=== PATIENT | male | born 1960 | race Caucasian/White ===

== ENCOUNTER 2016-06-07 09:54 | Emergency (ER) | payer OTHER ==
[~2016-06-07 09:54] MED LIST: /MOXI40TA PO; ALBU0.084 IN; ALBU20IN INH; ALBUPOW25 INH; AUGM875T27 PO; CELE10TA PO; COMBIN INH; LEVO750T PO; NAPR500T2 PO; NEXI5GRA PO; NICO14PA EXT; NICO21PAT EXT; NICO7PA EXT; PERC7.5T12 PO
[2016-06-07] MEDS ORDERED: ALBUTEROL 90 MCG/ACT 8GM HFA INHALER As Ordered ONE (10:32)
[2016-06-07 10:57] LABS: BASO % 0.3 % (0.0-1.0); EOS # 0.1 K/mm3 (0.0-0.50); LARGE UNSTAINED CELL # 0.2 K/mm3 (0.0-0.4); LARGE UNSTAINED CELL % 2.1 % (0.0-4.0); LYMPH # 0.7 K/mm3 (1.5-4.5); LYMPH % 7.6 % (24.0-44.0); MEAN CORPUSCULAR HEMOGLOBIN 28.9 pg (27.0-33.0); MEAN CORPUSCULAR HGB CONC 34.1 g/dl (32.0-36.5); MEAN CORPUSCULAR VOLUME 84.6 fl (80.0-96.0); MONO # 0.7 K/mm3 (0.0-0.8); MONO % 7.5 % (0.0-5.0); NEUTROPHILS # 7.4 K/mm3 (1.8-7.7); NEUTROPHILS % 81.5 % (36.0-66.0); PLATELET COUNT, AUTOMATED 306 k/mm3 (150-450); RED CELL DISTRIBUTION WIDTH 13.8 % (11.5-14.5)
--- NOTE | 2016-06-07 11:47 | REP ---
Clinical: Cough. Technique: PA and lateral. Comparison: 03/01/2016. Findings: Pleuroparenchymal changes involving predominately the left upper lobe and, right perihilar region and right lung base are essentially unchanged. No new acute consolidation, effusion, or pneumothorax appreciated. Cardiac silhouette is stable and within normal limits. Skeletal structures are intact. Impression: Stable chronic pleuroparenchymal changes noted bilaterally. No obvious acute cardiopulmonary process identified. Signed by Patric Geller MD 06/07/2016 11:38 A
--- NOTE | 2016-06-07 12:38 | EDDOCDS ---
Nurse's Notes [facility] Name: Tomás Doshi Age: 55 yrs Sex: Male : 1960 Arrival Date: 06/07/2016 Time: 09:54 Bed I6 / 28 Private MD: Josué Baker Diagnosis: Chronic obstructive pulmonary disease with (acute) exacerbation Presentation: 06/07 10:02 Presenting complaint: Patient states: sent here by PCP due to feeling that pt may have dy pneumonia and he may be dehydrated. production cough with white sputum production. Adult Sepsis Screening: The patient does not have new or worsening altered mentation. Patient's respiratory rate is less than 22. Systolic blood pressure is greater than 100. Patient has a qSOFA score of 0- Negative Sepsis Screen. Suicide/Homicide risk assessment- the patient denies having any suicidal and/or homicidal ideations and does not present with any other emotional, behavioral or mental health complaints. Status: Patient is not a donor services manager or dependent. Transition of care: patient was not received from another setting of care. 10:02 Acuity: GENESIS Level 3 dy 10:02 Method Of Arrival: Walkin/Carried/Asstd dy Triage Assessment: 10:04 General: Appears in no apparent distress. Pain: Location: back. HIV screening NA for dy this visit Offered previously. Respiratory: Onset: The symptoms/episode began/occurred gradually. Historical: - Allergies: No known drug Allergies; - Home Meds: 1. oxycodone 30 mg Oral tab 1 tab three times a day (Last dose: 06/07/2016 09:00) - PMHx: GERD; lung cancer; Chronic Back pain; - PSHx: lung surgery; belly button cyst removal; - Social history: Smoking status: Patient uses tobacco products, heavy tobacco smoker. No barriers to communication noted, The patient speaks fluent Kyrgyz, Speaks appropriately for age. - Family history: Not pertinent. - : The pt / caregiver states he / she is not on anticoagulants. Home medication list is obtained from the patient. - Exposure Risk Screening:: None identified. Screenin:34 Screening information is obtained from the patient. Fall risk: No risks identified. ck1 Assistance ADL's: requires no assistance with activities of daily living. Abuse/DV Screen: The patient / caregiver reports he/she is: not in a situation that causes fear, pain or injury. Nutritional screening: No deficits noted. Advance Directives: Currently, there is no health care proxy. home support is adequate. Assessment: 10:34 General: Appears in no apparent distress, comfortable, Behavior is appropriate for age, ck1 cooperative. Pain: Location: head Pain currently is 6 out of 10 on a pain scale. Quality of pain is described as aching. Cardiovascular: Chest pain is denied. Respiratory: Airway is patent Respiratory effort is even, unlabored, Respiratory pattern is regular, symmetrical, Breath sounds with wheezes bilaterally. GI: No deficits noted. Derm: Skin is intact, Skin is pink, warm & dry. 11:34 Reassessment: Patient appears in no apparent distress at this time. ck1 12:36 General: Appears in no apparent distress, comfortable, Behavior is appropriate for age, ck1 cooperative. Pain: Location: head Pain currently is 7 out of 10 on a pain scale. Neurological: Level of Consciousness is awake, alert, obeys commands, Oriented to person, place, time. Cardiovascular: Chest pain is denied. Respiratory: Respiratory effort is unlabored, Respiratory pattern is regular, symmetrical. GI: No deficits noted. Derm: Skin is intact, Skin is pink, warm & dry. Musculoskeletal: No deficits noted. Vital Signs: 09:56 BP 110 / 75; Pulse 123; Resp 18; Temp 96.9; Pulse Ox 98% ; Weight 49.9 kg; Height 5 ft. cmb 6 in. (167.64 cm); Pain 6/10; 12:27 BP 105 / 70 LA Sitting (auto/reg); Pulse 123; Resp 18; Temp 97.8(O); Pulse Ox 96% on jrd R/A; Pain 7/10; 09:56 Body Mass Index 17.75 (49.90 kg, 167.64 cm) cmb Vitals: 09:56 Log In Time: June 07, 2016 at 09:55. cmb ED Course: 09:55 Patient visited by Vidya Sanchez. cmb 09:55 Josué Baker PA is Private Physician. cmb 09:55 Patient moved to Waiting cmb 09:57 Patient moved to Pre RCE cmb 10:04 Triage Initiated dy 10:05 Patient moved to Triage 2 dy 10:25 [facility]. cc10 10:25 Almas Ferreira MD is Attending Physician. cc10 10:25 Patient visited by Ge Gonzalez PA-C. cc10 10:25 Patient visited by Ge Gonzalez PA-C. cc10 10:29 Patient moved to I6 mlb1 10:34 The patient / caregiver is instructed regarding the plan of care and ED course. ck1 10:35 No IV's were initiated during this patient's visit. ck1 10:46 Patient visited by Lilli Kong RN. ck1 10:46 Lactic Acid (Hitchcock tube on ice) Sent. ck1 10:46 BMP Sent. ck1 10:46 CBC with Diff Sent. ck1 11:27 [facility] Payment Agreement was scanned into [employer] and attached to record. mm15 11:28 Patient visited by Lilli Kong RN. ck1 12:00 Patient visited by Lilli Kong RN. ck1 12:19 Chest, 2 View (pa\E\lat) Returned. EDMS 12:24 Josué Baker PA is Referral Physician. cc10 12:28 Patient visited by Cholo Duran PCA. jrd 12:36 No procedures done that require assistance. ck1 Administered Medications: 10:50 Drug: Ventolin 2 puffs [Ventolin HFA 90 mcg/actuation aerosol inhaler (2 puffs)] Route: sd7 Inhalation; RT: 10:50 Initial MDI Given. Patient was instructed and evaluated on procedure Patient tolerated sd7 procedure well without adverse effect Spacer used Number of puffs given: 2. Order Results: Lab Order: CBC with Diff; SPEC'M 06/07/16 10:44 Test: WHITE BLOOD COUNT; Value: 9.0; Range: 4.0-10.0; Units: K/mm3; Status: F Test: RED BLOOD COUNT; Value: 5.66; Range: 4.30-6.10; Units: M/mm3; Status: F Test: HEMOGLOBIN; Value: 16.3; Range: 14.0-18.0; Units: g/dl; Status: F Test: HEMATOCRIT; Value: 47.9; Range: 42.0-52.0; Units: %; Status: F Test: MEAN CORPUSCULAR VOLUME; Value: 84.6; Range: 80.0-96.0; Units: fl; Status: F Test: MEAN CORPUSCULAR HEMOGLOBIN; Value: 28.9; Range: 27.0-33.0; Units: pg; Status: F Test: MEAN CORPUSCULAR HGB CONC; Value: 34.1; Range: 32.0-36.5; Units: g/dl; Status: F Test: RED CELL DISTRIBUTION WIDTH; Value: 13.8; Range: 11.5-14.5; Units: %; Status: F Test: PLATELET COUNT, AUTOMATED; Value: 306; Range: 150-450; Units: k/mm3; Status: F Test: NEUTROPHILS %; Value: 81.5; Range: 36.0-66.0; Abnormal: Above high normal; Units: %; Status: F Test: LYMPH %; Value: 7.6; Range: 24.0-44.0; Abnormal: Below low normal; Units: %; Status: F Test: MONO %; Value: 7.5; Range: 0.0-5.0; Abnormal: Above high normal; Units: %; Status: F Test: EOS %; Value: 1.0; Range: 0.0-3.0; Units: %; Status: F Test: BASO %; Value: 0.3; Range: 0.0-1.0; Units: %; Status: F Test: LARGE UNSTAINED CELL %; Value: 2.1; Range: 0.0-4.0; Units: %; Status: F Test: NEUTROPHILS #; Value: 7.4; Range: 1.8-7.7; Units: K/mm3; Status: F Test: LYMPH #; Value: 0.7; Range: 1.5-4.5; Abnormal: Below low normal; Units: K/mm3; Status: F Test: MONO #; Value: 0.7; Range: 0.0-0.8; Units: K/mm3; Status: F Test: EOS #; Value: 0.1; Range: 0.0-0.50; Units: K/mm3; Status: F Test: BASO #; Value: 0.0; Range: 0.0-0.2; Units: K/mm3; Status: F Test: LARGE UNSTAINED CELL #; Value: 0.2; Range: 0.0-0.4; Units: K/mm3; Status: F Lab Order: Lactic Acid (Hitchcock tube on ice); SPEC'M 06/07/16 10:44 Test: LACTIC ACID LEVEL, LACTATE; Value: 1.8; Range: 0.4-2.0; Units: MMOL/L; Status: F Radiology Order: Chest, 2 View (pa\E\lat) Test: Chest, 2 View (pa\E\lat) REASON FOR EXAMINATION: Cough; Clinical: Cough.; ; Technique: PA and lateral.; ; Comparison: 03/01/2016.; ; Findings:; Pleuroparenchymal changes involving predominately the left upper lobe and, right; perihilar region and right lung base are essentially unchanged. No new acute; consolidation, effusion, or pneumothorax appreciated. Cardiac silhouette is; stable and within normal limits. Skeletal structures are intact.; ; Impression:; Stable chronic pleuroparenchymal changes noted bilaterally.; No obvious acute cardiopulmonary process identified.; ; ; Signed by; Patric Geller MD 06/07/2016 11:38 A; Outcome: 12:24 Discharge ordered by Provider. cc10 12:35 Discharge Assessment: Patient awake, alert and oriented x 3. No cognitive and/or ck1 functional deficits noted. Patient verbalized understanding of disposition instructions. patient administered narcotics - no. The following High Risk Discharge criteria are identified: None. Discharged to home ambulatory. Condition: stable. Discharge instructions given to patient, Instructed on discharge instructions, follow up and referral plans. medication usage, Demonstrated understanding of instructions, medications, Pt was receptive of discharge instructions/ teaching. Prescriptions given X 3. No special radiology studies were completed. Property :Personal belongings accompany Pt. 12:37 Patient left the ED. ck1 Signatures: Dispatcher [employer] EDWilliam Cast, RN Barber Bucther RN RN mlb1 Lilli Kong RN RN ck1 Vidya Sanchez Marlynn mm15 Ge Gonzalez, PA-C PA-C cc10 Kiara Lopez,RT RT sd7 Cholo Duran, MALIKA HELIOTHERAPIST jrd MTDD
--- NOTE | 2016-06-07 12:38 | EDDOCDS ---
Physician Documentation [facility] Name: Tomás Doshi Age: 55 yrs Sex: Male : 1960 Arrival Date: 06/07/2016 Time: 09:54 Bed I6 / 28 Private MD: Josué Baker Disposition: 06/07/16 12:24 Discharged to Home/Self Care. Impression: Chronic obstructive pulmonary disease with (acute) exacerbation. - Condition is Stable. - Discharge Instructions: Chronic Obstructive Pulmonary Disease. - Prescriptions for Prednisone 20 mg Oral Tablet - take 2 tablet by ORAL route once daily for 5 days; 10 tablet. Zithromax Z- Uche 250 mg Oral Tablet - take 2 tablet by ORAL route once daily for 3 days; 6 tablet. Albuterol Sulfate 90 mcg/actuation Inhalation HFA Aerosol Inhaler - inhale 2 puff by INHALATION route every 4 hours As needed; 1 Inhaler. - Medication Reconciliation, Local Pharmacy Hours form. - Follow up: Emergency Department; When: As needed; Reason: Worsening of conditions. Follow up: Josué Baker PA; When: Call to arrange an appointment; Reason: Wound/Symptom Recheck, Recheck today's complaints, Worsening of conditions, Continuance of care. - Problem is an ongoing problem. - Symptoms have improved. Historical: - Allergies: No known drug Allergies; - Home Meds: 1. oxycodone 30 mg Oral tab 1 tab three times a day (Last dose: 06/07/2016 09:00) - PMHx: GERD; lung cancer; Chronic Back pain; - PSHx: lung surgery; belly button cyst removal; - Social history: Smoking status: Patient uses tobacco products, heavy tobacco smoker. No barriers to communication noted, The patient speaks fluent [place], Speaks appropriately for age. - Family history: Not pertinent. - : The pt / caregiver states he / she is not on anticoagulants. Home medication list is obtained from the patient. - Exposure Risk Screening:: None identified. Vital Signs: 06/07 09:56 BP 110 / 75; Pulse 123; Resp 18; Temp 96.9; Pulse Ox 98% ; Weight 49.9 kg / 110.01 lbs; cmb Height 5 ft. 6 in. (167.64 cm); Pain 6/10; 12:27 BP 105 / 70 LA Sitting (auto/reg); Pulse 123; Resp 18; Temp 97.8(O); Pulse Ox 96% on jrd R/A; Pain 12/04; 09:56 Body Mass Index 17.75 (49.90 kg, 167.64 cm) cmb MDM: 10:31 Call Respiratory ordered. cc10 10:31 MDI teaching with Spacer ordered. cc10 10:31 Ventolin Inhaler 2 puffs Inhalation once ordered. cc10 10:31 Call Respiratory complete. ck1 10:32 Chest, 2 View (pa\E\lat) Ordered. EDMS 10:37 CBC with Diff Ordered. EDMS 10:37 BMP Ordered. EDMS 10:37 Lactic Acid (Hitchcock tube on ice) Ordered. EDMS 11:15 Financial registration complete. mm15 11:27 [facility] Payment Agreement was scanned into [employer] and attached to record. mm15 11:57 CBC with Diff Reviewed. cc10 11:57 Lactic Acid (Hitchcock tube on ice) Reviewed. cc10 12:21 Chest, 2 View (pa\E\lat) Reviewed. cc10 Administered Medications: 10:50 Drug: Ventolin 2 puffs [Ventolin HFA 90 mcg/actuation aerosol inhaler (2 puffs)] Route: sd7 Inhalation; Signatures: Dispatcher [employer] EDWilliam Cast, RN RN Lilli BanegasRN RN ck1 Gadiel Santizo mm15 Ge Gonzalez PA-C PA-C cc10 Kiara Lopez RT sd7 The chart was reviewed and I authenticate all verbal orders and agree with the evaluation and treatment provided.Attachments: 11:27 [facility] Payment Agreement mm15 MTDD
[2016-06-07 12:39] LABS: ANION GAP 8 MEQ/L (8-16); BLOOD UREA NITROGEN 10 MG/DL (7-18); CALCIUM LEVEL 9.2 MG/DL (8.5-10.1); CARBON DIOXIDE LEVEL 30 MEQ/L (21-32); CHLORIDE LEVEL 99 MEQ/L (98-107); CREATININE FOR GFR 0.89 MG/DL (0.70-1.30); GLOMERULAR FILTRATION RATE > 60.0 (>56); GLUCOSE, FASTING 107 MG/DL (70-105); POTASSIUM SERUM 4.2 MEQ/L (3.5-5.1); SODIUM LEVEL 137 MEQ/L (136-145)
--- NOTE | 2016-06-09 13:38 | EDDOCDS ---
Nurse's Notes [facility] Name: Tomás Doshi Age: 55 yrs Sex: Male : 1960 Arrival Date: 06/07/2016 Time: 09:54 Bed I6 / 28 Private MD: Josué Baker Diagnosis: Chronic obstructive pulmonary disease with (acute) exacerbation Presentation: 06/07 10:02 Presenting complaint: Patient states: sent here by PCP due to feeling that pt may have dy pneumonia and he may be dehydrated. production cough with white sputum production. Adult Sepsis Screening: The patient does not have new or worsening altered mentation. Patient's respiratory rate is less than 22. Systolic blood pressure is greater than 100. Patient has a qSOFA score of 0- Negative Sepsis Screen. Suicide/Homicide risk assessment- the patient denies having any suicidal and/or homicidal ideations and does not present with any other emotional, behavioral or mental health complaints. Status: Patient is not a environmental services aide or dependent. Transition of care: patient was not received from another setting of care. 10:02 Acuity: GENESIS Level 3 dy 10:02 Method Of Arrival: Walkin/Carried/Asstd dy Triage Assessment: 10:04 General: Appears in no apparent distress. Pain: Location: back. HIV screening NA for dy this visit Offered previously. Respiratory: Onset: The symptoms/episode began/occurred gradually. Historical: - Allergies: No known drug Allergies; - Home Meds: 1. oxycodone 30 mg Oral tab 1 tab three times a day (Last dose: 06/07/2016 09:00) - PMHx: GERD; lung cancer; Chronic Back pain; - PSHx: lung surgery; belly button cyst removal; - Social history: Smoking status: Patient uses tobacco products, heavy tobacco smoker. No barriers to communication noted, The patient speaks fluent Burkinan, Speaks appropriately for age. - Family history: Not pertinent. - : The pt / caregiver states he / she is not on anticoagulants. Home medication list is obtained from the patient. - Exposure Risk Screening:: None identified. Screenin:34 Screening information is obtained from the patient. Fall risk: No risks identified. ck1 Assistance ADL's: requires no assistance with activities of daily living. Abuse/DV Screen: The patient / caregiver reports he/she is: not in a situation that causes fear, pain or injury. Nutritional screening: No deficits noted. Advance Directives: Currently, there is no health care proxy. home support is adequate. Assessment: 10:34 General: Appears in no apparent distress, comfortable, Behavior is appropriate for age, ck1 cooperative. Pain: Location: head Pain currently is 6 out of 10 on a pain scale. Quality of pain is described as aching. Cardiovascular: Chest pain is denied. Respiratory: Airway is patent Respiratory effort is even, unlabored, Respiratory pattern is regular, symmetrical, Breath sounds with wheezes bilaterally. GI: No deficits noted. Derm: Skin is intact, Skin is pink, warm & dry. 11:34 Reassessment: Patient appears in no apparent distress at this time. ck1 12:36 General: Appears in no apparent distress, comfortable, Behavior is appropriate for age, ck1 cooperative. Pain: Location: head Pain currently is 7 out of 10 on a pain scale. Neurological: Level of Consciousness is awake, alert, obeys commands, Oriented to person, place, time. Cardiovascular: Chest pain is denied. Respiratory: Respiratory effort is unlabored, Respiratory pattern is regular, symmetrical. GI: No deficits noted. Derm: Skin is intact, Skin is pink, warm & dry. Musculoskeletal: No deficits noted. Vital Signs: 09:56 BP 110 / 75; Pulse 123; Resp 18; Temp 96.9; Pulse Ox 98% ; Weight 49.9 kg; Height 5 ft. cmb 6 in. (167.64 cm); Pain 6/10; 12:27 BP 105 / 70 LA Sitting (auto/reg); Pulse 123; Resp 18; Temp 97.8(O); Pulse Ox 96% on jrd R/A; Pain 7/10; 09:56 Body Mass Index 17.75 (49.90 kg, 167.64 cm) cmb Vitals: 09:56 Log In Time: June 07, 2016 at 09:55. cmb ED Course: 09:55 Patient visited by Vidya Sanchez. cmb 09:55 Josué Baker PA is Private Physician. cmb 09:55 Patient moved to Waiting cmb 09:57 Patient moved to Pre RCE cmb 10:04 Triage Initiated dy 10:05 Patient moved to Triage 2 dy 10:25 Ge Gonzalez PA-C [facility]. cc10 10:25 Almas Ferreira MD is Attending Physician. cc10 10:25 Patient visited by Ge Gonzalez PA-C. cc10 10:25 Patient visited by Ge Gonzalez PA-C. cc10 10:29 Patient moved to I6 / mlb1 10:34 The patient / caregiver is instructed regarding the plan of care and ED course. ck1 10:35 No IV's were initiated during this patient's visit. ck1 10:46 Patient visited by Lilli Kong RN. ck1 10:46 Lactic Acid (Hitchcock tube on ice) Sent. ck1 10:46 BMP Sent. ck1 10:46 CBC with Diff Sent. ck1 11:27 [facility] Payment Agreement was scanned into [employer] and attached to record. mm15 11:28 Patient visited by Lilli Kong RN. ck1 12:00 Patient visited by Lilli Kong RN. ck1 12:19 Chest, 2 View (pa\E\lat) Returned. EDMS 12:24 Josué Baker PA is Referral Physician. cc10 12:28 Patient visited by Cholo Duran PCA. jrd 12:36 No procedures done that require assistance. ck1 15:23 T-Sheet-- Draft Copy was scanned into [employer] and attached to record. gb Administered Medications: 10:50 Drug: Ventolin 2 puffs [Ventolin HFA 90 mcg/actuation aerosol inhaler (2 puffs)] Route: sd7 Inhalation; RT: 10:50 Initial MDI Given. Patient was instructed and evaluated on procedure Patient tolerated sd7 procedure well without adverse effect Spacer used Number of puffs given: 2. Order Results: Lab Order: CBC with Diff; SPEC'M 06/07/16 10:44 Test: WHITE BLOOD COUNT; Value: 9.0; Range: 4.0-10.0; Units: K/mm3; Status: F Test: RED BLOOD COUNT; Value: 5.66; Range: 4.30-6.10; Units: M/mm3; Status: F Test: HEMOGLOBIN; Value: 16.3; Range: 14.0-18.0; Units: g/dl; Status: F Test: HEMATOCRIT; Value: 47.9; Range: 42.0-52.0; Units: %; Status: F Test: MEAN CORPUSCULAR VOLUME; Value: 84.6; Range: 80.0-96.0; Units: fl; Status: F Test: MEAN CORPUSCULAR HEMOGLOBIN; Value: 28.9; Range: 27.0-33.0; Units: pg; Status: F Test: MEAN CORPUSCULAR HGB CONC; Value: 34.1; Range: 32.0-36.5; Units: g/dl; Status: F Test: RED CELL DISTRIBUTION WIDTH; Value: 13.8; Range: 11.5-14.5; Units: %; Status: F Test: PLATELET COUNT, AUTOMATED; Value: 306; Range: 150-450; Units: k/mm3; Status: F Test: NEUTROPHILS %; Value: 81.5; Range: 36.0-66.0; Abnormal: Above high normal; Units: %; Status: F Test: LYMPH %; Value: 7.6; Range: 24.0-44.0; Abnormal: Below low normal; Units: %; Status: F Test: MONO %; Value: 7.5; Range: 0.0-5.0; Abnormal: Above high normal; Units: %; Status: F Test: EOS %; Value: 1.0; Range: 0.0-3.0; Units: %; Status: F Test: BASO %; Value: 0.3; Range: 0.0-1.0; Units: %; Status: F Test: LARGE UNSTAINED CELL %; Value: 2.1; Range: 0.0-4.0; Units: %; Status: F Test: NEUTROPHILS #; Value: 7.4; Range: 1.8-7.7; Units: K/mm3; Status: F Test: LYMPH #; Value: 0.7; Range: 1.5-4.5; Abnormal: Below low normal; Units: K/mm3; Status: F Test: MONO #; Value: 0.7; Range: 0.0-0.8; Units: K/mm3; Status: F Test: EOS #; Value: 0.1; Range: 0.0-0.50; Units: K/mm3; Status: F Test: BASO #; Value: 0.0; Range: 0.0-0.2; Units: K/mm3; Status: F Test: LARGE UNSTAINED CELL #; Value: 0.2; Range: 0.0-0.4; Units: K/mm3; Status: F Lab Order: BMP; SPEC'M 06/07/16 10:44 Test: GLUCOSE, FASTING; Value: 107; Range: 70-105; Abnormal: Above high normal; Units: MG/DL; Status: F Test: BLOOD UREA NITROGEN; Value: 10; Range: 7-18; Units: MG/DL; Status: F Test: CREATININE FOR GFR; Value: 0.89; Range: 0.70-1.30; Units: MG/DL; Status: F Test: GLOMERULAR FILTRATION RATE; Value: > 60.0; Range: >56; Status: F Test: SODIUM LEVEL; Value: 137; Range: 136-145; Units: MEQ/L; Status: F Test: POTASSIUM SERUM; Value: 4.2; Range: 3.5-5.1; Units: MEQ/L; Status: F Test: CHLORIDE LEVEL; Value: 99; Range: 98-107; Units: MEQ/L; Status: F Test: CARBON DIOXIDE LEVEL; Value: 30; Range: 21-32; Units: MEQ/L; Status: F Test: ANION GAP; Value: 8; Range: 8-16; Units: MEQ/L; Status: F Test: CALCIUM LEVEL; Value: 9.2; Range: 8.5-10.1; Units: MG/DL; Status: F Test Note: ; Units are mL/min/1.73 m2 Chronic Kidney Disease Staging per NKF: Stage I & II GFR >=60 Normal to Mildly Decreased Stage III GFR 30-59 Moderately Decreased Stage IV GFR 15-29 Severely Decreased Stage V GFR <15 Very Little GFR Left ESRD GFR <15 on VIDEO PRODUCTION SPECIALIST Lab Order: Lactic Acid (Hitchcock tube on ice); SPEC'M 06/07/16 10:44 Test: LACTIC ACID LEVEL, LACTATE; Value: 1.8; Range: 0.4-2.0; Units: MMOL/L; Status: F Radiology Order: Chest, 2 View (pa\E\lat) Test: Chest, 2 View (pa\E\lat) REASON FOR EXAMINATION: Cough; Clinical: Cough.; ; Technique: PA and lateral.; ; Comparison: 03/01/2016.; ; Findings:; Pleuroparenchymal changes involving predominately the left upper lobe and, right; perihilar region and right lung base are essentially unchanged. No new acute; consolidation, effusion, or pneumothorax appreciated. Cardiac silhouette is; stable and within normal limits. Skeletal structures are intact.; ; Impression:; Stable chronic pleuroparenchymal changes noted bilaterally.; No obvious acute cardiopulmonary process identified.; ; ; Signed by; Patric Geller MD 06/07/2016 11:38 A; Outcome: 12:24 Discharge ordered by Provider. cc10 12:35 Discharge Assessment: Patient awake, alert and oriented x 3. No cognitive and/or ck1 functional deficits noted. Patient verbalized understanding of disposition instructions. patient administered narcotics - no. The following High Risk Discharge criteria are identified: None. Discharged to home ambulatory. Condition: stable. Discharge instructions given to patient, Instructed on discharge instructions, follow up and referral plans. medication usage, Demonstrated understanding of instructions, medications, Pt was receptive of discharge instructions/ teaching. Prescriptions given X 3. No special radiology studies were completed. Property :Personal belongings accompany Pt. 12:37 Patient left the ED. ck1 Signatures: Dispatcher [employer] EDMS Annita Humphrey, Reg Reg William Siu, RN Barber Butcher RN RN mlb1 Lilli Kong RN RN ck1 Vidya Sanchez cmGadiel Frazier mm15 Ge Gonzalez, PA-C PA-C cc10 Kiara Lopez,RT RT sd7 Cholo Duran, MALIKA AUXILIARY EQUIPMENT OPERATOR jrd Chart Complete MTDD
--- NOTE | 2016-06-09 13:38 | EDDOCDS ---
Physician Documentation [facility] Name: Tomás Doshi Age: 55 yrs Sex: Male : 1960 Arrival Date: 06/07/2016 Time: 09:54 Bed I6 / 28 Private MD: Josué Baker Disposition: 06/07/16 12:24 Discharged to Home/Self Care. Impression: Chronic obstructive pulmonary disease with (acute) exacerbation. - Condition is Stable. - Discharge Instructions: Chronic Obstructive Pulmonary Disease. - Prescriptions for Prednisone 20 mg Oral Tablet - take 2 tablet by ORAL route once daily for 5 days; 10 tablet. Zithromax Z- Uche 250 mg Oral Tablet - take 2 tablet by ORAL route once daily for 3 days; 6 tablet. Albuterol Sulfate 90 mcg/actuation Inhalation HFA Aerosol Inhaler - inhale 2 puff by INHALATION route every 4 hours As needed; 1 Inhaler. - Medication Reconciliation, Local Pharmacy Hours form. - Follow up: Emergency Department; When: As needed; Reason: Worsening of conditions. Follow up: Josué Baker PA; When: Call to arrange an appointment; Reason: Wound/Symptom Recheck, Recheck today's complaints, Worsening of conditions, Continuance of care. - Problem is an ongoing problem. - Symptoms have improved. Historical: - Allergies: No known drug Allergies; - Home Meds: 1. oxycodone 30 mg Oral tab 1 tab three times a day (Last dose: 06/07/2016 09:00) - PMHx: GERD; lung cancer; Chronic Back pain; - PSHx: lung surgery; belly button cyst removal; - Social history: Smoking status: Patient uses tobacco products, heavy tobacco smoker. No barriers to communication noted, The patient speaks fluent Bangladeshi, Speaks appropriately for age. - Family history: Not pertinent. - : The pt / caregiver states he / she is not on anticoagulants. Home medication list is obtained from the patient. - Exposure Risk Screening:: None identified. Vital Signs: 06/07 09:56 BP 110 / 75; Pulse 123; Resp 18; Temp 96.9; Pulse Ox 98% ; Weight 49.9 kg / 110.01 lbs; cmb Height 5 ft. 6 in. (167.64 cm); Pain 6/10; 12:27 BP 105 / 70 LA Sitting (auto/reg); Pulse 123; Resp 18; Temp 97.8(O); Pulse Ox 96% on jrd R/A; Pain 12/04; 09:56 Body Mass Index 17.75 (49.90 kg, 167.64 cm) cmb MDM: 10:31 Call Respiratory ordered. cc10 10:31 MDI teaching with Spacer ordered. cc10 10:31 Ventolin Inhaler 2 puffs Inhalation once ordered. cc10 10:31 Call Respiratory complete. ck1 10:32 Chest, 2 View (pa\E\lat) Ordered. EDMS 10:37 CBC with Diff Ordered. EDMS 10:37 BMP Ordered. EDMS 10:37 Lactic Acid (Hitchcock tube on ice) Ordered. EDMS 11:15 Financial registration complete. mm15 11:27 [facility] Payment Agreement was scanned into [employer] and attached to record. mm15 11:57 CBC with Diff Reviewed. cc10 11:57 Lactic Acid (Hitchcock tube on ice) Reviewed. cc10 12:21 Chest, 2 View (pa\E\lat) Reviewed. cc10 15:23 T-Sheet-- Draft Copy was scanned into [employer] and attached to record. gb Administered Medications: 10:50 Drug: Ventolin 2 puffs [Ventolin HFA 90 mcg/actuation aerosol inhaler (2 puffs)] Route: sd7 Inhalation; Signatures: Dispatcher Med[employer] EDMS Annita Humphrey, Reg Reg gb William Hoskins, RN RN dy Lilli Kong RN RN ck1 Gadiel Santizo mm15 Ge Gonzalez PA-C PA-C cc10 Kiara Lopez RT sd7 The chart was reviewed and I authenticate all verbal orders and agree with the evaluation and treatment provided.Attachments: 11:27 [facility] Payment Agreement mm15 15:23 T-Sheet-- Draft Copy gb Chart Complete MTDD
--- NOTE | 2016-06-09 13:38 | EDDOCDS ---
Physician Documentation [facility] Name: Tomás Doshi Age: 55 yrs Sex: Male : 1960 Arrival Date: 06/07/2016 Time: 09:54 Bed I6 / 28 Private MD: Josué Baker Disposition: 06/07/16 12:24 Discharged to Home/Self Care. Impression: Chronic obstructive pulmonary disease with (acute) exacerbation. - Condition is Stable. - Discharge Instructions: Chronic Obstructive Pulmonary Disease. - Prescriptions for Prednisone 20 mg Oral Tablet - take 2 tablet by ORAL route once daily for 5 days; 10 tablet. Zithromax Z- Uche 250 mg Oral Tablet - take 2 tablet by ORAL route once daily for 3 days; 6 tablet. Albuterol Sulfate 90 mcg/actuation Inhalation HFA Aerosol Inhaler - inhale 2 puff by INHALATION route every 4 hours As needed; 1 Inhaler. - Medication Reconciliation, Local Pharmacy Hours form. - Follow up: Emergency Department; When: As needed; Reason: Worsening of conditions. Follow up: Josué Bakre PA; When: Call to arrange an appointment; Reason: Wound/Symptom Recheck, Recheck today's complaints, Worsening of conditions, Continuance of care. - Problem is an ongoing problem. - Symptoms have improved. Historical: - Allergies: No known drug Allergies; - Home Meds: 1. oxycodone 30 mg Oral tab 1 tab three times a day (Last dose: 06/07/2016 09:00) - PMHx: GERD; lung cancer; Chronic Back pain; - PSHx: lung surgery; belly button cyst removal; - Social history: Smoking status: Patient uses tobacco products, heavy tobacco smoker. No barriers to communication noted, The patient speaks fluent Omani, Speaks appropriately for age. - Family history: Not pertinent. - : The pt / caregiver states he / she is not on anticoagulants. Home medication list is obtained from the patient. - Exposure Risk Screening:: None identified. Vital Signs: 06/07 09:56 BP 110 / 75; Pulse 123; Resp 18; Temp 96.9; Pulse Ox 98% ; Weight 49.9 kg / 110.01 lbs; cmb Height 5 ft. 6 in. (167.64 cm); Pain 6/10; 12:27 BP 105 / 70 LA Sitting (auto/reg); Pulse 123; Resp 18; Temp 97.8(O); Pulse Ox 96% on jrd R/A; Pain 12/04; 09:56 Body Mass Index 17.75 (49.90 kg, 167.64 cm) cmb MDM: 10:31 Call Respiratory ordered. cc10 10:31 MDI teaching with Spacer ordered. cc10 10:31 Ventolin Inhaler 2 puffs Inhalation once ordered. cc10 10:31 Call Respiratory complete. ck1 10:32 Chest, 2 View (pa\E\lat) Ordered. EDMS 10:37 CBC with Diff Ordered. EDMS 10:37 BMP Ordered. EDMS 10:37 Lactic Acid (Hitchcock tube on ice) Ordered. EDMS 11:15 Financial registration complete. mm15 11:27 [facility] Payment Agreement was scanned into [employer] and attached to record. mm15 11:57 CBC with Diff Reviewed. cc10 11:57 Lactic Acid (Hitchcock tube on ice) Reviewed. cc10 12:21 Chest, 2 View (pa\E\lat) Reviewed. cc10 15:23 T-Sheet-- Draft Copy was scanned into [employer] and attached to record. gb Administered Medications: 10:50 Drug: Ventolin 2 puffs [Ventolin HFA 90 mcg/actuation aerosol inhaler (2 puffs)] Route: sd7 Inhalation; Signatures: Dispatcher Med[employer] EDMS Annita Humphrey, Reg Reg gb William Hoskins, RN RN dy Lilli Kong RN RN ck1 Gadiel Santizo mm15 Ge Gonzalez PA-C PA-C cc10 Kiara Lopez RT sd7 The chart was reviewed and I authenticate all verbal orders and agree with the evaluation and treatment provided.Attachments: 11:27 [facility] Payment Agreement mm15 15:23 T-Sheet-- Draft Copy gb Chart Complete MTDD
== END 2016-06-07 12:37 | disposition home or self-care (01) ==
LOC: M ED 09:54
DX: J44.1 Chronic obstructive pulmonary disease with (acute) exacerbation (principal); G89.29 Other chronic pain; M54.9 Dorsalgia, unspecified; Z85.118 Personal history of other malignant neoplasm of bronchus and lung; Z72.0 Tobacco use; Z79.899 Other long term (current) drug therapy

== ENCOUNTER → 2016-07-26 | Outpatient (CLI) | payer OTHER ==
--- NOTE | 2016-07-28 12:59 | RADONC ---
RADIATION ONCOLOGY FOLLOWUP NOTE DATE: 07/26/2016 CHART NUMBER: [id number] DIAGNOSIS: Lung cancer. STAGE: IIIB. ECOG PERFORMANCE STATUS: 1 FOLLOWUP NOTE: Mr. 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 The patient presents today reporting that generally he is doing quite well. He still has occasional blood-tinged sputum. Other than that he has no cough or pain. He is having no increased shortness of breath. REVIEW OF SYSTEMS: Patient's review of systems is positive for occasional hemoptysis but is otherwise noncontributory. Denies nausea, vomiting, fevers, chills, night sweats, diplopia, headaches, anxiety or depression, anorexia, weight loss, visual disturbances, chest pain, urinary or bowel difficulties, bone pain, or neurological problems. PHYSICAL EXAMINATION The patient is a cachectic, chronically ill-appearing white male in no acute distress. HEENT: Exam is normocephalic, atraumatic. Extraocular movements are intact. There is no palpable cervical, supraclavicular, infraclavicular, axillary or inguinal lymphadenopathy present. His lungs are clear to auscultation and percussion but have distant breath sounds bilaterally. His heart has a regular rate and rhythm. His abdomen is benign with no hepatosplenomegaly, masses or tenderness. Skeletal examination reveals no tenderness to pressure, percussion of the bony skeleton. Extremities reveal no clubbing, cyanosis or edema. Neurologic: TMs grossly intact as is the remainder of the physical examination. ASSESSMENT: The patient is clinically stable at this point and will be seen by me again in 6 months for further followup. He will also continue to be followed by his other physicians as well. cc: MD Tomás Huang MD A. Melynne Youngblood, MD *WILLIS Carver
== END ==
LOC: M ONCR 11:33
PROVIDERS: ATTEND Radiology Radiation Oncology
DX: C34.12 Malignant neoplasm of upper lobe, left bronchus or lung (principal)

== ENCOUNTER → 2016-08-31 | Emergency (ER) | payer OTHER ==
[~2016-08-31] MED LIST changes: +ALBU17IN; +LYRI100C10; +OXYC30TA84; +TRAZ50TA4
== END | disposition left against medical advice (07) ==
LOC: M ED 08:44
DX: R05 Cough (principal); Z79.899 Other long term (current) drug therapy; Z53.29 Procedure and treatment not carried out because of patient's decision for other reasons

== ENCOUNTER 2016-09-02 21:19 | Emergency (ER) | payer OTHER ==
[~2016-09-02] VITALS: Ht 170.2 cm; Wt 50.3 kg
[2016-09-02 21:19] VITALS: BP 127/71
[~2016-09-02 21:19] MED LIST changes: -ALBU17IN; -LYRI100C10; -OXYC30TA84; -TRAZ50TA4
[2016-09-02] MEDS ORDERED: OXYC30TA84 (21:32)
[2016-09-02] MEDS ORDERED: TRAZ50TA4 (21:32)
[2016-09-02] MEDS ORDERED: ALBU17IN (21:32)
[2016-09-02] MEDS ORDERED: LYRI100C10 (21:32)
--- NOTE | 2016-09-03 | ED PDOC ---
Post-Departure Follow-Up Patient left prior to MD evaluation. SANTIAGO Dunne MD Sep 03, 2016 00:00
== END 2016-09-02 22:43 | disposition left against medical advice (07) ==
LOC: M ED 22:39
DX: R06.02 Shortness of breath (principal); Z53.29 Procedure and treatment not carried out because of patient's decision for other reasons

== ENCOUNTER 2016-09-03 18:23 | Emergency (ER) | payer OTHER ==
[~2016-09-03] VITALS: Ht 170.2 cm; Wt 50.3 kg
[~2016-09-03 18:23] MED LIST changes: +ALBU17IN; +LYRI100C10; +OXYC30TA84; +TRAZ50TA4
[2016-09-03 18:24] VITALS: BP 127/72
== END 2016-09-03 18:57 | disposition left against medical advice (07) ==
LOC: M ED 18:44
DX: Z53.21 Procedure and treatment not carried out due to patient leaving prior to being seen by health care provider (principal)

== ENCOUNTER → 2017-01-01 | Outpatient (CLI) | payer OTHER ==
[~2017-01-01] MED LIST changes: -LYRI100C10; +PREG100CA; +TRAZ50TA11; -TRAZ50TA4
[2017-01-01 11:06] LABS: ANION GAP 8 MEQ/L (8-16); BLOOD UREA NITROGEN 13 MG/DL (7-18); CALCIUM LEVEL 8.7 MG/DL (8.5-10.1); CARBON DIOXIDE LEVEL 28 MEQ/L (21-32); CHLORIDE LEVEL 105 MEQ/L (98-107); CREATININE FOR GFR 1.05 MG/DL (0.70-1.30); GLOMERULAR FILTRATION RATE > 60.0 (>56); GLUCOSE, FASTING 135 MG/DL (70-105); MAGNESIUM LEVEL 2.4 MG/DL (1.8-2.4); POTASSIUM SERUM 4.3 MEQ/L (3.5-5.1); SODIUM LEVEL 141 MEQ/L (136-145)
== END ==
LOC: M LAB 10:00
PROVIDERS: ATTEND Nurse Practitioner Family
DX: M79.606 Pain in leg, unspecified (principal)

== ENCOUNTER 2017-03-10 21:16 | Emergency (ER) | payer OTHER ==
[~2017-03-10] VITALS: Ht 170.2 cm; Wt 56.4 kg
[2017-03-10] MEDS ORDERED: traMADol 50 MG TAB PO ONE (23:45)
[2017-03-10] MEDS ORDERED: IBUPROFEN 600 MG TAB PO ONE (23:45)
[2017-03-10 23:54] VITALS: BP 144/81
--- NOTE | 2017-03-11 11:30 | REP ---
Right ankle series: Four views. History: Trauma. Findings: Four views of the right ankle demonstrate an intact ankle mortise. No fracture or subluxation is seen. Impression: Negative right ankle series. Signed by Mario Bronson MD 03/11/2017 09:38 A
== END 2017-03-10 23:57 | disposition home or self-care (01) ==
LOC: M ED 21:16
DX: S93.401A Sprain of unspecified ligament of right ankle, initial encounter (principal); W19.XXXA Unspecified fall, initial encounter; Y92.410 Unspecified street and highway as the place of occurrence of the external cause; Y93.9 Activity, unspecified; Y99.9 Unspecified external cause status; F17.200 Nicotine dependence, unspecified, uncomplicated; J44.9 Chronic obstructive pulmonary disease, unspecified; Z85.118 Personal history of other malignant neoplasm of bronchus and lung; K21.9 Gastro-esophageal reflux disease without esophagitis; M51.9 Unspecified thoracic, thoracolumbar and lumbosacral intervertebral disc disorder; F41.9 Anxiety disorder, unspecified; F32.9 Major depressive disorder, single episode, unspecified; Z79.899 Other long term (current) drug therapy

== ENCOUNTER 2017-04-26 14:04 | Emergency (ER) | payer OTHER ==
[~2017-04-26] VITALS: Ht 170.2 cm; Wt 54.5 kg
--- NOTE | 2017-04-26 15:29 | ED PDOC ---
Post-Departure Follow-Up PT PRESENTS TODAY AND STATES HE HAS NOT FELT WELL IN THE LAST 2 WEEKS WITH COUGH , LIGHTHEADED, BODY TINGLING. STATES HAS A HX OF LUNG CA AND HAD A RIGHT LOBECTOMY FOR THIS IN 2013 WITH CHEMO AND 30 RADIATION TREATMENTS. STATES HE HAS NOT FOLLOWED UP BECAUSE, "I DON'T WANT TO KNOW IF IT'S BACK." PT STATES TODAY, WHEN HE WOKE UP TODAY, STATES HE FELT SO SHORT OF BREATH AND WALKED INTO THE KITCHEN AND FELL TO HIS KNEES, BUT DOESN'T RECALL FALLING, PER PT. STATES HE HAS SCUFF MARCUS ON HIS KNEES AND HAD FECAL INCONTINENCE. DENIES TRUE SYNCOPE. WENT TO URGENT CARE FIRST AND WAS TOLD TO COME TO THE ER FOR EVALUATION. TERE MENDIOLA PA-C Apr 26, 2017 15:29
[2017-04-26] MEDS ORDERED: NS 1,000 ML IV ONE (15:30)
--- NOTE | 2017-04-26 15:41 | REP ---
CT Head without contrast HISTORY: Syncope COMPARISON: 03/11/2013 There is no intraparenchymal hemorrhage, acute infarct, mass or midline shift. The ventricular system is normal in appearance. There is no extra cerebral collection. There is no fracture. The visualized sinuses are clear. IMPRESSION: There is no intracranial lesion. Signed by Parish Kirk MD 04/26/2017 03:34 P
[2017-04-26 15:56] LABS: BASO # 0.1 10^3/uL (0.0-0.2); BASO % 0.9 % (0.0-1.0); EOS # 0.1 10^3/uL (0.0-0.50); EOS % 1.3 % (0.0-3.0); IMMATURE GRANULOCYTE % 0.1 % (0-0); LYMPH # 0.8 10^3/uL (1.5-4.5); LYMPH % 10.6 % (24.0-44.0); MEAN CORPUSCULAR HEMOGLOBIN 29.7 pg (27.0-33.0); MEAN CORPUSCULAR HGB CONC 33.4 g/dl (32.0-36.5); MEAN CORPUSCULAR VOLUME 88.8 fl (80.0-96.0); MONO # 0.6 10^3/uL (0.0-0.8); MONO % 8.1 % (0.0-5.0); PLATELET COUNT, AUTOMATED 334 10^3/uL (150-450); RED CELL DISTRIBUTION WIDTH 12.2 % (11.5-14.5); WHITE BLOOD COUNT 7.6 10^3/uL (4.0-10.0)
--- NOTE | 2017-04-26 16:05 | REP ---
CHEST, TWO VIEWS: HISTORY: Cough. COMPARISON: 06/07/2016 The lungs are hyperinflated. An increase in interstitial markings is present in the lungs consistent with chronic interstitial change. Increased density is present in the left upper and right lower lobe and right perihilar region consistent with postradiation change and scarring. There is superior retraction of the left hilum. The heart is normal in size. The bony structure is intact. IMPRESSION: 1. Chronic interstitial fibrosis. 2. There is postradiation change and scarring in the left upper and right lower lobes and right perihilar region. Signed by Parish Kirk MD 04/26/2017 04:35 P
[2017-04-26 16:21] LABS: ALBUMIN 3.7 GM/DL (3.2-5.2); ALKALINE PHOSPHATASE 134 U/L (45-117); ALT/SGPT 12 U/L (12-78); ANION GAP 4 MEQ/L (8-16); AST/SGOT 9 U/L (7-37); BILIRUBIN,TOTAL 0.7 MG/DL (0.2-1.0); BLOOD UREA NITROGEN 14 MG/DL (7-18); CARBON DIOXIDE LEVEL 32 MEQ/L (21-32); CHLORIDE LEVEL 103 MEQ/L (98-107); CREATININE FOR GFR 1.18 MG/DL (0.70-1.30); GLOMERULAR FILTRATION RATE > 60.0 (>56); GLUCOSE, FASTING 91 MG/DL (70-105); POTASSIUM SERUM 3.9 MEQ/L (3.5-5.1); SODIUM LEVEL 139 MEQ/L (136-145); TOTAL PROTEIN 7.8 GM/DL (6.4-8.2)
[2017-04-26] MEDS ORDERED: NYSTOI TOP (16:59)
[2017-04-26 17:00] VITALS: BP 107/72
--- NOTE | 2017-04-27 09:18 | ECGEPIP ---
Stationary ECG Study [facility] - ED Test Date: 2017-04-26 Pat Name: ALBERT LAINEZ Department: Room: - Gender: M C D Still Operator: [place] : 1960 Requested By: TERE Cox PA-C Order Number: [id number] Reading MD: Andrew Reynaga Measurements Intervals [place] Rate: 95 P: 93 CO: 158 QRS: 90 QRSD: 99 T: 89 QT: 353 QTc: 445 Interpretive Statements SINUS RHYTHM POSSIBLE LEFT ATRIAL ENLARGEMENT POOR R WAVE PROGRESSION SIMILAR TO 08/09/14 Electronically Signed On 04-27-2017 9:17:46 EST by Andrew Reynaga
== END 2017-04-26 17:11 | disposition home or self-care (01) ==
LOC: M ED 14:04
DX: B35.6 Tinea cruris (principal); R06.02 Shortness of breath; C34.90 Malignant neoplasm of unspecified part of unspecified bronchus or lung; F41.9 Anxiety disorder, unspecified; F32.9 Major depressive disorder, single episode, unspecified; F17.200 Nicotine dependence, unspecified, uncomplicated; Z79.899 Other long term (current) drug therapy

== ENCOUNTER → 2017-05-14 | Outpatient (CLI) | payer OTHER ==
[~2017-05-14] MED LIST changes: +ISOVUE-370 76% 100ML VIAL (Q9967) As Ordered ONE; +NYSTOI TOP
--- NOTE | 2017-05-15 02:44 | REP ---
Clinical: History of lung cancer for reevaluation and restaging. Technique: Axial contrast enhanced images from the thoracic inlet to the upper abdomen using 100 ml Isovue 370 intravenous contrast material with coronal and sagittal re-formations. Comparison: 05/24/2016. Findings: Extensive bilateral chronic-appearing pleural parenchymal changes and postradiation type changes (left greater than right) along with evidence for underlying COPD remain relatively stable when compared to prior examination. Irregular areas of consolidation most notable in the left upper lobe as well as post radiation type changes along the medial aspect of the right hemithorax are again identified and appear stable. A calcified granuloma in the left lower lobe apical segment is unchanged and measures approximately 10.7 mm diameter. No new, obvious acute consolidation, significant mass lesion or nodule is identified. No pleural effusion. No pneumothorax. Mediastinum demonstrates relatively normal appearance to the heart, thoracic aorta and pulmonary vasculature. No obvious adenopathy. Musculoskeletal structures appear intact without focal osseous abnormality. Impression: Extensive bilateral chronic-appearing pleural parenchymal changes and postradiation type changes including stable calcified granuloma in the left lower lobe apical segment. Signed by Patric Geller MD 05/14/2017 11:36 P
== END ==
LOC: M RAD 15:51
PROVIDERS: ATTEND Internal Medicine Medical Oncology
DX: C34.90 Malignant neoplasm of unspecified part of unspecified bronchus or lung (principal)
CPT/HCPCS: 71260; Q9967

== ENCOUNTER → 2017-05-16 | Outpatient (CLI) | payer OTHER ==
[~2017-05-16] MED LIST changes: -ISOVUE-370 76% 100ML VIAL (Q9967) As Ordered ONE
--- NOTE | 2017-05-22 07:19 | RADONC ---
RADIATION ONCOLOGY FOLLOWUP NOTE DATE: 05/16/2017 CHART NUMBER: [id number] DIAGNOSIS: Lung cancer. STAGE: III B. ECOG PERFORMANCE STATUS: 1. FOLLOWUP NOTE: Mr. 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 The patient presents today reporting that generally he is doing fairly well. He does complain of episodes of hemoptysis. He also complains of neck pain which radiates weakness down both arms. He reports that this has been worsening. In addition, he has some bilateral chest pain. The patient was seen by Dr. Petersen who ordered CT scan of the chest which was done on 05/14/2017. This showed extensive bilateral chronic-appearing pleural parenchymal changes and post radiation type changes which appeared stable. No new evidence of malignancy was seen. REVIEW OF SYSTEMS: The patient's review of systems is positive for the above, but is otherwise noncontributory. He denies nausea, vomiting, fevers, chills, night sweats, diplopia, headaches, anxiety or depression, anorexia, visual disturbances, urinary or bowel difficulties, or neurological problems other than the numbness running down his arms. PHYSICAL EXAMINATION: The patient is a chronically ill-appearing, cachectic white male in no acute distress. HEENT: Normocephalic, atraumatic. Extraocular movements are intact. There is no palpable cervical, supraclavicular, infraclavicular, axillary or inguinal lymphadenopathy present. His lungs have some rhonchi present bilaterally. Heart has a regular rate and rhythm. His abdomen is benign with no hepatosplenomegaly, masses or tenderness. Skeletal examination does not reveal any acute point tenderness to pressure or percussion. Neurologic exam is grossly intact to sensory and motor. The patient appears to be actually quite stable at this point. I am ordering a new bone scan to be undertaken to evaluate the bones in his neck for metastatic disease. I have also scheduled him to be seen by me again in routine followup in three months' time. The patient is scheduled to see Dr. Petersen in just a few days to discuss the findings of his CT scan as well as the workup she is undertaking on him. cc: Emeli Petersen MD, FACP ADRIENNE CarverP MD Vicenta Chapman MD
== END ==
LOC: M ONCR 14:24
PROVIDERS: ATTEND Radiology Radiation Oncology
DX: C34.12 Malignant neoplasm of upper lobe, left bronchus or lung (principal)

== ENCOUNTER → 2017-06-22 | Outpatient (CLI) | payer OTHER | LOC: M RAD 07:46 | DX: C34.90 Malignant neoplasm of unspecified part of unspecified bronchus or lung (principal); M54.2 Cervicalgia ==

== ENCOUNTER 2018-02-23 12:13 | Emergency (ER) | payer MEDICARE, MEDICAID, OTHER ==
[2018-02-23] MEDS: BACTRIM 160MG/800MG DS TAB PO (14:56)
[2018-02-23 15:04] LABS: HEMATOCRIT 47.4 % (42.0-52.0); HEMOGLOBIN 16.1 g/dl (13.5-17.5); MEAN CORPUSCULAR HEMOGLOBIN 32.4 pg (27.0-33.0); MEAN CORPUSCULAR VOLUME 95.4 fl (80.0-96.0); PLATELET COUNT, AUTOMATED 239 10^3/uL (150-450); RED BLOOD COUNT 4.97 10^6/uL (4.30-6.10); RED CELL DISTRIBUTION WIDTH 12.5 % (11.5-14.5); WHITE BLOOD COUNT 8.8 10^3/uL (4.0-10.0)
[2018-02-23 15:07] LABS: ADD MANUAL DIFFER YES; DIFF SLIDE NUMBER 141; POSITIVE MORPH POS FLAG
[2018-02-23 15:26] LABS: ANION GAP 8 MEQ/L (8-16); ATYPICAL LYMPH 5 % (0-5); BLOOD UREA NITROGEN 13 MG/DL (7-18); CALCIUM LEVEL 9.1 MG/DL (8.5-10.1); CARBON DIOXIDE LEVEL 27 MEQ/L (21-32); CHLORIDE LEVEL 105 MEQ/L (98-107); CREATININE FOR GFR 1.02 MG/DL (0.70-1.30); EOSINOPHILS 4 % (0-5); GLOMERULAR FILTRATION RATE > 60.0 (>56); GLUCOSE, FASTING 97 MG/DL (70-100); LYMPHOCYTES 3 % (16-52); MONOCYTES 9 % (0-8); NEUTROPHILS 79 % (35-75); POTASSIUM SERUM 4.6 MEQ/L (3.5-5.1); SODIUM LEVEL 140 MEQ/L (136-145)
[2018-02-23 15:27] LABS: PLATELET ESTIMATE NORMAL (NORMAL)
== END 2018-02-23 15:00 | disposition left against medical advice (07) ==
LOC: M ED 12:13
DX: L02.224 Furuncle of groin (principal); K21.9 Gastro-esophageal reflux disease without esophagitis; Z85.118 Personal history of other malignant neoplasm of bronchus and lung; Z53.21 Procedure and treatment not carried out due to patient leaving prior to being seen by health care provider; Z79.899 Other long term (current) drug therapy
CPT/HCPCS: 80048

== ENCOUNTER → 2018-10-04 | Outpatient (CLI) | payer MEDICARE, MEDICAID ==
[~2018-10-04] MED LIST changes: -/MOXI40TA PO; +AVEL1TAB2 PO; +BACT800T5 PO; +CEFD1CAP8 PO; +LYRI150C PO; +NICO14DI20 EXT; -NICO14PA EXT; +NICO21DI3 EXT; -NICO21PAT EXT; +NICO7DIS23 EXT; -NICO7PA EXT; +OMEP-221 PO; +PATIENT COMMENTS; +PRED10TA2 PO; +PREG100CA PO; +TIZA4TAB4 PO; +TRAZ-160 PO; -TRAZ50TA11; +VENTAER INH
[2018-10-04 10:26] LABS: BASO % 0.5 % (0.0-1.0); EOS # 0.1 10^3/uL (0.0-0.50); EOS % 0.8 % (0.0-3.0); HEMATOCRIT 42.1 % (42.0-52.0); HEMOGLOBIN 13.9 g/dl (13.5-17.5); LYMPH # 0.6 10^3/uL (1.5-4.5); LYMPH % 8.2 % (24.0-44.0); MEAN CORPUSCULAR VOLUME 90.7 fl (80.0-96.0); MONO # 0.5 10^3/uL (0.0-0.8); MONO % 6.8 % (0.0-5.0); NEUTROPHILS # 6.5 10^3/uL (1.8-7.7); NEUTROPHILS % 83.1 % (36.0-66.0); PLATELET COUNT, AUTOMATED 236 10^3/uL (150-450); RED BLOOD COUNT 4.64 10^6/uL (4.30-6.10); WHITE BLOOD COUNT 7.8 10^3/uL (4.0-10.0)
[2018-10-04 11:06] LABS: BLOOD UREA NITROGEN 11 MG/DL (7-18); CARBON DIOXIDE LEVEL 29 MEQ/L (21-32); CHLORIDE LEVEL 104 MEQ/L (98-107); GLOMERULAR FILTRATION RATE > 60.0 (>56); GLUCOSE, FASTING 119 MG/DL (70-100); IRON (FE) 52 UG/DL (65-175); POTASSIUM SERUM 3.6 MEQ/L (3.5-5.1); SODIUM LEVEL 139 MEQ/L (136-145); TOTAL 25(OH) VITAMIN D 17.9 NG/ML (30.0-100.0)
== END ==
LOC: M LAB 09:42
PROVIDERS: ATTEND Nurse Practitioner Family
DX: R53.83 Other fatigue (principal)

== ENCOUNTER 2018-10-19 06:39 | Observation (INO) | payer MEDICARE, MEDICAID ==
[~2018-10-19] VITALS: Ht 165.1 cm; Wt 45.3 kg
[~2018-10-19 06:39] MED LIST changes: -CEFD1CAP8 PO; -LYRI150C PO; -OMEP-221 PO; -PATIENT COMMENTS; -PRED10TA2 PO; -PREG100CA PO; -TIZA4TAB4 PO; -VENTAER INH
[2018-10-19] MEDS ORDERED: IPRATROPIUM 0.5MG/ALBUTEROL 2.5MG INH SOL UD 3ML (DUONEB)(J7620) As Ordered ONE (06:53)
[2018-10-19] MEDS ORDERED: LORazepam 2 MG/ML VIAL (J2060) IV STA ×2 (06:59→07:08)
[2018-10-19] MEDS ORDERED: methylPREDNISolone INJ 125 MG/2 ML VIAL (J2930) IV ONE (07:00)
[2018-10-19] MEDS ORDERED: IPRATROPIUM 0.5MG/ALBUTEROL 2.5MG INH SOL UD 3ML (DUONEB)(J7620) NEB ONE (07:00)
[2018-10-19] MEDS ORDERED: ALBUTEROL SULFATE 2.5 MG/0.5 ML INH NEB SOLN INH ONE (07:00)
[2018-10-19 07:07] LABS: BASO # 0.1 10^3/uL (0.0-0.2); BASO % 0.5 % (0.0-1.0); EOS # 0.2 10^3/uL (0.0-0.50); EOS % 1.7 % (0.0-3.0); HEMATOCRIT 46.3 % (42.0-52.0); HEMOGLOBIN 15.7 g/dl (13.5-17.5); LYMPH % 7.3 % (24.0-44.0); MEAN CORPUSCULAR HEMOGLOBIN 29.8 pg (27.0-33.0); MEAN CORPUSCULAR HGB CONC 33.9 g/dl (32.0-36.5); MONO # 1.4 10^3/uL (0.0-0.8); MONO % 10.4 % (0.0-5.0); NEUTROPHILS # 10.8 10^3/uL (1.8-7.7); NEUTROPHILS % 79.7 % (36.0-66.0); PLATELET COUNT, AUTOMATED 270 10^3/uL (150-450); RED BLOOD COUNT 5.26 10^6/uL (4.30-6.10); WHITE BLOOD COUNT 13.5 10^3/uL (4.0-10.0)
[2018-10-19 07:17] LABS: ABG BASE EXCESS 1.1 (-2.0-2.0); ABG HCO3 26.2 MEQ/L (22.0-26.0); ABG O2 SATURATION 99.2 % (95.0-99.0); ABG PARTIAL PRESSURE CO2 43.1 mmHg (35.0-45.0); ABG PARTIAL PRESSURE O2 167.9 mmHg (75.0-100.0); ABG STANDARD HCO3 25.5 MEQ/L (22.0-26.0); ABG TOTAL CO2 27.5 MEQ/L (22.0-29.0); ABG pH (ARTERIAL) 7.401 UNITS (7.350-7.450)
[2018-10-19 07:31] LABS: CREATININE FOR GFR 1.47 MG/DL (0.70-1.30); GLOMERULAR FILTRATION RATE 52.8 (>56); POTASSIUM SERUM 3.8 MEQ/L (3.5-5.1)
[2018-10-19 07:35] LABS: ACETAMINOPHEN LEVEL < 2.0 UG/ML (10.0-30.0); ALBUMIN 3.9 GM/DL (3.2-5.2); ALT/SGPT 16 U/L (12-78); BILIRUBIN,DIRECT 0.5 MG/DL (0.0-0.2); CPK CREATINE PHOSPHOKINASE 192 U/L (39-308); ETHYL ALCOHOL (ETHANOL) < 0.003 % (0.000-0.010); MB/CK RELATIVE INDEX 2.55 (< OR =4); NT-PRO BNP 2629 PG/ML (<125); SALICYLATE LEVEL 2.2 MG/DL (5.0-30.0); THYROID STIMULATING HORMONE 0.778 uIU/ML (0.358-3.740); THYROXINE (T4) 16.6 UG/DL (4.5-12.0); TOTAL PROTEIN 7.8 GM/DL (6.4-8.2); TROPONIN I < 0.02 NG/ML (< 0.10)
[2018-10-19 07:41] LABS: INFLUENZA A AMPLIFICATION NEGATIVE (NEGATIVE); INFLUENZA B AMPLIFICATION NEGATIVE (NEGATIVE)
[2018-10-19] MEDS ORDERED: VENTAER INH (07:44)
[2018-10-19] MEDS ORDERED: NS 500 ML IV ONE ×2 (07:45→08:45)
[2018-10-19] MEDS ORDERED: PREG100CA PO (07:48)
[2018-10-19] MEDS ORDERED: LYRI150C PO (07:48)
[2018-10-19] MEDS ORDERED: TIZA4TAB4 PO (07:50)
[2018-10-19] MEDS ORDERED: TRAZ-160 PO (07:50)
--- NOTE | 2018-10-19 08:00 | REP ---
Clinical: Altered mental status. Comparison: 04/26/2017. Findings: Fibrosis and extensive pleural parenchymal changes involving the left upper lung zone as well as area of opacity in the right hilum with spiculated markings remain unchanged. No new acute consolidation, effusion, or pneumothorax identified. Cardiac silhouette is normal. Skeletal structures stable. Impression: Relatively stable ill-defined pleuroparenchymal changes. No obvious acute process. Electronically Signed by Patric Geller MD 10/19/2018 07:51 A
--- NOTE | 2018-10-19 08:23 | REP ---
Clinical: Altered mental status . Comparison: 04/26/2017 . Findings: The ventricles, sulci, and cisterns are normal in position and appearance. Hitchcock-white differentiation is maintained. No acute intracranial hemorrhage, mass/mass effect, pathology or trauma/injury. No evidence for acute infarction. No extra-axial fluid collection. Calvarium is intact. Paranasal sinuses and mastoid air cells are clear. Impression: Normal noncontrast head CT. No evidence for acute intracranial pathology or trauma/injury. Electronically Signed by Patric Geller MD 10/19/2018 08:15 A
[2018-10-19] MEDS ORDERED: LIDOCAINE 2% 5ML JELLY UROJET TOP ONE (08:45)
[2018-10-19 09:26] LABS: AMPHETAMINES LEVEL URINE POSITIVE (NEGATIVE); BARBITURATES URINE NEGATIVE (NEGATIVE); BENZODIAZEPINES URINE NEGATIVE (NEGATIVE); CANNABINOIDS URINE POSITIVE (NEGATIVE); COCAINE METABOLITE URINE POSITIVE (NEGATIVE); METHADONE URINE NEGATIVE (NEGATIVE); OPIATES URINE NEGATIVE (NEGATIVE); PHENCYCLIDINE URINE NEGATIVE (NEGATIVE)
[2018-10-19] MEDS ORDERED: PATIENT COMMENTS (09:33)
[2018-10-19] MEDS ORDERED: IPRATROPIUM 0.5MG/ALBUTEROL 2.5MG INH SOL UD 3ML (DUONEB)(J7620) NEB PRN (10:00)
[2018-10-19 11:30] VITALS: BP 95/53
[2018-10-19] MEDS ORDERED: NS 1,000 ML IV SCH (12:00)
--- NOTE | 2018-10-19 12:11 | HPEPDOC ---
[facility] Medical History & Physical Date of Admission October 19, 2018 Date of Service: October 19, 2018 History and Physical CHIEF COMPLAINT: AMS HISTORY OF PRESENT ILLNESS: Patient is a 58-year-old male with past medical history of COPD, lung cancer status post left upper lobe lobectomy, anxiety/depression brought into the ER for altered mental status and shortness of breath. Patient reportedly has been having psychomotor agitation last night and called the log yard derrick operator on his neighbor reporting drugs. He was noted to be tachypneic at that time but had refused to go to the ER. He again was noted to be taken neck and short of breath this morning and was brought in with altered mental status with hallucinations. He was given 1 mg IV Ativan in the ER and he seem to calm down and sleepy, is responsive, agitated when touched and does not answer questions. Unable to obtain history. All history is obtained from documentation and from ER report. PAST MEDICAL HISTORY: Refer to [facility] PAST SURGICAL HISTORY: R. hand surgery Appendectomy? (patient thought he had it done as a child) SOCIAL HISTORY: Denies tobacco, alcohol or illicit drug use. FAMILY HISTORY: Father with had lung cancer ALLERGIES: Please see below. REVIEW OF SYSTEMS: 10 point review of system negative except as stated in [facility] HOME MEDICATIONS: Please see below. PHYSICAL EXAMINATION: General: Eyes closed with constant choreiform movements. No verbal response, agitated when touched. Eyes: Normal sclera, AILYN HENT: Atraumatic, neck supple. Cardiovascular: tacycardic HR low 100s, normal rhythm. No murmurs appreciated. Pulmonary: No wheezing appreciated, moaning sounds heard. GI: Soft, nontender, nondistended Skin: Warm and dry Neuro: Responsive to tactile stimuli, agitated. Does not follow commands, constant choreiform movements. Psych: oriented x 3 LABORATORY DATA: See below. IMAGING: Head CT- Impression: Normal noncontrast head CT. No evidence for acute intracranial pathology or trauma/injury. CXR- Impression: Relatively stable ill-defined pleuroparenchymal changes. No obvious acute process. ASSESSMENT AND PLAN: 1. AMS - Likely 2/2 Drug use. Utox + Amphetamine/Benzo/Cocaine although benzo - Unsure of patient's psychiatric history. Noted in the past for Anxiety/depression. - No CO2 retention, not likely etiology for altered mentation - Supportive care at this time. - If patient is agitated again after he wake up, will order 1:1 observation. 2. COPD - Reported sat 90% on arrival on room air with some degree of wheezing. - s/p nebs and steroids and ER. - No wheezing noted now, patient is moaning and difficult to hear if he is wheezing or not. - Nebs q6 with solumedrol at this time but likely can be tapered off quickly. 3. Anxiety/Depression - Assess once patient is more alert. 4. Lung cancer - s/p lobectomy and chemo. DVT ppx: HSQ Code status: Unable to obtain from patient at this time Vital Signs Vital Signs Date Time Temp Pulse Resp B/P (MAP) Pulse Ox O2 Delivery O2 Flow Rate FiO2 10/19/18 11:15 97.4 102 23 113/68 (83) 92 10/19/18 10:22 Nasal Cannula 2.0 Laboratory Data Labs 24H Laboratory Tests 2 10/19/18 06:52: Immature Granulocyte % (Auto) 0.4, White Blood Count 13.5H, Red Blood Count 5.26, Hemoglobin 15.7, Hematocrit 46.3, Mean Corpuscular Volume 88.0, Mean Corpuscular Hemoglobin 29.8, Mean Corpuscular Hemoglobin Concent 33.9, Red Cell Distribution Width 13.8, Platelet Count 270, Neutrophils (%) (Auto) 79.7H, Lymphocytes (%) (Auto) 7.3L, Monocytes (%) (Auto) 10.4H, Eosinophils (%) (Auto) 1.7, Basophils (%) (Auto) 0.5, Neutrophils # (Auto) 10.8H, Lymphocytes # (Auto) 1.0L, Monocytes # (Auto) 1.4H, Eosinophils # (Auto) 0.2, Basophils # (Auto) 0.1, Nucleated Red Blood Cells % (auto) 0.0, Anion Gap 10, Glomerular Filtration Rate 52.8L, Lactic Acid Level 2.1*H, Blood Urea Nitrogen 25H, Creatinine 1.47H, Sodium Level 139, Potassium Level 3.8, Chloride Level 102, Carbon Dioxide Level 27, Calcium Level 9.0, Aspartate Amino Transf (AST/SGOT) 15, Alanine Aminotransferase (ALT/SGPT) 16, Alkaline Phosphatase 112, Total Bilirubin 2.0H, Direct Bilirubin 0.5H, Ammonia 17, Total Creatine Kinase 192, Creatine Kinase MB 5.0H, Creatine Kinase MB Relative Index 2.55, Troponin I < 0.02, FB-Sjw-A-Type Natriuretic Peptide 2629H, Total Protein 7.8, Albumin 3.9, Albumin/Globulin Ratio 1.00, Thyroid Stimulating Hormone (TSH) 0.778, Thyroxine (T4) 16.6H, Salicylates Level 2.2L, Acetaminophen Level < 2.0L, Ethyl Alcohol Level < 0.003 10/19/18 07:01: Influenza Type A (RT-PCR) NEGATIVE, Influenza Type B (RT-PCR) NEGATIVE 10/19/18 07:04: Blood Gas Bicarbonate Standard 25.5, Arterial Blood pH 7.401, Arterial Blood Partial Pressure CO2 43.1, Arterial Blood Partial Pressure O2 167.9H, Arterial Blood Total CO2 27.5, Arterial Blood HCO3 26.2H, Arterial Blood Base Excess 1.1, Arterial Blood Oxygen Saturation 99.2H 10/19/18 07:13: Bedside Glucose (Misc Panel) 129H 10/19/18 08:53: Urine Amphetamines Screen POSITIVEH, Urine Benzodiazepines Screen NEGATIVE, Urine Opiates Screen NEGATIVE, Urine Methadone Screen NEGATIVE, Urine Barbiturates Screen NEGATIVE, Urine Phencyclidine Screen NEGATIVE, Urine Cocaine Metabolite Screen POSITIVEH, Urine Cannabinoids Screen POSITIVEH 10/19/18 11:23: CBC/BMP Laboratory Tests 10/19/18 06:52 Red Blood Count 5.26, Mean Corpuscular Volume 88.0, Mean Corpuscular Hemoglobin 29.8, Mean Corpuscular Hemoglobin Concent 33.9, Red Cell Distribution Width 13.8, Neutrophils (%) (Auto) 79.7 H, Lymphocytes (%) (Auto) 7.3 L, Monocytes (%) (Auto) 10.4 H, Eosinophils (%) (Auto) 1.7, Basophils (%) (Auto) 0.5, Neutrophils # (Auto) 10.8 H, Lymphocytes # (Auto) 1.0 L, Monocytes # (Auto) 1.4 H, Eosin ophils # (Auto) 0.2, Basophils # (Auto) 0.1, Calcium Level 9.0 Microbiology Microbiology 10/19/18 Blood Culture, Received Pending 10/19/18 Blood Culture, Received Pending Home Medications Scheduled Pregabalin (Lyrica) 150 Mg Capsule, 150 MG PO TID TAKE WITH 100MG CAPSULE Pregabalin (Lyrica) 100 Mg Capsule, 100 MG PO TID TAKE WITH 150MG CAPSULE Tizanidine HCl (Tizanidine HCl) 4 Mg Tablet, 4 MG PO TID Trazodone HCl (Trazodone HCl) 50 Mg Tab, 50 MG PO QAM Trazodone HCl (Trazodone HCl) 50 Mg Tablet, 100 MG PO QHS Scheduled PRN Albuterol Sulfate (Ventolin Hfa) 18 Gm Hfa.aer.ad, 2 PUFF INH Q4-6H PRN for wheezing Miscellaneous Medications [Patient Comments] PATIENT IS A POOR HISTORIAN, UNABLE TO DETERMINE WHEN MEDICATIONS WERE LAST TAKEN Allergies Coded Allergies: No Known Allergies (Unverified , 05/23/13) A-FIB/CHADSVASC A-FIB History Current/History of A-Fib/PAF?: No KARIN GUTIÉRREZ MD October 19, 2018 12:11
[2018-10-19 14:00] VITALS: BP 112/63
[2018-10-19] MEDS ORDERED: HEPARIN SOD (PORCINE) 5000 UNITS/ML VIAL SC SCH (14:00)
[2018-10-19] MEDS: IPRATROPIUM 0.5MG/ALBUTEROL 2.5MG INH SOL UD 3ML (DUONEB)(J7620) NEB SCH (15:09)
[2018-10-19] MEDS ORDERED: traMADol 50 MG TAB PO PRN (16:30)
[2018-10-19] MEDS ORDERED: ACETAMINOPHEN TAB 650MG DOSE (2X325MG) PO PRN (16:30)
[2018-10-19] MEDS ORDERED: methylPREDNISolone INJ 40 MG/1 ML VIAL (J2920) IV SCH (18:00)
--- NOTE | 2018-10-19 18:47 | DS.PDOC ---
Discharge Summary General Date of Admission October 19, 2018 at 09:45 Date of Discharge 10/19/18 Discharge Summary Leaving AMA HPI: "HISTORY OF PRESENT ILLNESS: Patient is a 58-year-old male with past medical history of COPD, lung cancer status post left upper lobe lobectomy, anxiety/depression brought into the ER for altered mental status and shortness of breath. Patient reportedly has been having psychomotor agitation last night and called the equipment driver on his neighbor reporting drugs. He was noted to be tachypneic at that time but had refused to go to the ER. He again was noted to be taken neck and short of breath this morning and was brought in with altered mental status with hallucinations. He wa s given 1 mg IV Ativan in the ER and he seem to calm down and sleepy, is responsive, agitated when touched and does not answer questions. Unable to obtain history. All history is obtained from documentation and from ER report. " Hospital course: Patient was admitted for AMS found to have numerous illicit drugs in the system including meth. Shortly arrived on the medical floor, patient woke up aware of everything that is going on. Requested strong pain medications to help me take the edge off, request was denied. Shortly after that encounter, patient walked out of his room and left AMA, cussing at the commissioned security officer and nursing staff. Vital Signs/I&Os Vital Signs Date Time Temp Pulse Resp B/P (MAP) Pulse Ox O2 Delivery O2 Flow Rate FiO2 10/19/18 14:00 97.3 100 18 112/63 (79) 90 10/19/18 10:22 Nasal Cannula 2.0 Laboratory Data Labs 24H Laboratory Tests 2 10/19/18 06:52: Immature Granulocyte % (Auto) 0.4, White Blood Count 13.5H, Red Blood Count 5.26, Hemoglobin 15.7, Hematocrit 46.3, Mean Corpuscular Volume 88.0, Mean Corpuscular Hemoglobin 29.8, Mean Corpuscular Hemoglobin Concent 33.9, Red Cell Distribution Width 13.8, Platelet Count 270, Neutrophils (%) (Auto) 79.7H, Lymphocytes (%) (Auto) 7.3L, Monocytes (%) (Auto) 10.4H, Eosinophils (%) (Auto) 1.7, Basophils (%) (Auto) 0.5, Neutrophils # (Auto) 10.8H, Lymphocytes # (Auto) 1.0L, Monocytes # (Auto) 1.4H, Eosinophils # (Auto) 0.2, Basophils # (Auto) 0.1, Nucleated Red Blood Cells % (auto) 0.0, Anion Gap 10, Glomerular Filtration Rate 52.8L, Lactic Acid Level 2.1*H, Blood Urea Nitrogen 25H, Creatinine 1.47H, Sodium Level 139, Potassium Level 3.8, Chloride Level 102, Carbon Dioxide Level 27, Calcium Level 9.0, Aspartate Amino Transf (AST/SGOT) 15, Alanine Aminotransferase (ALT/SGPT) 16, Alkaline Phosphatase 112, Total Bilirubin 2.0H, Direct Bilirubin 0.5H, Ammonia 17, Total Creatine Kinase 192, Creatine Kinase MB 5.0H, Creatine Kinase MB Relative Index 2.55, Troponin I < 0.02, AK-Ige-P-Type Natriuretic Peptide 2629H, Total Protein 7.8, Albumin 3.9, Albumin/Globulin Ratio 1.00, Thyroid Stimulating Hormone (TSH) 0.778, Thyroxine (T4) 16.6H, Salicylates Level 2.2L, Acetaminophen Level < 2.0L, Ethyl Alcohol Level < 0.003 10/19/18 07:01: Influenza Type A (RT-PCR) NEGATIVE, Influenza Type B (RT-PCR) NEGATIVE 10/19/18 07:04: Blood Gas Bicarbonate Standard 25.5, Arterial Blood pH 7.401, Arterial Blood Partial Pressure CO2 43.1, Arterial Blood Partial Pressure O2 167.9H, Arterial Blood Total CO2 27.5, Arterial Blood HCO3 26.2H, Arterial Blood Base Excess 1.1, Arterial Blood Oxygen Saturation 99.2H 10/19/18 07:13: Bedside Glucose (Misc Panel) 129H 10/19/18 08:53: Urine Amphetamines Screen POSITIVEH, Urine Benzodiazepines Screen NEGATIVE, Urine Opiates Screen NEGATIVE, Urine Methadone Screen NEGATIVE, Urine Bar biturates Screen NEGATIVE, Urine Phencyclidine Screen NEGATIVE, Urine Cocaine Metabolite Screen POSITIVEH, Urine Cannabinoids Screen POSITIVEH 10/19/18 11:23: Lactic Acid Followup at 4 Hours 1.0 CBC/BMP Laboratory Tests 10/19/18 06:52 Red Blood Count 5.26, Mean Corpuscular Volume 88.0, Mean Corpuscular Hemoglobin 29.8, Mean Corpuscular Hemoglobin Concent 33.9, Red Cell Distribution Width 13.8, Neutrophils (%) (Auto) 79.7 H, Lymphocytes (%) (Auto) 7.3 L, Monocytes (%) (Auto) 10.4 H, Eosinophils (%) (Auto) 1.7, Basophils (%) (Auto) 0.5, Neutrophils # (Auto) 10.8 H, Lymphocytes # (Auto) 1.0 L, Monocytes # (Auto) 1.4 H, Eosinophils # (Auto) 0.2, Basophils # (Auto) 0.1, Calcium Level 9.0 FSBS Laboratory Tests Test 10/19/18 07:13 Range/Units Bedside Glucose (Misc Panel) 129 70-105 MG/DL Microbiology Microbiology 10/19/18 Blood Culture, Received Pending 10/19/18 Blood Culture, Received Pending Discharge Medications Scheduled Pregabalin (Lyrica) 150 Mg Capsule, 150 MG PO TID, (Reported) TAKE WITH 100MG CAPSULE Pregabalin (Lyrica) 100 Mg Capsule, 100 MG PO TID, (Reported) TAKE WITH 150MG CAPSULE Tizanidine HCl (Tizanidine HCl) 4 Mg Tablet, 4 MG PO TID, (Reported) Trazodone HCl (Trazodone HCl) 50 Mg Tab, 50 MG PO QAM, (Reported) Trazodone HCl (Trazodone HCl) 50 Mg Tablet, 100 MG PO QHS, (Reported) Scheduled PRN Albuterol Sulfate (Ventolin Hfa) 18 Gm Hfa.aer.ad, 2 PUFF INH Q4-6H PRN for wheezing, (Reported) Miscellaneous Medications [Patient Comments] , (Reported) PATIENT IS A POOR HISTORIAN, UNABLE TO DETERMINE WHEN MEDICATIONS WERE LAST TAKEN Allergies Coded Allergies: No Known Allergies (Unverified , 05/23/13) KARIN GUTIÉRREZ MD October 19, 2018 18:47
--- NOTE | 2018-10-19 19:28 | ECGEPIP ---
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
[2018-10-20] MEDS ORDERED: methylPREDNISolone INJ 40 MG/1 ML VIAL (J2920) IV SCH (09:00)
--- NOTE | 2018-10-20 19:33 | ECGEPIP ---
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
== END 2018-10-19 16:32 | disposition left against medical advice (07) ==
LOC: M ED 06:39 → M ED INP 09:45 → M MSPAV 11:36
PROVIDERS: ADMIT Student in an Organized Health Care Education/Training Program; ATTEND Student in an Organized Health Care Education/Training Program
DX: J44.1 Chronic obstructive pulmonary disease with (acute) exacerbation (principal); R41.82 Altered mental status, unspecified; R44.3 Hallucinations, unspecified; F41.9 Anxiety disorder, unspecified; F15.10 Other stimulant abuse, uncomplicated; F19.10 Other psychoactive substance abuse, uncomplicated; F32.9 Major depressive disorder, single episode, unspecified; K21.9 Gastro-esophageal reflux disease without esophagitis; Z85.118 Personal history of other malignant neoplasm of bronchus and lung; Z90.2 Acquired absence of lung [part of]; F17.200 Nicotine dependence, unspecified, uncomplicated; Z79.899 Other long term (current) drug therapy

== ENCOUNTER 2018-10-21 12:34 | Inpatient (IN) | payer MEDICARE, MEDICAID ==
[~2018-10-21] VITALS: Ht 170.2 cm; Wt 42.3 kg
[~2018-10-21 12:34] MED LIST changes: +LYRI150C PO; +PATIENT COMMENTS; +PREG100CA PO; +TIZA4TAB4 PO; +VENTAER INH
[2018-10-21] MEDS ORDERED: ALBUTEROL SULFATE 2.5 MG/0.5 ML INH NEB SOLN INH ONE (12:45)
[2018-10-21] MEDS ORDERED: methylPREDNISolone INJ 125 MG/2 ML VIAL (J2930) IV ONE (12:45)
[2018-10-21] MEDS ORDERED: IPRATROPIUM 0.5MG/ALBUTEROL 2.5MG INH SOL UD 3ML (DUONEB)(J7620) NEB ONE ×2 (12:45→15:30)
[2018-10-21] MEDS ORDERED: OMEP-221 PO (12:47)
--- NOTE | 2018-10-21 13:05 | REP ---
Clinical: Cough and dyspnea. Comparison: 06/07/2016. Findings: Chronic fibrotic and pleuroparenchymal changes involving the left upper lobe, right perihilar region, and diffusely throughout the bilateral lung almeida are again noted. Increased elements of opacity involving the changes in the left upper lobe are noted and may reflect superimposed acute process. No obvious effusion. Skeletal structures intact. Cardiac silhouette is normal. Impression: Cannot exclude superimposed acute process involving the left upper lung zone. Electronically Signed by Patric Geller MD 10/21/2018 12:57 P
[2018-10-21 13:10] LABS: ABG BASE EXCESS 3.6 (-2.0-2.0); ABG HCO3 27.5 MEQ/L (22.0-26.0); ABG O2 SATURATION 98.1 % (95.0-99.0); ABG PARTIAL PRESSURE CO2 39.1 mmHg (35.0-45.0); ABG PARTIAL PRESSURE O2 104.4 mmHg (75.0-100.0); ABG STANDARD HCO3 27.7 MEQ/L (22.0-26.0); ABG TOTAL CO2 28.7 MEQ/L (22.0-29.0); ABG pH (ARTERIAL) 7.465 UNITS (7.350-7.450)
[2018-10-21 13:35] LABS: BASO % 0.1 % (0.0-1.0); EOS % 0.1 % (0.0-3.0); HEMOGLOBIN 14.8 g/dl (13.5-17.5); LYMPH # 0.6 10^3/uL (1.5-4.5); LYMPH % 5.3 % (24.0-44.0); MEAN CORPUSCULAR HEMOGLOBIN 29.7 pg (27.0-33.0); MEAN CORPUSCULAR HGB CONC 33.6 g/dl (32.0-36.5); MEAN CORPUSCULAR VOLUME 88.2 fl (80.0-96.0); MONO # 1.1 10^3/uL (0.0-0.8); MONO % 10.4 % (0.0-5.0); NEUTROPHILS % 83.3 % (36.0-66.0); PLATELET COUNT, AUTOMATED 149 10^3/uL (150-450); RED BLOOD COUNT 4.99 10^6/uL (4.30-6.10); WHITE BLOOD COUNT 10.8 10^3/uL (4.0-10.0)
[2018-10-21 14:13] LABS: ALT/SGPT 22 U/L (12-78); BLOOD UREA NITROGEN 16 MG/DL (7-18); CALCIUM LEVEL 8.3 MG/DL (8.5-10.1); CARBON DIOXIDE LEVEL 29 MEQ/L (21-32); CHLORIDE LEVEL 99 MEQ/L (98-107); CPK CREATINE PHOSPHOKINASE 270 U/L (39-308); CREATININE FOR GFR 1.13 MG/DL (0.70-1.30); GLOMERULAR FILTRATION RATE > 60.0 (>56); GLUCOSE, FASTING 107 MG/DL (70-100); MB/CK RELATIVE INDEX 0.44 (< OR =4); POTASSIUM SERUM 3.5 MEQ/L (3.5-5.1); SODIUM LEVEL 138 MEQ/L (136-145)
[2018-10-21 14:14] LABS: ACETAMINOPHEN LEVEL < 2.0 UG/ML (10.0-30.0); BILIRUBIN,DIRECT 0.5 MG/DL (0.0-0.2); BILIRUBIN,TOTAL 3.1 MG/DL (0.2-1.0); ETHYL ALCOHOL (ETHANOL) 0.003 % (0.000-0.010); NT-PRO BNP 3442 PG/ML (<125); SALICYLATE LEVEL 2.8 MG/DL (5.0-30.0); THYROID STIMULATING HORMONE 0.372 uIU/ML (0.358-3.740); THYROXINE (T4) 12.9 UG/DL (4.5-12.0); TOTAL PROTEIN 6.3 GM/DL (6.4-8.2); TROPONIN I < 0.02 NG/ML (< 0.10)
[2018-10-21] MEDS ORDERED: LORazepam 2 MG/ML VIAL (J2060) IV STA (14:14)
[2018-10-21] MEDS ORDERED: ISOVUE-370 76% 100ML VIAL (Q9967) As Ordered ONE (14:46)
--- NOTE | 2018-10-21 15:27 | REP ---
Clinical: Acute shortness of breath. Technique: Axial contrast enhanced images from the thoracic inlet to the upper abdomen with multiplanar re-formations using pulmonary embolus protocol. 100 ml Isovue 370 intravenous contrast material administered without complication. Comparison: 05/14/2017. Findings: Satisfactory enhancement of the pulmonary vasculature is achieved and no filling defects are identified to suggest pulmonary embolus. Chronic pleuroparenchymal changes with bronchiectasis and opacities as well as scattered fibrosis and scarring noted in the left upper lung zone and along the medial right hemithorax as well as advanced COPD and emphysematous changes. Increased opacity involving the chronic-appearing changes in the left upper lobe and superior segment of the left lower lobe are suspected. A small area of airspace disease noted in the posterior left lower lobe is a relatively new finding and may represent small acute infiltrate. Thoracic aorta without aneurysm or dissection. No cardiomegaly. No pericardial effusion. No obvious adenopathy. Surrounding musculoskeletal structures without focal osseous abnormality. Impression: 1. No evidence for pulmonary embolus. 2. Chronic advanced COPD/emphysematous changes and pleuroparenchymal changes in the left upper lung zone and medial right hemithorax. Changes in the left upper lung zone appear more dense and may represent progressive chronic change versus subtle superimposed acute process. 3. Small new area of infiltrate in the left lower lobe. Electronically Signed by Patirc Geller MD 10/21/2018 03:18 P
[2018-10-21] MEDS ORDERED: cefTRIAXone SOD 1 GM in D5W MINI-BAG PLUS 50 ML IV ONE (15:30)
[2018-10-21] MEDS ORDERED: AZITHROMYCIN INJ 500 MG, VIAL MATE ADAPTER 1 EACH in D5W 250 ML IV ONE (15:30)
--- NOTE | 2018-10-21 16:33 | HPEPDOC ---
[facility] Medical History & Physical Date of Admission October 21, 2018 Date of Service: October 21, 2018 History and Physical CHIEF COMPLAINT: SOB HISTORY OF PRESENT ILLNESS: Patient is a 58-year-old male with past medical history of COPD, lung cancer status post left upper lobe lobectomy, anxiety/depression, and polysubstance abuse presented to the ER with complaints of worsening SOB. He was here about 2 days prior for AMS, found to have multiple drugs in his system including meth, was admitted for observation. However, when he arrived on the floor and woke up, he asked for strong pain medications to help him get the edge off. He walked out shortly after it was refused. He came back again today for worsening SOB stating that people who lives below him are making meth and the vapors made him SOB. He denies using meth and saying that if it shows up in his system, it is because of his neighbors fume that he inhaled. In ER, he was noted to be covered in liquid chemical, suspecting meth. Patient noted by ER to have multiple social issues where he currently lives with his son and meth was produced there? Unsure of actual circumstance but likely COPD exacerbated by chemical exposure. He states this is not the first time he feels like this with exacerbation. Also reports cough but otherwise no other complaints. PAST MEDICAL HISTORY: Refer to [facility] PAST SURGICAL HISTORY: R. hand surgery Appendectomy? (patient thought he had it done as a child) SOCIAL HISTORY: Smokes 2.5 ppd. Denies alcohol use. Reports only smoking pot but UDS from previous admission were + amphetamines, Cocaine and Cannabis. States that drugs showed up in his system due to inhalation from neighbors. FAMILY HISTORY: Father with had lung cancer ALLERGIES: Please see below. REVIEW OF SYSTEMS: 10 point review of system negative except as stated in [facility] HOME MEDICATIONS: Please see below. PHYSICAL EXAMINATION: General: Mild to moderate respiratory distress. Lethargic. Eyes: Normal sclera, EOMI, AILYN HENT: Atraumatic, neck supple, moist mucous membranes Cardiovascular: Tachycardic, normal rhythm. No murmurs appreciated. Pulmonary: Coarse breath sounds b/l. GI: Soft, nontender, nondistended Skin: Warm and dry Neuro: CN grossly intact. No focal deficits. Strengths equal b/l. Psych: oriented x 3 LABORATORY DATA: See below. IMAGING: CXR- Findings: Chronic fibrotic and pleuroparenchymal changes involving the left upper lobe, right perihilar region, and diffusely throughout the bilateral lung almeida are again noted. Increased elements of opacity involving the changes in the left upper lobe are noted and may reflect superimposed acute process. No obvious effusion. Skeletal structures intact. Cardiac silhouette is normal. Impression: Cannot exclude superimposed acute process involving the left upper lung zone. CT Chest Angio- Impression: 1. No evidence for pulmonary embolus. 2. Chronic advanced COPD/emphysematous changes and pleuroparenchymal changes in the left upper lung zone and medial right hemithorax. Changes in the left upper lung zone appear more dense and may represent progressive chronic change versus subtle superimposed acute process. 3. Small new area of infiltrate in the left lower lobe. ASSESSMENT AND PLAN: 1. SOB - Pneumonia with component of COPD exacerbation - CT with evidence of advanced COPD and VERENA density and infiltrate in LLL. - Saturating well now. O2 support if needed. - f/u Blood and sputum cultures. - Nebs standing and PRN. - c/w solumedrol, Rocephin and Azithromycin. 2. Anxiety/Depression - Assess once patient is more alert. 3. Lung cancer - s/p lobectomy and chemo. 4. Polysubstance abuse - Try to avoid narcotics if possible given polysubstance abuse. - Patient will complain of nonspecific/generalized pain everywhere. DVT ppx: HSQ Code status: Reports he is DNR and has paperwork at home. Unsure about patient's capacity at this time, to be assessed by Psych. Will need DNR form completed if deem that patient has capacity or can present proof. Dispo: Need case management input regardign social/living situation. Vital Signs Vital Signs Date Time Temp Pulse Resp B/P (MAP) Pulse Ox O2 Delivery O2 Flow Rate FiO2 10/21/18 12:45 97.2 117 40 111/66 (81) 96 Room Air Laboratory Data Labs 24H Laboratory Tests 2 10/21/18 12:42: Immature Granulocyte % (Auto) 0.8, White Blood Count 10.8H, Red Blood Count 4.99, Hemoglobin 14.8, Hematocrit 44.0, Mean Corpuscular Volume 88.2, Mean Corpuscular Hemoglobin 29.7, Mean Corpuscular Hemoglobin Concent 33.6, Red Cell Distribution Width 13.9, Platelet Count 149L, Neutrophils (%) (Auto) 83.3H, Lymphocytes (%) (Auto) 5.3L, Monocytes (%) (Auto) 10.4H, Eosinophils (%) (Auto) 0.1, Basophils (%) (Auto) 0.1, Neutrophils # (Auto) 9.0H, Lymphocytes # (Auto) 0.6L, Monocytes # (Auto) 1.1H, Eosinophils # (Auto) 0.0, Basophils # (Auto) 0.0, Nucleated Red Blood Cells % (auto) 0.0, Anion Gap 10, Glomerular Filtration Rate > 60.0, Calcium Level 8.3L, Aspartate Amino Transf (AST/SGOT) 25, Alanine Aminotransferase (ALT/SGPT) 22, Alkaline Phosphatase 105, Total Bilirubin 3.1#H, Direct Bilirubin 0.5H, Total Creatine Kinase 270, Creatine Kinase MB 1.0, Creatine Kinase MB Relative Index 0.44, Troponin I < 0.02, YA-Uzw-X-Type Natriuretic Peptide 3442H, Total Protein 6.3L, Albumin 3.0#L, Albumin/Globulin Ratio 0.91L, Thyroid Stimulating Hormone (TSH) 0.372, Thyroxine (T4) 12.9H, Salicylates Level 2.8L, Acetaminophen Level < 2.0L, Ethyl Alcohol Level 0.003 10/21/18 12:49: Blood Gas Bicarbonate Standard 27.7H, Arterial Blood pH 7.465H, Arterial Blood Partial Pressure CO2 39.1, Arterial Blood Partial Pressure O2 104.4H, Arterial Blood Total CO2 28.7, Arterial Blood HCO3 27.5H, Arterial Blood Base Excess 3.6H, Arterial Blood Oxygen Saturation 98.1 10/21/18 13:11: Lactic Acid Level 1.5 CBC/BMP Laboratory Tests 10/21/18 12:42 Red Blood Count 4.99, Mean Corpuscular Volume 88.2, Mean Corpuscular Hemoglobin 29.7, Mean Corpuscular Hemoglobin Concent 33.6, Red Cell Distribution Width 13.9, Neutrophils (%) (Auto) 83.3 H, Lymphocytes (%) (Auto) 5.3 L, Monocytes (%) (Auto) 10.4 H, Eosinophils (%) (Auto) 0.1, Basophils (%) (Auto) 0.1, Neutrophils # (Auto) 9.0 H, Lymphocytes # (Auto) 0.6 L, Monocytes # (Auto) 1.1 H, Eosinophils # (Auto) 0.0, Basophils # (Auto) 0.0 Microbiology Microbiology 10/21/18 Blood Culture, Received Pending 10/21/18 Blood Culture, Received Pending Home Medications Scheduled Omeprazole (Omeprazole) 40 Mg Capsule.dr, 40 MG PO DAILY Pregabalin (Lyrica) 150 Mg Capsule, 150 MG PO TID Trazodone HCl (Trazodone HCl) 50 Mg Tab, 50 MG PO QAM Trazodone HCl (Trazodone HCl) 50 Mg Tablet, 100 MG PO QHS Scheduled PRN Albuterol Sulfate (Ventolin Hfa) 18 Gm Hfa.aer.ad, 2 PUFF INH Q4H PRN for SHORTNESS OF BREATH Tizanidine HCl (Tizanidine HCl) 4 Mg Tablet, 4 MG PO TID PRN for MUSCLE SPASMS Allergies Coded Allergies: No Known Allergies (Unverified , 10/21/18) A-FIB/CHADSVASC A-FIB History Current/History of A-Fib/PAF?: No KARIN GUTIÉRREZ MD October 21, 2018 16:33
[2018-10-21] MEDS ORDERED: IPRATROPIUM 0.5MG/ALBUTEROL 2.5MG INH SOL UD 3ML (DUONEB)(J7620) NEB PRN (16:45)
[2018-10-21] MEDS ORDERED: AZITHROMYCIN INJ 500 MG, VIAL MATE ADAPTER 1 EACH in D5W 250 ML IV SCH (17:00)
[2018-10-21 18:15] VITALS: BP 99/60
[2018-10-21] MEDS ORDERED: SLF 3 ML SYR IV PRN (18:45)
[2018-10-21 20:00] VITALS: BP 102/59
[2018-10-21] MEDS: IPRATROPIUM 0.5MG/ALBUTEROL 2.5MG INH SOL UD 3ML (DUONEB)(J7620) NEB SCH (20:54)
--- NOTE | 2018-10-21 21:07 | ECGEPIP ---
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
[2018-10-21] MEDS: SLF 3 ML SYR IV SCH (21:16)
[2018-10-21] MEDS: HEPARIN SOD (PORCINE) 5000 UNITS/ML VIAL SC SCH (22:00)
[2018-10-21] MEDS: ACETAMINOPHEN TAB 650MG DOSE (2X325MG) PO PRN (22:01)
[2018-10-21 23:59] VITALS: BP 98/54
[2018-10-22] MEDS: methylPREDNISolone INJ 40 MG/1 ML VIAL (J2920) IV SCH ×3 (00:16→21:05)
[2018-10-22] MEDS: IPRATROPIUM 0.5MG/ALBUTEROL 2.5MG INH SOL UD 3ML (DUONEB)(J7620) NEB SCH ×4 (02:00→20:02)
[2018-10-22 04:00] VITALS: BP 98/60
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
[2018-10-22] MEDS: SLF 3 ML SYR IV SCH ×3 (05:11→21:10)
[2018-10-22] MEDS: HEPARIN SOD (PORCINE) 5000 UNITS/ML VIAL SC SCH ×3 (05:14→21:05)
[2018-10-22 05:52] LABS: HEMATOCRIT 42.1 % (42.0-52.0); HEMOGLOBIN 14.2 g/dl (13.5-17.5); MEAN CORPUSCULAR HEMOGLOBIN 30.2 pg (27.0-33.0); MEAN CORPUSCULAR HGB CONC 33.7 g/dl (32.0-36.5); MEAN CORPUSCULAR VOLUME 89.6 fl (80.0-96.0); PLATELET COUNT, AUTOMATED 165 10^3/uL (150-450); WHITE BLOOD COUNT 7.9 10^3/uL (4.0-10.0)
[2018-10-22 06:06] LABS: BLOOD UREA NITROGEN 22 MG/DL (7-18); CALCIUM LEVEL 8.8 MG/DL (8.5-10.1); CARBON DIOXIDE LEVEL 30 MEQ/L (21-32); CHLORIDE LEVEL 100 MEQ/L (98-107); CREATININE FOR GFR 0.88 MG/DL (0.70-1.30); GLOMERULAR FILTRATION RATE > 60.0 (>56); GLUCOSE, FASTING 139 MG/DL (70-100); POTASSIUM SERUM 3.8 MEQ/L (3.5-5.1); SODIUM LEVEL 139 MEQ/L (136-145)
[2018-10-22 08:00] VITALS: BP 96/57
[2018-10-22 12:00] VITALS: BP 98/59
[2018-10-22] MEDS: ACETAMINOPHEN TAB 650MG DOSE (2X325MG) PO PRN ×2 (12:36→21:05)
--- NOTE | 2018-10-22 14:58 | IPNPDOC ---
Date Seen The patient was seen on 10/22/18. Progress Note SUBJECTIVE: Patient appeared much better today and reported improvement. Cough still persistent but his SOB had improve and is much more alert. Had been evaluated by Psych yesterday which deem patient is alert and has capacity. DNR signed formed this AM per patient's wishes. OBJECTIVE PHYSICAL EXAMINATION: VITAL SIGNS: Please see below. General: No acute distress, Alert Eyes: Normal sclera, EOMI, AILYN HENT: Atraumatic, neck supple, moist mucous membranes Cardiovascular: Normal rate, normal rhythm. No murmurs appreciated. Pulmonary: Clear to auscultation b/l. GI: Soft, nontender, nondistended Skin: Warm and dry Neuro: CN grossly intact. No focal deficits. Strengths equal b/l. Psych: oriented x 3 LABORATORY DATA, IMAGING STUDIES, MICROBIOLOGY: Please see below. ASSESSMENT AND PLAN: 1. SOB - Pneumonia with component of COPD exacerbation - CT with evidence of advanced COPD and VERENA density and infiltrate in LLL. - Saturating well now. O2 support if needed. - f/u Blood and sputum cultures. - Nebs standing and PRN. - c/w solumedrol, Rocephin and Azithromycin. 2. Anxiety/Depression - Appear stable at this time. 3. Lung cancer - s/p lobectomy and chemo. 4. Polysubstance abuse - Try to avoid narcotics if possible given polysubstance abuse. - Patient will complain of nonspecific/generalized pain everywhere. DVT ppx: HSQ Code status: DNR Dispo: Need case management input regarding social/living situation. VS, I&O, 24H, Fishbone Vital Signs/I&O Vital Signs Date Time Temp Pulse Resp B/P (MAP) Pulse Ox O2 Delivery O2 Flow Rate FiO2 10/22/18 12:00 98.3 96 22 98/59 (72) 97 10/22/18 04:00 4.0 10/21/18 18:00 Nasal Cannula I&O- Last 24 Hours up to 6 AM 10/22/18 06:00 Intake Total 505 ml Balance 505 ml Laboratory Data 24H LABS Laboratory Tests 2 10/22/18 05:14: Nucleated Red Blood Cells % (auto) 0.0, Anion Gap 9, Glomerular Filtration Rate > 60.0, Blood Urea Nitrogen 22H, Creatinine 0.88, Sodium Level 139, Potassium Level 3.8, Chloride Level 100, Carbon Dioxide Level 30, Calcium Level 8.8 CBC/BMP Laboratory Tests 10/22/18 05:14 Red Blood Count 4.70, Mean Corpuscular Volume 89.6, Mean Corpuscular Hemoglobin 30.2, Mean Corpuscular Hemoglobin Concent 33.7, Red Cell Distribution Width 13.6, Calcium Level 8.8 Microbiology Microbiology 10/21/18 Blood Culture - Preliminary, Resulted No growth after 24 hours . All specim... 10/21/18 Blood Culture - Preliminary, Resulted No growth after 24 hours . All specim... 10/21/18 Gram Stain - Final, Resulted 10/21/18 Sputum Culture, Resulted Pending KARIN GUTIÉRREZ MD October 22, 2018 14:58
[2018-10-22 16:00] VITALS: BP 92/57
[2018-10-22] MEDS ORDERED: cefTRIAXone SOD 2 GM in D5W MINI-BAG PLUS 50 ML IV SCH (16:00)
[2018-10-22] MEDS ORDERED: AZITHROMYCIN INJ 500 MG, VIAL MATE ADAPTER 1 EACH in D5W 250 ML IV SCH (17:00)
[2018-10-22 20:00] VITALS: BP 116/61
[2018-10-22 23:59] VITALS: BP 107/56
[2018-10-23] MEDS: IPRATROPIUM 0.5MG/ALBUTEROL 2.5MG INH SOL UD 3ML (DUONEB)(J7620) NEB SCH ×2 (00:56→07:48)
[2018-10-23 04:00] VITALS: BP 101/58
[2018-10-23] MEDS: HEPARIN SOD (PORCINE) 5000 UNITS/ML VIAL SC SCH (05:47)
[2018-10-23] MEDS: SLF 3 ML SYR IV SCH (05:48)
[2018-10-23 06:13] LABS: HEMATOCRIT 40.1 % (42.0-52.0); HEMOGLOBIN 13.6 g/dl (13.5-17.5); MEAN CORPUSCULAR HEMOGLOBIN 30.4 pg (27.0-33.0); MEAN CORPUSCULAR HGB CONC 33.9 g/dl (32.0-36.5); MEAN CORPUSCULAR VOLUME 89.5 fl (80.0-96.0); PLATELET COUNT, AUTOMATED 187 10^3/uL (150-450); RED BLOOD COUNT 4.48 10^6/uL (4.30-6.10); WHITE BLOOD COUNT 7.7 10^3/uL (4.0-10.0)
[2018-10-23 06:30] LABS: BLOOD UREA NITROGEN 23 MG/DL (7-18); CALCIUM LEVEL 9.3 MG/DL (8.5-10.1); CARBON DIOXIDE LEVEL 31 MEQ/L (21-32); CHLORIDE LEVEL 101 MEQ/L (98-107); CREATININE FOR GFR 0.92 MG/DL (0.70-1.30); GLOMERULAR FILTRATION RATE > 60.0 (>56); GLUCOSE, FASTING 165 MG/DL (70-100); POTASSIUM SERUM 3.5 MEQ/L (3.5-5.1); SODIUM LEVEL 138 MEQ/L (136-145)
[2018-10-23 08:00] VITALS: BP 109/58
[2018-10-23] MEDS: methylPREDNISolone INJ 40 MG/1 ML VIAL (J2920) IV SCH (08:25)
[2018-10-23] MEDS ORDERED: CEFD1CAP8 PO (11:26)
[2018-10-23] MEDS ORDERED: PRED10TA2 PO (11:26)
--- NOTE | 2018-10-23 16:10 | DS.PDOC ---
Discharge Summary General Date of Admission October 21, 2018 at 16:17 Date of Discharge 10/23/18 Discharge Summary PROCEDURES PERFORMED DURING STAY: None. ADMITTING/DISCHARGE DIAGNOSES: Community acquired pneumonia History of polysubstance drug abuse COMPLICATIONS/CHIEF COMPLAINT: Copd,Pneumonia,Substance Abuse. HISTORY OF PRESENT ILLNESS: . 58-year-old male with past medical history of COPD, lung cancer status post left upper lobe lobectomy, anxiety/depression, and polysubstance abuse presented to the ER with complaints of worsening SOB. He was here about 2 days prior for AMS, found to have multiple drugs in his system including meth, was admitted for observation. However, when he arrived on the floor and woke up, he asked for strong pain medications to help him get the edge off. He walked out shortly after it was refused. He came back again today for worsening SOB stating that people who lives below him are making meth and the vapors made him SOB. During hospitalization, a CT scan of the chest revealed a left upper lobe infiltrate suggestive of possible pneumonia. The patient was started on IV steroids and IV antibiotic therapy. His respiratory status significantly improved thereafter. Sputum culture was notable for Klebsiella pneumoniae. At this time, the patient states that he is feeling much better and is eager to return home. The patient has been transitioned to a by mouth steroid taper. He has also been changed to a by mouth antibiotic. I've advised the patient to follow-up with his primary care physician within 7 days. Lastly, he is to return to the ER for any acute emergencies. DISCHARGE MEDICATIONS: Please see below. ALLERGIES: Please see below. PHYSICAL EXAMINATION ON DISCHARGE: VITAL SIGNS: Please see below. General: No acute distress, Alert Eyes: Normal sclera, EOMI, AILYN HENT: Atraumatic, neck supple, moist mucous membranes Cardiovascular: Normal rate, normal rhythm. No murmurs appreciated. Pulmonary: Clear to auscultation b/l. GI: Soft, nontender, nondistended Skin: Warm and dry Neuro: CN grossly intact. No focal deficits. Strengths equal b/l. Psych: oriented x 3 LABORATORY DATA: Please see below. IMAGING: Clinical: Acute shortness of breath. Technique: Axial contrast enhanced images from the thoracic inlet to the upper abdomen with multiplanar re-formations using pulmonary embolus protocol. 100 ml Isovue 370 intravenous contrast material administered without complication. Comparison: 05/14/2017. Findings: Satisfactory enhancement of the pulmonary vasculature is achieved and no filling defects are identified to suggest pulmonary embolus. Chronic pleuroparenchymal changes with bronchiectasis and opacities as well as scattered fibrosis and scarring noted in the left upper lung zone and along the medial right hemithorax as well as advanced COPD and emphysematous changes. Increased opacity involving the chronic-appearing changes in the left upper lobe and superior segment of the left lower lobe are suspected. A small area of airspace disease noted in the posterior left lower lobe is a relatively new finding and may represent small acute infiltrate. Thoracic aorta without aneurysm or dissection. No cardiomegaly. No pericardial effusion. No obvious adenopathy. Surrounding musculoskeletal structures witho ut focal osseous abnormality. Impression: 1. No evidence for pulmonary embolus. 2. Chronic advanced COPD/emphysematous changes and pleuroparenchymal changes in the left upper lung zone and medial right hemithorax. Changes in the left upper lung zone appear more dense and may represent progressive chronic change versus subtle superimposed acute process. Clinical: Cough and dyspnea. Comparison: 06/07/2016. Findings: Chronic fibrotic and pleuroparenchymal changes involving the left upper lobe, right perihilar region, and diffusely throughout the bilateral lung almeida are again noted. Increased elements of opacity involving the changes in the left upper lobe are noted and may reflect superimposed acute process. No obvious effusion. Skeletal structures intact. Cardiac silhouette is normal. Impression: Cannot exclude superimposed acute process involving the left upper lung zone. PROGNOSIS: Fair ACTIVITY: As tolerated. DIET: 2 g low sodium diet DISCHARGE PLAN: DISPOSITION: Home, Self-Care. DISCHARGE INSTRUCTIONS: I've advised the patient to follow-up with his primary care physician within 7 days. Lastly, he is to return to the ER for any acute emergencies. DISCHARGE CONDITION: Stable. TIME SPENT ON DISCHARGE: Greater than 30 minutes. Vital Signs/I&Os Vital Signs Date Time Temp Pulse Resp B/P (MAP) Pulse Ox O2 Delivery O2 Flow Rate FiO2 10/23/18 08:00 97.5 104 20 109/58 (75) 94 10/22/18 04:00 4.0 10/21/18 18:00 Nasal Cannula I&O- Last 24 Hours up to 6 AM 10/23/18 05:59 Intake Total 780 ml Output Total 0 ml Balance 780 ml Laboratory Data Labs 24H Laboratory Tests 2 10/23/18 05:52: Nucleated Red Blood Cells % (auto) 0.0, Anion Gap 6L, Glomerular Filtration Rate > 60.0, Blood Urea Nitrogen 23H, Creatinine 0.92, Sodium Level 138, Potassium Level 3.5, Chloride Level 101, Carbon Dioxide Level 31, Calcium Level 9.3 CBC/BMP Laboratory Tests 10/23/18 05:52 Red Blood Count 4.48, Mean Corpuscular Volume 89.5, Mean Corpuscular Hemoglobin 30.4, Mean Corpuscular Hemoglobin Concent 33.9, Red Cell Distribution Width 13.6, Calcium Level 9.3 Microbiology Microbiology 10/21/18 Blood Culture - Preliminary, Resulted No Growth after 48 hours. All Specime... 10/21/18 Blood Culture - Preliminary, Resulted No Growth after 48 hours. All Specime... 10/21/18 Gram Stain - Final, Complete 10/21/18 Sputum Culture - Final, Complete Klebsiella Pneumoniae Yeast Like Organism Discharge Medications Scheduled Cefdinir (Cefdinir) 300 Mg Capsule, 300 MG PO BID Omeprazole (Omeprazole) 40 Mg Capsule.dr, 40 MG PO DAILY, (Reported) Prednisone (Prednisone) 10 Mg Tablet, 10 MG PO TAPER Take 4 tabs daily x 3 days, then 3 tabs daily x 3 days, then 2 tabs daily x 3 days, then 1 tab daily x 3 days and stop Pregabalin (Lyrica) 150 Mg Capsule, 150 MG PO TID, (Reported) Trazodone HCl (Trazodone HCl) 50 Mg Tab, 50 MG PO QAM, (Reported) Trazodone HCl (Trazodone HCl) 50 Mg Tablet, 100 MG PO QHS, (Reported) Scheduled PRN Albuterol Sulfate (Ventolin Hfa) 18 Gm Hfa.aer.ad, 2 PUFF INH Q4H PRN for SHORTNESS OF BREATH, (Reported) Tizanidine HCl (Tizanidine HCl) 4 Mg Tablet, 4 MG PO TID PRN for MUSCLE SPASMS, (Reported) Allergies Coded Allergies: No Known Allergies (Unverified , 10/21/18) ARMAND KNOTT MD October 23, 2018 16:10
== END 2018-10-23 12:24 | disposition home or self-care (01) | DRG 190 ==
LOC: M ED 12:34 → M ED INP 16:17 → M PCU 18:15
PROVIDERS: ADMIT Student in an Organized Health Care Education/Training Program; ATTEND Internal Medicine
DX: J44.1 Chronic obstructive pulmonary disease with (acute) exacerbation (principal); J18.9 Pneumonia, unspecified organism; Z85.118 Personal history of other malignant neoplasm of bronchus and lung; F41.9 Anxiety disorder, unspecified; F32.9 Major depressive disorder, single episode, unspecified; Z79.899 Other long term (current) drug therapy; F17.200 Nicotine dependence, unspecified, uncomplicated

== ENCOUNTER 2018-11-05 10:21 | Emergency (ER) | payer MEDICARE, MEDICAID ==
[~2018-11-05 10:21] MED LIST changes: +CEFD1CAP8 PO; +OMEP-221 PO; +PRED10TA2 PO; -TRAZ-160 PO; +TRAZ-252 PO
[2018-11-05] MEDS: IPRATROPIUM 0.5MG/ALBUTEROL 2.5MG INH SOL UD 3ML (DUONEB)(J7620) NEB PRN ×3 (10:39→11:27)
[2018-11-05 10:50] LABS: ABG O2 SATURATION 96.6 % (95.0-99.0)
[2018-11-05 10:51] LABS: ABG BASE EXCESS 1.7 (-2.0-2.0); ABG HCO3 25.4 MEQ/L (22.0-26.0); ABG PARTIAL PRESSURE CO2 36.8 mmHg (35.0-45.0); ABG PARTIAL PRESSURE O2 80.4 mmHg (75.0-100.0); ABG TOTAL CO2 26.5 MEQ/L (22.0-29.0); ABG pH (ARTERIAL) 7.456 UNITS (7.350-7.450)
[2018-11-05 11:13] LABS: BASO # 0.1 10^3/uL (0.0-0.2); BASO % 0.4 % (0.0-1.0); EOS % 0.3 % (0.0-3.0); HEMATOCRIT 45.5 % (42.0-52.0); HEMOGLOBIN 15.2 g/dl (13.5-17.5); LYMPH # 0.7 10^3/uL (1.5-4.5); LYMPH % 5.9 % (24.0-44.0); MEAN CORPUSCULAR HEMOGLOBIN 30.6 pg (27.0-33.0); MEAN CORPUSCULAR HGB CONC 33.4 g/dl (32.0-36.5); MEAN CORPUSCULAR VOLUME 91.7 fl (80.0-96.0); MONO # 0.8 10^3/uL (0.0-0.8); NEUTROPHILS # 10.1 10^3/uL (1.8-7.7); NEUTROPHILS % 85.9 % (36.0-66.0); PLATELET COUNT, AUTOMATED 220 10^3/uL (150-450); RED BLOOD COUNT 4.96 10^6/uL (4.30-6.10); WHITE BLOOD COUNT 11.8 10^3/uL (4.0-10.0)
[2018-11-05 11:23] LABS: INR 1.04; PROTHROMBIN TIME 13.7 SECONDS (12.1-14.4)
[2018-11-05 11:24] LABS: PARTIAL THROMBOPLASTIN TIME 33.5 SECONDS (25.4-37.6)
[2018-11-05 11:51] LABS: ALBUMIN 3.3 GM/DL (3.2-5.2); ALT/SGPT 18 U/L (12-78); BILIRUBIN,DIRECT 0.5 MG/DL (0.0-0.2); BILIRUBIN,TOTAL 2.7 MG/DL (0.2-1.0); BLOOD UREA NITROGEN 14 MG/DL (7-18); CALCIUM LEVEL 8.6 MG/DL (8.5-10.1); CARBON DIOXIDE LEVEL 31 MEQ/L (21-32); CHLORIDE LEVEL 101 MEQ/L (98-107); CK-MB VALUE MASS 2.7 NG/ML (<3.6); CPK CREATINE PHOSPHOKINASE 42 U/L (39-308); CREATININE FOR GFR 1.18 MG/DL (0.70-1.30); FREE T4 1.72 NG/DL (0.76-1.46); GLOMERULAR FILTRATION RATE > 60.0 (>56); GLUCOSE, FASTING 99 MG/DL (70-100); MB/CK RELATIVE INDEX 6.43 (< OR =4); NT-PRO BNP 1099 PG/ML (<125); SODIUM LEVEL 139 MEQ/L (136-145); THYROID STIMULATING HORMONE 0.983 uIU/ML (0.358-3.740); TOTAL PROTEIN 6.6 GM/DL (6.4-8.2); TROPONIN I 0.02 NG/ML (< 0.10)
--- NOTE | 2018-11-05 12:00 | REP ---
CHEST, TWO VIEWS: Two views of the chest are performed and compared to multiple prior exams most recent which is 10/21/2018. Chronic pleuroparenchymal changes bilaterally are stable. There is diffuse interstitial fibrosis. There is focal fibroatelectasis and pleural thickening in the left apex. There is chronic blunting of the costophrenic angles. There is no definite new, superimposed acute infiltrate. Cardiomediastinal silhouette is unchanged. IMPRESSION: Stable chronic findings without evidence of acute infiltrate. Electronically Signed by Jairo Hitchcock MD 11/05/2018 07:34 P
[2018-11-05] MEDS ORDERED: ISOVUE-370 76% 100ML VIAL (Q9967) As Ordered ONE (12:34)
--- NOTE | 2018-11-05 13:27 | REP ---
Right lower extremity Duplex Doppler venous ultrasound: Real time compression and duplex Doppler interrogation of the right lower extremity deep venous system is performed. The right common femoral, superficial femoral and popliteal veins are fully compressible with transducer pressure and demonstrate normal spontaneous and phasic flow, without evidence of deep venous thrombosis. Impression: No evidence of deep venous thrombosis of the right lower extremity femoral popliteal venous system. Electronically Signed by Jairo Hitchcock MD 11/05/2018 01:20 P
[2018-11-05 13:30] VITALS: BP 114/61
--- NOTE | 2018-11-05 13:36 | REP ---
CT ANGIOGRAM CHEST: TECHNIQUE: Axial contrast enhanced images from the thoracic inlet to the upper abdomen using 100 mL Isovue 370 intravenous contrast material with multiplanar reformations. COMPARISON: 10/21/2018. There is no CT evidence of pulmonary embolism. There is no thoracic aortic aneurysm or dissection. Chronic pleural thickening and consolidative opacity in the left upper lobe is stable. Round parenchymal calcification in the superior segment of the left lower lobe is unchanged. Areas of pleural and parenchymal scarring inferiorly and posteriorly on the right are stable. Scattered parenchymal fibrosis is stable. There is resolution of the patchy infiltrate in the left lower lobe seen on the recent study. No new infiltrate is seen. Heart is not enlarged. There is no acute pleural effusion. Visualized upper abdominal structures appear unremarkable and unchanged. IMPRESSION: No CT evidence of pulmonary embolism. Chronic changes are stable. Resolution of left lower lobe infiltrate. Electronically Signed by Jairo Hitchcock MD 11/05/2018 08:06 P
[2018-11-05 14:00] VITALS: O2SAT 94
--- NOTE | 2018-11-06 16:06 | ECGEPIP ---
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
== END 2018-11-05 15:00 | disposition left against medical advice (07) ==
LOC: M ED 10:21 → EDBD 10:21 → M ED 15:00
DX: R06.02 Shortness of breath (principal); R00.0 Tachycardia, unspecified; J44.9 Chronic obstructive pulmonary disease, unspecified; F41.9 Anxiety disorder, unspecified; F32.9 Major depressive disorder, single episode, unspecified; F19.10 Other psychoactive substance abuse, uncomplicated; F17.200 Nicotine dependence, unspecified, uncomplicated; Z90.2 Acquired absence of lung [part of]; Z79.899 Other long term (current) drug therapy
CPT/HCPCS: 36415; 36600; 71046; 71275; 80048; 80076; 82550; 82553; 82803; 83880; 84439; 84443; 84484; 85025; 85610; 85730; 87040; 93005; 93041; 93971; 94640; 99285; Q9967

== ENCOUNTER 2019-02-10 16:29 | Emergency (ER) | payer MEDICARE, MEDICAID ==
[~2019-02-10] VITALS: Ht 170.2 cm; Wt 39.9 kg
[2019-02-10] MEDS ORDERED: XTAM13.5 (16:37)
[2019-02-10] MEDS ORDERED: KETOROLAC 30 MG/ML VIAL (J1885) IV ONE (17:30)
[2019-02-10] MEDS ORDERED: NS 1,000 ML IV ONE (17:30)
[2019-02-10 18:16] LABS: BASO % 0.7 % (0.0-1.0); EOS # 0.1 10^3/uL (0.0-0.5); EOS % 1.2 % (0.0-3.0); HEMOGLOBIN 14.3 g/dl (13.5-17.5); LYMPH # 0.8 10^3/uL (1.5-5.0); LYMPH % 13.7 % (24.0-44.0); MEAN CORPUSCULAR HEMOGLOBIN 31.2 pg (27.0-33.0); MEAN CORPUSCULAR VOLUME 91.7 fl (80.0-96.0); MONO # 0.4 10^3/uL (0.0-0.8); MONO % 7.2 % (0.0-5.0); NEUTROPHILS # 4.5 10^3/uL (1.5-8.5); PLATELET COUNT, AUTOMATED 216 10^3/uL (150-450); RED BLOOD COUNT 4.58 10^6/uL (4.30-6.10); WHITE BLOOD COUNT 5.8 10^3/uL (4.0-10.0)
[2019-02-10 18:26] LABS: APPEARANCE, URINE CLEAR (CLEAR); BACTERIA, URINE AUTO NEGATIVE (NEGATIVE); BILIRUBIN, URINE AUTO NEGATIVE (NEGATIVE); BLOOD, URINE BLOOD NEGATIVE (NEGATIVE); COLOR, URINE YELLOW (YELLOW); GLUCOSE, URINE (UA) AUTO NEGATIVE (NEGATIVE); KETONE, URINE AUTO NEGATIVE (NEGATIVE); LEUKOCYTE ESTERASE, URINE AUTO NEGATIVE (NEGATIVE); MUCUS, URINE SMALL (NEGATIVE); NITRITE, URINE AUTO NEGATIVE (NEGATIVE); PROTEIN, URINE AUTO NEGATIVE (NEGATIVE); RBC, URINE AUTO 1 /HPF (0-3); SPECIFIC GRAVITY URINE AUTO 1.017 (1.002-1.035); SQUAMOUS EPITHELIAL CELL UR AU 0 /HPF (0-6); UROBILINOGEN, URINE AUTO 0.2 mg/dL (0.0-2.0); WBC, URINE AUTO 0 /HPF (0-3)
[2019-02-10 18:43] LABS: ALBUMIN 3.5 GM/DL (3.2-5.2); ALT/SGPT 21 U/L (12-78); BILIRUBIN,TOTAL 1.1 MG/DL (0.2-1.0); BLOOD UREA NITROGEN 14 MG/DL (7-18); CALCIUM LEVEL 9.3 MG/DL (8.5-10.1); CARBON DIOXIDE LEVEL 31 MEQ/L (21-32); CHLORIDE LEVEL 101 MEQ/L (98-107); CREATININE FOR GFR 0.98 MG/DL (0.70-1.30); GLOMERULAR FILTRATION RATE > 60.0 (>56); GLUCOSE, FASTING 91 MG/DL (70-100); SODIUM LEVEL 137 MEQ/L (136-145); TOTAL PROTEIN 6.5 GM/DL (6.4-8.2)
--- NOTE | 2019-02-10 18:48 | REP ---
Lumbar spine five views: Comparison is 12/08/2014. Vertebral body heights, interspacing alignment are normal and unchanged. There are tiny developing osteophytes at L2-3, 03/04 and 04/05, compatible with minimal degenerative disc disease. This is unchanged. The facets and pedicles are unremarkable. There is no spondylolysis or spondylolisthesis. The sacroiliac articulations are unremarkable. There is a medical fee clerk of some sort superimposed over the abdomen on the right. Impression: Essentially negative lumbar spine except for mild degenerative disc disease as described. This is unchanged. 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 Electronically Signed by Jairo Adam MD 02/10/2019 06:40 P
--- NOTE | 2019-02-10 19:00 | REP ---
Thoracic spine three views: Comparison is a PA and lateral study of the chest dated 11/05/2018. There is mild scoliosis convex right in the upper thoracic spine and left in the lower thoracic spine. This was not present on the comparison PA and lateral chest, therefore, may be positional. The left hilus is retracted cephalic and there is chronic scarring and retraction in the left upper lobe. There is a calcified granuloma in the left upper lobe near the retracted hilus. The right hilus is retracted inferiorly and there is volume loss in the l right at hemithorax suggesting right lower lobectomy. Cardiac size is normal to small. Impression: Mild scoliosis, possibly positional. Chronic bilateral parenchymal scarring and retraction as described. Electronically Signed by Jairo Adam MD 02/10/2019 06:52 P
[2019-02-10 19:46] VITALS: BP 109/58
[2019-02-10] MEDS ORDERED: ACETAMINOPHEN 325 MG TAB PO ONE (20:00)
== END 2019-02-10 20:05 | disposition home or self-care (01) ==
LOC: M ED 16:29
DX: G89.29 Other chronic pain (principal); M54.5 Low back pain; J44.9 Chronic obstructive pulmonary disease, unspecified; K21.9 Gastro-esophageal reflux disease without esophagitis; Z85.118 Personal history of other malignant neoplasm of bronchus and lung; Z79.899 Other long term (current) drug therapy; F17.210 Nicotine dependence, cigarettes, uncomplicated
CPT/HCPCS: 36415; 72072; 72110; 80053; 81001; 85025; 96361; 96374; 99284; J1885

== ENCOUNTER 2019-03-06 14:32 | Emergency (ER) | payer MEDICARE, MEDICAID ==
[~2019-03-06] VITALS: Ht 167.6 cm; Wt 45.8 kg
[~2019-03-06 14:32] MED LIST changes: +XTAM13.5
[2019-03-06] MEDS ORDERED: PREG150C (14:37)
[2019-03-06] MEDS ORDERED: OMEP-221 (14:37)
[2019-03-06 15:23] LABS: BASO % 0.5 % (0.0-1.0); EOS # 0.1 10^3/uL (0.0-0.5); HEMATOCRIT 40.6 % (42.0-52.0); HEMOGLOBIN 13.8 g/dl (13.5-17.5); LYMPH # 0.6 10^3/uL (1.5-5.0); LYMPH % 9.3 % (24.0-44.0); MEAN CORPUSCULAR VOLUME 91.2 fl (80.0-96.0); MONO # 0.5 10^3/uL (0.0-0.8); MONO % 8.3 % (0.0-5.0); NEUTROPHILS % 80.7 % (36.0-66.0); PLATELET COUNT, AUTOMATED 232 10^3/uL (150-450); RED BLOOD COUNT 4.45 10^6/uL (4.30-6.10); WHITE BLOOD COUNT 6.2 10^3/uL (4.0-10.0)
[2019-03-06 15:48] LABS: BLOOD UREA NITROGEN 11 MG/DL (7-18); CARBON DIOXIDE LEVEL 31 MEQ/L (21-32); CHLORIDE LEVEL 103 MEQ/L (98-107); CPK CREATINE PHOSPHOKINASE 39 U/L (39-308); CREATININE FOR GFR 0.98 MG/DL (0.70-1.30); GLOMERULAR FILTRATION RATE > 60.0 (>56); GLUCOSE, FASTING 89 MG/DL (70-100); MB/CK RELATIVE INDEX 5.13 (< OR =4); POTASSIUM SERUM 4.2 MEQ/L (3.5-5.1); SODIUM LEVEL 139 MEQ/L (136-145); TROPONIN I < 0.02 NG/ML (< 0.10)
--- NOTE | 2019-03-06 16:10 | REP ---
Chest x-ray: Two views. History: Shortness of breath. There is apparently a history of lung carcinoma status post left upper lobectomy. Comparison chest x-ray: November 05, 2018. Findings: There is chronic fibrosis and atelectasis in the left upper lobe with upward retraction of the left hilus and volume loss in the left hemithorax. There is some mediastinal shift to the left. These findings are unchanged from the November 05, 2018 prior study. There is similar chronic fibrosis and mild volume loss in the perihilar region on the right. Also unchanged from November 05, 2018. There is emphysematous oligemic change in the right lung diffusely consistent with COPD. There is pleuroparenchymal fibrosis blunting the right lateral and posterior pleural angles unchanged from the comparison studies. No new infiltrate is seen. Heart size is normal. No significant bony abnormality. Impression: Chronic atelectatic and fibrotic changes left upper lobe and perihilar region and right perihilar region. Evidence of COPD particularly in the right lung. Chronic pleuroparenchymal fibrosis in the right base. No acute abnormality. Electronically Signed by Mario Bronson MD 03/06/2019 04:49 P
[2019-03-06 16:21] VITALS: BP 115/67
== END 2019-03-06 16:41 | disposition left against medical advice (07) ==
LOC: M ED 14:32
DX: J44.9 Chronic obstructive pulmonary disease, unspecified (principal); J84.10 Pulmonary fibrosis, unspecified; F41.9 Anxiety disorder, unspecified; F33.9 Major depressive disorder, recurrent, unspecified; F17.200 Nicotine dependence, unspecified, uncomplicated; Z85.118 Personal history of other malignant neoplasm of bronchus and lung; Z90.2 Acquired absence of lung [part of]; Z79.899 Other long term (current) drug therapy

== ENCOUNTER 2019-03-09 10:36 | Emergency (ER) | payer MEDICARE, MEDICAID ==
[~2019-03-09] VITALS: Ht 167.6 cm; Wt 44.7 kg
[~2019-03-09 10:36] MED LIST changes: +OMEP-221; +PREG150C
[2019-03-09] MEDS ORDERED: ONDANSETRON 4MG/2ML VIAL (J2405) IV ONE (12:30)
[2019-03-09] MEDS ORDERED: KETOROLAC 30 MG/ML VIAL (J1885) IV ONE (12:30)
[2019-03-09] MEDS ORDERED: NS 1,000 ML IV ONE ×2 (12:30→14:00)
[2019-03-09 13:01] LABS: AMPHETAMINES LEVEL URINE POSITIVE (NEGATIVE); BARBITURATES URINE NEGATIVE (NEGATIVE); BENZODIAZEPINES URINE NEGATIVE (NEGATIVE); CANNABINOIDS URINE POSITIVE (NEGATIVE); COCAINE METABOLITE URINE NEGATIVE (NEGATIVE); METHADONE URINE NEGATIVE (NEGATIVE); OPIATES URINE NEGATIVE (NEGATIVE); PHENCYCLIDINE URINE NEGATIVE (NEGATIVE)
[2019-03-09 13:25] LABS: ALBUMIN 3.4 GM/DL (3.2-5.2); ALT/SGPT 18 U/L (12-78); BILIRUBIN,DIRECT 0.2 MG/DL (0.0-0.2); BILIRUBIN,TOTAL 0.7 MG/DL (0.2-1.0); BLOOD UREA NITROGEN 10 MG/DL (7-18); CALCIUM LEVEL 9.1 MG/DL (8.5-10.1); CARBON DIOXIDE LEVEL 34 MEQ/L (21-32); CHLORIDE LEVEL 97 MEQ/L (98-107); CREATININE FOR GFR 0.98 MG/DL (0.70-1.30); ETHYL ALCOHOL (ETHANOL) < 0.003 % (0.000-0.010); GLOMERULAR FILTRATION RATE > 60.0 (>56); GLUCOSE, FASTING 96 MG/DL (70-100); POTASSIUM SERUM 4.5 MEQ/L (3.5-5.1); SODIUM LEVEL 135 MEQ/L (136-145); TOTAL PROTEIN 6.7 GM/DL (6.4-8.2)
[2019-03-09 13:25] LABS: BASO % 0.5 % (0.0-1.0); EOS # 0.1 10^3/uL (0.0-0.5); EOS % 1.1 % (0.0-3.0); HEMATOCRIT 40.9 % (42.0-52.0); LYMPH # 0.7 10^3/uL (1.5-5.0); MEAN CORPUSCULAR HEMOGLOBIN 30.9 pg (27.0-33.0); MEAN CORPUSCULAR HGB CONC 34.2 g/dl (32.0-36.5); MEAN CORPUSCULAR VOLUME 90.3 fl (80.0-96.0); MONO # 0.6 10^3/uL (0.0-0.8); MONO % 10.3 % (0.0-5.0); NEUTROPHILS # 4.6 10^3/uL (1.5-8.5); NEUTROPHILS % 75.6 % (36.0-66.0); PLATELET COUNT, AUTOMATED 317 10^3/uL (150-450); RED BLOOD COUNT 4.53 10^6/uL (4.30-6.10); WHITE BLOOD COUNT 6.1 10^3/uL (4.0-10.0)
[2019-03-09 13:31] LABS: INFLUENZA A AMPLIFICATION NEGATIVE (NEGATIVE); INFLUENZA B AMPLIFICATION NEGATIVE (NEGATIVE)
--- NOTE | 2019-03-09 14:20 | REP ---
REASON: Cough and dyspnea. COMPARISON: Multiple, the latest 03/06/2019. There is no change from the prior exam. There are marked lung field abnormalities with hyperexpansion, fibrotic change, and chronic left upper lobe scarring, all stable. No acute patchy parenchymal opacities or pleural effusions have developed. The heart is not enlarged. There is no change in the osseous structures. IMPRESSION: No change from 03/06/2019. Stable-appearing chronic changes. Electronically Signed by Kimani Russell DO 03/09/2019 02:29 P
[2019-03-09 15:27] VITALS: BP 121/72
== END 2019-03-09 15:44 | disposition home or self-care (01) ==
LOC: M ED 10:36
DX: B34.9 Viral infection, unspecified (principal); F19.10 Other psychoactive substance abuse, uncomplicated; E86.0 Dehydration; F17.210 Nicotine dependence, cigarettes, uncomplicated; Z79.899 Other long term (current) drug therapy
CPT/HCPCS: 71046; 80048; 80076; 80307; 81001; 83605; 85025; 87040; 87502; 93041; 94760; 96361; 96374; 96375; 99285; G0480; J1885; J2405

== ENCOUNTER → 2019-03-20 | Outpatient (CLI) | payer MEDICARE, MEDICAID ==
[~2019-03-20] MED LIST changes: +LEVO500T3 PO; +PRED20TA PO
[2019-03-20 10:58] LABS: BASO # 0.1 10^3/uL (0.0-0.2); BASO % 0.8 % (0.0-1.0); EOS % 0.5 % (0.0-3.0); HEMATOCRIT 46.6 % (42.0-52.0); HEMOGLOBIN 15.6 g/dl (13.5-17.5); LYMPH # 0.9 10^3/uL (1.5-5.0); MEAN CORPUSCULAR HEMOGLOBIN 30.5 pg (27.0-33.0); MEAN CORPUSCULAR HGB CONC 33.5 g/dl (32.0-36.5); MONO # 0.7 10^3/uL (0.0-0.8); MONO % 7.8 % (0.0-5.0); NEUTROPHILS # 6.6 10^3/uL (1.5-8.5); NEUTROPHILS % 79.8 % (36.0-66.0); PLATELET COUNT, AUTOMATED 312 10^3/uL (150-450); RED BLOOD COUNT 5.12 10^6/uL (4.30-6.10); WHITE BLOOD COUNT 8.3 10^3/uL (4.0-10.0)
--- NOTE | 2019-03-20 11:23 | REP ---
Two-view chest: 03/20/2019. Indication: Dyspnea. Comparison: 03/09/2019. Findings: The previously described chronic changes are redemonstrated and stable. No new air space consolidations are present. There is no evidence of significant pleural effusion or pneumothorax. The cardiac silhouette is unremarkable. Impression: No acute changes compared to earlier this month. Electronically Signed by Toby Garza DO 03/20/2019 11:14 A
[2019-03-20 11:50] LABS: ALBUMIN 3.5 GM/DL (3.2-5.2); ALT/SGPT 16 U/L (12-78); BILIRUBIN,TOTAL 1.5 MG/DL (0.2-1.0); BLOOD UREA NITROGEN 12 MG/DL (7-18); CALCIUM LEVEL 9.5 MG/DL (8.5-10.1); CARBON DIOXIDE LEVEL 32 MEQ/L (21-32); CHLORIDE LEVEL 97 MEQ/L (98-107); CREATININE FOR GFR 1.19 MG/DL (0.70-1.30); FREE T4 1.16 NG/DL (0.76-1.46); GLOMERULAR FILTRATION RATE > 60.0 (>56); GLUCOSE, FASTING 130 MG/DL (70-100); POTASSIUM SERUM 4.3 MEQ/L (3.5-5.1); SODIUM LEVEL 133 MEQ/L (136-145); TOTAL PROTEIN 7.1 GM/DL (6.4-8.2)
--- NOTE | 2019-03-20 13:05 | REP ---
Seven views cervical spine: Indication: Neck pain. Findings: Vertebral body alignment is anatomic. There is no evidence of fracture, subluxation or dislocation. The cervical spine and foramina are patent. The prevertebral soft tissues are unremarkable. Impression: No acute osseous injury of the cervical spine. Electronically Signed by Toby Garza DO 03/20/2019 12:56 P
[2019-03-20 21:34] LABS: FREE T3 2.1 PG/ML (2.2-4.0)
== END ==
LOC: M LAB 10:27
PROVIDERS: ATTEND Family Medicine
DX: E07.9 Disorder of thyroid, unspecified (principal); R53.81 Other malaise; M54.2 Cervicalgia

== ENCOUNTER 2019-03-21 10:42 | Emergency (ER) | payer MEDICARE, MEDICAID ==
[~2019-03-21] VITALS: Ht 167.6 cm; Wt 43.4 kg
[~2019-03-21 10:42] MED LIST changes: -LEVO500T3 PO; -PRED20TA PO
[2019-03-21] MEDS ORDERED: predniSONE 20 MG TAB PO ONE (11:30)
[2019-03-21] MEDS ORDERED: NS 1,000 ML IV ONE (11:30)
[2019-03-21] MEDS ORDERED: IPRATROPIUM 0.5MG/ALBUTEROL 2.5MG INH SOL UD 3ML (DUONEB)(J7620) NEB ONE (11:30)
[2019-03-21 11:38] LABS: BASO # 0.1 10^3/uL (0.0-0.2); BASO % 0.8 % (0.0-1.0); EOS % 0.5 % (0.0-3.0); HEMATOCRIT 45.5 % (42.0-52.0); HEMOGLOBIN 15.3 g/dl (13.5-17.5); INR 1.11; LYMPH # 0.9 10^3/uL (1.5-5.0); LYMPH % 11.8 % (24.0-44.0); MEAN CORPUSCULAR HEMOGLOBIN 30.7 pg (27.0-33.0); MEAN CORPUSCULAR HGB CONC 33.6 g/dl (32.0-36.5); MEAN CORPUSCULAR VOLUME 91.2 fl (80.0-96.0); MONO # 0.6 10^3/uL (0.0-0.8); MONO % 8.4 % (0.0-5.0); NEUTROPHILS # 5.8 10^3/uL (1.5-8.5); NEUTROPHILS % 78.2 % (36.0-66.0); PLATELET COUNT, AUTOMATED 306 10^3/uL (150-450); PROTHROMBIN TIME 14.1 SECONDS (11.8-14.0); RED BLOOD COUNT 4.99 10^6/uL (4.30-6.10); WHITE BLOOD COUNT 7.5 10^3/uL (4.0-10.0)
--- NOTE | 2019-03-21 11:53 | REP ---
CT brain: 03/21/2019. Indication: Headache. Comparison: 04/26/2017. Technique: Unenhanced axial CT images of the brain were obtained from skull base to vertex. Findings: There is no acute intracranial hemorrhage, acute cortical infarction, mass effect, hydrocephalus or significant fluid within the visualized paranasal sinuses/mastoid air cells. Impression: No acute intracranial process. Electronically Signed by Toby Garza DO 03/21/2019 11:45 A
[2019-03-21 11:58] LABS: ALBUMIN 3.4 GM/DL (3.2-5.2); ALT/SGPT 13 U/L (12-78); BILIRUBIN,DIRECT 0.2 MG/DL (0.0-0.2); BILIRUBIN,TOTAL 1.1 MG/DL (0.2-1.0); BLOOD UREA NITROGEN 12 MG/DL (7-18); CALCIUM LEVEL 9.5 MG/DL (8.5-10.1); CARBON DIOXIDE LEVEL 30 MEQ/L (21-32); CHLORIDE LEVEL 98 MEQ/L (98-107); CK-MB VALUE MASS 1.5 NG/ML (<3.6); CPK CREATINE PHOSPHOKINASE 30 U/L (39-308); CREATININE FOR GFR 1.24 MG/DL (0.70-1.30); GLOMERULAR FILTRATION RATE > 60.0 (>56); GLUCOSE, FASTING 93 MG/DL (70-100); NT-PRO BNP 532 PG/ML (<125); POTASSIUM SERUM 4.1 MEQ/L (3.5-5.1); SODIUM LEVEL 134 MEQ/L (136-145); THYROID STIMULATING HORMONE 0.981 uIU/ML (0.358-3.740); TOTAL PROTEIN 7.8 GM/DL (6.4-8.2); TROPONIN I < 0.02 NG/ML (< 0.10)
[2019-03-21 12:12] LABS: ABG BASE EXCESS 0.7 (-2.0-2.0); ABG HCO3 24.2 MEQ/L (22.0-26.0); ABG O2 SATURATION 98.8 % (95.0-99.0); ABG PARTIAL PRESSURE CO2 35.2 mmHg (35.0-45.0); ABG PARTIAL PRESSURE O2 141.2 mmHg (75.0-100.0); ABG STANDARD HCO3 25.2 MEQ/L (22.0-26.0); ABG TOTAL CO2 25.3 MEQ/L (22.0-29.0); ABG pH (ARTERIAL) 7.455 UNITS (7.350-7.450)
[2019-03-21] MEDS ORDERED: ISOVUE-370 76% 100ML VIAL (Q9967) As Ordered ONE (12:19)
[2019-03-21] MEDS ORDERED: PRED20TA PO (13:43)
[2019-03-21 13:58] VITALS: BP 115/62
--- NOTE | 2019-03-21 14:43 | REP ---
CT ANGIOGRAM CHEST: TECHNIQUE: Axial contrast enhanced images from the thoracic inlet to the upper abdomen using 100 mL Isovue 370 intravenous contrast material with multiplanar reformations. COMPARISON: 11/05/2018. There is no CT evidence of pulmonary embolism. There is no thoracic aortic aneurysm or dissection. Heart is not enlarged. No pleural effusion is seen. There is no new adenopathy. There is consolidative opacity and pleural thickening in the left upper lobe which is stable. There is apparent postradiation fibrosis and pleural thickening medially on the right which is also unchanged. No new abnormal parenchymal opacities are seen. The visualized upper abdominal structures are unremarkable and unchanged. IMPRESSION: No CT evidence of pulmonary embolism. Bilateral parenchymal opacities and pleural thickening unchanged. Electronically Signed by Jairo Hitchcock MD 03/22/2019 11:17 A
--- NOTE | 2019-03-21 21:29 | ECGEPIP ---
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
== END 2019-03-21 14:11 | disposition home or self-care (01) ==
LOC: EDBD 10:42 → M ED 10:42
DX: J44.9 Chronic obstructive pulmonary disease, unspecified (principal); Z79.899 Other long term (current) drug therapy; F17.210 Nicotine dependence, cigarettes, uncomplicated
CPT/HCPCS: 36600; 70450; 71275; 80048; 80076; 82550; 82553; 82803; 83605; 83880; 84443; 84484; 85025; 85610; 87040; 93005; 93041; 94640; 96360; 99284; Q9967

== ENCOUNTER 2019-03-26 17:40 | Emergency (ER) | payer MEDICARE, MEDICAID ==
[~2019-03-26] VITALS: Ht 167.6 cm; Wt 50.0 kg
[~2019-03-26 17:40] MED LIST changes: +PRED20TA PO
[2019-03-26 17:41] VITALS: BP 124/58
[2019-03-26] MEDS ORDERED: PREG150C (17:48)
== END 2019-03-26 18:03 | disposition left against medical advice (07) ==
LOC: M ED 17:40
DX: Z53.21 Procedure and treatment not carried out due to patient leaving prior to being seen by health care provider (principal)

== ENCOUNTER 2019-03-28 12:33 | Emergency (ER) | payer MEDICARE, MEDICAID ==
[~2019-03-28] VITALS: Ht 167.6 cm; Wt 47.7 kg
[2019-03-28 13:51] VITALS: BP 126/65
[2019-03-29] MEDS ORDERED: LEVO500T3 PO (11:21)
[2019-03-29] MEDS ORDERED: TRAZ-252 PO (11:21)
== END 2019-03-28 13:53 | disposition home or self-care (01) ==
LOC: EDBD 12:33 → M ED 12:33
DX: M79.604 Pain in right leg (principal); M79.605 Pain in left leg; C34.90 Malignant neoplasm of unspecified part of unspecified bronchus or lung; J44.9 Chronic obstructive pulmonary disease, unspecified; F17.200 Nicotine dependence, unspecified, uncomplicated; F19.10 Other psychoactive substance abuse, uncomplicated; Z79.899 Other long term (current) drug therapy

== ENCOUNTER 2019-03-29 10:54 | Emergency (ER) | payer MEDICARE, MEDICAID ==
[~2019-03-29] VITALS: Ht 167.6 cm; Wt 48.7 kg
[2019-03-29] MEDS ORDERED: LEVO500T3 PO (11:21)
[2019-03-29] MEDS ORDERED: TRAZ-252 PO (11:21)
[2019-03-29 12:00] LABS: BASO % 0.3 % (0.0-1.0); EOS % 0.3 % (0.0-3.0); HEMOGLOBIN 14.2 g/dl (13.5-17.5); LYMPH # 0.4 10^3/uL (1.5-5.0); LYMPH % 3.5 % (24.0-44.0); MEAN CORPUSCULAR HEMOGLOBIN 30.5 pg (27.0-33.0); MEAN CORPUSCULAR HGB CONC 32.3 g/dl (32.0-36.5); MEAN CORPUSCULAR VOLUME 94.4 fl (80.0-96.0); MONO # 0.5 10^3/uL (0.0-0.8); MONO % 4.3 % (0.0-5.0); NEUTROPHILS # 10.7 10^3/uL (1.5-8.5); NEUTROPHILS % 90.1 % (36.0-66.0); PLATELET COUNT, AUTOMATED 242 10^3/uL (150-450); RED BLOOD COUNT 4.66 10^6/uL (4.30-6.10); WHITE BLOOD COUNT 11.9 10^3/uL (4.0-10.0)
[2019-03-29] MEDS ORDERED: IPRATROPIUM 0.5MG/ALBUTEROL 2.5MG INH SOL UD 3ML (DUONEB)(J7620) NEB ONE (12:15)
[2019-03-29 12:33] VITALS: BP 109/59
[2019-03-29 12:33] LABS: ALBUMIN 3.2 GM/DL (3.2-5.2); ALT/SGPT 71 U/L (12-78); BILIRUBIN,TOTAL 0.7 MG/DL (0.2-1.0); BLOOD UREA NITROGEN 17 MG/DL (7-18); CALCIUM LEVEL 8.7 MG/DL (8.5-10.1); CARBON DIOXIDE LEVEL 30 MEQ/L (21-32); CHLORIDE LEVEL 98 MEQ/L (98-107); CREATININE FOR GFR 0.94 MG/DL (0.70-1.30); GLOMERULAR FILTRATION RATE > 60.0 (>56); GLUCOSE, FASTING 202 MG/DL (70-100); POTASSIUM SERUM 4.6 MEQ/L (3.5-5.1); SODIUM LEVEL 136 MEQ/L (136-145); TOTAL PROTEIN 6.4 GM/DL (6.4-8.2)
--- NOTE | 2019-03-29 12:51 | REP ---
Clinical: Cough and shortness of breath. Technique: PA and lateral. Comparison: 03/20/2019. Findings: Chronic pleuroparenchymal changes are appreciated which remain stable compared to 03/20/2019. Skeletal structures are intact. Impression: Stable pleuroparenchymal changes. No obvious new acute process. Electronically Signed by Patric Geller MD 03/29/2019 12:43 P
[2019-03-29 12:52] LABS: AMPHETAMINES LEVEL URINE NEGATIVE (NEGATIVE); BARBITURATES URINE NEGATIVE (NEGATIVE); BENZODIAZEPINES URINE NEGATIVE (NEGATIVE); CANNABINOIDS URINE NEGATIVE (NEGATIVE); COCAINE METABOLITE URINE NEGATIVE (NEGATIVE); METHADONE URINE NEGATIVE (NEGATIVE); OPIATES URINE NEGATIVE (NEGATIVE); PHENCYCLIDINE URINE NEGATIVE (NEGATIVE)
--- NOTE | 2019-03-30 11:49 | ECGEPIP ---
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
[2019-03-30] MEDS ORDERED: ALBU83IN (12:00)
== END 2019-03-29 15:06 | disposition home or self-care (01) ==
LOC: M ED 10:54
DX: R00.0 Tachycardia, unspecified (principal); F19.10 Other psychoactive substance abuse, uncomplicated; R69 Illness, unspecified; J44.9 Chronic obstructive pulmonary disease, unspecified; K21.9 Gastro-esophageal reflux disease without esophagitis; M54.9 Dorsalgia, unspecified; F17.200 Nicotine dependence, unspecified, uncomplicated; F12.10 Cannabis abuse, uncomplicated; Z90.2 Acquired absence of lung [part of]; Z79.899 Other long term (current) drug therapy

== ENCOUNTER 2019-03-30 11:53 | Emergency (ER) | payer MEDICARE, MEDICAID ==
[~2019-03-30] VITALS: Ht 167.6 cm; Wt 50.0 kg
[~2019-03-30 11:53] MED LIST changes: +LEVO500T3 PO
[2019-03-30] MEDS ORDERED: ALBU83IN (12:00)
[2019-03-30 12:37] LABS: BASO # 0.1 10^3/uL (0.0-0.2); BASO % 0.4 % (0.0-1.0); EOS % 0.3 % (0.0-3.0); HEMATOCRIT 46.5 % (42.0-52.0); HEMOGLOBIN 15.1 g/dl (13.5-17.5); LYMPH # 0.5 10^3/uL (1.5-5.0); LYMPH % 4.3 % (24.0-44.0); MEAN CORPUSCULAR HEMOGLOBIN 30.4 pg (27.0-33.0); MEAN CORPUSCULAR HGB CONC 32.5 g/dl (32.0-36.5); MEAN CORPUSCULAR VOLUME 93.8 fl (80.0-96.0); MONO # 0.6 10^3/uL (0.0-0.8); MONO % 4.4 % (0.0-5.0); NEUTROPHILS # 11.1 10^3/uL (1.5-8.5); NEUTROPHILS % 88.7 % (36.0-66.0); PLATELET COUNT, AUTOMATED 256 10^3/uL (150-450); RED BLOOD COUNT 4.96 10^6/uL (4.30-6.10); WHITE BLOOD COUNT 12.5 10^3/uL (4.0-10.0)
[2019-03-30 13:02] LABS: BLOOD UREA NITROGEN 21 MG/DL (7-18); CALCIUM LEVEL 9.3 MG/DL (8.5-10.1); CARBON DIOXIDE LEVEL 30 MEQ/L (21-32); CHLORIDE LEVEL 100 MEQ/L (98-107); CREATININE FOR GFR 0.96 MG/DL (0.70-1.30); GLOMERULAR FILTRATION RATE > 60.0 (>56); GLUCOSE, FASTING 120 MG/DL (70-100); POTASSIUM SERUM 4.8 MEQ/L (3.5-5.1); SODIUM LEVEL 136 MEQ/L (136-145)
[2019-03-30 13:04] LABS: INFLUENZA A AMPLIFICATION NEGATIVE (NEGATIVE); INFLUENZA B AMPLIFICATION NEGATIVE (NEGATIVE); MONO SCRN NEGATIVE (NEGATIVE)
--- NOTE | 2019-03-30 13:04 | REP ---
Clinical: Nasal and sinus pain. Technique: Axial noncontrast images through the maxillofacial region with coronal and sagittal re-formations. Findings: The osseous structures are intact and normal including nasal septum, bilateral lamina papyracea and ethmoid air cells. The sinuses are well aerated and clear. No significant mucosal thickening or air-fluid levels are identified. Bilateral orbits are symmetric and normal. The mastoid air cells are clear. Impression: Essentially normal noncontrast maxillofacial CT. Electronically Signed by Patric Geller MD 03/30/2019 12:55 P
[2019-03-30 14:01] VITALS: BP 130/66
[2019-03-31] MEDS ORDERED: IBUP-1022 PO (12:27)
--- NOTE | 2019-03-31 16:21 | ECGEPIP ---
[facility] - ED Test Date: 2019-03-30 Pat Name: ALBERT LAINEZ Department: Room: - Gender: Male Lead Systems Engineer: ARSEN : 1960 Requested By: Lizzie Sloan FARE REGISTER REPAIRER Order Number: [id number] Reading MD: Lilo Domingo Measurements Intervals [place] Rate: 112 P: 95 [place]: 115 QRS: 86 QRSD: 93 T: 99 QT: 316 QTc: 433 Interpretive Statements SINUS TACHYCARDIA WITH SHORT [place] INTERVAL MINIMAL ST DEPRESSION ABNORMAL RHYTHM ECG SIMILAR 03/29/19 Electronically Signed on 03-31-2019 16:21:13 EST by Lilo Domingo
== END 2019-03-30 14:05 | disposition home or self-care (01) ==
LOC: M ED 11:53
DX: F19.10 Other psychoactive substance abuse, uncomplicated (principal); R69 Illness, unspecified; R00.0 Tachycardia, unspecified; R94.31 Abnormal electrocardiogram [ECG] [EKG]; J44.9 Chronic obstructive pulmonary disease, unspecified; Z87.01 Personal history of pneumonia (recurrent); K21.9 Gastro-esophageal reflux disease without esophagitis; Z90.2 Acquired absence of lung [part of]; F17.200 Nicotine dependence, unspecified, uncomplicated; F12.10 Cannabis abuse, uncomplicated; Z79.899 Other long term (current) drug therapy

== ENCOUNTER 2019-03-31 09:28 | Emergency (ER) | payer MEDICARE, MEDICAID ==
[~2019-03-31] VITALS: Ht 167.6 cm; Wt 48.3 kg
[~2019-03-31 09:28] MED LIST changes: +ALBU83IN
[2019-03-31] MEDS ORDERED: NS 1,000 ML IV ONE (10:45)
[2019-03-31 11:01] LABS: BASO # 0.1 10^3/uL (0.0-0.2); BASO % 0.8 % (0.0-1.0); EOS # 0.2 10^3/uL (0.0-0.5); EOS % 1.2 % (0.0-3.0); HEMATOCRIT 52.7 % (42.0-52.0); HEMOGLOBIN 16.9 g/dl (13.5-17.5); LYMPH # 1.3 10^3/uL (1.5-5.0); LYMPH % 9.9 % (24.0-44.0); MEAN CORPUSCULAR HEMOGLOBIN 30.4 pg (27.0-33.0); MEAN CORPUSCULAR HGB CONC 32.1 g/dl (32.0-36.5); MEAN CORPUSCULAR VOLUME 94.8 fl (80.0-96.0); MONO # 1.3 10^3/uL (0.0-0.8); MONO % 10.3 % (0.0-5.0); NEUTROPHILS # 9.7 10^3/uL (1.5-8.5); NEUTROPHILS % 74.9 % (36.0-66.0); PLATELET COUNT, AUTOMATED 270 10^3/uL (150-450); RED BLOOD COUNT 5.56 10^6/uL (4.30-6.10)
[2019-03-31 11:53] LABS: ALBUMIN 3.8 GM/DL (3.2-5.2); ALT/SGPT 92 U/L (12-78); BILIRUBIN,DIRECT 0.2 MG/DL (0.0-0.2); BILIRUBIN,TOTAL 1.1 MG/DL (0.2-1.0); BLOOD UREA NITROGEN 17 MG/DL (7-18); CALCIUM LEVEL 9.4 MG/DL (8.5-10.1); CARBON DIOXIDE LEVEL 33 MEQ/L (21-32); CHLORIDE LEVEL 100 MEQ/L (98-107); FREE THYROXINE INDEX 4.4 % (1.4-3.8); GLOMERULAR FILTRATION RATE > 60.0 (>56); GLUCOSE, FASTING 78 MG/DL (70-100); POTASSIUM SERUM 4.6 MEQ/L (3.5-5.1); SODIUM LEVEL 137 MEQ/L (136-145); T UPTAKE 35 % (33-40); THYROXINE (T4) 12.5 UG/DL (4.5-12.0); TOTAL PROTEIN 7.3 GM/DL (6.4-8.2)
[2019-03-31] MEDS ORDERED: IBUP-1022 PO (12:27)
[2019-03-31 12:37] VITALS: BP 158/59
== END 2019-03-31 12:38 | disposition home or self-care (01) ==
LOC: M ED 09:28
DX: F19.939 Other psychoactive substance use, unspecified with withdrawal, unspecified (principal); E86.0 Dehydration; M79.10 Myalgia, unspecified site; F17.200 Nicotine dependence, unspecified, uncomplicated; Z79.899 Other long term (current) drug therapy

== ENCOUNTER 2019-04-01 09:15 | Emergency (ER) | payer MEDICARE, MEDICAID ==
[~2019-04-01] VITALS: Ht 167.6 cm; Wt 52.3 kg
[~2019-04-01 09:15] MED LIST changes: +IBUP-1022 PO
[2019-04-01 13:50] VITALS: BP 133/64
== END 2019-04-01 13:51 | disposition home or self-care (01) ==
LOC: M ED 09:15
DX: F19.10 Other psychoactive substance abuse, uncomplicated (principal); C34.90 Malignant neoplasm of unspecified part of unspecified bronchus or lung; J44.9 Chronic obstructive pulmonary disease, unspecified; M51.9 Unspecified thoracic, thoracolumbar and lumbosacral intervertebral disc disorder; F41.9 Anxiety disorder, unspecified; F32.9 Major depressive disorder, single episode, unspecified; F17.200 Nicotine dependence, unspecified, uncomplicated; F12.10 Cannabis abuse, uncomplicated; Z79.899 Other long term (current) drug therapy

== ENCOUNTER 2019-07-27 22:52 | Inpatient (IN) | payer MEDICARE, MEDICAID ==
[~2019-07-27] VITALS: Ht 160 cm; Wt 45.3 kg
[~2019-07-27 22:52] MED LIST changes: -OMEP-221
[2019-07-27 23:21] LABS: BASO # 0.1 10^3/uL (0.0-0.2); BASO % 0.5 % (0.0-1.0); EOS % 0.1 % (0.0-3.0); HEMATOCRIT 46.1 % (42.0-52.0); HEMOGLOBIN 15.1 g/dl (13.5-17.5); LYMPH # 0.9 10^3/uL (1.5-5.0); LYMPH % 4.4 % (24.0-44.0); MEAN CORPUSCULAR HGB CONC 32.8 g/dl (32.0-36.5); MEAN CORPUSCULAR VOLUME 88.7 fl (80.0-96.0); MONO # 1.9 10^3/uL (0.0-0.8); MONO % 9.5 % (0.0-5.0); NEUTROPHILS # 16.6 10^3/uL (1.5-8.5); PLATELET COUNT, AUTOMATED 359 10^3/uL (150-450); WHITE BLOOD COUNT 19.6 10^3/uL (4.0-10.0)
[2019-07-27] MEDS ORDERED: PROPOFOL 1,000 MG/100 ML VIAL As Ordered ONE (23:32)
[2019-07-27] MEDS ORDERED: ETOMIDATE INJ 20MG/10ML VIAL IV STA (23:50)
[2019-07-27] MEDS ORDERED: SUCCINYLCHOLINE INJ 200 MG/10 ML VIAL (J0330) IV STA (23:50)
[2019-07-27 23:51] LABS: ALBUMIN 3.9 GM/DL (3.2-5.2); ALT/SGPT 20 U/L (12-78); BILIRUBIN,DIRECT 0.6 MG/DL (0.0-0.2); BILIRUBIN,TOTAL 2.8 MG/DL (0.2-1.0); BLOOD UREA NITROGEN 16 MG/DL (7-18); CALCIUM LEVEL 9.5 MG/DL (8.5-10.1); CARBON DIOXIDE LEVEL 28 MEQ/L (21-32); CHLORIDE LEVEL 103 MEQ/L (98-107); CK-MB VALUE MASS 1.1 NG/ML (<3.6); CPK CREATINE PHOSPHOKINASE 202 U/L (39-308); CREATININE FOR GFR 1.34 MG/DL (0.70-1.30); GLOMERULAR FILTRATION RATE 58.7 (>56); GLUCOSE, FASTING 91 MG/DL (70-100); MB/CK RELATIVE INDEX 0.54 (< OR =4); POTASSIUM SERUM 4.3 MEQ/L (3.5-5.1); SODIUM LEVEL 140 MEQ/L (136-145); TROPONIN I < 0.02 NG/ML (< 0.10)
[2019-07-28] VITALS (65 sets, daily range): BP systolic 42–133; BP diastolic 18–71
[2019-07-28] MEDS ORDERED: METAL LOCK LOOP XX ONE (00:04)
[2019-07-28 00:06] LABS: ETHYL ALCOHOL (ETHANOL) < 0.003 % (0.000-0.010); FREE THYROXINE INDEX 5.3 % (1.4-3.8); T UPTAKE 36 % (33-40); THYROXINE (T4) 14.6 UG/DL (4.5-12.0)
[2019-07-28] MEDS ORDERED: NS 1,000 ML IV ONE ×4 (00:15→21:30)
[2019-07-28] MEDS ORDERED: propofoL 1,000 MG in IV 1 EA IV SCH ×2 (00:15→07:24)
[2019-07-28] MEDS ORDERED: VECURONIUM BROMIDE 10 MG VIAL As Ordered ONE (00:36)
[2019-07-28] MEDS ORDERED: VECURONIUM BROMIDE 10 MG VIAL IV ONE (00:45)
[2019-07-28 00:53] LABS: AMPHETAMINES LEVEL URINE NEGATIVE (NEGATIVE); BARBITURATES URINE NEGATIVE (NEGATIVE); BENZODIAZEPINES URINE NEGATIVE (NEGATIVE); CANNABINOIDS URINE POSITIVE (NEGATIVE); COCAINE METABOLITE URINE NEGATIVE (NEGATIVE); METHADONE URINE NEGATIVE (NEGATIVE); OPIATES URINE NEGATIVE (NEGATIVE); PHENCYCLIDINE URINE NEGATIVE (NEGATIVE)
--- NOTE | 2019-07-28 00:55 | REPVR ---
PROCEDURE INFORMATION: Exam: CT Head Without Contrast Exam date and time: 07/28/2019 12:31 AM Age: 58 years old Clinical indication: Pain; Headache; Additional info: AMS TECHNIQUE: Imaging protocol: Computed tomography of the head without contrast. Radiation optimization: All CT scans at this facility use at least one of these dose optimization techniques: automated exposure control; mA and/or kV adjustment per patient size (includes targeted exams where dose is matched to clinical indication); or iterative reconstruction. COMPARISON: CT Head without contrast 2019-03-21 11:29 FINDINGS: Brain: Diffuse mild cerebral age related volume loss. Mild patchy low attenuation in the white matter compatible with mild chronic small vessel ischemic disease. No midline shift, mass, fluid collection, or evidence of hemorrhage. Ventricles: Ventricular enlargement proportional to volume loss. Bones/joints: Unremarkable. No acute fracture. Sinuses: Visualized sinuses are unremarkable. No fluid levels. Mastoid air cells: Visualized mastoid air cells are well aerated. Soft tissues: Unremarkable. IMPRESSION: Mild involutional changes, no acute intracranial abnormality. Electronically signed by: William Lam On 07/28/2019 00:54:45 AM
[2019-07-28] MEDS ORDERED: XTAM13.5 PO (01:10)
[2019-07-28] MEDS ORDERED: DULO60CA35 PO (01:10)
[2019-07-28] MEDS ORDERED: PATIENT COMMENTS (01:10)
[2019-07-28] MEDS ORDERED: TRAZ-186 PO (01:11)
[2019-07-28] MEDS ORDERED: cefTRIAXone SOD 1 GM in D5W MINI-BAG PLUS 50 ML IV ONE (01:15)
[2019-07-28] MEDS ORDERED: ACYCLOVIR 1,000 MG in D5W 250 ML IV ONE (01:15)
[2019-07-28] MEDS ORDERED: ACETAMINOPHEN 650 MG SUPP PR ONE (01:30)
[2019-07-28 01:37] LABS: APPEARANCE, CSF CLEAR (CLEAR); COLOR, CSF COLORLESS (COLORLESS); CSF TUBE# CELL CNT TUBE 3
[2019-07-28 01:38] LABS: APPEARANCE, CSF CLEAR (CLEAR); COLOR, CSF COLORLESS (COLORLESS); CSF TUBE# CELL CNT TUBE 4
[2019-07-28 01:40] LABS: CSF TUBE# GLU TUBE 1; CSF TUBE# TP TUBE 1; GLUCOSE CSF 61 MG/DL (40-75); TOTAL PROTEIN,CSF 40 MG/DL (15-45)
[2019-07-28] MEDS ORDERED: NOREPINEPHRINE BITARTRATE 8 MG in D5W 492 ML IV SCH ×2 (01:45→23:00)
[2019-07-28 02:52] LABS: INFLUENZA A AMPLIFICATION NEGATIVE (NEGATIVE); INFLUENZA B AMPLIFICATION NEGATIVE (NEGATIVE)
[2019-07-28 03:18] LABS: ABG BASE EXCESS -4.4 (-2.0-2.0); ABG HCO3 22.9 MEQ/L (22.0-26.0); ABG O2 SATURATION 92.9 % (95.0-99.0); ABG PARTIAL PRESSURE CO2 51.4 mmHg (35.0-45.0); ABG STANDARD HCO3 20.8 MEQ/L (22.0-26.0); ABG TOTAL CO2 24.5 MEQ/L (22.0-29.0); ABG pH (ARTERIAL) 7.267 UNITS (7.350-7.450)
[2019-07-28 03:26] LABS: APPEARANCE, URINE CLEAR (CLEAR); BACTERIA, URINE AUTO NEGATIVE (NEGATIVE); BILIRUBIN, URINE AUTO NEGATIVE (NEGATIVE); BLOOD, URINE BLOOD NEGATIVE (NEGATIVE); COLOR, URINE YELLOW (YELLOW); GLUCOSE, URINE (UA) AUTO NEGATIVE (NEGATIVE); KETONE, URINE AUTO 1+ mg/dL (NEGATIVE); LEUKOCYTE ESTERASE, URINE AUTO NEGATIVE (NEGATIVE); MUCUS, URINE SMALL (NEGATIVE); NITRITE, URINE AUTO NEGATIVE (NEGATIVE); PROTEIN, URINE AUTO NEGATIVE (NEGATIVE); RBC, URINE AUTO 1 /HPF (0-3); SPECIFIC GRAVITY URINE AUTO 1.016 (1.002-1.035); SQUAMOUS EPITHELIAL CELL UR AU 0 /HPF (0-6); UROBILINOGEN, URINE AUTO 0.2 mg/dL (0.0-2.0); WBC, URINE AUTO 1 /HPF (0-3)
[2019-07-28] MEDS ORDERED: dexameTHASONE 20 MG/5 ML VIAL (J1100) IV ONE (04:15)
[2019-07-28] MEDS ORDERED: FUROSEMIDE 100 MG/10 ML VIAL (J1940) IV ONE (04:15)
--- NOTE | 2019-07-28 04:37 | HPEPDOC ---
[facility] Medical History & Physical Date of Admission Jul 28, 2019 Date of Service: Jul 28, 2019 Attending Physician: AQUILINO STEPHENSON MD History and Physical Tomás ALLEN acting abnormal HPI: son brought him in he is acting abnormally took July. EMS gave him Ketamine. ON arrival in the ER he was agitated. Due to concerns of encephalitis bc of the fever he was intubated for LP and received ceftriaxone & acyclovir. Shortly thereafter he was extubate but is still not back to his baseline. PMH VERENA CA SH- polysubstance abuse 1. SIRS (fever, HR & RR) -Temp >101 or <96.8 / HR >90 / bands >10% / WBC >12 or <4 / RR 20 Plan: admit to ICU / telemetry / Sepsis protocol w repeat lactic acid and exam in 3H / abx / switch to lactate ringers (unless they have liver failure give half NS) /f/u blood cx, UA w Cx and sputum Cx / Acetaminophen PRN for fever / target MAP 65 to 70 mmHG / f/u Is and Os with target UOP of atleast 0.5 ml/kg/H / target serum glucose 140-180 while acutely ill / code status. 2. Encephalopathy 2/2 drugs Plan: / neurochecks / seizure precautions / CIWA 3. REGINALDO Plan: Is/Os, daily weights / IVF / f/u CK, ulytes for FENa or FEUrea / renal US Euthyroid sick syndrome Vital Signs Vital Signs Date Time Temp Pulse Resp B/P (MAP) Pulse Ox O2 Delivery O2 Flow Rate FiO2 07/28/19 04:31 121 154/84 (107) 85 Non-Rebreather 07/28/19 04:16 15.0 07/28/19 03:30 20 07/28/19 03:05 60 07/28/19 02:45 96.3 Laboratory Data Labs 24H Laboratory Tests 2 07/27/19 23:11: Ammonia 23, Influenza Type A (RT-PCR) NEGATIVE, Influenza Type B (RT-PCR) NEGATIVE 07/27/19 23:12: Immature Granulocyte % (Auto) 0.5, Neutrophils (%) (Auto) 85.0H, Lymphocytes (%) (Auto) 4.4L, Monocytes (%) (Auto) 9.5H, Eosinophils (%) (Auto) 0.1, Basophils (%) (Auto) 0.5, Neutrophils # (Auto) 16.6H, Lymphocytes # (Auto) 0.9L, Monocytes # (Auto) 1.9H, Eosinophils # (Auto) 0.0, Basophils # (Auto) 0.1, Nucleated Red Blood Cells % (auto) 0.0, Anion Gap 9, Glomerular Filtration Rate 58.7, Lactic Acid Level 3.7*H, Calcium Level 9.5, Total Bilirubin 2.8H, Direct Bilirubin 0.6H, Aspartate Amino Transf (AST/SGOT) 18, Alanine Aminotransferase (ALT/SGPT) 20, Alkaline Phosphatase 132H, Total Creatine Kinase 202, Creatine Kinase MB 1.1, Creatine Kinase MB Relative Index 0.54, Troponin I < 0.02, Total Protein 8.0, Albumin 3.9, Albumin/Globulin Ratio 0.95L, Thyroid Stimulating Hormone (TSH ) 1.580, Free Thyroxine Index 5.3H, Thyroxine (T4) 14.6H, Triiodothyronine (T3) Uptake 36, Ethyl Alcohol Level < 0.003 07/27/19 23:17: Bedside Glucose (Misc Panel) 94 07/28/19 00:04: Urine Opiates Screen NEGATIVE, Urine Methadone Screen NEGATIVE, Urine Barbitur ates Screen NEGATIVE, Urine Phencyclidine Screen NEGATIVE, Urine Amphetamines Screen NEGATIVE, Urine Benzodiazepines Screen NEGATIVE, Urine Cocaine Metabolite Screen NEGATIVE, Urine Cannabinoids Screen POSITIVEH 07/28/19 01:11: CSF Appearance CLEAR, CSF Color COLORLESS, CSF WBC (Auto) 1, CSF RBC (Auto) < 2, CSF Glucose (Tube 1) TUBE 1, CSF Total Protein (Tube 1) TUBE 1, CSF Cell Count Tube # TUBE 4, CSF Polynuclear WBCs (%) , CSF Glucose 61, CSF Total Protein 40 07/28/19 03:10: Urine Color YELLOW, Urine Appearance CLEAR, Urine pH 5.0, Urine Specific [place] 1.016, Urine Protein NEGATIVE, Urine Glucose (Auto)(UA) NEGATIVE, Urine Ketones (Auto) 1+H, Urine Blood NEGATIVE, Urine Nitrite NEGATIVE, Urine Bilirubin NEGATIVE, Urine Urobilinogen 0.2, Urine Leukocyte Esterase (Auto) NEGATIVE, Urine WBC (Auto) 1, Urine RBC (Auto) 1, Urine Hyaline Casts (Auto) 0, Urine Bacteria (Auto) NEGATIVE, Urine Squamous Epithelial Cells 0, Urine Mucus (Auto) SMALL, Urine Sperm (Auto) 3/2/20 03:11: Blood Gas Bicarbonate Standard 20.8L, Arterial Blood pH 7.267L, Arterial Blood Partial Pressure CO2 51.4H, Arterial Blood Partial Pressure O2 75.0, Arterial Blood Total CO2 24.5, Arterial Blood HCO3 22.9, Arterial Blood Base Excess - 4.4L, Arterial Blood Oxygen Saturation 92.9L CBC/BMP Laboratory Tests 07/27/19 23:12 Microbiology Microbiology 07/28/19 Urine Culture, Received Pending 07/28/19 Respiratory Virus Panel (PCR) (MAIKEL) - Final, Complete 07/28/19 Gram Stain - Preliminary, Resulted 07/28/19 CSF Culture, Resulted Pending 07/28/19 - Final, Resulted 07/28/19 Blood Culture, Received Pending 07/27/19 Blood Culture, Received Pending Home Medications Scheduled Duloxetine HCl (Duloxetine HCl) 60 Mg Capsule.dr, 60 MG PO DAILY Omeprazole (Omeprazole) 40 Mg Capsule.dr, 40 MG PO DAILY Pregabalin (Lyrica) 150 Mg Capsule, 150 MG PO TID Trazodone HCl (Trazodone HCl) 50 Mg Tablet, 100 MG PO QHS Trazodone HCl (Trazodone HCl) 50 Mg Tablet, 50 MG PO QAM Scheduled PRN Albuterol Sulfate (Ventolin Hfa) 18 Gm Hfa.aer.ad, 2 PUFF INH Q4H PRN for SHORTNESS OF BREATH Ibuprofen (Ibuprofen) 600 Mg Tablet, 600 MG PO Q6H PRN for PAIN Oxycodone Myristate (Xtampza ER) 13.5 Mg Cap.spr.12, 13.5 MG PO Q12H PRN for PAIN Miscellaneous Medications [Patient Comments] UNABLE TO DETERMINE IF ANY MEDICATIONS WERE TAKEN. PRESCRIPTIONS EXIST AT PHARMACY FOR MEDICATIONS LISTED Allergies Coded Allergies: No Known Allergies (Unverified , 10/21/18) AQUILINO STEPHENSON MD Jul 28, 2019 04:37
[2019-07-28] MEDS ORDERED: MIDAZOLAM INJ 5 MG/ML VIAL (J2250) As Ordered ONE (06:14)
[2019-07-28] MEDS ORDERED: MIDAZOLAM HCL 50 MG in D5W 40 ML IV SCH (06:15)
[2019-07-28] MEDS ORDERED: ETOMIDATE INJ 20MG/10ML VIAL IV ONE (06:30)
[2019-07-28] MEDS ORDERED: MIDAZOLAM INJ 5 MG/ML VIAL (J2250) IV ONE (06:30)
[2019-07-28] MEDS ORDERED: SUCCINYLCHOLINE INJ 200 MG/10 ML VIAL (J0330) IV ONE (06:30)
--- NOTE | 2019-07-28 07:27 | ECGEPIP ---
[facility] [place] - ED Test Date: 2019-07-28 Pat Name: ALBERT LAINEZ Department: Room: - Gender: Male [employer]el [employer] Machine: mn : [id number] Requested By: TWILA TOTH Order Number: [id number] Reading MD: Andrew Reynaga Measurements Intervals Ono Rate: 111 P: NM: 0 QRS: 88 QRSD: 85 T: 91 QT: 367 QTc: 499 Interpretive Statements SINUS TACHYCARDIA WITH RAPID VENTRICULAR RESPONSE NSTTW ABNORMALITIES SIMILAR TO 03/30/19 Electronically Signed on 07-28-2019 7:27:06 EST by Andrew Reynaga
[2019-07-28] MEDS: IPRATROPIUM 0.5MG/ALBUTEROL 2.5MG INH SOL UD 3ML (DUONEB)(J7620) NEB SCH ×4 (08:00→19:53)
--- NOTE | 2019-07-28 08:07 | REP ---
Portable chest x-ray: Single view. History: Intubated patient. Comparison study: March 29, 2019. Findings: Endotracheal tube is seen in good position at the level of the proximal clavicles. An NG tube enters left upper quadrant of the abdomen. EKG electrodes are seen. There are old healed rib fractures on the right. Fibrotic changes are seen in the right hilar and perihilar region extensively unchanged. There is volume loss and extensive fibrosis in the left apex as well with upper retraction of the left hilus. This is unchanged. There is no visible acute infiltrate. Heart is not enlarged. No bony abnormalities seen. Impression: Chronic pleuroparenchymal fibrosis particularly left upper lobe and right perihilar region. Endotracheal and nasogastric tubes in place. No acute infiltrate is appreciated. Electronically Signed by Mario Bronson MD 07/28/2019 08:00 A
--- NOTE | 2019-07-28 08:16 | REP ---
Portable chest x-ray: Single view 06:16 a.m. film: History: Endotracheal tube placement. Comparison study 11:50 p.m. on July 27, 2019. Findings: Endotracheal tube remains in good position just below the level of the proximal clavicles. An NG tube enters left upper quadrant. Its side-hole appears to be in the distal esophagus. Chronic pleuroparenchymal fibrotic changes are seen extensively in the left upper lobe and in the right perihilar region unchanged. No acute infiltrate is seen. There are old healed rib fractures on the right. Electronically Signed by Mario Bronson MD 07/28/2019 08:08 A
[2019-07-28] MEDS: MIDAZOLAM HCL 50 MG in D5W 40 ML IV SCH ×2 (08:30→16:10)
[2019-07-28] MEDS: MIDAZOLAM INJ 2 MG/2 ML VIAL (J2250) IV PRN ×8 (08:33→20:12)
--- NOTE | 2019-07-28 09:04 | REPVR ---
PROCEDURE INFORMATION: Exam: CT Chest Without Contrast Exam date and time: 07/28/2019 7:40 AM Age: 58 years old Clinical indication: Fever. Additional history: Chest CT 05/14/2017 report states the patient has a history of lung cancer. TECHNIQUE: Imaging protocol: Computed tomography of the chest without contrast. Coronal and sagittal reformats were created and reviewed. 3D rendering: MIP and/or 3D reconstructed images were created by the technologist. Radiation optimization: All CT scans at this facility use at least one of these dose optimization techniques: automated exposure control; mA and/or kV adjustment per patient size (includes targeted exams where dose is matched to clinical indication); or iterative reconstruction. COMPARISON: CT ANGIO CHEST 03/21/2019 12:22 PM Images only; the examination report is unavailable for comparison. CT Chest with contrast 05/14/2017 4:10:[address] Chest without contrast 09/09/2014 7:39:26 AM Images only; the examination report is unavailable for comparison. FINDINGS: Tubes, catheters and devices: An endotracheal tube is present terminating suitably above the ginna. A transesophageal enteric tube is present terminating with its tip in the stomach. Thyroid: Unremarkable as visualized. Lungs: Status post right lower lobectomy. Multiple calcified pulmonary nodules consistent with benign remote granulomas are redemonstrated. Left upper lung and right lower lung mild diffuse pleural thickening is redemonstrated. New multifocal bilateral bronchial wall thickening and small bronchial mucous plugging. Volume loss, bronchiectasis and architectural distortion of the left upper lobe, suprahilar left lower lobe, and medial perihilar right lung is redemonstrated, consistent with sequela of radiation fibrosis. Severe bilateral upper lung predominant pulmonary emphysema redemonstrated. Bilateral pulmonary bullae are redemonstrated. Right upper lobe apical chronic scarring redemonstrated. Multiple new ill-defined small ground-glass and consolidative airspace opacities the right upper lobe, right middle lobe, and left lower lobe. Many of the new airspace opacities have a clustered centrilobular distribution. Pleural space: Minimal chronic loculated pleural effusions at the right lung base and left upper lung are redemonstrated, not significantly changed in size compared to 05/14/2017. No pneumothorax. Heart: Mitral annular calcifications are present. Coronary arterial atherosclerotic calcifications are present. Heart size is within normal limits. No pericardial effusion. Aorta: Moderate atherosclerotic calcification of the visualized abdominal aorta. Mild atherosclerotic calcification of the thoracic aorta. No thoracic aortic aneurysm. Lymph nodes: Calcified left hilar lymph nodes are redemonstrated consistent with remote granulomatous disease. Spleen: Splenic calcifications present consistent with remote granulomatous disease. Bones/joints: No acute osseous abnormality. Soft tissues: Unremarkable. IMPRESSION: 1. Findings compatible with mild multifocal bilateral bronchopneumonia, new compared to 03/21/2019. 2. Severe pulmonary emphysema. 3. Bilateral pulmonary volume loss and architectural distortion compatible with radiation fibrosis is redemonstrated. Status post right lower lobectomy. 4. Support apparatus as described. 5. Please see the body of the report for other findings as described. Electronically signed by: Duane Wood On 07/28/2019 09:04:30 AM
[2019-07-28 09:52] LABS: ABG BASE EXCESS 0.3 (-2.0-2.0); ABG HCO3 24.1 MEQ/L (22.0-26.0); ABG PARTIAL PRESSURE CO2 36.7 mmHg (35.0-45.0); ABG PARTIAL PRESSURE O2 76.6 mmHg (75.0-100.0); ABG STANDARD HCO3 24.7 MEQ/L (22.0-26.0); ABG TOTAL CO2 25.3 MEQ/L (22.0-29.0); ABG pH (ARTERIAL) 7.436 UNITS (7.350-7.450)
[2019-07-28] MEDS: CHLORHEXIDINE GLUCONATE 0.12 % 15ML UDC (PERIDEX ORAL RINSE) MT SCH ×2 (09:53→21:29)
[2019-07-28] MEDS: PANTOPRAZOLE 40MG INJ (PROTONIX) (C9113) IV SCH (09:53)
[2019-07-28] MEDS: ENOXAPARIN 40 MG/0.4 ML SYRINGE (J1650) SC SCH (09:54)
[2019-07-28] MEDS ORDERED: SUCCINYLCHOLINE 100 MG/5 ML SYRINGE (J0330) ONE (10:30)
[2019-07-28] MEDS ORDERED: ETOMIDATE INJ 20MG/10ML VIAL ONE (10:30)
[2019-07-28] MEDS ORDERED: ACETAMINOPHEN 650 MG SUPP PR PRN (14:00)
[2019-07-28] MEDS ORDERED: VANCOMYCIN HCL 730 MG in IV FLUID PLACE HOLDER 1 EA IV SCH (14:00)
--- NOTE | 2019-07-28 14:23 | PHACANCOPD ---
PHARMACY VANCOMYCIN DOSING Pt Demographics Demographics Patient Age:58 , Weight:48.700 , Gender: male Adjusted Body Weight Date: 07/28/19, Adjusted Body Weight: Kg Events Past 24 Hours Events Past 24 Hours: YES: Fever, Elevation in WBC Vancomycin Vancomycin Target Ranges: 15-20 mcg/ml Vancomycin Load Y/N: Yes Load Dose Date Time Vancomycin Load Dose: 1GM Date: 07/28/19 Time: 1600 Vancomycin Dose Date: 07/28/19. Current Vancomycin Dose: [750 MG IV Q18H] Intermittent Dosing?: No Labs Labs Item Value Date Time White Blood Count 19.6 10^3/uL H 07/27/19 2312 Lactic Acid Level 3.7 MMOL/L *H 07/27/19 2312 Micro Microbiology 07/28/19 Urine Culture, Received Pending 07/28/19 Respiratory Virus Panel (PCR) (MAIKEL) - Final, Complete 07/28/19 Gram Stain - Final, Resulted 07/28/19 CSF Culture, Resulted Pending 07/28/19 - Final, Resulted 07/28/19 Blood Culture, Received Pending 07/27/19 Blood Culture, Received Pending Creatinine Clearance Date:07/28/19. Creatinine Clearance: . Assessment and Plan Maintaining Current Dose?: Yes Reason for dose change: No Dose Change Pharmacist Note Pharmacist Note Date: 07/28/19. Pharmacist note: Pharmacy consulted for Vancomycin dosing of pneumonia with a goal trough of 15-20 mcg/ml. Patient has no history of Vanco or MRSA here at [facility]. White count and lactic acid both elevated. He is being concurrently treated with Zosyn 3.375 GM IV q6h. A MRSA PCR has been ordered, will watch for results of that. We'll load him with 1 gm and follow with 750 mg IV q18h. Pharmacy will continue to monitor and make adjustments as needed. AKILA [facility] Jul 28, 2019 14:23
[2019-07-28] MEDS: PIPERACILLIN/TAZOBACTAM SOD 3.375 GM in D5W MINI-BAG PLUS 50 ML IV SCH ×2 (14:35→21:29)
[2019-07-28] MEDS: fentaNYL 100 MCG/2 ML INJECTION (J3010) IV PRN ×2 (14:35→16:21)
[2019-07-28] MEDS: methylPREDNISolone INJ 40 MG/1 ML VIAL (J2920) IV SCH ×2 (14:35→21:29)
[2019-07-28] MEDS ORDERED: dexmedeTOMidine 200 MCG in IV 1 EA IV SCH (15:00)
[2019-07-28] MEDS ORDERED: VANCOMYCIN HCL 1,000 MG, VIAL MATE ADAPTER 1 EACH in D5W 250 ML IV ONE (16:00)
--- NOTE | 2019-07-28 19:05 | HPE ---
DATE OF ADMISSION: 07/28/2019 CHIEF COMPLAINT: Altered mental status. HISTORY OF PRESENT ILLNESS: Patient is a 58-year-old male who was brought in by emergency medical services (EMS) on 07/27/2019 after his son called him at approximately 2230 and had difficulty understanding what his father was trying to communicate. On arrival to his home his father was flailing around with his tongue sticking out. His son suspected that he may have taken July earlier in the day. He called EMS. EMS on scene may have given him ketamine, and he arrived to the emergency department at 2330. On arrival, he was febrile with an elevated white blood cell count, so due to his altered mental status and inability to lie still and inability to tolerate having a lumbar puncture performed, he was intubated and sedated. After this, he was extubated for a period of approximately 2 hours, and while there was less erratic movement, he began desaturating on room air. When nasal cannula was applied, he desaturated to the 70s, and when nonrebreather was applied, he still was only saturating at 88%, so the decision was made to intubate him. He was reintubated at approximately 0600. After a conversation with his son, Tomás, on the phone, he reports his father was in his usual state of health as of the morning of 07/27/2019. He does note that over the past 3-4 weeks he had been having increased difficulty breathing but was not seeking medical help for this problem and was having a productive cough as well. All other medical history obtained from prior admission in September 2018. Son was unaware of many of his medical conditions. PAST MEDICAL HISTORY: 1. Chronic obstructive pulmonary disease (COPD). 2. Lung cancer status post left upper lobectomy. 3. Anxiety/depression. 4. Polysubstance abuse. PAST SURGICAL HISTORY: 1. Left upper lobectomy. 2. Right hand surgery. 3. Possible appendectomy. SOCIAL HISTORY: Two and a half pack per day smoker. No alcohol use. Has a urine drug screen. Admits to only smoking cannabis, but prior urine drug screens have been positive for amphetamines and cocaine. FAMILY HISTORY: Father with lung cancer. ALLERGIES: No known drug allergies. REVIEW OF SYSTEMS: Unobtainable outside of what was found in the history of present illness provided by son. PHYSICAL EXAMINATION: VITAL SIGNS: Current temperature 99.6, pulse 120, respiratory rate of 21, blood pressure 118/62, saturating 100% on 40% FiO2. GENERAL: Patient is a severely cachectic-appearing male on a ventilatory who appears older than stated age in no acute distress. Off sedation also is awake and alert and even will answer questions. HEENT: Head is normocephalic, atraumatic with bitemporal wasting. No scleral icterus. Off sedation, pupils are equal, round, reactive to light. Nares patent. Mucous membranes moist. Unable to visualize throat secondary to endotracheal (ET) tube placement. No cervical or supraclavicular lymphadenopathy bilaterally. CARDIOVASCULAR: Tachycardic rate. Normal rhythm. Normal S1, S2. No murmurs, gallops, rubs appreciated. RESPIRATORY: Breath sounds severely diminished bilaterally. Mild wheezing appreciated in bilateral lower lobes. ABDOMEN: Soft, nontender, nondistended. Bowel sounds present. No hepatosplenomegaly. No masses or ecchymosis. SKIN: Warm, dry. No rashes. NEUROLOGIC: Off sedation, patient is able to answer questions. There are no focal neurologic deficits appreciated. Strength is equal in bilateral upper and lower extremities. EXTREMITIES: No cyanosis or edema in extremities. LABORATORY DATA: White blood cell count of 19.6, hemoglobin of 15.1, hematocrit of 46.1, platelet count of 359. Sodium 146, potassium 4.3, chloride 103, bicarbonate 28, BUN 16, creatinine 1.34, glucose 91, lactic acid as of 07/27/2019 at 2312 was 3.7, repeat on 07/28/2019 at 1338 was 1.8. Total bilirubin 2.8, direct bilirubin 0.6, AST 18, ALT 20, alkaline phosphatase 132. Ammonia 23. CK 202. Troponin less than 0.02. Albumin 3.9. TSH 1.58, free T4 index 5.3, thyroxin T4 of 14.6 (NOT free T4). Urine toxicology positive for cannabinoids. Alcohol level less than 0.003. Flu A and B negative. Initial ABG: A pH of 7.267, pCO2 of 51.4, pO2 of 75.0. On 07/28/2019 at 0947, pH of 7.436, pCO2 of 36.7, pO2 of 76.6. Cerebrospinal fluid (CSF) results showing white blood cell count of 1, red blood cells less than 2. Glucose 61. Total protein of 40. CSF PCR for meningitis encephalitis was negative. Culture pending. Gram stain: No organisms seen. No cells seen. Blood cultures pending. Urine culture pending. Respiratory panel negative. IMAGING: Head CT: Impression: Mild involutional changes. No acute intracranial abnormality. Chest x-ray: Chronic pleural parenchymal fibrosis, particularly left upper lobe and right perihilar region. Endotracheal and nasogastric tubes in place. No acute infiltrate is appreciated. Repeat chest x-ray done to determine ET tube placement in good position just below level of proximal clavicles. NG tube in left upper quadrant and chronic changes as described above. Old healed rib fractures on the right. Chest CT: Impression: 1) Findings compatible with mild multifocal bilateral bronchopneumonia, new compared to 03/21/2019. 2) Severe pulmonary emphysema. 3) Bilateral pulmonary volume loss and architectural distortion compatible with radiation fibrosis as re-demonstrated, status post right lower lobectomy. 4) Support apparatus as described. ASSESSMENT: Patient is a 58-year-old male presenting with: 1. Altered mental status secondary to unknown drug overdose necessitating intubation due to inability to protect airway and inability to handle own secretions. 2. Sepsis, likely secondary to multifocal pneumonia. 3. Acute kidney injury. PLAN: 1. Altered mental status. We suspect this is likely secondary to possible polysubstance abuse and drug use and is drug induced. Off sedation, he appears to be following commands fairly well; however, he becomes increasingly agitated, requiring us to increase the amount of sedation that he has been on, and we have been unable to trial him to attempt to get him to breathe on his own, because when we try to turn down his sedation he becomes too agitated. We suspect his altered mental status also led to his subsequent need for intubation and his acute hypoxic respiratory failure as well as his ability not to handle his own secretions. We will continue spontaneous breathing trials throughout the day and tomorrow until we are able to get him off of the ventilator. 2. Acute hypoxic respiratory failure. This is likely secondary to patient's ability to not handle his own secretions as well as the altered mental status caused by his drug use. We will continue him on pressure-regulated volume control (PRVC) ventilator settings and attempt spontaneous breathing trials daily with modified Temi scale of 2-3. We will also place him on a Precedex drip rather than a propofol drip so his pressures do not drop and so he can be more easily weaned. Patient is on fentanyl every 1 hour for pain. 3. Sepsis, likely secondary to multifocal pneumonia. We have already ruled out meningitis and encephalitis. He has been started on vancomycin and Zosyn for broad-spectrum coverage. Methicillin-resistant Staphylococcus aureus (MRSA) screen is pending. We will continue to trend his white blood cell count. 4. Acute kidney injury. This is likely secondary to hypovolemia. He received 4 liters of fluid while in the emergency department, as his blood pressures were fairly soft throughout the day; however, he has not required any pressor support. We will repeat the labs tomorrow to continue to trend how his kidney function has been doing. 5. Chronic obstructive pulmonary disease (COPD). Will start patient on Solu-Medrol 40 mg twice daily and scheduled DuoNeb treatments. 6. Deep vein thrombosis (DVT) prophylaxis. Patient has been started on Lovenox 40 mg daily. 7. Gastrointestinal (GI) prophylaxis. Patient is on pantoprazole 40 mg intravenous (IV) daily. 8. Diet. Patient is nothing by mouth, as he is intubated. We will consider initiating tube feeds tomorrow, depending on how he does. 9. Drips. Patient is presently on a Versed drip as needed for agitation. 10. Code status. After speaking with Mr. Doshi' son, Tomás, he informed us that as far as he knew, the patient was a DO NOT RESUSCITATE, but he was unclear as to whether or not he was a DO NOT INTUBATE. There is a medical order for life-sustaining treatment (MOLST) form on file from his previous admission showing that he is a DO NOT RESUSCITATE/DO NOT INTUBATE; however, his MOLST form was not known when he was intubated the first time. Given that his son is his next of kin, we will continue to honor what his son's known wishes are for his father and keep him intubated. So, finally, code status is DO NOT RESUSCITATE, trial of intubation. CRITICAL CARE TIME: 60 minutes.
[2019-07-28] MEDS: D5W/0.45% SODIUM CHLORIDE 1,000 ML IV SCH (23:00)
[2019-07-29] VITALS (48 sets, daily range): BP systolic 87–133; BP diastolic 50–71; O2SAT 98–100
[2019-07-29] MEDS: MIDAZOLAM INJ 2 MG/2 ML VIAL (J2250) IV PRN ×2 (03:08→06:00)
[2019-07-29] MEDS: PIPERACILLIN/TAZOBACTAM SOD 3.375 GM in D5W MINI-BAG PLUS 50 ML IV SCH ×2 (04:03→08:40)
[2019-07-29] MEDS: IPRATROPIUM 0.5MG/ALBUTEROL 2.5MG INH SOL UD 3ML (DUONEB)(J7620) NEB SCH ×7 (04:04→23:33)
[2019-07-29] MEDS: fentaNYL 100 MCG/2 ML INJECTION (J3010) IV PRN (04:57)
[2019-07-29 05:15] LABS: HEMATOCRIT 36.4 % (42.0-52.0); MEAN CORPUSCULAR HEMOGLOBIN 29.2 pg (27.0-33.0); MEAN CORPUSCULAR HGB CONC 34.1 g/dl (32.0-36.5); MEAN CORPUSCULAR VOLUME 85.8 fl (80.0-96.0); PLATELET COUNT, AUTOMATED 187 10^3/uL (150-450); RED BLOOD COUNT 4.24 10^6/uL (4.30-6.10); WHITE BLOOD COUNT 9.8 10^3/uL (4.0-10.0)
[2019-07-29 05:20] LABS: HEMOGLOBIN 12.4 g/dl (13.5-17.5)
[2019-07-29 05:52] LABS: ALBUMIN 2.8 GM/DL (3.2-5.2); ALT/SGPT 13 U/L (12-78); BILIRUBIN,DIRECT 0.3 MG/DL (0.0-0.2); BILIRUBIN,TOTAL 0.9 MG/DL (0.2-1.0); BLOOD UREA NITROGEN 25 MG/DL (7-18); CALCIUM LEVEL 8.4 MG/DL (8.5-10.1); CARBON DIOXIDE LEVEL 27 MEQ/L (21-32); CHLORIDE LEVEL 102 MEQ/L (98-107); CREATININE FOR GFR 1.17 MG/DL (0.70-1.30); GLOMERULAR FILTRATION RATE > 60.0 (>56); GLUCOSE, FASTING 256 MG/DL (70-100); MAGNESIUM LEVEL 2.1 MG/DL (1.8-2.4); PHOSPHORUS LEVEL 2.5 MG/DL (2.5-4.9); POTASSIUM SERUM 3.2 MEQ/L (3.5-5.1); SODIUM LEVEL 136 MEQ/L (136-145); TOTAL PROTEIN 5.8 GM/DL (6.4-8.2)
[2019-07-29 06:07] LABS: ABG BASE EXCESS 1.8 (-2.0-2.0); ABG HCO3 26.1 MEQ/L (22.0-26.0); ABG O2 SATURATION 98.3 % (95.0-99.0); ABG PARTIAL PRESSURE CO2 39.8 mmHg (35.0-45.0); ABG PARTIAL PRESSURE O2 105.4 mmHg (75.0-100.0); ABG STANDARD HCO3 26.1 MEQ/L (22.0-26.0); ABG TOTAL CO2 27.3 MEQ/L (22.0-29.0); ABG pH (ARTERIAL) 7.434 UNITS (7.350-7.450)
[2019-07-29] MEDS: MIDAZOLAM HCL 50 MG in D5W 40 ML IV SCH (07:03)
[2019-07-29] MEDS ORDERED: POTASSIUM CHLORIDE 10 MEQ SR TABLET PO ONE (08:30)
--- NOTE | 2019-07-29 08:35 | REP ---
Portable chest x-ray: Single view. History:. Findings: Endotracheal tube remains in good position at the level of the transverse aorta. NG tube enters left upper quadrant. There is chronic atelectasis and fibrosis and pleural thickening in the left upper lobe region with some associated rib deformity. A right perihilar fibrosis pattern is again seen. No new infiltrate is appreciated. Electronically Signed by Mario Bronson MD 07/29/2019 08:26 A
[2019-07-29] MEDS: PANTOPRAZOLE 40MG INJ (PROTONIX) (C9113) IV SCH (08:40)
[2019-07-29] MEDS: methylPREDNISolone INJ 40 MG/1 ML VIAL (J2920) IV SCH (08:40)
[2019-07-29] MEDS: ENOXAPARIN 40 MG/0.4 ML SYRINGE (J1650) SC SCH (08:41)
[2019-07-29] MEDS: CHLORHEXIDINE GLUCONATE 0.12 % 15ML UDC (PERIDEX ORAL RINSE) MT SCH (09:00)
[2019-07-29] MEDS ORDERED: VANCOMYCIN HCL 750 MG, VIAL MATE ADAPTER 1 EACH in D5W 250 ML IV SCH (10:00)
[2019-07-29] MEDS: KCL 10MEQ/100ML SWI (KRUN) 10 MEQ in IV 1 EA IV SCH ×3 (11:00→12:00)
[2019-07-29] MEDS ORDERED: POTASSIUM CHLORIDE 10% LIQ 20 MEQ/15 ML UDC PO ONE (12:00)
[2019-07-29] MEDS ORDERED: LevoFLOXacin IV 750 MG in IV 1 EA IV SCH (14:00)
--- NOTE | 2019-07-29 14:05 | CCN ---
DATE: 07/29/2019 SUBJECTIVE: The patient is seen and examined this morning at bedside. He did require some peripheral Levophed pressor support overnight very briefly. Per nursing report, he was also very active and interested in being extubated. OBJECTIVE: VITAL SIGNS: Temperature 97.6, pulse 112, respiratory rate of 26, blood pressure 101/57, pulse oximetry 99% on the ventilator. Positive 5716 mL in the last 24 hours for input. PHYSICAL EXAMINATION: GENERAL: The patient is awake, alert, agitated, shaking his head and is uncomfortable with the endotracheal tube, but is able to be calmed and is otherwise in no acute distress. HEENT: Head is normocephalic, atraumatic with bitemporal wasting. No scleral icterus. Pupils are equal, round and reactive to light. Nares patent. Mucous membranes moist. Endotracheal tube in place. CARDIOVASCULAR: Tachycardic rate, regular rhythm, normal S1, S2. No peripheral edema. RESPIRATORY: Breath sounds diminished bilaterally but improved from the day prior. No wheezes, crackles or rhonchi appreciated. ABDOMEN: Soft, nontender, nondistended. Bowel sounds present. SKIN: Warm, dry. No rashes. NEUROLOGIC: No focal neuro deficits appreciated. The patient is able to follow commands and is cooperative. EXTREMITIES: No cyanosis or edema in bilateral upper or lower extremities. LABORATORY DATA: White blood cell count of 9.8, hemoglobin 12.4, hematocrit 36.4, platelet count of 187. For blood gas, pH of 7.434, pCO2 of 39.8, pO2 of 105.4. Chemistries: Sodium 136, potassium 3.2, chloride 102, bicarbonate 27, BUN 25, creatinine 1.17, glucose 256, calcium 8.4, phosphorous 2.5, magnesium 2.1, total bilirubin 0.9, AST 14, ALT 13, alkaline phosphatase 85, albumin 2.8. Methicillin resistant Staphylococcus aureus (MRSA) screen negative. Blood cultures are so far negative after 24 hours. Chest x-ray shows the endotracheal tube in good position at the level of the transverse aorta. Nasogastric tube in left upper quadrant. Chronic atelectasis and fibrosis and pleural thickening in the left upper lobe region with some associated rib deformity, right perihilar fibrosis pattern again seen, no new infiltrate is appreciated. ASSESSMENT: The patient is a 58-year-old male who presented with altered mental status secondary to unknown drug overdose necessitating intubation due to inability to protect airway and inability to handle his own secretions, as well as a 3 week history of productive cough and found to have multifocal pneumonia. PLAN: 1. Altered mental status. This appears to have resolved. We plan a spontaneous breathing trial and he did well, so we extubated him this morning, which he handled fine. He did have a copious amount of secretions that he would not let us suction out, but these were suctioned out following his extubation and he was saturating well on nonrebreather. On questioning later in the day, he did state that he did take July on 07/27/2019 and this is likely why his mental status was altered. At this point, we can consider his altered mental status resolved. 2. Acute hypoxic respiratory failure. The patient was able to be successfully weaned on a breathing trial and now he is no longer intubated so we can consider this resolved as well. It was likely secondary to the patient's inability to handle his own secretions, as well as his altered mental status. 3. Sepsis secondary to multifocal pneumonia. The patient's methicillin resistant Staphylococcus aureus (MRSA) screen was negative, so we are discontinuing the vancomycin and we will also discontinue the Zosyn and treat him for community acquired pneumonia. We will start him on Levaquin 750 mg every 24 hours daily and he can be transitioned to oral medications. His white blood cell count trended down well from yesterday. 4. Acute kidney injury. The patient was +5.7 liters in the last 24 hours, this appears to have worked well. His GFR is now above 60 and his creatinine has returned closer to baseline. We will continue to trend this, his baseline is about 0.95 or so. 5. Chronic obstructive pulmonary disease (COPD). The patient is on Solu-Medrol 40 mg twice a day and scheduled DuoNeb treatments. We did not appreciate any wheezes on physical examination today. We will likely begin a steroid taper with prednisone and continued DuoNeb treatment as needed. 6. Hypokalemia. Potassium was replaced orally this morning. 7. Normocytic anemia. This is likely secondary to a dilutional effect. The patient is now +5.7 liters of fluid. This is also likely why his platelet count dropped so precipitously from 359 to 187, as well as his potassium level. 8. Deep vein thrombosis (DVT) prophylaxis. The patient is on Lovenox 40 mg daily. 9. Gastrointestinal prophylaxis. The patient is on pantoprazole 40 mg IV daily. 10. Diet. Assuming the patient tolerates a swallowing evaluation, the patient can likely be converted to a regular diet or at least advance it as tolerated. 11. Suicidal ideation. While discussing his code status, he began speaking about how he wanted to and when asked if he took July in order to commit suicide, he said that he did not but was noncommittal about it. He has been placed on suicide watch. Primary team can consult psychiatry once he is medically cleared. 12. Code status. After speaking with Mr. Doshi once he had been extubated, he would like to remain DO NOT RESUSCITATE, DO NOT INTUBATE. At this point, I no longer see a role for critical care for this patient. We are signing him off to the hospitalist team. Please do not hesitate to contact us with any questions or concerns.
[2019-07-29] MEDS: D5W/0.45% SODIUM CHLORIDE 1,000 ML IV SCH (15:01)
[2019-07-29] MEDS ORDERED: MIDAZOLAM HCL 100 MG in D5W 80 ML IV SCH (23:00)
[2019-07-29] MEDS ORDERED: REFRIGERATOR IV KEYS XX PRN (23:00)
[2019-07-30 01:25] VITALS: BP 102/59
[2019-07-30 04:00] VITALS: BP 97/64
[2019-07-30] MEDS: IPRATROPIUM 0.5MG/ALBUTEROL 2.5MG INH SOL UD 3ML (DUONEB)(J7620) NEB SCH ×5 (04:00→19:49)
[2019-07-30 05:45] LABS: HEMATOCRIT 37.9 % (42.0-52.0); HEMOGLOBIN 12.5 g/dl (13.5-17.5); MEAN CORPUSCULAR HEMOGLOBIN 29.1 pg (27.0-33.0); MEAN CORPUSCULAR VOLUME 88.1 fl (80.0-96.0); PLATELET COUNT, AUTOMATED 217 10^3/uL (150-450); WHITE BLOOD COUNT 11.6 10^3/uL (4.0-10.0)
[2019-07-30 06:11] LABS: BLOOD UREA NITROGEN 14 MG/DL (7-18); CARBON DIOXIDE LEVEL 31 MEQ/L (21-32); CHLORIDE LEVEL 107 MEQ/L (98-107); CREATININE FOR GFR 0.86 MG/DL (0.70-1.30); GLOMERULAR FILTRATION RATE > 60.0 (>56); GLUCOSE, FASTING 101 MG/DL (70-100); POTASSIUM SERUM 3.4 MEQ/L (3.5-5.1); SODIUM LEVEL 144 MEQ/L (136-145)
[2019-07-30 08:00] VITALS: BP 125/66
[2019-07-30] MEDS ORDERED: POTASSIUM CHLORIDE 10 MEQ SR TABLET PO ONE (08:15)
[2019-07-30] MEDS: ENOXAPARIN 40 MG/0.4 ML SYRINGE (J1650) SC SCH (09:54)
[2019-07-30] MEDS: predniSONE 20 MG TAB PO SCH (09:54)
[2019-07-30] MEDS: PANTOPRAZOLE 40MG INJ (PROTONIX) (C9113) IV SCH (09:55)
[2019-07-30] MEDS: D5W/0.45% SODIUM CHLORIDE 1,000 ML IV SCH (10:42)
[2019-07-30] MEDS ORDERED: LORazepam 2 MG TAB PO PRN (11:45)
[2019-07-30 12:00] VITALS: BP 123/67
[2019-07-30] MEDS: FOLIC ACID 1 MG TAB PO SCH (13:21)
[2019-07-30] MEDS: MULTIVITAMINS/MINERALS THERAP 1 TAB PO SCH (13:21)
[2019-07-30] MEDS: THIAMINE 100 MG TAB PO SCH ×2 (13:21→20:26)
--- NOTE | 2019-07-30 15:34 | IPNPDOC ---
Date Seen The patient was seen on 07/30/19. Progress Note SUBJECTIVE: 58-year-old male with past medical history of COPD, lung cancer status post left upper lobectomy, anxiety, depression and drug use, was admitted for altered mental status secondary to drug use (mildly) sees an acute respiratory failure requiring intubation and mechanical ventilation. Patient was extubated yesterday and downgraded to the floor. Patient seen in the morning, comfortable in bed, without any complaints other than mild dyspnea and dry cough. He denies any chest pain, nausea, vomiting, abdominal pain or diarrhea. Patient with suicidal ideation at the time of presentation, but reports it was related to altered mental status as drugs and has no intention of medicines at this time. Patient wishes to go home. 10 point review of system is negative except for above PHYSICAL EXAMINATION: VITAL SIGNS: Please see below. GENERAL: Thin, frail HEENT: Normocephalic, atraumatic, moist mucous membranes NECK: Supple CARDIOVASCULAR EXAMINATION: S1, S2, no murmurs RESPIRATORY EXAMINATION: Diminished, mild wheezing, scattered rhonchi ABDOMINAL EXAMINATION: Soft, nontender, nondistended, positive bowel sounds EXTREMITIES: Range of motion intact SKIN: No rash NEUROLOGICAL EXAMINATION: Alert and oriented 3, no focal deficits PSYCHIATRIC EXAMINATION: Calm and cooperative LABORATORY DATA, IMAGING STUDIES, MICROBIOLOGY: Please see below. ASSESSMENT AND PLAN: 58-year-old male with past medical history of COPD, lung cancer status post left upper lobectomy drug abuse and depression, was admitted for altered mental status and acute respiratory failure. PROBLEMS: 1. Acute respiratory failure: Related to altered mental status and inability to protect his airway, was intubated, extubated yesterday, currently at baseline, resting comfortably on room air. 2. Altered mental status: Thought to be from drug use, snorted July prior to admission, currently oriented 3, without complaints. 3. Suicidal ideation: At the time of presentation, reports it was due to drugs/altered mental status, has no intent to commit suicide at this time, psychiatry consulted for clearance. 4. COPD exacerbation: Continue prednisone and Levaquin, DuoNeb as needed every 6 hours, supplemental oxygen as needed to maintain O2 sats between 80-92%. DVT. DVT prophylaxis: Lovenox. GI prophylaxis: Protonix VS, I&O, 24H, Fishbone Vital Signs/I&O Vital Signs Date Time Temp Pulse Resp B/P (MAP) Pulse Ox O2 Delivery O2 Flow Rate FiO2 07/30/19 12:00 98 123/67 07/30/19 12:00 97.9 18 95 Room Air 07/29/19 12:00 8.0 35 I&O- Last 24 Hours up to 6 AM 07/30/19 06:00 Intake Total 1085 ml Output Total 1305 ml Balance -220 ml Laboratory Data 24H LABS Laboratory Tests 2 07/30/19 05:23: Nucleated Red Blood Cells % (auto) 0.0, Anion Gap 6L, Glomerular Filtration Rate > 60.0, Calcium Level 9.0 07/30/19 06:01: Bedside Glucose (Misc Panel) 98 CBC/BMP Laboratory Tests 07/30/19 05:23 Microbiology Microbiology 07/28/19 Urine Culture - Final, Complete 07/28/19 Respiratory Virus Panel (PCR) (MAIKEL) - Final, Complete 07/28/19 Gram Stain - Final, Complete 07/28/19 CSF Culture - Final, Complete 07/28/19 - Final, Complete 07/28/19 Blood Culture - Preliminary, Resulted No Growth after 48 hours. All Specime... 07/27/19 Blood Culture - Preliminary, Resulted No Growth after 48 hours. All Specime... MARYCARMEN NEELY MD Jul 30, 2019 15:34
[2019-07-30 16:00] VITALS: BP 119/58
[2019-07-30 20:00] VITALS: BP 99/56
[2019-07-31] MEDS ORDERED: IPRATROPIUM 0.5MG/ALBUTEROL 2.5MG INH SOL UD 3ML (DUONEB)(J7620) NEB PRN
[2019-07-31 04:00] VITALS: BP 113/59
[2019-07-31 06:08] LABS: HEMATOCRIT 43.6 % (42.0-52.0); HEMOGLOBIN 14.5 g/dl (13.5-17.5); MEAN CORPUSCULAR HEMOGLOBIN 29.2 pg (27.0-33.0); MEAN CORPUSCULAR HGB CONC 33.3 g/dl (32.0-36.5); MEAN CORPUSCULAR VOLUME 87.7 fl (80.0-96.0); PLATELET COUNT, AUTOMATED 283 10^3/uL (150-450); RED BLOOD COUNT 4.97 10^6/uL (4.30-6.10); WHITE BLOOD COUNT 10.1 10^3/uL (4.0-10.0)
[2019-07-31 06:38] LABS: BLOOD UREA NITROGEN 14 MG/DL (7-18); CALCIUM LEVEL 9.4 MG/DL (8.5-10.1); CARBON DIOXIDE LEVEL 30 MEQ/L (21-32); CHLORIDE LEVEL 106 MEQ/L (98-107); GLOMERULAR FILTRATION RATE > 60.0 (>56); GLUCOSE, FASTING 72 MG/DL (70-100); MAGNESIUM LEVEL 2.5 MG/DL (1.8-2.4); PHOSPHORUS LEVEL 2.9 MG/DL (2.5-4.9); POTASSIUM SERUM 4.3 MEQ/L (3.5-5.1); SODIUM LEVEL 142 MEQ/L (136-145)
[2019-07-31 08:00] VITALS: BP 114/66
[2019-07-31] MEDS: predniSONE 20 MG TAB PO SCH (09:31)
[2019-07-31] MEDS: PANTOPRAZOLE 40MG INJ (PROTONIX) (C9113) IV SCH (09:31)
[2019-07-31] MEDS: MULTIVITAMINS/MINERALS THERAP 1 TAB PO SCH (09:31)
[2019-07-31] MEDS: THIAMINE 100 MG TAB PO SCH (09:31)
[2019-07-31] MEDS: FOLIC ACID 1 MG TAB PO SCH (09:31)
[2019-07-31] MEDS: ENOXAPARIN 40 MG/0.4 ML SYRINGE (J1650) SC SCH (09:31)
--- NOTE | 2019-07-31 19:02 | DS.PDOC ---
Discharge Summary General Date of Admission Jul 28, 2019 at 07:24 Date of Discharge 07/31/19 Attending Physician: MARYCARMEN NEELY MD Discharge Summary PROCEDURES PERFORMED DURING STAY: Endotracheal intubation & mechanical ventilation ADMITTING DIAGNOSES: 1. AMS, Acute respiratory failure, REGINALDO, drug abuse DISCHARGE DIAGNOSES: 1. AMS, Acute respiratory failure, REGINALDO, drug abuse COMPLICATIONS/CHIEF COMPLAINT: Hallucinogen Abuse With Intoxication With Delirium. HISTORY OF PRESENT ILLNESS: 58 y.o male w/ PMH of drug abuse was admitted for AMS secondary to snorting July, unable to protect his airway and was intubated. He was extubated the following day, clinically had COPD exacerbation/PNA. He was treated w/ steroids & Levaquin. Patient also displayed concern for suicidal id eation, evaluated by psychiatrist and cleared for discharge. Patient was doing well clinically and elected to leave A today. HOSPITAL COURSE: As above DISCHARGE MEDICATIONS: Please see below. ALLERGIES: Please see below. DISPOSITION: 07 Against Medical Advice. TIME SPENT ON DISCHARGE: Greater than 10 minutes Vital Signs/I&Os Vital Signs Date Time Temp Pulse Resp B/P (MAP) Pulse Ox O2 Delivery O2 Flow Rate FiO2 07/31/19 08:00 98.0 100 18 114/66 (82) 95 Room Air 07/29/19 12:00 8.0 35 I&O- Last 24 Hours up to 6 AM0 07/31/19 06:00 Intake Total 1255 ml Output Total 850 ml Balance 405 ml Laboratory Data Labs 24H Laboratory Tests 2 07/31/19 05:37: Nucleated Red Blood Cells % (auto) 0.0, Anion Gap 6L, Glomerular Filtration Rate > 60.0, Calcium Level 9.4, Phosphorus Level 2.9, Magnesium Level 2.5H CBC/BMP Laboratory Tests 07/31/19 05:37 Microbiology Microbiology 07/28/19 Urine Culture - Final, Complete 07/28/19 Respiratory Virus Panel (PCR) (MAIKEL) - Final, Complete 07/28/19 Gram Stain - Final, Complete 07/28/19 CSF Culture - Final, Complete 07/28/19 - Final, Complete 07/28/19 Blood Culture - Preliminary, Resulted No Growth after 72 hours. All specime... 07/27/19 Blood Culture - Preliminary, Resulted No Growth after 72 hours. All specime... Discharge Medications Scheduled Duloxetine HCl (Duloxetine HCl) 60 Mg Capsule.dr, 60 MG PO DAILY, (Reported) Omeprazole (Omeprazole) 40 Mg Capsule.dr, 40 MG PO DAILY, (Reported) Pregabalin (Lyrica) 150 Mg Capsule, 150 MG PO TID, (Reported) Trazodone HCl (Trazodone HCl) 50 Mg Tablet, 100 MG PO QHS, (Reported) Trazodone HCl (Trazodone HCl) 50 Mg Tablet, 50 MG PO QAM, (Reported) Scheduled PRN Albuterol Sulfate (Ventolin Hfa) 18 Gm Hfa.aer.ad, 2 PUFF INH Q4H PRN for SHORTNESS OF BREATH, (Reported) Ibuprofen (Ibuprofen) 600 Mg Tablet, 600 MG PO Q6H PRN for PAIN Oxycodone Myristate (Xtampza ER) 13.5 Mg Cap.spr.12, 13.5 MG PO Q12H PRN for PAIN, (Reported) Miscellaneous Medications [Patient Comments] , (Reported) UNABLE TO DETERMINE IF ANY MEDICATIONS WERE TAKEN. PRESCRIPTIONS EXIST AT PHARMACY FOR MEDICATIONS LISTED Allergies Coded Allergies: No Known Allergies (Unverified , 10/21/18) MARYCARMEN NEELY MD Jul 31, 2019 19:02
--- NOTE | 2019-07-31 20:54 | MHCR ---
DATE OF CONSULTATION: 07/30/2019 HISTORY OF PRESENT ILLNESS: I was asked to see this 58-year-old man who was admitted to the medical service. Apparently, he overdosed on July and ended up having to be intubated. While they were discussing with him his code status, he said something about wanting to . According to the progress note that talked about this, the patient was asked if the overdose of July was a suicidal attempt and he denied it, but they thought his answer was somewhat vague and so they placed him on a sitter. Since then, the patient has denied that he actually had any suicidal thoughts. He thinks that he was still confused when he said that. The patient states that he had not used drugs for a while and then he relapsed with using this July, and he said that he was feeling somewhat depressed that day, he was having trouble with his breathing because he has pretty severe chronic obstructive pulmonary disease (COPD), and he has chronic pain due to rheumatoid arthritis, and he feels that this is why he relapsed to using the July, but he completely denies that he had any suicidal intent. The patient says that generally his mood tends to be okay and so it was kind of unusual that day that he was feeling depressed, but he says he is not feeling depressed now, he just wants to hurry up and get better to be able to go home. PAST PSYCHIATRIC HISTORY: The patient has never had any prior inpatient or outpatient psychiatric treatment. He has never been on psychotropic medications and he has never made any suicidal attempts. FAMILY HISTORY: The patient says there is no psychiatric illness in the family or suicides in the family. ABUSE HISTORY: He denies any history of any physical or sexual abuse. SUBSTANCE ABUSE HISTORY: He does have a significant history of substance abuse. His toxicology was positive for cannabis. MENTAL STATUS EXAMINATION: This patient is laying in bed but he is cooperative. He is pleasant, verbally spontaneous. There is no formal thought disorder noted. He says his mood is okay. His affect is full range and appropriate. He is not psychotic. He is not suicidal. Concentration is fair. Memory is intact. Insight and judgment is good. DIAGNOSIS: Unspecified depressive disorder Amphetamine use disorder. Cannabis use disorder. TREATMENT AND RECOMMENDATION: At this point, the patient is denying suicidal ideations. Also, the patient feels that he can just stop using drugs on his own and is not interested in doing any outpatient treatment for the substance abuse. VINOD
[2019-08-03] MEDS ORDERED: PRED10TA2 PO (11:52)
[2019-08-03] MEDS ORDERED: LEVA750T7 PO (11:52)
== END 2019-07-31 11:07 | disposition left against medical advice (07) | DRG 917 ==
LOC: M ED 22:52 → M ED INP 07-28 07:24 → ENRESERVTM 07-28 07:45 → ENRESERVDT 07-28 07:45 → M ICU 07-28 08:16 → M PCU 07-30 01:25
PROVIDERS: ADMIT Internal Medicine Pulmonary Disease; ATTEND Internal Medicine Pulmonary Disease
PROC: 0BH17EZ Insertion of Endotracheal Airway into Trachea, Via Natural or Artificial Opening (ICD-10-PCS; principal; 2019-07-28)
PROC: 0BH17EZ Insertion of Endotracheal Airway into Trachea, Via Natural or Artificial Opening (ICD-10-PCS; 2019-07-28)
PROC: 009U3ZX Drainage of Spinal Canal, Percutaneous Approach, Diagnostic (ICD-10-PCS; 2019-07-28)
PROC: 5A1935Z Respiratory Ventilation, Less than 24 Consecutive Hours (ICD-10-PCS; 2019-07-28)
DX: T40.904A Poisoning by unspecified psychodysleptics [hallucinogens], undetermined, initial encounter (principal); J18.9 Pneumonia, unspecified organism; J96.01 Acute respiratory failure with hypoxia; A41.9 Sepsis, unspecified organism; N17.9 Acute kidney failure, unspecified; R45.851 Suicidal ideations; F16.121 Hallucinogen abuse with intoxication with delirium; C34.90 Malignant neoplasm of unspecified part of unspecified bronchus or lung; R41.82 Altered mental status, unspecified; J44.9 Chronic obstructive pulmonary disease, unspecified; F41.8 Other specified anxiety disorders; F19.10 Other psychoactive substance abuse, uncomplicated; Z90.2 Acquired absence of lung [part of]; F17.210 Nicotine dependence, cigarettes, uncomplicated; E86.1 Hypovolemia; Z66 Do not resuscitate; E87.6 Hypokalemia; D64.9 Anemia, unspecified; F32.9 Major depressive disorder, single episode, unspecified; F12.10 Cannabis abuse, uncomplicated; Z79.899 Other long term (current) drug therapy

== ENCOUNTER 2019-08-05 11:54 | Emergency (ER) | payer MEDICARE, MEDICAID ==
[~2019-08-05] VITALS: Ht 167.6 cm; Wt 49.1 kg
[~2019-08-05 11:54] MED LIST changes: +DULO60CA35 PO; +LEVA750T7 PO; +TRAZ-186 PO; +XTAM13.5 PO
[2019-08-05] MEDS ORDERED: DULO1CAP6 (12:02)
[2019-08-05] MEDS ORDERED: PREG150C (12:02)
[2019-08-05] MEDS ORDERED: ALBU8.5H (12:02)
[2019-08-05] MEDS ORDERED: LEVO750T13 (12:02)
[2019-08-05 12:48] LABS: EOS % 0.2 % (0.0-3.0); HEMATOCRIT 40.8 % (42.0-52.0); HEMOGLOBIN 13.4 g/dl (13.5-17.5); LYMPH % 4.6 % (24.0-44.0); MEAN CORPUSCULAR HEMOGLOBIN 28.9 pg (27.0-33.0); MEAN CORPUSCULAR HGB CONC 32.8 g/dl (32.0-36.5); MEAN CORPUSCULAR VOLUME 88.1 fl (80.0-96.0); MONO # 0.5 10^3/uL (0.0-0.8); MONO % 9.2 % (0.0-5.0); NEUTROPHILS # 4.3 10^3/uL (1.5-8.5); NEUTROPHILS % 85.2 % (36.0-66.0); PLATELET COUNT, AUTOMATED 250 10^3/uL (150-450); RED BLOOD COUNT 4.63 10^6/uL (4.30-6.10)
[2019-08-05 12:57] LABS: INR 1.05; PROTHROMBIN TIME 13.4 SECONDS (11.8-14.0)
--- NOTE | 2019-08-05 13:00 | REP ---
PA and lateral chest: Comparison is the portable chest of 07/29/2019. The endotracheal tube and nasogastric tube have been removed. The There is chronic atelectasis in the left upper lobe area with cephalic retraction of the left hilus. The lung in the left upper hemithorax as demonstrated interval improvement. There is right perihilar chronic fibrosis, unchanged. Right lung is otherwise clear. Cardiac size is normal to small, unchanged. Impression: There has been some clearing of the upper left lung. Chronic right hilar/perihilar fibrosis. Electronically Signed by Jairo Adam MD 08/05/2019 12:50 P
[2019-08-05 13:08] LABS: LYMPH # 0.2 10^3/uL (1.5-5.0)
[2019-08-05 13:25] LABS: ALBUMIN 3.1 GM/DL (3.2-5.2); ALT/SGPT 27 U/L (12-78); BILIRUBIN,DIRECT 0.2 MG/DL (0.0-0.2); BILIRUBIN,TOTAL 0.6 MG/DL (0.2-1.0); BLOOD UREA NITROGEN 13 MG/DL (7-18); CALCIUM LEVEL 8.9 MG/DL (8.5-10.1); CARBON DIOXIDE LEVEL 32 MEQ/L (21-32); CHLORIDE LEVEL 102 MEQ/L (98-107); CK-MB VALUE MASS < 1.0 NG/ML (<3.6); CPK CREATINE PHOSPHOKINASE 33 U/L (39-308); CREATININE FOR GFR 0.92 MG/DL (0.70-1.30); GLOMERULAR FILTRATION RATE > 60.0 (>56); GLUCOSE, FASTING 97 MG/DL (70-100); MB/CK RELATIVE INDEX 3.03 (< OR =4); NT-PRO BNP 1039 PG/ML (<125); POTASSIUM SERUM 3.4 MEQ/L (3.5-5.1); SODIUM LEVEL 139 MEQ/L (136-145); TOTAL PROTEIN 6.7 GM/DL (6.4-8.2); TROPONIN I < 0.02 NG/ML (< 0.10)
[2019-08-05 13:30] VITALS: BP 123/68
[2019-08-05] MEDS ORDERED: KETOROLAC 30 MG/ML VIAL (J1885) IV ONE (13:45)
--- NOTE | 2019-08-06 20:47 | ECGEPIP ---
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
== END 2019-08-05 13:57 | disposition left against medical advice (07) ==
LOC: M ED 11:54
DX: J44.9 Chronic obstructive pulmonary disease, unspecified (principal); F19.10 Other psychoactive substance abuse, uncomplicated; Z85.118 Personal history of other malignant neoplasm of bronchus and lung; Z53.21 Procedure and treatment not carried out due to patient leaving prior to being seen by health care provider; Z90.2 Acquired absence of lung [part of]; F32.9 Major depressive disorder, single episode, unspecified; F17.200 Nicotine dependence, unspecified, uncomplicated; Z79.899 Other long term (current) drug therapy

== ENCOUNTER 2019-08-20 14:22 | Emergency (ER) | payer MEDICARE, MEDICAID ==
[~2019-08-20] VITALS: Ht 167.6 cm; Wt 50.0 kg
[~2019-08-20 14:22] MED LIST changes: +ALBU8.5H; +DULO1CAP6; +LEVO750T13
[2019-08-20] MEDS ORDERED: NS 1,000 ML IV ONE ×2 (14:45→16:00)
[2019-08-20] MEDS ORDERED: methylPREDNISolone INJ 125 MG/2 ML VIAL (J2930) IV ONE (15:00)
[2019-08-20] MEDS ORDERED: COMBIVENT RESPIMAT 100-20MCG INHALER 4GM INH ONE (15:00)
[2019-08-20] MEDS ORDERED: ALBUTEROL 90 MCG/ACT 8GM HFA INHALER INH ONE (15:00)
[2019-08-20 15:06] LABS: BASO % 0.4 % (0.0-1.0); HEMATOCRIT 46.4 % (42.0-52.0); HEMOGLOBIN 15.8 g/dl (13.5-17.5); LYMPH # 0.7 10^3/uL (1.5-5.0); LYMPH % 6.8 % (24.0-44.0); MEAN CORPUSCULAR HGB CONC 34.1 g/dl (32.0-36.5); MEAN CORPUSCULAR VOLUME 85.3 fl (80.0-96.0); MONO # 1.1 10^3/uL (0.0-0.8); MONO % 9.8 % (0.0-5.0); NEUTROPHILS # 8.9 10^3/uL (1.5-8.5); NEUTROPHILS % 82.7 % (36.0-66.0); PLATELET COUNT, AUTOMATED 349 10^3/uL (150-450); RED BLOOD COUNT 5.44 10^6/uL (4.30-6.10); WHITE BLOOD COUNT 10.8 10^3/uL (4.0-10.0)
--- NOTE | 2019-08-20 15:12 | REP ---
PORTABLE CHEST X-RAY: Single view. HISTORY: Dyspnea and cough. COMPARISON CHEST X-RAY: August 05, 2019. FINDINGS: There are extensive chronic changes with volume loss and scarring in the left upper lobe. There is upward retraction of the left hilus. There is considerable fibrosis in and adjacent to the right hilus as well. Oligemia is seen in the right upper lobe. These findings are unchanged from the August 05, 2019 study. No acute infiltrate is seen. IMPRESSION: Chronic volume loss and pleuroparenchymal scarring in the left upper lobe. Hyperinflation and oligemia right upper lobe. Perihilar fibrosis on the right and upward retraction of the left hilus. These are chronic changes. No acute infiltrate is seen. There are old healed rib fractures on the right. Electronically Signed by Mario Bronson MD 08/20/2019 04:28 P
[2019-08-20 15:53] LABS: ALBUMIN 3.4 GM/DL (3.2-5.2); ALT/SGPT 15 U/L (12-78); BILIRUBIN,DIRECT < 0.1 MG/DL (0.0-0.2); BILIRUBIN,TOTAL 1.9 MG/DL (0.2-1.0); BLOOD UREA NITROGEN 21 MG/DL (7-18); CALCIUM LEVEL 9.9 MG/DL (8.5-10.1); CARBON DIOXIDE LEVEL 27 MEQ/L (21-32); CHLORIDE LEVEL 97 MEQ/L (98-107); CREATININE FOR GFR 1.65 MG/DL (0.70-1.30); GLOMERULAR FILTRATION RATE 46.2 (>56); GLUCOSE, FASTING 125 MG/DL (70-100); POTASSIUM SERUM 5.1 MEQ/L (3.5-5.1); SODIUM LEVEL 133 MEQ/L (136-145); TOTAL PROTEIN 8.2 GM/DL (6.4-8.2)
[2019-08-20 18:41] LABS: BLOOD UREA NITROGEN 21 MG/DL (7-18); CALCIUM LEVEL 8.3 MG/DL (8.5-10.1); CARBON DIOXIDE LEVEL 23 MEQ/L (21-32); CHLORIDE LEVEL 105 MEQ/L (98-107); CREATININE FOR GFR 1.19 MG/DL (0.70-1.30); GLOMERULAR FILTRATION RATE > 60.0 (>56); GLUCOSE, FASTING 120 MG/DL (70-100); POTASSIUM SERUM 4.1 MEQ/L (3.5-5.1); SODIUM LEVEL 139 MEQ/L (136-145)
[2019-08-20 19:19] VITALS: BP 101/67
== END 2019-08-20 19:15 | disposition home or self-care (01) ==
LOC: M ED 14:22
DX: J44.1 Chronic obstructive pulmonary disease with (acute) exacerbation (principal); E86.0 Dehydration; F17.200 Nicotine dependence, unspecified, uncomplicated; F12.10 Cannabis abuse, uncomplicated; Z87.81 Personal history of (healed) traumatic fracture; Z79.899 Other long term (current) drug therapy
CPT/HCPCS: 36415; 71045; 80048; 80076; 85025; 87486; 87581; 87633; 87798; 93041; 94640; 94760; 96361; 96374; 99285; J2930; U0002

== ENCOUNTER 2019-08-21 14:09 | Inpatient (IN) | payer MEDICARE, MEDICAID ==
[~2019-08-21] VITALS: Ht 167.6 cm; Wt 45.0 kg
[2019-08-21] MEDS ORDERED: ASPIRIN 81 MG CHEW TABLET PO ONE (14:30)
[2019-08-21] MEDS ORDERED: methylPREDNISolone INJ 125 MG/2 ML VIAL (J2930) IV ONE (14:30)
[2019-08-21] MEDS ORDERED: ALBUTEROL SULFATE 2.5 MG/0.5 ML INH NEB SOLN NEB ONE (14:30)
[2019-08-21] MEDS ORDERED: IPRATROPIUM 0.5MG/ALBUTEROL 2.5MG INH SOL UD 3ML (DUONEB)(J7620) NEB ONE (14:30)
[2019-08-21 14:42] LABS: ABG BASE EXCESS -0.8 (-2.0-2.0); ABG HCO3 23.2 MEQ/L (22.0-26.0); ABG O2 SATURATION 91.4 % (95.0-99.0); ABG PARTIAL PRESSURE CO2 36.1 mmHg (35.0-45.0); ABG PARTIAL PRESSURE O2 64.3 mmHg (75.0-100.0); ABG STANDARD HCO3 23.7 MEQ/L (22.0-26.0); ABG TOTAL CO2 24.3 MEQ/L (22.0-29.0); ABG pH (ARTERIAL) 7.425 UNITS (7.350-7.450)
[2019-08-21] MEDS ORDERED: MORPHINE 4 MG/ML 1ML VIAL/SYRINGE (J2270) IV ONE (14:45)
[2019-08-21 14:46] LABS: BASO % 0.1 % (0.0-1.0); HEMOGLOBIN 15.2 g/dl (13.5-17.5); LYMPH # 0.6 10^3/uL (1.5-5.0); LYMPH % 3.3 % (24.0-44.0); MEAN CORPUSCULAR HEMOGLOBIN 29.3 pg (27.0-33.0); MEAN CORPUSCULAR VOLUME 88.6 fl (80.0-96.0); MONO # 1.4 10^3/uL (0.0-0.8); MONO % 7.9 % (0.0-5.0); NEUTROPHILS # 15.3 10^3/uL (1.5-8.5); NEUTROPHILS % 87.9 % (36.0-66.0); PLATELET COUNT, AUTOMATED 360 10^3/uL (150-450); RED BLOOD COUNT 5.19 10^6/uL (4.30-6.10); WHITE BLOOD COUNT 17.4 10^3/uL (4.0-10.0)
[2019-08-21 14:56] LABS: INR 1.17; PROTHROMBIN TIME 14.7 SECONDS (11.8-14.0)
[2019-08-21 14:59] LABS: D-DIMER QUANT 569.84 ng/ml (<500)
[2019-08-21 15:24] LABS: ALBUMIN 3.4 GM/DL (3.2-5.2); ALT/SGPT 28 U/L (12-78); BILIRUBIN,DIRECT 0.4 MG/DL (0.0-0.2); BILIRUBIN,TOTAL 1.2 MG/DL (0.2-1.0); BLOOD UREA NITROGEN 27 MG/DL (7-18); CALCIUM LEVEL 9.3 MG/DL (8.5-10.1); CARBON DIOXIDE LEVEL 24 MEQ/L (21-32); CHLORIDE LEVEL 106 MEQ/L (98-107); CK-MB VALUE MASS 5.7 NG/ML (<3.6); CPK CREATINE PHOSPHOKINASE 164 U/L (39-308); CREATININE FOR GFR 1.26 MG/DL (0.70-1.30); GLOMERULAR FILTRATION RATE > 60.0 (>56); GLUCOSE, FASTING 136 MG/DL (70-100); MB/CK RELATIVE INDEX 3.48 (< OR =4); NT-PRO BNP 40547 PG/ML (<125); POTASSIUM SERUM 4.7 MEQ/L (3.5-5.1); SODIUM LEVEL 139 MEQ/L (136-145); TOTAL PROTEIN 7.1 GM/DL (6.4-8.2); TROPONIN I 0.41 NG/ML (< 0.10)
[2019-08-21] MEDS ORDERED: ISOVUE-370 76% 100ML VIAL (Q9967) As Ordered ONE (15:36)
[2019-08-21] MEDS ORDERED: PIPERACILLIN/TAZOBACTAM SOD 4.5 GM in D5W MINI-BAG PLUS 50 ML IV ONE (16:15)
[2019-08-21] MEDS ORDERED: LevoFLOXacin IV 750 MG in IV 1 EA IV ONE (16:15)
--- NOTE | 2019-08-21 16:33 | REP ---
CHEST, SINGLE VIEW: Single view of the chest is performed and compared to prior study of 08/20/2019. There is acute infiltrate throughout the left lung. There is underlying chronic pleural and parenchymal fibrotic change in the left apex. Right perihilar and right basilar fibrotic change is stable. Heart and mediastinum is unchanged. IMPRESSION: Chronic changes with superimposed acute infiltrate in the left lung. Electronically Signed by Jairo Hitchcock MD 08/21/2019 05:01 P
[2019-08-21] MEDS ORDERED: NS 1,290 ML in IV 1 EA IV ONE (16:45)
--- NOTE | 2019-08-21 16:48 | REP ---
CT ANGIOGRAM CHEST: TECHNIQUE: Axial contrast enhanced images from the thoracic inlet to the upper abdomen using 100 mL Isovue 370 intravenous contrast material with multiplanar reformations. There is no CT evidence of pulmonary embolism. The heart is not enlarged. No mediastinal or axillary adenopathy is seen. There is chronic pleural and parenchymal opacity in the left upper lobe unchanged since the prior exam of 07/28/2019. There is diffuse fibrotic scarring in the right lung with chronic pleural thickening inferiorly on the right. There is a small focal acute infiltrate in the right lung posteriorly. There is diffuse acute interstitial infiltrate in the left lung with a small left pleural effusion. Visualized upper abdominal structures are grossly unchanged. IMPRESSION: No CT evidence of pulmonary embolism. Diffuse acute infiltrate left lung with small left pleural effusion. Small focal infiltrate posterior right lung. Other chronic changes are stable compared to the prior study of 07/28/2019. Electronically Signed by Jairo Hitchcock MD 08/21/2019 05:02 P
[2019-08-21 17:25] LABS: CK-MB VALUE MASS 5.5 NG/ML (<3.6); MB/CK RELATIVE INDEX 4.55 (< OR =4); TROPONIN I 0.43 NG/ML (< 0.10)
[2019-08-21] MEDS ORDERED: ALBUTEROL 90 MCG/ACT 8GM HFA INHALER INH PRN (18:45)
[2019-08-21 19:00] VITALS: O2SAT 100
--- NOTE | 2019-08-21 19:34 | HPEPDOC ---
[facility] Medical History & Physical Date of Admission Aug 21, 2019 Date of Service: Aug 21, 2019 Primary Care Physician: STEVIE TOUSSAINT MD [facility] Attending Physician: Angelica Perez MD History and Physical CHIEF COMPLAINT: shortness of breath HISTORY OF PRESENT ILLNESS: The patient is a 58-year-old male with past medical history of substance abuse, depression, chronic pain, history of lung cancer, COPD who presented to [facility] emergency room with the chief complaint of increasing shortness of breath worsening over the past 3 days. He says over that time. His shortness of breath has worsened. He has had 3 times per day diarrhea, nonbloody but watery. He denies any recent hospitalizations over the past 3 months, antibiotic use or history of Clostridium difficile. He also has had some productive cough of yellow color and intermittent substernal chest pain, nonradiating, 2-3 out of 10 pain scale, sharp. Other associated symptoms included lethargy, loss of appetite, difficult walking due to shortness of breath. He denies nausea, vomiting, sick contacts, fevers, abdominal pain. He has been out of town with some recent travel but has had no contact with a known COVID 19 patient. The patient has a history of polysubstance abuse with inhaling amphetamines and smoking marijuana. He states last time he inhaled methamphetamines was several weeks ago. He was seen in the emergency room on 08/20/2019 where he was treated for shortness of breath and dehydration and sent home. In the emergency room today the patient appeared in respiratory distress, vital signs initially were temperature 98.3, pulse 123, blood pressure 124/66, respiratory rate 28, 95% on several liters of oxygen. ABG showed primary respiratory alkalosis. ECG showed some nonspecific ST depression and T-wave changes in the anterolateral leads and inferior leads. BNP was greater than 40,000, troponin was elevated at 0.4. When repeated troponin was further elevated at 0.43. Cardiology was consult it over the phone by the ER provider in that case was discussed in detail. It is believed his troponin elevation to be secondary to likely demand ischemia. It is unknown what his underlying heart co ndition is with history of substance abuse. He does not have any known cardiac history. Patient was given Zosyn, steroids, nebulizer treatments. He was tested for Covid 19. A respiratory panel was negative. Blood cultures 2 sets were drawn. CTA chest showed No CT evidence of pulmonary embolism. Diffuse acute infiltrate left lung with small left pleural effusion. Small focal infiltrate posterior right lung. Other chronic changes are stable compared to the prior study of 07/28/2019. WBC was elevated at 19.4, lactic acid greater than 4. Upon discussion with the patient emergency room he is a DNR/DNI. The patient was ultimately admitted under inpatient status for bilateral community acquired pn eumonia-r/o COVID 19, sepsis, congestive heart failure, and r/o acute coronary syndrome vs. demand ischemia. REVIEW OF SYSTEMS: CONSTITUTIONAL: Denies unexplained weight gain or weight loss, fever, night sweats EYES: Denies eye drainage, eye pain, visual changes, dry/irritated eye EARS, NOSE, MOUTH, THROAT: Denies difficulty hearing, ringing in ears, mouth sores, loose teeth, sore throat, facial numbness or pain NECK: Denies swollen glands CARDIOVASCULAR: Denies irregular heartbeat, racing heart, chest pains, swelling of feet or legs, pain in legs with walking RESPIRATORY: Denies night sweats, sputum production, oxygen at home, coughing up blood, cough lasting > 1 month GASTROINTESTINAL: Denies abdominal pain, constipation, bloody stool, heartburn, nausea, vomiting GENITOURINARY: Denies painful urination, bloody urine, frequent urination, urgency, leaking urine, impotence MUSCULOSKELETAL: Denies joint pain, muscle pain, leg swelling INTEGUMENTARY: Denies rash, itching, new skin lesion, change in existing skin lesion, hair loss or increase, breast changes. NEUROLOGICAL: Denies headaches, dizziness, numbness or tingling PSYCHIATRIC: Denies anxiety, recurrent bad thoughts, mood swings, hallucinations PAST MEDICAL HISTORY: 1. Substance abuse history 2. Depression 3. Malutrition 4. Chronic pain secondary to prior lung resection 5. History of lung cancer 6. Tobacco abuse 7. COPD PAST SURGICAL HISTORY: 1. Partial lung resection 2. Cyst removal 3. Hand surgery FAMILY HISTORY: Father: Cancertype unknown, at 67 years old Mother: Cancertype unknown, at 65 years old Siblings: Brother's 3each of coronary artery disease at the ages of 45, 52, 57 SOCIAL HISTORY: Smoker of 1-1/2 pack per day for 40 years. Patient also smokes recreational darryl ac at times inhaled amphetamines. Last time of using amphetamines was 2 weeks ago. He should also has a history of alcohol use. [place] the local area. PCP is Dr. Toussaint. He is a DNR/DNI and this was again reconfirmed with him in the room this evening. ALLERGIES: NKDA HOME MEDICATIONS: Please see below. PHYSICAL EXAMINATION: CONSTITUTIONAL: Emaciated male, uncomfortable but not in distress, AAO x 3 EYES: PERRLA, EOM intact HENT, MOUTH: temporal wasting, normocephalic, atraumatic, moist mucous membranes NECK: SUPPLE, no JVD, no lymphadenopathy, no carotid bruit CV: Tachycardic, Regular rhythm, S1S2 normal, no murmurs/rubs/gallops RESPIRATORY: Decreased breath sounds biilaterally, crackles in bilateral lung bases, scattered rhonchi. no rales GI: thin abdomen, BS positive in 4 quadrants, soft, nontender, nondistended, no rebound or guarding, no organomegaly : Deferred MUSCULOSKELETAL: thin extremities, Normal ROM. No cyanosis, clubbing, swelling, joint deformity, extremity edema INTEGUMENTARY: Intact, no rashes, no lesions, no erythema NEUROLOGIC: Cranial Nerves II-XII are intact, no focal deficits PSYCHIATRIC: Mood and affect are normal LABORATORY DATA: Please see below IMAGING: CTA chest: No CT evidence of pulmonary embolism. Diffuse acute infiltrate left lung with small left pleural effusion. Small focal infiltrate posterior right lung. Other chronic changes are stable compared to the prior study of 07/28/2019 ECG: sinus tachycardia, mod t wave abnormality so consider anterolateral and inferior ischemia. ASSESSMENT: 68-year-old male admitted for bilateral community acquired pneumonia with r/o COVID 19, sepsis, congestive heart failure, and STEMI versus demand ischemia. PLAN: 1. Acute respiratory failure likely multifactorial to community acquired PNA, acute CHF, r/o COVID-19. Negative respiratory panel. Please see below for individual treatment plans. 2. Community acquired PNA, sepsis. LA elevated, WBC 17K, HR 110-120. Treat with Levofloxacin, IVFs at 100 cc/hr, combivent MDI ATC, albuterol MDI PRN. F/u repeat lactic acid, all cultures. Daily labs. 3. Acute Congestive heart failure exacerbation. Unknown underlying heart issues. BNP >40K, primary respiratory alkalosis. Discussed case with cardiology at great length. At this time will treat sepsis and if shows sings of further fluid overload, can intermittently diurese. Trops increased; however, patient is not a candidate for intervention with all this is happening. Consulted Dr. Borrego (cardiology) and echo requested. Monitor on tele closely. Holding off on lasix, BB, ACEi at this time. Low salt diet. 4. Demand ischemia vs. ACS. Trop elevated at 0.40 and later 0.43.Cardiology aware of case, believes to be more demand. ECG above. At this time, treating sepsis. Monitor on tele, ECG PRN. Holding cardiac meds. 5. Presumptive COVID 19. Negative respiratory panel with acute hypoxia, SOB and new bilateral PNA. Test done in ER. Ordered LDH, procalcitonin, ferritin, CRP, legionella antigen, gram stain and culture. Negative pressure contact and droplet isolation suggested with institution protocols to be started. C/w supplemental oxygen, supportive care, MDI treatments for albuterol, combivent. Careful to use NSAIDs, avoid steroids if possible. 6. COPD. Currently not believed to be in exacerbation with minimal wheezing but decreased breathsounds; however, on ATC combivent, albuterol PRN. Avoid steroids if possible with r/o COVID 19. 7. Depression. C/w home medications. 8. Chronic pain syndrome. C/w home medications. 9. Malnutrition. BMI 15, does not eat well. Nutrition to see. Regular diet. 10. Hx of lung cancer s/p partial lung resection. States that this is not active at this time. 11. GERD. PPI. 12. DVT px. enoxaparin SC daily, SCD. DISPOSITION: Admitted under inpatient status. Plan is to discharge home when medically improved. Prior to discharge, will need PT/OT. Vital Signs Vital Signs Date Time Temp Pulse Resp B/P (MAP) Pulse Ox O2 Delivery O2 Flow Rate FiO2 08/21/19 19:12 104 20 108/69 (82) 99 08/21/19 14:48 Room Air 08/21/19 14:20 98.3 Laboratory Data Labs 24H Laboratory Tests 2 08/21/19 14:21: Prothrombin Time 14.7H, Prothromb Time International Ratio 1.17, D-Dimer, Quantitative 569.84H 08/21/19 14:33: Blood Gas Bicarbonate Standard 23.7, Arterial Blood pH 7.425, Arterial Blood Partial Pressure CO2 36.1, Arterial Blood Partial Pressure O2 64.3L, Arterial Blood Total CO2 24.3, Arterial Blood HCO3 23.2, Arterial Blood Base Excess -0.8, Arterial Blood Oxygen Saturation 91.4L 08/21/19 14:36: Immature Granulocyte % (Auto) 0.8, Neutrophils (%) (Auto) 87.9H, Lymphocytes (%) (Auto) 3.3L, Monocytes (%) (Auto) 7.9H, Eosinophils (%) (Auto) 0.0, Basophils (%) (Auto) 0.1, Neutrophils # (Auto) 15.3H, Lymphocytes # (Auto) 0.6L, Monocytes # (Auto) 1.4H, Eosinophils # (Auto) 0.0, Basophils # (Auto) 0.0, Nucleated Red Blood Cells % (auto) 0.0, Anion Gap 9, Glomerular Filtration Rate > 60.0, Calcium Level 9.3, Total Bilirubin 1.2H, Direct Bilirubin 0.4H, Aspartate Amino Transf (AST/SGOT) 39H, Alanine Aminotransferase (ALT/SGPT) 28, Alkaline Phosphatase 130H, Total Creatine Kinase 164, Creatine Kinase MB 5.7H, Creatine Kinase MB Relative Index 3.48, Troponin I 0.41H, PB-Ziv-Q-Type Natriuretic Peptide 43789N, Total Protein 7.1, Albumin 3.4, Albumin/Globulin Ratio 0.92L, Thyroid Stimulating Hormone (TSH) 1.220 08/21/19 15:07: Lactic Acid Level 4.1*H 08/21/19 16:36: Total Creatine Kinase 121, Creatine Kinase MB 5.5H, Creatine Kinase MB Relative Index 4.55H, Troponin I 0.43H 08/21/19 18:40: 08/21/19 19:12: CBC/BMP Laboratory Tests 08/21/19 14:36 Microbiology Microbiology 08/21/19 Blood Culture, Received Pending 08/21/19 Blood Culture, Received Pending Home Medications Scheduled Omeprazole (Omeprazole) 40 Mg Capsule.dr, 40 MG PO DAILY Pregabalin (Lyrica) 150 Mg Capsule, 150 MG PO TID Trazodone HCl (Trazodone HCl) 50 Mg Tablet, 100 MG PO QHS Trazodone HCl (Trazodone HCl) 50 Mg Tablet, 50 MG PO QAM Scheduled PRN Albuterol Sulfate (Ventolin Hfa) 18 Gm Hfa.aer.ad, 2 PUFF INH Q4H PRN for SHORTNESS OF BREATH Oxycodone Myristate (Xtampza ER) 13.5 Mg Cap.spr.12, 13.5 MG PO Q12H PRN for PAIN Allergies Coded Allergies: No Known Allergies (Unverified , 08/21/19) A-FIB/CHADSVASC A-FIB History Current/History of A-Fib/PAF?: No Current PO Anticoag Therapy: No Age/Risk Factor Scoring CHADSVASC: CHADSVASC Response (Comments) Value Age Risk Factor Age < 65 years old 0 Gender Risk Factor Male 0 Hx of CHF Yes 1 Hx of HTN No 0 Hx of Stroke/TIA/or VTE No 0 Hx of Diabetes No 0 Total 1 Treatment Treatment ordered: Other Other anticoagulant ordered: enoxaparin Angelica Perez MD Aug 21, 2019 19:34
[2019-08-21 19:45] LABS: AMPHETAMINES LEVEL URINE POSITIVE (NEGATIVE); BARBITURATES URINE NEGATIVE (NEGATIVE); BENZODIAZEPINES URINE NEGATIVE (NEGATIVE); CANNABINOIDS URINE POSITIVE (NEGATIVE); COCAINE METABOLITE URINE NEGATIVE (NEGATIVE); METHADONE URINE NEGATIVE (NEGATIVE); OPIATES URINE POSITIVE (NEGATIVE); PHENCYCLIDINE URINE NEGATIVE (NEGATIVE)
[2019-08-21] MEDS: NS 1,000 ML IV SCH (19:55)
[2019-08-21 19:56] LABS: C REACTIVE PROTEIN QUANTITATIV 3.66 MG/DL (0.00-0.30)
[2019-08-21 20:00] VITALS: BP 108/62; O2SAT 97
[2019-08-21] MEDS: COMBIVENT RESPIMAT 100-20MCG INHALER 4GM INH SCH (20:05)
[2019-08-21 20:23] LABS: TROPONIN I 0.53 NG/ML (< 0.10)
[2019-08-21 21:00] VITALS: O2SAT 95
[2019-08-21] MEDS ORDERED: FUROSEMIDE 100 MG/10 ML VIAL (J1940) IV SCH (21:00)
[2019-08-21 22:00] VITALS: BP 98/60; O2SAT 97
[2019-08-21 23:00] VITALS: O2SAT 96
[2019-08-22] VITALS (19 sets, daily range): BP systolic 100–120; BP diastolic 50–76; O2SAT 91–97
[2019-08-22 01:11] LABS: CK-MB VALUE MASS 6.6 NG/ML (<3.6); MB/CK RELATIVE INDEX 6.29 (< OR =4); TROPONIN I 0.7 NG/ML (< 0.10)
[2019-08-22] MEDS: COMBIVENT RESPIMAT 100-20MCG INHALER 4GM INH SCH ×4 (02:04→19:42)
[2019-08-22] MEDS: NS 1,000 ML IV SCH (04:00)
[2019-08-22 06:06] LABS: BASO % 0.1 % (0.0-1.0); HEMATOCRIT 43.2 % (42.0-52.0); HEMOGLOBIN 13.5 g/dl (13.5-17.5); LYMPH # 0.3 10^3/uL (1.5-5.0); LYMPH % 2.9 % (24.0-44.0); MEAN CORPUSCULAR HEMOGLOBIN 28.3 pg (27.0-33.0); MEAN CORPUSCULAR HGB CONC 31.3 g/dl (32.0-36.5); MEAN CORPUSCULAR VOLUME 90.6 fl (80.0-96.0); MONO # 0.7 10^3/uL (0.0-0.8); NEUTROPHILS # 7.6 10^3/uL (1.5-8.5); NEUTROPHILS % 88.1 % (36.0-66.0); PLATELET COUNT, AUTOMATED 317 10^3/uL (150-450); RED BLOOD COUNT 4.77 10^6/uL (4.30-6.10); WHITE BLOOD COUNT 8.7 10^3/uL (4.0-10.0)
[2019-08-22 07:17] LABS: ALBUMIN 2.9 GM/DL (3.2-5.2); ALT/SGPT 25 U/L (12-78); BILIRUBIN,TOTAL 0.6 MG/DL (0.2-1.0); BLOOD UREA NITROGEN 23 MG/DL (7-18); CALCIUM LEVEL 8.6 MG/DL (8.5-10.1); CARBON DIOXIDE LEVEL 24 MEQ/L (21-32); CHLORIDE LEVEL 106 MEQ/L (98-107); CREATININE FOR GFR 1.01 MG/DL (0.70-1.30); GLOMERULAR FILTRATION RATE > 60.0 (>56); GLUCOSE, FASTING 153 MG/DL (70-100); POTASSIUM SERUM 4.6 MEQ/L (3.5-5.1); SODIUM LEVEL 139 MEQ/L (136-145)
[2019-08-22] MEDS ORDERED: FUROSEMIDE 100 MG/10 ML VIAL (J1940) IV ONE (08:00)
[2019-08-22] MEDS: ENOXAPARIN 40 MG/0.4 ML SYRINGE (J1650) SC SCH (08:40)
[2019-08-22] MEDS: OMEPRAZOLE 20 MG CAP PO SCH (08:40)
[2019-08-22] MEDS ORDERED: SLF 3 ML SYR IV PRN (10:30)
[2019-08-22] MEDS: SLF 3 ML SYR IV SCH ×2 (14:03→22:00)
--- NOTE | 2019-08-22 14:07 | IPNPDOC ---
Date Seen The patient was seen on 08/22/19. Progress Note SUBJECTIVE: Stopped IVFs, blood pressure improved. Given 60 mg IV lasix x 1 dose, will see how he tolerates. Lethargic this AM, Bedside echo showed poor EF. Discussed with Dr. Borrego. Patient denies current chest pain, n/v/d, fevers or chills. Cultures pending. OBJECTIVE: VITAL SIGNS: Please see below PHYSICAL EXAMINATION: CONSTITUTIONAL: Emaciated male, uncomfortable but not in distress, AAO x 3 EYES: PERRLA, EOM intact HENT, MOUTH: temporal wasting, normocephalic, atraumatic, moist mucous membranes NECK: SUPPLE, no JVD, no lymphadenopathy, no carotid bruit CV: Tachycardic, Regular rhythm, S1S2 normal, no murmurs/rubs/gallops RESPIRATORY: Decreased breath sounds biilaterally, crackles in bilateral lung bases, scattered rhonchi. no rales GI: thin abdomen, BS positive in 4 quadrants, soft, nontender, nondistended, no rebound or guarding, no organomegaly : Deferred MUSCULOSKELETAL: thin extremities, Normal ROM. No cyanosis, clubbing, swelling, joint deformity, extremity edema INTEGUMENTARY: Intact, no rashes, no lesions, no erythema NEUROLOGIC: Cranial Nerves II-XII are intact, no focal deficits PSYCHIATRIC: Mood and affect are normal LABORATORY DATA: Please see below IMAGING: Echo report pending ASSESSMENT: 58-year-old male admitted for bilateral community acquired pneumonia with r/o COVID 19, sepsis, congestive heart failure, and STEMI versus demand i schemia. PLAN: 1. Acute respiratory failure likely multifactorial to community acquired PNA, acute CHF, r/o COVID-19. Negative respiratory panel. Please see below for individual treatment plans. 2. Community acquired PNA, sepsis. LA still elevated, WBC improved to wnl, HR improved. C/w Levofloxacin, IVFs at 100 cc/hr, combivent MDI ATC, albuterol MDI PRN. F/u repeat lactic acid, all cultures. Daily labs. 3. Acute Congestive heart failure exacerbation. Poor EF on bedside echo, awaiting report. Intermittently diuresing. Trops increased; however, patient is not a candidate for intervention with all this is happening. Cardiology following. Monitor on tele closely. Holding off on lasix, BB, ACEi at this time. Low salt diet. Close monitoring of I&O's, daily wt. 4. Demand ischemia vs. ACS. Trop elevated. Cardiology aware of case, believes to be more demand. ECG above. At this time, treating sepsis. Monitor on tele, ECG PRN. Holding cardiac meds. 5. Presumptive COVID 19. Negative respiratory panel with acute hypoxia, SOB and new bilateral PNA. LDH wnl, procalcitonin pending, ferritin elevated. F/u COVID 19 PCR, legionella antigen, gram stain and culture. Negative pressure contact and droplet isolation suggested with institution protocols to be started. C/w supplemental oxygen, supportive care, MDI treatments for albuterol, combivent. 6. COPD. Currently not believed to be in exacerbation with minimal wheezing but decreased breath sounds; however, on ATC combivent, albuterol PRN. Avoid steroids if possible. 7. Depression. C/w home medications. 8. Chronic pain syndrome. C/w home medications. 9. Malnutrition. BMI 15, does not eat well. Nutrition to see. Regular diet. 10. Hx of lung cancer s/p partial lung resection. States that this is not active at this time. 11. GERD. PPI. 12. DVT px. enoxaparin SC daily, SCD. DISPOSITION: Admitted under inpatient status. Plan is to discharge home when medically improved. Prior to discharge. VS, I&O, 24H, Fishbone Vital Signs/I&O Vital Signs Date Time Temp Pulse Resp B/P (MAP) Pulse Ox O2 Delivery O2 Flow Rate FiO2 08/22/19 11:11 97.6 110 24 118/50 (72) 94 Room Air 08/22/19 07:00 1.0 I&O- Last 24 Hours up to 6 AM 08/22/19 06:00 Intake Total 1600 ml Output Total 200 ml Balance 1400 ml Laboratory Data 24H LABS Laboratory Tests 2 08/21/19 14:21: Prothrombin Time 14.7H, Prothromb Time International Ratio 1.17, D-Dimer, Quantitative 569.84H 08/21/19 14:33: Blood Gas Bicarbonate Standard 23.7, Arterial Blood pH 7.425, Arterial Blood Partial Pressure CO2 36.1, Arterial Blood Partial Pressure O2 64.3L, Arterial Blood Total CO2 24.3, Arterial Blood HCO3 23.2, Arterial Blood Base Excess -0.8, Arterial Blood Oxygen Saturation 91.4L 08/21/19 14:36: Immature Granulocyte % (Auto) 0.8, Neutrophils (%) (Auto) 87.9H, Lymphocytes (%) (Auto) 3.3L, Monocytes (%) (Auto) 7.9H, Eosinophils (%) (Auto) 0.0, Basophils (% ) (Auto) 0.1, Neutrophils # (Auto) 15.3H, Lymphocytes # (Auto) 0.6L, Monocytes # (Auto) 1.4H, Eosinophils # (Auto) 0.0, Basophils # (Auto) 0.0, Nucleated Red Blood Cells % (auto) 0.0, Anion Gap 9, Glomerular Filtration Rate > 60.0, Calcium Level 9.3, Total Bilirubin 1.2H, Direct Bilirubin 0.4H, Aspartate Amino Transf (AST/SGOT) 39H, Alanine Aminotransferase (ALT/SGPT) 28, Alkaline Phosphatase 130H, Total Creatine Kinase 164, Creatine Kinase MB 5.7H, Creatine Kinase MB Relative Index 3.48, Troponin I 0.41H, UL-Kbg-I-Type Natriuretic Peptide 09535J, Total Protein 7.1, Albumin 3.4, Albumin/Globulin Ratio 0.92L, Thyroid Stimulating Hormone (TSH) 1.220 08/21/19 15:07: Lactic Acid Level 4.1*H 08/21/19 16:36: Total Creatine Kinase 121, Creatine Kinase MB 5.5H, Creatine Kinase MB Relative Index 4.55H, Troponin I 0.43H 08/21/19 18:40: Urine Opiates Screen POSITIVEH, Urine Methadone Screen NEGATIVE, Urine Barbiturates Screen NEGATIVE, Urine Phencyclidine Screen NEGATIVE, Urine Amphetamines Screen POSITIVEH, Urine Benzodiazepines Screen NEGATIVE, Urine Cocaine Metabolite Screen NEGATIVE, Urine Cannabinoids Screen POSITIVEH 08/21/19 19:12: Troponin I 0.53#H, Lactic Acid Level 2.5*H, Ferritin 716H, Lactate Dehydrogenase 138, C-Reactive Protein, Quantitative 3.66H 08/21/19 23:49: Total Creatine Kinase 105, Creatine Kinase MB 6.6H, Creatine Kinase MB Relative Index 6.29H, Troponin I 0.70#H, Lactic Acid Followup at 4 Hours 1.8 08/22/19 05:08: Immature Granulocyte % (Auto) 0.9, Neutrophils (%) (Auto) 88.1H, Lymphocytes (%) (Auto) 2.9L, Monocytes (%) (Auto) 8.0H, Eosinophils (%) (Auto) 0.0, Basophils (%) (Auto) 0.1, Neutrophils # (Auto) 7.6, Lymphocytes # (Auto) 0.3L, Monocytes # (Auto) 0.7, Eosinophils # (Auto) 0.0, Basophils # (Auto) 0.0, Nucleated Red Blood Cells % (auto) 0.0 08/22/19 06:25: 08/22/19 06:31: Anion Gap 9, Glomerular Filtration Rate > 60.0, Lactic Acid Level 2.4*H, Calcium Level 8.6, Total Bilirubin 0.6, Aspartate Amino Transf (AST/SGOT) 28, Alanine Aminotransferase (ALT/SGPT) 25, Alkaline Phosphatase 107, Total Protein 6.0L, Albumin 2.9L, Albumin/Globulin Ratio 0.94L 08/22/19 08:53: 08/22/19 11:00: Lactic Acid Followup at 4 Hours 2.7*H CBC/BMP Laboratory Tests 08/21/19 14:36 08/22/19 05:08 08/22/19 06:31 Microbiology Microbiology 08/22/19 Gram Stain - Final, Resulted 08/22/19 Sputum Culture, Resulted Pending 08/21/19 Blood Culture, Received Pending 08/21/19 Blood Culture, Received Pending Angelica Perez MD Aug 22, 2019 14:07
[2019-08-22] MEDS ORDERED: NS 1,000 ML IV SCH (14:15)
[2019-08-22] MEDS ORDERED: ONDANSETRON 4 MG TAB (S0181) PO PRN (14:30)
[2019-08-22] MEDS: ACETAMINOPHEN TAB 650MG DOSE (2X325MG) PO PRN (15:01)
--- NOTE | 2019-08-22 19:26 | ECHO ---
DATE OF PROCEDURE: 08/22/2019 Date of : 1960 Age: 58 Gender: Male Height: 66 inches Weight: 94 pounds Body surface area: 1.46 meters squared Inpatient: Progressive care unit (PCU), room 3213 REFERRING PHYSICIAN: Dr. Angelica Perez INDICATION: Heart failure (unspecified). MEASUREMENTS: 2D Measurements: RV: 4.2 cm LV: 4.4 cm Septum: 0.9 cm Posterior wall: 0.9 cm Aortic root: 3.2 cm LA: 3.0 cm LVEF: 20-30% Doppler Measurements: AV: 1.0 meters per second LVOT: 0.74 meters per second LVOT diameter: 2.0 cm MV-E: 67, A: 80.5, EA ratio: 0.8 E prime medial: 4, A prime medial: 6, E prime lateral: 6. Average E/E prime ratio: 13.4/ PCWP 18.5 mmHg PV: 0.5 meters per second RVSP: 65-75 mmHg IVC: 2.4 cm COMMENTS: Sinus tachycardia without intraventricular conduction disturbance. M-mode and two-dimensional echocardiography was performed with pulsed, continuous wave, color flow and tissue Doppler studies. Normal left ventricular size and wall thickness with preserved proximal inferior and lateral wall motion but akinesis of the proximal and dyskinesis of the distal septum and akinesis of the entire apex. The anterior wall also appeared to be markedly hypo to akinetic with the more distal lateral wall. Severe impairment of global resting systolic function. Findings in keeping with combination of both right ventricular pressure overload, as well as a prior anterior infarction. Normal left atrial size with grade 1 left ventricular (LV) diastolic dysfunction and current estimated mean left atrial pressure actually only mildly increased. Mildly dilated right ventricle with right ventricular hypokinesis and severe pulmonary hypertension. Right atrium appeared to be upper limits of normal in size with moderately dilated inferior vena cava and absent respiratory collapse in keeping with an elevated central venous pressure of at least 20 mmHg. Normal aortic dimensions. Mild aortic valvular sclerosis with adequate cusp separation but premature cusp closure related to reduced forward stroke volume. Moderate mitral annular calcification with "low flow" appearance to leaflet motion but no prolapse. At least mild mitral insufficiency. Normal appearing tricuspid valve with at least mild insufficiency. No apparent intracardiac mass or pericardial effusion. Based on the combination of this gentleman's severely impaired left ventricular systolic function as well as severe pulmonary hypertension and right heart failure, his prognosis is extremely guarded. VINOD
[2019-08-23] VITALS (19 sets, daily range): BP systolic 88–120; BP diastolic 48–60; O2SAT 92–98
[2019-08-23] MEDS: COMBIVENT RESPIMAT 100-20MCG INHALER 4GM INH SCH ×4 (01:58→20:05)
[2019-08-23 05:13] LABS: BASO % 0.1 % (0.0-1.0); HEMATOCRIT 40.3 % (42.0-52.0); HEMOGLOBIN 13.3 g/dl (13.5-17.5); LYMPH # 0.8 10^3/uL (1.5-5.0); LYMPH % 7.1 % (24.0-44.0); MONO # 1.1 10^3/uL (0.0-0.8); MONO % 9.4 % (0.0-5.0); NEUTROPHILS # 9.5 10^3/uL (1.5-8.5); NEUTROPHILS % 82.6 % (36.0-66.0); PLATELET COUNT, AUTOMATED 327 10^3/uL (150-450); RED BLOOD COUNT 4.58 10^6/uL (4.30-6.10); WHITE BLOOD COUNT 11.5 10^3/uL (4.0-10.0)
[2019-08-23 05:33] LABS: ALBUMIN 2.7 GM/DL (3.2-5.2); ALT/SGPT 32 U/L (12-78); BILIRUBIN,TOTAL 0.8 MG/DL (0.2-1.0); BLOOD UREA NITROGEN 24 MG/DL (7-18); CALCIUM LEVEL 8.6 MG/DL (8.5-10.1); CARBON DIOXIDE LEVEL 28 MEQ/L (21-32); CHLORIDE LEVEL 106 MEQ/L (98-107); CREATININE FOR GFR 1.09 MG/DL (0.70-1.30); GLOMERULAR FILTRATION RATE > 60.0 (>56); GLUCOSE, FASTING 115 MG/DL (70-100); NT-PRO BNP 45271 PG/ML (<125); SODIUM LEVEL 140 MEQ/L (136-145); TOTAL PROTEIN 6.2 GM/DL (6.4-8.2)
[2019-08-23] MEDS: SLF 3 ML SYR IV SCH ×3 (06:06→22:00)
[2019-08-23] MEDS: FUROSEMIDE 100 MG/10 ML VIAL (J1940) IV SCH ×2 (08:00→16:00)
[2019-08-23] MEDS: ENOXAPARIN 40 MG/0.4 ML SYRINGE (J1650) SC SCH (08:17)
[2019-08-23] MEDS: OMEPRAZOLE 20 MG CAP PO SCH (08:17)
--- NOTE | 2019-08-23 08:37 | ECGEPIP ---
[facility] - ED Test Date: 2019-08-21 Pat Name: ALBERT LAINEZ Department: Room: - Gender: Male Care Advocate: tana : 1960 Requested By: GRIS PEDRO Order Number: [id number] Reading MD: Lilo Domingo Measurements Intervals [place] Rate: 119 P: 82 AK: 125 QRS: 94 QRSD: 97 T: -86 QT: 345 QTc: 486 Interpretive Statements SINUS TACHYCARDIA BORDERLINE RIGHT AXIS DEVIATION SEPTAL MYOCARDIAL INFARCTION, OF INDETERMINATE AGE MODERATE T-WAVE ABNORMALITY, CONSIDER ANTEROLATERAL ISCHEMIA MODERATE T-WAVE ABNORMALITY, CONSIDER INFERIOR ISCHEMIA ST CHANGES NEW 08/05/19 - CLINICAL CORRELATION Electronically Signed on 08-23-2019 8:37:20 EDT by Lilo Domingo
--- NOTE | 2019-08-23 08:38 | REP ---
Clinical: Shortness of breath. Comparison: 08/21/2019. Findings: Diffuse bilateral pleuroparenchymal changes are again noted. Superimposed infiltrates involving the left hemithorax remains stable. No effusion. No pneumothorax. Mediastinum and cardiac silhouette are stable. Skeletal structures are intact. Impression: 1. Superimposed multifocal infiltrates involving the left hemithorax similar to prior examination. 2. No new acute process as compared to prior examination. Electronically Signed by Patric Geller MD 08/23/2019 08:30 A
--- NOTE | 2019-08-23 08:38 | ECGEPIP ---
[facility] - ED Test Date: 2019-08-21 Pat Name: ALBERT LAINEZ Department: Room: - Gender: Male Family Law Legal Assistant: tana : 1960 Requested By: GRIS PEDRO Order Number: [id number] Reading MD: Lilo Domingo Measurements Intervals [place] Rate: 103 P: 94 VA: 128 QRS: 85 QRSD: 91 T: 259 QT: 391 QTc: 513 Interpretive Statements SINUS TACHYCARDIA POSSIBLE LEFT ATRIAL ENLARGEMENT SEPTAL MYOCARDIAL INFARCTION, PROBABLY OLD MODERATE T-WAVE ABNORMALITY, CONSIDER ANTEROLATERAL ISCHEMIA MODERATE T-WAVE ABNORMALITY, CONSIDER INFERIOR ISCHEMIA DECREASED RATE 08/21/19 Electronically Signed on 08-23-2019 8:38:32 EDT by Lilo Domingo
[2019-08-23] MEDS ORDERED: FUROSEMIDE 100 MG/10 ML VIAL (J1940) IV SCH (09:00)
[2019-08-23] MEDS: LevoFLOXacin IV 750 MG in IV 1 EA IV SCH (17:33)
[2019-08-23] MEDS ORDERED: NS 500 ML IV ONE (17:45)
[2019-08-23] MEDS ORDERED: NS 250 ML IV ONE (17:45)
--- NOTE | 2019-08-23 17:52 | IPNPDOC ---
Date Seen The patient was seen on 08/23/19. Progress Note SUBJECTIVE: BP improved this AM, started intermittent lasix. Tachycardic. MOLST form filled out at bedside, DNR/DNI. Discussed case with Dr. Ramos and agreed with plan. At this time we cannot r/o ACS with acute systolic CHF with ECG changes in inferior and lateral leads. Currently the patient is aware of how sick he is. He admits to lethargy and shortness of breath but denies current chest pain, n/v/d, fevers or chills. COVID- 19 neg. OBJECTIVE: VITAL SIGNS: Please see below PHYSICAL EXAMINATION: CONSTITUTIONAL: Emaciated male, mild respiratory distress, uncomfortable, AAO x 3 EYES: PERRLA, EOM intact HENT, MOUTH: temporal wasting, normocephalic, atraumatic, moist mucous membranes NECK: SUPPLE, no JVD, no lymphadenopathy, no carotid bruit CV: Tachycardic, Regular rhythm, S1S2 normal, no murmurs/rubs/gallops RESPIRATORY: Decreased breath sounds biilaterally, crackles in bilateral lung bases. no rales GI: thin abdomen, BS positive in 4 quadrants, soft, nontender, nondistended, no rebound or guarding, no organomegaly : Deferred MUSCULOSKELETAL: thin extremities, Normal ROM. No cyanosis, clubbing, swelling, joint deformity, extremity edema INTEGUMENTARY: Intact, no rashes, no lesions, no erythema NEUROLOGIC: Cranial Nerves II-XII are intact, no focal deficits PSYCHIATRIC: Mood and affect are normal LABORATORY DATA: Please see below IMAGING: CXR: Diffuse bilateral pleuroparenchymal changes are again noted. Superimposed infiltrates involving the left hemithorax remains stable. No effusion. No pneumothorax. Mediastinum and cardiac silhouette are stable. Skeletal structures are intact. ASSESSMENT: 58-year-old male admitted for bilateral community acquired pneumonia, sepsis, acute systolic congestive heart failure, and ACS versus demand ischemia. PLAN: 1. Acute respiratory failure likely multifactorial to community acquired PNA, acute CHF. Negative respiratory panel, neg COVID 19. Please see below for individual treatment plans. 2. Community acquired PNA, sepsis. LA improved to 2, WBC slightly elevated at 11.5, tachycardia. C/w Levofloxacin, combivent MDI ATC, albuterol MDI PRN. F/u cultures. Daily labs. Neg COVID 19 testing. 3. Acute Congestive heart failure exacerbation. EF 25-30%. Intermittently diuresing. Trops increased further to 0.66; however, patient is not a candidate for intervention with all this is happening per cardiology, Dr. Borrego. Prognosis discussed with patient. Cardiology following. Monitor on tele closely. Holding off on BB, ACEi at this time. Will monitor output closely and aim for -1000 cc/day if able, if blood pressure tolerates. After several days of neg deficit, and if blood pressure allows, can consider adding additional meds per Dr. Ramos. C/w Low salt diet. Close monitoring of I&O's, daily wt. 4. Demand ischemia vs. ACS. Trop elevated further to 0.66, Repeat ECG today showed to be similar to admission- T wave inversion in lateral/anterolateral and inferior leads.. Cardiology aware of case. Overall poor prognosis. Monitor on tele, ECG PRN. Holding cardiac meds. 5. COPD. Currently not believed to be in exacerbation with minimal wheezing but decreased breath sounds; however, on ATC combivent, albuterol PRN. 6. Depression. C/w home medications. 7. Chronic pain syndrome. C/w home medications. 8. Malnutrition. BMI 15, does not eat well. Nutrition to see. Regular diet. 9. Hx of lung cancer s/p partial lung resection. States that this is not active at this time. 10. GERD. PPI. 11. DVT px. enoxaparin SC daily, SCD. DISPOSITION: Admitted under inpatient status. Plan is to discharge home when medically improved. VS, I&O, 24H, [place] Vital Signs/I&O Vital Signs Date Time Temp Pulse Resp B/P (MAP) Pulse Ox O2 Delivery O2 Flow Rate FiO2 08/23/19 16:00 98.7 114 17 88/48 (61) 95 Room Air 08/22/19 07:00 1.0 I&O- Last 24 Hours up to 6 AM 08/23/19 06:00 Intake Total 2500 ml Output Total 1860 ml Balance 640 ml Laboratory Data 24H LABS Laboratory Tests 2 08/23/19 04:35: Immature Granulocyte % (Auto) 0.8, Neutrophils (%) (Auto) 82.6H, Lymphocytes (%) (Auto) 7.1L, Monocytes (%) (Auto) 9.4H, Eosinophils (%) (Auto) 0.0, Basophils (%) (Auto) 0.1, Neutrophils # (Auto) 9.5H, Lymphocytes # (Auto) 0.8L, Monocytes # (Auto) 1.1H, Eosinophils # (Auto) 0.0, Basophils # (Auto) 0.0, Nucleated Red Blood Cells % (auto) 0.0, Anion Gap 6L, Glomerular Filtration Rate > 60.0, Calcium Level 8.6, Total Bilirubin 0.8, Aspartate Amino Transf (AST/SGOT) 27, Alanine Aminotransferase (ALT/SGPT) 32, Alkaline Phosphatase 106, CI-Agk-S-Type Natriuretic Peptide 50165E, Total Protein 6.2L, Albumin 2.7L, Albumin/Globulin Ratio 0.77L 08/23/19 07:59: Lactic Acid Level 2.4*H, Troponin I 0.66H 08/23/19 12:52: Lactic Acid Followup at 4 Hours 2.0 CBC/BMP Laboratory Tests 08/23/19 04:35 Microbiology Microbiology 08/22/19 Gram Stain - Final, Resulted 08/22/19 Sputum Culture, Resulted Pending 08/21/19 Blood Culture - Preliminary, Resulted No Growth after 48 hours. All Specime... 08/21/19 Blood Culture - Preliminary, Resulted No Growth after 48 hours. All Specime... Current Medications Current Medications Medications (Trade) Dose Ordered Sig/Floyd Route PRN Reason Start Time Stop Time Status Last Admin Dose Admin Acetaminophen (Tylenol Tab) 650 mg Q4H PRN PO PAIN OR FEVER 08/21/19 18:00 08/22/19 15:01 Albuterol Sulfate (Proventil, Ventolin Hfa) 2 puff Q2HP PRN INH WHEEZING 08/21/19 18:45 Albuterol/ Ipratropium (Combivent Respimat 100-20mcg) 1 puff RQ6H INH 08/21/19 20:00 08/23/19 13:46 Enoxaparin Sodium (Lovenox) 40 mg DAILY SC 08/22/19 09:00 08/23/19 08:17 Furosemide (LASIX injection) 40 mg RQ8H IV 08/23/19 08:00 Furosemide (LASIX injection) 60 mg BID IV 08/21/19 21:00 08/21/19 19:21 DC Furosemide (LASIX injection) 60 mg BID@09,17 IV 08/23/19 09:00 08/23/19 08:15 DC Home Med (Med Rec Complete!) ASDIRECTED XX 08/21/19 17:15 08/21/19 17:19 DC Levofloxacin 750 mg/IV Miscellaneous Supplies 150 ml @ 100 mls/hr Q48H IV 08/23/19 18:00 08/23/19 17:33 Omeprazole (PriLOSEC) 40 mg DAILY PO 08/22/19 09:00 08/23/19 08:17 Ondansetron HCl (Zofran) 4 mg Q6HP PRN PO NAUSEA OR VOMITING 08/22/19 14:30 08/22/19 14:57 Sodium Chloride 1,000 ml @ 100 mls/hr Q10H IV 08/21/19 19:00 08/22/19 07:33 DC 08/22/19 04:00 Sodium Chloride 1,000 ml @ 100 mls/hr Q10H IV 08/22/19 14:15 08/22/19 22:54 DC 08/22/19 14:57 Sodium Chloride (Saline Lock Flush) 2 ml ASDIRECTED PRN IV SEE LABEL COMMENTS 08/22/19 10:30 Sodium Chloride (Saline Lock Flush) 2 ml SLF IV 08/22/19 14:00 08/23/19 14:09 Allergies Coded Allergies: No Known Allergies (Unverified , 08/21/19) Angelica Perez MD Aug 23, 2019 17:52
--- NOTE | 2019-08-23 21:27 | ECGEPIP ---
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 Heart rate is now slower Electronically Signed on 08-23-2019 21:27:08 EDT by Chaitanya Ramos
--- NOTE | 2019-08-23 21:45 | ECGEPIP ---
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 Heart rate is faster Electronically Signed on 08-23-2019 21:44:41 EDT by Chaitanya Ramos
[2019-08-24] VITALS (13 sets, daily range): BP systolic 80–100; BP diastolic 47–58; O2SAT 93–99
[2019-08-24] MEDS: COMBIVENT RESPIMAT 100-20MCG INHALER 4GM INH SCH ×4 (01:43→19:53)
[2019-08-24 05:25] LABS: BASO % 0.1 % (0.0-1.0); EOS % 0.3 % (0.0-3.0); HEMATOCRIT 40.8 % (42.0-52.0); HEMOGLOBIN 13.8 g/dl (13.5-17.5); LYMPH # 0.7 10^3/uL (1.5-5.0); LYMPH % 9.1 % (24.0-44.0); MEAN CORPUSCULAR HEMOGLOBIN 29.4 pg (27.0-33.0); MEAN CORPUSCULAR HGB CONC 33.8 g/dl (32.0-36.5); MEAN CORPUSCULAR VOLUME 86.8 fl (80.0-96.0); MONO # 0.9 10^3/uL (0.0-0.8); MONO % 11.9 % (0.0-5.0); NEUTROPHILS # 5.8 10^3/uL (1.5-8.5); NEUTROPHILS % 78.2 % (36.0-66.0); PLATELET COUNT, AUTOMATED 231 10^3/uL (150-450); WHITE BLOOD COUNT 7.4 10^3/uL (4.0-10.0)
[2019-08-24] MEDS: SLF 3 ML SYR IV SCH ×3 (05:33→20:55)
[2019-08-24 06:03] LABS: ALBUMIN 2.6 GM/DL (3.2-5.2); ALT/SGPT 37 U/L (12-78); BILIRUBIN,TOTAL 1.2 MG/DL (0.2-1.0); BLOOD UREA NITROGEN 20 MG/DL (7-18); CALCIUM LEVEL 8.5 MG/DL (8.5-10.1); CARBON DIOXIDE LEVEL 33 MEQ/L (21-32); CHLORIDE LEVEL 98 MEQ/L (98-107); CREATININE FOR GFR 0.97 MG/DL (0.70-1.30); GLOMERULAR FILTRATION RATE > 60.0 (>56); GLUCOSE, FASTING 101 MG/DL (70-100); NT-PRO BNP 34500 PG/ML (<125); POTASSIUM SERUM 3.4 MEQ/L (3.5-5.1); SODIUM LEVEL 136 MEQ/L (136-145)
[2019-08-24] MEDS: FUROSEMIDE 100 MG/10 ML VIAL (J1940) IV SCH ×3 (07:56→16:00)
[2019-08-24] MEDS ORDERED: POTASSIUM CHLORIDE 10 MEQ SR TABLET PO ONE (08:30)
[2019-08-24] MEDS ORDERED: NS 500 ML IV ONE ×2 (08:30→16:15)
[2019-08-24] MEDS: ENOXAPARIN 40 MG/0.4 ML SYRINGE (J1650) SC SCH (09:05)
[2019-08-24] MEDS: OMEPRAZOLE 20 MG CAP PO SCH (09:05)
--- NOTE | 2019-08-24 12:23 | IPNPDOC ---
Date Seen The patient was seen on 08/24/19. Progress Note SUBJECTIVE: BP low again this AM, at 88/52. Given 500 mL bolus which improved BP to improved to 92/58. Held lasix this AM, still slightly tachycardic. Updated multiple family members. 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 BNP mildly improved . He continues to have poor appetite, lethargy and shortness of breath but denies current chest pain, n/v/d, fevers or chills. OBJECTIVE: VITAL SIGNS: Please see below PHYSICAL EXAMINATION: CONSTITUTIONAL: Emaciated male, mild respiratory distress, uncomfortable, AAO x 3 EYES: PERRLA, EOM intact HENT, MOUTH: temporal wasting, normocephalic, atraumatic, moist mucous membranes NECK: SUPPLE, no JVD, no lymphadenopathy, no carotid bruit CV: Tachycardic, Regular rhythm, S1S2 normal, no murmurs/rubs/gallops RESPIRATORY: Decreased breath sounds bilaterally, no crackles heard on exam. No rales GI: thin abdomen, BS positive in 4 quadrants, soft, nontender, nondistended, no rebound or guarding, no organomegaly : Deferred MUSCULOSKELETAL: thin extremities, Normal ROM. No cyanosis, clubbing, swelling, joint deformity, extremity edema INTEGUMENTARY: Intact, no rashes, no lesions, no erythema NEUROLOGIC: Cranial Nerves II-XII are intact, no focal deficits PSYCHIATRIC: Mood and affect are normal LABORATORY DATA: Please see below MICROBIOLOGY: Blood cultures x2 sets: NG at 48 hours Sputum culture: NORMAL CHE PRESENT COVID-19 NEG IMAGING: no new imaging ASSESSMENT: 58-year-old male admitted for bilateral community acquired pneumonia, sepsis, acute systolic congestive heart failure, and ACS versus demand ischemia. PLAN: 1. Acute respiratory failure likely multifactorial to community acquired PNA, acute CHF. Negative respiratory panel, neg COVID 19. Please see below for individual treatment plans. 2. Community acquired PNA, sepsis. LA improved to further to 1.1, WBC wnl but remains slightly tachycardia. C/w Levofloxacin, combivent MDI ATC, albuterol MDI PRN. F/u cultures. Daily labs. Neg COVID 19 testing. 3. Acute Congestive heart failure exacerbation. EF 25-30%. Intermittently diuresing and intermittently giving fluids for hypotension. Trops increased furt her to 0.66 on 08/24/19; however, patient is not a candidate for intervention at this time per cardiology, Dr. Borrego. Cardiology following. Monitor on tele closely. Holding off on BB, ACEi due to hypotension. Will monitor output closely and aim for -1000 cc/day if able, if blood pressure tolerates. After several days of neg deficit, and if blood pressure allows, can consider adding additional meds per Dr. Ramos. C/w Low salt diet. Close monitoring of I&O's, daily wt. 4. Demand ischemia vs. ACS. Trop elevated further to 0.66, Repeat ECG today showed to be similar to admission- T wave inversion in lateral/anterolateral and inferior leads.. Cardiology aware of case. Monitor on tele, ECG PRN. Holding other cardiac meds. 5. Hypotension likely hypovolemia due to poor PO intake, not septic shock. Intermittently giving fluids due to severe heart failure. S/p 500 cc bolus this AM. Will start on gentle IVF hydration (60 cc/hr). Monitor for signs of worsening fluid overload. 6. COPD. Currently not believed to be in exacerbation with minimal wheezing but decreased breath sounds; however, on ATC combivent, albuterol PRN. 7. Depression. C/w home medications. 8. Chronic pain syndrome. C/w home medications. 9. Malnutrition. BMI 15, does not eat well. Nutrition to see. Regular diet. 10. Hx of lung cancer s/p partial lung resection. States that this is not active at this time. 11. GERD. PPI. 12. DVT px. enoxaparin SC daily, SCD. DISPOSITION: Admitted under inpatient status. Plan is to hopefully discharge home when medically improved. VS, I&O, 24H, [place] Vital Signs/I&O Vital Signs Date Time Temp Pulse Resp B/P (MAP) Pulse Ox O2 Delivery O2 Flow Rate FiO2 08/24/19 12:00 97.9 114 16 96 Room Air 08/24/19 11:13 92/58 (69) 08/22/19 07:00 1.0 I&O- Last 24 Hours up to 6 AM 08/24/19 06:00 Intake Total 120 ml Output Total 3450 ml Balance -3330 ml Laboratory Data 24H LABS Laboratory Tests 2 08/23/19 12:52: Lactic Acid Followup at 4 Hours 2.0 08/24/19 05:10: Immature Granulocyte % (Auto) 0.4, Neutrophils (%) (Auto) 78.2H, Lymphocytes (%) (Auto) 9.1L, Monocytes (%) (Auto) 11.9H, Eosinophils (%) (Auto) 0.3, Basophils (%) (Auto) 0.1, Neutrophils # (Auto) 5.8, Lymphocytes # (Auto) 0.7L, Monocytes # (Auto) 0.9H, Eosinophils # (Auto) 0.0, Basophils # (Auto) 0.0, Nucleated Red Blood Cells % (auto) 0.0, Anion Gap 5L, Glomerular Filtration Rate > 60.0, Lactic Acid Level 1.1, Calcium Level 8.5, Total Bilirubin 1.2H, Aspartate Amino Transf (AST/SGOT) 27, Alanine Aminotransferase (ALT/SGPT) 37, Alkaline Phosphatase 95, AK-Pbh-V-Type Natriuretic Peptide 73621M, Total Protein 6.0L, Albumin 2.6L, Albumin/Globulin Ratio 0.76L CBC/BMP Laboratory Tests 08/24/19 05:10 Microbiology Microbiology 08/22/19 Gram Stain - Final, Complete 08/22/19 Sputum Culture - Final, Complete 08/21/19 Blood Culture - Preliminary, Resulted No Growth after 48 hours. All Specime... 08/21/19 Blood Culture - Preliminary, Resulted No Growth after 48 hours. All Specime... Current Medications Current Medications Medications (Trade) Dose Ordered Sig/Floyd Route PRN Reason Start Time Stop Time Status Last Admin Dose Admin Acetaminophen (Tylenol Tab) 650 mg Q4H PRN PO PAIN OR FEVER 08/21/19 18:00 08/22/19 15:01 Albuterol Sulfate (Proventil, Ventolin Hfa) 2 puff Q2HP PRN INH WHEEZING 08/21/19 18:45 Albuterol/ Ipratropium (Combivent Respimat 100-20mcg) 1 puff RQ6H INH 08/21/19 20:00 08/24/19 07:39 Enoxaparin Sodium (Lovenox) 40 mg DAILY SC 08/22/19 09:00 08/24/19 09:05 Furosemide (LASIX injection) 40 mg RQ8H IV 08/23/19 08:00 Furosemide (LASIX injection) 60 mg BID IV 08/21/19 21:00 08/21/19 19:21 DC Furosemide (LASIX injection) 60 mg BID@09,17 IV 08/23/19 09:00 08/23/19 08:15 DC Home Med (Med Rec Complete!) ASDIRECTED XX 08/21/19 17:15 08/21/19 17:19 DC Levofloxacin 750 mg/IV Miscellaneous Supplies 150 ml @ 100 mls/hr Q48H IV 08/23/19 18:00 08/23/19 17:33 Omeprazole (PriLOSEC) 40 mg DAILY PO 08/22/19 09:00 08/24/19 09:05 Ondansetron HCl (Zofran) 4 mg Q6HP PRN PO NAUSEA OR VOMITING 08/22/19 14:30 08/22/19 14:57 Sodium Chloride 1,000 ml @ 100 mls/hr Q10H IV 08/21/19 19:00 08/22/19 07:33 DC 08/22/19 04:00 Sodium Chloride 1,000 ml @ 100 mls/hr Q10H IV 08/22/19 14:15 08/22/19 22:54 DC 08/22/19 14:57 Sodium Chloride (Saline Lock Flush) 2 ml ASDIRECTED PRN IV SEE LABEL COMMENTS 08/22/19 10:30 Sodium Chloride (Saline Lock Flush) 2 ml SLF IV 08/22/19 14:00 08/24/19 05:33 Allergies Coded Allergies: No Known Allergies (Unverified , 08/21/19) Angelica Perez MD Aug 24, 2019 12:23
[2019-08-24] MEDS ORDERED: NS 1,000 ML IV SCH (12:30)
[2019-08-25] VITALS (12 sets, daily range): BP systolic 82–105; BP diastolic 40–67; O2SAT 96–100
[2019-08-25] MEDS: FUROSEMIDE 100 MG/10 ML VIAL (J1940) IV SCH
[2019-08-25] MEDS: COMBIVENT RESPIMAT 100-20MCG INHALER 4GM INH SCH ×4 (01:45→20:00)
[2019-08-25 04:49] LABS: EOS # 0.1 10^3/uL (0.0-0.5); EOS % 1.6 % (0.0-3.0); HEMATOCRIT 38.7 % (42.0-52.0); HEMOGLOBIN 12.8 g/dl (13.5-17.5); LYMPH # 0.6 10^3/uL (1.5-5.0); LYMPH % 11.3 % (24.0-44.0); MEAN CORPUSCULAR HGB CONC 33.1 g/dl (32.0-36.5); MEAN CORPUSCULAR VOLUME 87.6 fl (80.0-96.0); MONO # 0.8 10^3/uL (0.0-0.8); MONO % 13.9 % (0.0-5.0); NEUTROPHILS # 4.1 10^3/uL (1.5-8.5); PLATELET COUNT, AUTOMATED 216 10^3/uL (150-450); RED BLOOD COUNT 4.42 10^6/uL (4.30-6.10); WHITE BLOOD COUNT 5.6 10^3/uL (4.0-10.0)
[2019-08-25] MEDS: SLF 3 ML SYR IV SCH ×3 (05:02→20:59)
[2019-08-25 05:07] LABS: ALBUMIN 2.5 GM/DL (3.2-5.2); ALT/SGPT 33 U/L (12-78); BILIRUBIN,TOTAL 0.9 MG/DL (0.2-1.0); BLOOD UREA NITROGEN 17 MG/DL (7-18); CARBON DIOXIDE LEVEL 30 MEQ/L (21-32); CHLORIDE LEVEL 106 MEQ/L (98-107); CREATININE FOR GFR 0.94 MG/DL (0.70-1.30); GLOMERULAR FILTRATION RATE > 60.0 (>56); GLUCOSE, FASTING 107 MG/DL (70-100); POTASSIUM SERUM 3.8 MEQ/L (3.5-5.1); SODIUM LEVEL 142 MEQ/L (136-145); TOTAL PROTEIN 5.3 GM/DL (6.4-8.2)
[2019-08-25] MEDS ORDERED: FUROSEMIDE 40 MG/4 ML VIAL (J1940) IV ONE (07:30)
[2019-08-25] MEDS ORDERED: SLF 3 ML SYR IV PRN (09:00)
[2019-08-25] MEDS: OMEPRAZOLE 20 MG CAP PO SCH (10:24)
[2019-08-25] MEDS: ENOXAPARIN 40 MG/0.4 ML SYRINGE (J1650) SC SCH (10:24)
[2019-08-25] MEDS: ASPIRIN 81 MG CHEW TABLET PO SCH (10:25)
--- NOTE | 2019-08-25 12:03 | CR ---
DATE OF CONSULTATION: 08/25/2019 CONSULTING PHYSICIAN: Dr. Angelica Perze REASON FOR CONSULTATION: Congestive heart failure (CHF) and question ACS management. HISTORY OF PRESENT ILLNESS: This is a 59-year-old cachectic male with pertinent past medical history of substance abuse, history of lung cancer, status post partial lung resection, chronic obstructive pulmonary disease (COPD), who has no known cardiac history and was admitted on 08/21/2019 for increased shortness of breath that has been progressing over time. He had some substernal chest pain radiating, 2 to 3 out of 10 that was sharp in nature. He was complaining at that time of some productive cough that was yellow in color but no fevers, chills or night sweats. He does note that he has had a decreased appetite but not difficulty swallowing. No nausea, vomiting, or diarrhea. He has had some exertional dyspnea, which he did not think anything of. He does endorse a history of polysubstance abuse, specifically inhaling amphetamines and smoking marijuana. He states that his last use was several weeks ago, and he was evaluated and treated for shortness of breath and dehydration prior to being sent home. He came back the next day with no improvement of symptoms. For this admission, he was admitted for acute respiratory failure secondary to acute community acquired pneumonia and acute congestive heart failure (CHF). His COVID-19 was negative. For his community acquired pneumonia, he was started on antibiotics with Levaquin and pulmonary toilet. For his acute congestive heart failure (CHF), he has been diuresed on and off. Initially, his BNP was greater than 40,000 and that has improved a little bit. He got furosemide 60 mg one time dose, which he diuresed really well with. His systolic blood pressure has been on the lower end, especially in the last 24 hours with a systolic in the 81s. The patient denies any lightheadedness, dizziness. He does endorse having some muscle weakness but nothing new out of the ordinary. He states that he feels a little bit better. Echocardiogram on admission showed a left ventricular ejection fraction of 20 to 30% with severe impairment of global resting systolic function. He does have akinesis of the proximal and dyskinesis of the distal septum and akinesis of the entire apex. He also has anterior wall hypokinetic motion, especially in the distal lateral wall. When questioned about this, the patient states that he denies any anterior infarct in the past. His serial EKG throughout this stay showed moderate T wave abnormalities, especially in the lateral leads, sinus tachycardia with a right axis deviation. This was unchanged. His troponin throughout his stay peaked at 0.70 and has come down to 0.66 on the . PAST MEDICAL HISTORY: 1. Substance abuse with inhaled amphetamine and smoking marijuana. 2. Depression. 3. Protein caloric malnutrition. 4. Chronic pain secondary to lung resection. 5. History of lung cancer. 6. Tobacco abuse. 7. Chronic obstructive pulmonary disease (COPD). 8. No known cardiac history. PAST SURGICAL HISTORY: 1. Partial lung resection. 2. Cyst removal. 3. Hand surgery. FAMILY HISTORY: Father at age 67 due to cancer. Mother at age 65 due to cancer. Siblings -- three brothers with a history of coronary artery disease. SOCIAL HISTORY: Current smoker of 1 to 1-1/2 packs per day for the last 40 years. Smokes recreational marijuana and inhales amphetamines. History of alcohol abuse, currently sober he states. He lives alone locally. His primary care provider is Dr. Toussaint. He is DO NOT RESUSCITATE, DO NOT INTUBATE. ALLERGIES: No known drug allergies. REVIEW OF SYSTEMS: CONSTITUTIONAL: Denies any weight loss or weight gain. Does admit to a loss of appetite but no fevers or night sweats. HEENT: Denies any vision changes, irritation, difficulty hearing, mouth sores, sore throat or lymphadenopathy. CARDIOVASCULAR : Denies a history of atrial fibrillation, palpitations. Endorses substernal chest pain, especially with the shortness of breath. Denies any lower extremity swelling. PULMONARY: Admits to shortness of breath. Endorses productive cough, yellow in color. Denies any night sweats or hemoptysis. GASTROINTESTINAL: Denies any abdominal pain, constipation, diarrhea, nausea, vomiting, or bloody stools. GENITOURINARY: Denies any painful urination, increased urination. MUSCULOSKELETAL: Admits to rib pain status post the lung resection in the past but no new joint pain, muscle pain or lower extremity swelling. INTEGUMENTARY: Denies any skin breakdown, rashes. NEUROLOGIC: Denies any headaches, lightheadedness, dizziness. PSYCHIATRIC: Denies anxiety. Has a history of depression. Feels relatively well. PHYSICAL EXAMINATION: VITAL SIGNS: Temperature 97.4, pulse 107, respirations 24, blood pressure 102/55 (MAP 71), pulse oximetry 93% on room air. Intake total in the last 24 hours 700 mL positive, output 200 mL positive, balance positive 500 mL. GENERAL: This is a 59-year-old cachectic male who does not appear in acute distress. Speaking in three to four word sentences with no accessory muscle use, surprisingly. HEENT: Atraumatic, normocephalic. Bitemporal wasting. Prominent zygomatic bones bilaterally. Sunken cheeks. Very poor dentition. Trachea midline. NECK: No lymphadenopathy. Prominent jugular venous distention (JVD) noted at 10 cm elevated. CARDIOVASCULAR: Very difficult to assess when the patient is taking inhalation, but when the breath is held, tachycardic rate, regular rhythm. No audible murmurs, rubs or gallops. LUNGS: Upper respiratory sounds appreciated. Bronchophony, which improved with clearing of the throat. No rhonchi. No rales appreciated. ABDOMEN: Soft, nontender. Scaphoid abdomen. EXTREMITIES: Very minimal lower extremity edema around the ankles but none in the calves. No calf tenderness. PSYCHIATRIC: Mood appears appropriate, slightly flat affect, does not appear depressed. Appropriately answering questions. Alert, oriented times three. LABORATORY DATA: Hematology: WBC 5.6, hemoglobin 12.8, hematocrit 38.7, platelet 216. Chemistry: Sodium 142, potassium 3.8, chloride 106, carbon dioxide 30, anion gap 6, BUN 17, creatinine 0.94, fasting glucose 107, calcium 8.0, total bilirubin 0.9, AST 21, ALT 33, alkaline phosphatase 93. Pro BNP on 08/23/2019 was 45,271, on 08/24/2019 it came down to 34,500. Albumin 2.5. Microbiology: Blood cultures times two negative for growth for 72 hours. Sputum culture showed no organisms seen. CT angio of the chest was negative for PE, small focal infiltrate in the posterior right lung. Diffuse acute infiltrates in the left lung as well. Echocardiogram on 08/22/2019 shows an left ventricular ejection fraction of 20 to 30% with severe impairment of global versus resting systolic function and prior anterior infarct findings, as well as severe pulmonary hypertension and right heart failure. Official report is in the chart. ASSESSMENT AND PLAN: This is a 59-year-old male with multiple comorbidities with a pertinent past medical history of substance abuse, lung cancer status post lung resection, chronic obstructive pulmonary disease (COPD) with no known cardiac disease, who presented to our emergency room for shortness of breath secondary to decompensated heart failure and community acquired pneumonia. IMPRESSION: 1. Decompensated heart failure, left ventricular ejection fraction of 20 to 30% with hypokinesis of the lateral wall consistent with anterolateral infarct in the remote past. 2. Community acquired pneumonia, improving. 3. Coronary artery disease history with anterior infarct, unknown to patient. 4. 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 5. Elevated troponin possibly secondary to demand ischemia due to problem #4. 6. History of chronic obstructive pulmonary disease (COPD). 7. History of depression. 8. Protein caloric malnutrition. 9. History of lung cancer status post partial lung resection. 10. Gastroesophageal reflux disease (GERD). PLAN: From a cardiac standpoint, the patient continues to have jugular venous distention (JVD) elevation on examination even though his lower extremities do not appear fluid overloaded. Based on echocardiogram findings and reduced ejection fraction, he will need to be diuresed because his kidney is significantly well and the patient is a very small patient, we do recommend furosemide 20 mg twice a day with hold parameters for systolic less than 80 to achieve a net fluid balance of 1 liter in 24 hours. Because his pressures are so low, ACS management medications would not be appropriate, such as beta zoe or vasodilator at this current time. Beta blockers will not be considered at this current time because he is in decompensated heart failure and we will not start it acutely during exacerbation. Once he is hemodynamically more stable, can consider starting it. We do recommend at least aspirin 81 mg daily, first dose now. For the window of heparinization, he is actually out of the 48/72 hour window so it will not be needed at this current time. We have discontinued his intravenous fluids and we will try to diurese him and see how he clinically improves. We have discussed with the patient that he needs to stop using inhaled amphetamines for it is not helping with his cardiac function. The patient states that he understands and will take that into consideration. We will continue to follow along with him while he is admitted. Thank you for this consultation. Addendum MD Reyes: 58yo cachectic man with long standing h/o amphetamine abuse presenting with CHF and found to have severe systolic dysfunction. In my opinion most likely drug induced cardiomyopathy but ischemic etiology is possible. Very low BP (probably chronic and related to cachexia) complicates management. At this point will use diuretics, if BP improves will add vasodilators. MTDD
--- NOTE | 2019-08-25 14:35 | IPNPDOC ---
Date Seen The patient was seen on 08/25/19. Progress Note SUBJECTIVE: BP soft; however, believing this is likely his baseline due to emaciated state, malnutrition. IVFs stopped and lasix BID, low dose. Appetite is still poor, nutrition following and swallowing evaluation ordered. PT/OT ordered. Currently denies chest pain, n/v/d, fevers or chills. OBJECTIVE: VITAL SIGNS: Please see below PHYSICAL EXAMINATION: CONSTITUTIONAL: Emaciated male, appears more comfortable today, AAO x 3 EYES: PERRLA, EOM intact HENT, MOUTH: temporal wasting, normocephalic, atraumatic, moist mucous membranes NECK: SUPPLE, no JVD, no lymphadenopathy, no carotid bruit CV: Tachycardic, Regular rhythm, S1S2 normal, no murmurs/rubs/gallops RESPIRATORY: Decreased breath sounds bilaterally, no crackles heard on exam, + rhonchi bilaterally. No rales GI: thin abdomen, BS positive in 4 quadrants, soft, nontender, nondistended, no rebound or guarding, no organomegaly : Deferred MUSCULOSKELETAL: thin extremities, Normal ROM. No cyanosis, clubbing, swelling, joint deformity, extremity edema INTEGUMENTARY: Intact, no rashes, no lesions, no erythema NEUROLOGIC: Cranial Nerves II-XII are intact, no focal deficits PSYCHIATRIC: Mood and affect are normal LABORATORY DATA: Please see below MICROBIOLOGY: Blood cultures x2 sets: NG at 48 hours Sputum culture: NORMAL IVAN PRESENT COVID-19 NEG IMAGING: no new imaging ASSESSMENT: 58-year-old male admitted for bilateral community acquired pneumonia, acute systolic congestive heart failure, cannot rule out acute coronary syndrome. PLAN: 1. Acute respiratory failure likely multifactorial to community acquired PNA, acute CHF. Negative respiratory panel, neg COVID 19. Please see below for individual treatment plans. 2. Community acquired PNA. Repeat CXR showed little improvement from admission imaging; however, WBC wnl. C/w Levofloxacin (Day 5), combivent MDI ATC, albu terol MDI PRN, acapella. Sputum culture normal ivan. F/u daily labs. 3. Acute systolic congestive heart failure likely multifactorial to acute anterolateral IL, amphetamine induced cardiomyopathy. EF 25-30%. C/w lasix BID low dose. At this time holding off on BB, ACEi due to intermittent hypotension. After several days of neg deficit, and if blood pressure allows, can consider adding additional meds. C/w Low salt diet. Close monitoring of I&O's, daily wt. Cardiology following. 4. Anterolateral IL, acute vs. old. Trop elevated further to 0.66;however, ECG did not change from admission- T wave inversion in lateral/anterolateral and inferior leads.. Monitor on tele, ECG PRN. Holding other cardiac meds. 5. Hypotension likely due to poor nutritional status. Baseline BP likely low. Intermittently giving fluids due to severe heart failure. Monitor for signs of worsening fluid overload or worsening low blood pressure with lasix.. 6. COPD. Not in exacerbation. C/w ATC combivent, albuterol PRN. 7. Depression. C/w home medications. 8. Chronic pain syndrome. C/w home medications. 9. Chronic malnutrition. BMI 15, does not eat well. Nutrition has seen patient, swallowing evaluation ordered. 10. Hx of lung cancer s/p partial lung resection. States that this is not active at this time. 11. GERD. PPI. 12. DVT px. enoxaparin SC daily, SCD. DISPOSITION: Admitted under inpatient status. PT/OT ordered. Plan is to hopefully discharge home when medically improved 1. Decompensated heart failure, left ventricular ejection fraction of 20 to 30% with hypokinesis of the lateral wall consistent with a prior anterolateral infarct. 2. Community acquired pneumonia, improving. 3. Coronary artery disease history with anterior infarct, unknown to patient. 4. Inhaled amphetamine induced cardiomyopathy. 5. Demand ischemia. 6. History of chronic obstructive pulmonary disease (COPD). 7. History of depression. 8. Protein caloric malnutrition. 9. History of lung cancer status post partial lung resection. 10. Gastroesophageal reflux disease (GERD). VS, I&O, 24H, Fishbone Vital Signs/I&O Vital Signs Date Time Temp Pulse Resp B/P (MAP) Pulse Ox O2 Delivery O2 Flow Rate FiO2 08/25/19 12:00 98.0 104 20 91/50 (64) 98 Room Air 08/22/19 07:00 1.0 I&O- Last 24 Hours up to 6 AM 08/25/19 06:00 Intake Total 700 ml Output Total 100 ml Balance 600 ml Laboratory Data 24H LABS Laboratory Tests 2 08/25/19 04:25: Immature Granulocyte % (Auto) 0.2, Neutrophils (%) (Auto) 73.0H, Lymphocytes (%) (Auto) 11.3L, Monocytes (%) (Auto) 13.9H, Eosinophils (%) (Auto) 1.6, Basophils (%) (Auto) 0.0, Neutrophils # (Auto) 4.1, Lymphocytes # (Auto) 0.6L, Monocytes # (Auto) 0.8, Eosinophils # (Auto) 0.1, Basophils # (Auto) 0.0, Nucleated Red Blood Cells % (auto) 0.0, Anion Gap 6L, Glomerular Filtration Rate > 60.0, Calcium Level 8.0L, Total Bilirubin 0.9, Aspartate Amino Transf (AST/SGOT) 21, Alanine Aminotransferase (ALT/SGPT) 33, Alkaline Phosphatase 93, Total Protein 5.3L, Albumin 2.5L, Albumin/Globulin Ratio 0.89L CBC/BMP Laboratory Tests 08/25/19 04:25 Microbiology Microbiology 08/22/19 Gram Stain - Final, Complete 08/22/19 Sputum Culture - Final, Complete 08/21/19 Blood Culture - Preliminary, Resulted No Growth after 72 hours. All specime... 08/21/19 Blood Culture - Preliminary, Resulted No Growth after 72 hours. All specime... Current Medications Current Medications Medications (Trade) Dose Ordered Sig/Floyd Route PRN Reason Start Time Stop Time Status Last Admin Dose Admin Acetaminophen (Tylenol Tab) 650 mg Q4H PRN PO PAIN OR FEVER 08/21/19 18:00 08/22/19 15:01 Albuterol Sulfate (Proventil, Ventolin Hfa) 2 puff Q2HP PRN INH WHEEZING 08/21/19 18:45 08/25/19 04:02 Albuterol/ Ipratropium (Combivent Respimat 100-20mcg) 1 puff RQ6H INH 08/21/19 20:00 08/25/19 14:03 Aspirin (Aspirin Chewable) 81 mg DAILY PO 08/25/19 09:00 08/25/19 10:25 Enoxaparin Sodium (Lovenox) 40 mg DAILY SC 08/22/19 09:00 08/25/19 10:24 Furosemide (LASIX injection) 20 mg Q12H IV 08/26/19 00:00 Furosemide (LASIX injection) 40 mg RQ8H IV 08/23/19 08:00 08/25/19 08:49 DC Furosemide (LASIX injection) 60 mg BID IV 08/21/19 21:00 08/21/19 19:21 DC Furosemide (LASIX injection) 60 mg BID@09,17 IV 08/23/19 09:00 08/23/19 08:15 DC Home Med (Med Rec Complete!) ASDIRECTED XX 08/21/19 17:15 08/21/19 17:19 DC Levofloxacin 750 mg/IV Miscellaneous Supplies 150 ml @ 100 mls/hr Q48H IV 08/23/19 18:00 08/23/19 17:33 Omeprazole (PriLOSEC) 40 mg DAILY PO 08/22/19 09:00 08/25/19 10:24 Ondansetron HCl (Zofran) 4 mg Q6HP PRN PO NAUSEA OR VOMITING 08/22/19 14:30 08/22/19 14:57 Sodium Chloride 1,000 ml @ 60 mls/hr [id number] IV 08/24/19 12:30 08/25/19 08:49 DC 08/24/19 14:18 Sodium Chloride 1,000 ml @ 100 mls/hr Q10H IV 08/21/19 19:00 08/22/19 07:33 DC 08/22/19 04:00 Sodium Chloride 1,000 ml @ 100 mls/hr Q10H IV 08/22/19 14:15 08/22/19 22:54 DC 08/22/19 14:57 Sodium Chloride (Saline Lock Flush) 2 ml ASDIRECTED PRN IV SEE LABEL COMMENTS 08/22/19 10:30 08/25/19 09:03 DC Sodium Chloride (Saline Lock Flush) 2 ml ASDIRECTED PRN IV SEE LABEL COMMENTS 08/25/19 09:00 Sodium Chloride (Saline Lock Flush) 2 ml SLF IV 08/22/19 14:00 08/25/19 09:03 DC 08/24/19 14:20 Sodium Chloride (Saline Lock Flush) 2 ml SLF IV 08/25/19 14:00 Allergies Coded Allergies: No Known Allergies (Unverified , 08/21/19) Angelica Perez MD Aug 25, 2019 14:35
[2019-08-25] MEDS: ACETAMINOPHEN TAB 650MG DOSE (2X325MG) PO PRN (16:50)
[2019-08-25] MEDS: LevoFLOXacin IV 750 MG in IV 1 EA IV SCH (19:24)
[2019-08-25] MEDS ORDERED: traZODone 50 MG TAB PO ONE (21:00)
[2019-08-26] VITALS (21 sets, daily range): BP systolic 84–96; BP diastolic 46–54; O2SAT 95–99
[2019-08-26] MEDS: COMBIVENT RESPIMAT 100-20MCG INHALER 4GM INH SCH ×4 (03:26→20:04)
[2019-08-26] MEDS: SLF 3 ML SYR IV SCH ×3 (04:49→22:02)
[2019-08-26 05:19] LABS: BASO % 0.2 % (0.0-1.0); EOS # 0.1 10^3/uL (0.0-0.5); HEMATOCRIT 39.6 % (42.0-52.0); LYMPH # 0.6 10^3/uL (1.5-5.0); LYMPH % 13.2 % (24.0-44.0); MEAN CORPUSCULAR HEMOGLOBIN 28.5 pg (27.0-33.0); MEAN CORPUSCULAR HGB CONC 32.8 g/dl (32.0-36.5); MEAN CORPUSCULAR VOLUME 86.8 fl (80.0-96.0); MONO # 0.6 10^3/uL (0.0-0.8); MONO % 14.1 % (0.0-5.0); NEUTROPHILS # 3.1 10^3/uL (1.5-8.5); NEUTROPHILS % 69.3 % (36.0-66.0); PLATELET COUNT, AUTOMATED 224 10^3/uL (150-450); RED BLOOD COUNT 4.56 10^6/uL (4.30-6.10); WHITE BLOOD COUNT 4.4 10^3/uL (4.0-10.0)
[2019-08-26 05:52] LABS: ALBUMIN 2.4 GM/DL (3.2-5.2); ALT/SGPT 25 U/L (12-78); BILIRUBIN,TOTAL 0.8 MG/DL (0.2-1.0); BLOOD UREA NITROGEN 14 MG/DL (7-18); CALCIUM LEVEL 8.1 MG/DL (8.5-10.1); CARBON DIOXIDE LEVEL 30 MEQ/L (21-32); CHLORIDE LEVEL 102 MEQ/L (98-107); CREATININE FOR GFR 0.94 MG/DL (0.70-1.30); GLOMERULAR FILTRATION RATE > 60.0 (>56); GLUCOSE, FASTING 98 MG/DL (70-100); POTASSIUM SERUM 3.6 MEQ/L (3.5-5.1); SODIUM LEVEL 139 MEQ/L (136-145); TOTAL PROTEIN 5.3 GM/DL (6.4-8.2)
[2019-08-26] MEDS: ENOXAPARIN 40 MG/0.4 ML SYRINGE (J1650) SC SCH (07:49)
[2019-08-26] MEDS: ASPIRIN 81 MG CHEW TABLET PO SCH (07:49)
[2019-08-26] MEDS: OMEPRAZOLE 20 MG CAP PO SCH (07:49)
[2019-08-26] MEDS ORDERED: FUROSEMIDE 20 MG/2 ML VIAL (J1940) IV SCH ×2 (09:00)
--- NOTE | 2019-08-26 09:50 | IPN ---
DATE OF SERVICE: 08/26/2019 SUBJECTIVE: Mr. Doshi is seen and examined this morning during bedside rounds with Dr. Villafana at bedside. He states he is feeling much better. He has noticed his breathing has improved a lot since yesterday. He diuresed appropriately with the furosemide 20 mg every 12 yesterday that looked to be about 2 liters. He states he is able to drink a lot more today. He continues to not have an appetite, but is tolerating the Ensure strawberry flavor really well. He has no other complaints today. No other overnight events reported by nursing. PHYSICAL EXAMINATION: VITALS: Temperature 97.0, pulse 103, respirations 18, blood pressure 84/54 (MAP 64), pulse oximetry 98% on room air. Intake total was 1340, output 2075 mL, with a balance of negative 735 mL. GENERAL: This is a 59-year-old cachectic male who does not appear in any acute distress speaking in complete sentences. HEENT: Atraumatic, normocephalic. Bitemporal wasting. Prominent zygomatic bones bilaterally. Sunken cheeks. Very poor dentition. Trachea is midline. NECK: No lymphadenopathy. Jugular venous distention (JVD) has improved to 6-8 cm. CARDIOVASCULAR: Distant heart sounds, but tachycardic, regular rhythm, with no audible murmurs or rubs. There is a S4 gallop appreciated. LUNGS: Clear to auscultate bilaterally. Bronchophony has improved. No rhonchi or rales appreciated. ABDOMEN: Soft, nontender. Scaphoid abdomen. EXTREMITIES: No lower extremity edema or calf tenderness. PSYCHIATRIC: Mood is appropriate, flat has improved, appropriately answering questions. Alert and oriented times three. LABORATORY DATA: Hematology: WBC 4.0, hemoglobin 13.0, hematocrit 39.6, platelets 224. Chemistry: Sodium 139, potassium 3.6, chloride 102, carbon dioxide 30, anion gap 7, BUN 14, creatinine 0.94, fasting glucose 98, calcium 8.1, total bilirubin 0.8. IMPRESSIONS: 1. Decompensated heart failure, left ventricular ejection fraction of 20 to 30% with hypokinesis of the lateral wall consistent with remote past anterolateral infarct. 2. Community acquired pneumonia, improving. 3. Coronary artery disease history with an anterior infarct in the remote past. 4. Chronic left ventricle (LV) dysfunction, possibly secondary to inhaled amphetamine induced cardiomyopathy. 5. Elevated troponin, possibly secondary to demand ischemia due to problem #4. 6. History of chronic obstructive pulmonary disease (COPD). 7. History of depression. 8. History of lung cancer status post partial lung resection. 9. Gastroesophageal reflux disease (GERD). 10. Chronic hypotension secondary to problem #4 as well as small body habitus. 11. Protein calorie malnutrition. PLAN: From a cardiac standpoint, the patient has responded appropriately with the furosemide 20 mg every 12. He diuresed about 2 liters. We recommend decreasing the furosemide to 20 mg daily and watch how he improves clinically. His jugular venous distention (JVD) has improved as well. His lungs have improved. He does have a S4 sound that can be appreciated on heart exam today. Continue with the aspirin 81 mg as prescribed. No beta blockers at the current time due to low blood pressure as well as being in decompensated heart failure. We have continued to reiterate the importance of stopping abusing amphetamines because of continued deterioration of his cardiac function. The patient state that he will try his hardest to stop. Will continue to follow along while he is admitted.
--- NOTE | 2019-08-26 09:56 | IPNPDOC ---
Subjective Date Seen The patient was seen on 08/26/19. Subjective Chief Complaint/HPI Patient is comfortable, does not offer any complaints of chest pain or shortness of breath General: Denies: ROS Unobtainable, Chills, Night Sweats, Fatigue, Malaise, Normal Appetite, Other Symptoms Constitutional: Denies: Chills, Fever, Malaise, Night Sweats, Weakness, Fatigue, Weight Loss, Lethargy, Other Pulmonary: Denies: Dyspnea, Cough, Pleuritic Chest Pain, Other Symptoms Cardiovascular: Denies: Chest Pain, Palpitations, Orthopnea, Paroxysmal Noc. Dyspnea, Edema, Lt Headedness, Other Symptoms Gastrointestinal: Denies: Nausea, Vomiting, Abdominal Pain, Diarrhea, Constipation, Melena, Hematochezia, Other Symptoms Musculoskeletal: Denies: Neck Pain, Back Pain, Shoulder Pain, Arm Pain, Hand Pain, Leg Pain, Foot Pain, Joint Pain, Muscle Pain, Spasms, Other Symptoms Neurological: Denies: Weakness, Numbness, Incoordination, Change in speech, Confusion, Seizures, Other Symptoms Objective Physical Examination General Exam: Positive: Alert, Cooperative Eye Exam: Positive: PERRLA, Conjunctiva & lids normal ENT Exam: Positive: Atraumatic Neck Exam: Positive: Supple Chest Exam: Positive: Clear to auscultation, Normal air movement Heart Exam: Positive: Rate Normal Abdomen Exam: Positive: Normal bowel sounds, Soft, Tenderness Extremity Exam: Positive: Normal pulses Skin Exam: Positive: Nl turgor and temperature Neuro Exam: Positive: Normal Speech, Strength at 5/5 X4 ext, Cranial Nerves 3- 12 NL Assessment /Plan Problems (1) Acute respiratory failure with hypoxia Status: Acute Response to Treatment: Stable Problem Text: Patient was admitted with acute respiratory failure with hypoxia secondary to community acquired pneumonia, acute exacerbation of systolic heart failure, type II, myocardial infarction. Patient is a clinically stable with stable oxygen saturation on room air Continue treating the underlying medical conditions , We'll closely monitor patient before he is discharged to rehabilitation (2) Community acquired pneumonia Status: Acute Problem Text: Patient was diagnosed with community-acquired pneumonia with infiltrate left hemithorax His WBC count is 4.4 today, afebrile, asymptomatic Will change Levaquin to by mouth today Continue Combivent MDI, albuterol MDI and acapella (3) Acute systolic (congestive) heart failure Status: Acute Problem Text: Acute systolic congestive heart failure secondary to type II myocardial infarction secondary to demand ischemia, amphetamine and elevation and amphetamine induced cardiomyopathy Cardiology consult appreciated. Patient had been started on aspirin 81 mg by mouth daily along with the diuresis with Lasix Beta blockers and [place]/ARB are not indicated secondary to decompensated heart failure and hypertension, can be restarted once his systolic blood pressure is more than 100 Follow I&O's Echo report: Decompensated heart failure, left ventricular ejection fraction of 20 to 30% with hypokinesis of the lateral wall consistent with a prior anterolateral infarct. (4) COPD exacerbation Status: Acute Problem Text: Continue inhalers as ordered Oxygen supplement as needed Continue home meds (5) Type [address] elevation Status: Acute Problem Text: . Patient not candidate for heparinization and isn't been more than 48 hours Aspirin 81 mg by mouth daily Diuresis with Lasix as per cardiology orders Not a candidate for beta blockers, A[place]/ARB secondary to hypertension (6) Carcinoma, lung Status: Chronic (7) Polysubstance abuse Status: Chronic (8) Malnutrition Status: Chronic Problem Text: Secondary to poor nutrition, substance abuse, multiple chronic medical problems Dietary consult will be called to recommend supplementation (9) Chronic pain syndrome Status: Chronic Problem Text: Continue present meds (10) GERD (gastroesophageal reflux disease) Status: Chronic Problem Text: Continue home meds (11) Depression Status: Chronic Problem Text: Continue home meds Plan/VTE VTE Prophylaxis Ordered?: Yes VS, I&O, 24H, Fishbone Vital Signs/I&O Vital Signs Date Time Temp Pulse Resp B/P (MAP) Pulse Ox O2 Delivery O2 Flow Rate FiO2 08/26/19 08:00 97.0 103 18 84/54 (64) 98 Room Air 08/22/19 07:00 1.0 I&O- Last 24 Hours up to 6 AM 08/26/19 06:00 Intake Total 1700 ml Output Total 2225 ml Balance -525 ml Laboratory Data 24H LABS Laboratory Tests 2 08/26/19 04:42: Immature Granulocyte % (Auto) 0.2, Neutrophils (%) (Auto) 69.3H, Lymphocytes (%) (Auto) 13.2L, Monocytes (%) (Auto) 14.1H, Eosinophils (%) (Auto) 3.0, Basophils (%) (Auto) 0.2, Neutrophils # (Auto) 3.1, Lymphocytes # (Auto) 0.6L, Monocytes # (Auto) 0.6, Eosinophils # (Auto) 0.1, Basophils # (Auto) 0.0, Nucleated Red Blo od Cells % (auto) 0.0, Anion Gap 7L, Glomerular Filtration Rate > 60.0, Calcium Level 8.1L, Total Bilirubin 0.8, Aspartate Amino Transf (AST/SGOT) 14, Alanine Aminotransferase (ALT/SGPT) 25, Alkaline Phosphatase 95, Total Protein 5.3L, Albumin 2.4L, Albumin/Globulin Ratio 0.83L CBC/BMP Laboratory Tests 08/26/19 04:42 Microbiology Microbiology 08/22/19 Gram Stain - Final, Complete 08/22/19 Sputum Culture - Final, Complete 08/21/19 Blood Culture - Preliminary, Resulted No Growth after 72 hours. All specime... 08/21/19 Blood Culture - Preliminary, Resulted No Growth after 72 hours. All specime... JOE MURILLO MD Aug 26, 2019 09:56
[2019-08-26] MEDS ORDERED: LevoFLOXacin 750 MG TABLET PO SCH (10:15)
[2019-08-26 10:48] LABS: ALBUMIN 2.7 GM/DL (3.2-5.2); ALT/SGPT 27 U/L (12-78); BILIRUBIN,TOTAL 0.8 MG/DL (0.2-1.0); BLOOD UREA NITROGEN 13 MG/DL (7-18); CALCIUM LEVEL 8.3 MG/DL (8.5-10.1); CARBON DIOXIDE LEVEL 31 MEQ/L (21-32); CHLORIDE LEVEL 100 MEQ/L (98-107); CREATININE FOR GFR 0.96 MG/DL (0.70-1.30); GLOMERULAR FILTRATION RATE > 60.0 (>56); GLUCOSE, FASTING 92 MG/DL (70-100); MAGNESIUM LEVEL 2.1 MG/DL (1.8-2.4); POTASSIUM SERUM 3.8 MEQ/L (3.5-5.1); SODIUM LEVEL 138 MEQ/L (136-145); TOTAL PROTEIN 5.7 GM/DL (6.4-8.2)
[2019-08-26] MEDS ORDERED: E-Z-PAQUE 96% w/w SUSP 176GM BTL As Ordered ONE (12:13)
[2019-08-26] MEDS ORDERED: VARIBAR NECTAR 40% w/v 240ML SUSP BTL As Ordered ONE (12:13)
[2019-08-26] MEDS ORDERED: VARIBAR PUDDING 40% w/v 230ML TUBE As Ordered ONE (12:13)
[2019-08-26] MEDS ORDERED: BARIUM SULFATE 700 MG TABLET (E-Z-DISK) As Ordered ONE (12:14)
--- NOTE | 2019-08-26 13:20 | REP ---
Examination Requested: Cookie Swallow Reason For Exam: Evaluate for silent aspiration The procedure was performed by ZEINA Wolfe, under the direct supervision of Dr. Hitchcock. The procedure was performed with Allegra Villavicencio from speech pathology present. 5 ml aliquots of thin, pudding, mixed fruit, and soft food consistency barium was administered. No aspiration or penetration was visualized throughout the course of the exam. The detailed report of this examination will be provided by speech pathology. 1.2 minutes of fluoroscopy time was utilized for this procedure. Reviewed by ZEINA Marsh 08/26/2019 01:10 P Electronically Signed by Jairo Hitchcock MD 08/26/2019 01:11 P
[2019-08-27] VITALS (8 sets, daily range): BP systolic 88–97; BP diastolic 50–56; O2SAT 96–99
[2019-08-27 00:06] LABS: BODY FLUID CULTURE Not indicated. (.); LEGIONELLA ANTIGEN URINE Negative (Negative); ORGANISM ID Not indicated. (.); SPECIMEN SOURCE Urine (.); URINE STREP PNEUMONIAE ANTIGEN Negative (Negative)
[2019-08-27] MEDS: COMBIVENT RESPIMAT 100-20MCG INHALER 4GM INH SCH ×2 (02:00→08:56)
[2019-08-27 04:54] LABS: BASO % 0.2 % (0.0-1.0); EOS # 0.1 10^3/uL (0.0-0.5); EOS % 1.8 % (0.0-3.0); HEMATOCRIT 41.7 % (42.0-52.0); HEMOGLOBIN 13.8 g/dl (13.5-17.5); LYMPH # 0.7 10^3/uL (1.5-5.0); LYMPH % 12.1 % (24.0-44.0); MEAN CORPUSCULAR HEMOGLOBIN 28.8 pg (27.0-33.0); MEAN CORPUSCULAR HGB CONC 33.1 g/dl (32.0-36.5); MEAN CORPUSCULAR VOLUME 86.9 fl (80.0-96.0); MONO # 0.8 10^3/uL (0.0-0.8); MONO % 13.7 % (0.0-5.0); NEUTROPHILS # 4.3 10^3/uL (1.5-8.5); NEUTROPHILS % 71.9 % (36.0-66.0); PLATELET COUNT, AUTOMATED 235 10^3/uL (150-450)
[2019-08-27 05:30] LABS: ALT/SGPT 23 U/L (12-78); BLOOD UREA NITROGEN 11 MG/DL (7-18); CALCIUM LEVEL 8.3 MG/DL (8.5-10.1); CARBON DIOXIDE LEVEL 30 MEQ/L (21-32); CHLORIDE LEVEL 104 MEQ/L (98-107); CREATININE FOR GFR 1.04 MG/DL (0.70-1.30); GLOMERULAR FILTRATION RATE > 60.0 (>56); GLUCOSE, FASTING 107 MG/DL (70-100); POTASSIUM SERUM 3.4 MEQ/L (3.5-5.1); SODIUM LEVEL 138 MEQ/L (136-145)
[2019-08-27 05:31] LABS: ALBUMIN 2.6 GM/DL (3.2-5.2); BILIRUBIN,TOTAL 0.7 MG/DL (0.2-1.0); NT-PRO BNP 13895 PG/ML (<125); TOTAL PROTEIN 5.7 GM/DL (6.4-8.2)
[2019-08-27] MEDS ORDERED: LevoFLOXacin 750 MG TABLET PO SCH (06:00)
[2019-08-27] MEDS: SLF 3 ML SYR IV SCH (06:23)
[2019-08-27] MEDS ORDERED: POTASSIUM CHLORIDE 10 MEQ SR TABLET PO ONE (07:30)
[2019-08-27] MEDS ORDERED: FUROSEMIDE 20 MG TAB PO SCH (09:00)
[2019-08-27] MEDS ORDERED: FUROSEMIDE 20 MG/2 ML VIAL (J1940) IV SCH (09:00)
[2019-08-27] MEDS ORDERED: SPIRONOLACTONE 12.5MG PER 1/2 TABLET PEG SCH (09:00)
[2019-08-27] MEDS ORDERED: ASPI81CH8 PO (09:35)
[2019-08-27] MEDS ORDERED: ACET1TAB55 PO (09:35)
[2019-08-27] MEDS ORDERED: LEVA750T7 PO (09:35)
[2019-08-27] MEDS ORDERED: ALDA25TA2 PEG (09:35)
[2019-08-27] MEDS ORDERED: FURO20TA2 PO (09:35)
[2019-08-27] MEDS ORDERED: COMBAER6 INH (09:35)
[2019-08-27] MEDS: ASPIRIN 81 MG CHEW TABLET PO SCH (10:07)
[2019-08-27] MEDS: OMEPRAZOLE 20 MG CAP PO SCH (10:08)
[2019-08-27] MEDS: ENOXAPARIN 40 MG/0.4 ML SYRINGE (J1650) SC SCH (10:08)
--- NOTE | 2019-08-27 10:50 | DS.PDOC ---
Discharge Summary General Date of Admission Aug 21, 2019 at 17:51 Date of Discharge 08/27/19 Discharge Summary PROCEDURES PERFORMED DURING STAY: None. ADMITTING DIAGNOSES: 1. Bilateral pneumonia, rule out Covid, congestive heart failure, COPD. DISCHARGE DIAGNOSES: 1. Acute respiratory failure with hypoxia: Community acquired pneumonia, acute systolic heart failure, exacerbation of COPD, type II [place], CVA, lung, polysubstance abuse, malnutrition, chronic pain syndrome, GERD, depression, COVID-19 ruled out. COMPLICATIONS/CHIEF COMPLAINT: Sepsis. HISTORY OF PRESENT ILLNESS: The patient is a 58-year-old male with past medical history of substance abuse, depression, chronic pain, history of lung cancer, COPD who presented to [facility] emergency room with the chief complaint of increasing shortness of breath worsening over the past 3 days. He says over that time. His shortness of breath has worsened. He has had 3 times per day diarrhea, nonbloody but watery. He denies any recent hospitalizations over the past 3 months, antibiotic use or history of Clostridium difficile. He also has had some productive cough of yellow color and intermittent substernal chest pain, nonradiating, 2-3 out of 10 pain scale, sharp. Other associated symptoms included lethargy, loss of appetite, difficult walking due to shortness of breath. He denies nausea, vomiting, sick contacts, fevers, abdominal pain. He has been out of town with some recent travel but has had no contact with a known COVID 19 patient. The patient has a history of polysubstance abuse with inhaling amphetamines and smoking marijuana. He states last time he inhaled methamphetamines was several weeks ago. He was seen in the emergency room on 08/20/2019 where he was treated for shortness of breath and dehydration and sent home. In the emergency room today the patient appeared in respiratory distress, vital signs initially were temperature 98.3, pulse 123, blood pressure 124/66, respiratory rate 28, 95% on several liters of oxygen. ABG showed primary respiratory alkalosis. ECG showed some nonspecific ST depression and T-wave changes in the anterolateral leads and inferior leads. BNP was greater than 40,000, troponin was elevated at 0.4. When repeated troponin was further elevated at 0.43. Cardiology was consult it over the phone by the ER provider in that case was discussed in detail. It is believed his troponin elevation to be secondary to likely demand ischemia. It is unknown what his underlying heart condition is with history of substance abuse. He does not have any known cardiac history. Patient was given Zosyn, steroids, nebulizer treatments. He was tested for Covid 19. A respiratory panel was negative. Blood cultures 2 sets were drawn. CTA chest showed No CT evidence of pulmonary embolism. Diffuse acute infiltrate left lung with small left pleural effusion. Small focal infiltrate posterior right lung. Other chronic changes are stable compared to the prior study of 07/28/2019. WBC was elevated at 19.4, lactic acid greater than 4. Upon discussion with the patient emergency room he is a DNR/DNI. The patient was ultimately admitted under inpatient status for bilateral community acquired pneumonia-r/o COVID 19, sepsis, congestive heart failure, and r/o acute coronary syndrome vs. demand ischemia.. HOSPITAL COURSE: Acute respiratory failure with hypoxia Patient was admitted with acute respiratory failure with hypoxia secondary to community acquired pneumonia, acute exacerbation of systolic heart failure, type II, myocardial infarction. Patient is a clinically stable with stable oxygen saturation on room air He responded very well to IV antibiotics and supportive care including oxygen supplementation Patient is currently on by mouth Levaquin for 3 more days Is clinically stable on oxygen supplement by nasal cannula Patient will be discharged to rehabilitation facility today for further care Community acquired pneumonia Patient was diagnosed with community-acquired pneumonia with infiltrate left hemithorax Patient. WBC count is 6.0 today with stable electrolytes responded very well to IV antibiotics Patient has been switched to by mouth Levaquin for 3 days, then can be DC'd Continue Combivent MDI, albuterol MDI and acapella as needed Acute systolic (congestive) heart failure Acute systolic congestive heart failure secondary to type II myocardial infarction secondary to demand ischemia, amphetamine and elevation and amphetamine induced cardiomyopathy Cardiology consult appreciated. Patient had been started on aspirin 81 mg by mouth daily along with the diuresis with Lasix Beta blockers and [place]/ARB are not indicated secondary to decompensated heart failure and hypertension, can be restarted once his systolic blood pressure is more than 100 Patient has responded very well to diuretic therapy. His BNP today is 13,895, His lungs are clear. He is not offering any complaints of shortness of breath, patient was followed up by Dr. Villafana from cardiology Echo report: Decompensated heart failure, left ventricular ejection fraction of 20 to 30% with hypokinesis of the lateral wall consistent with a prior anterolateral infarct. Discussed with cardiology again today. Patient has been started on diuresis with Lasix and spironolactone, which will be continued. Please hold these meds if systolic blood pressures less than 100 COPD exacerbation Responded very well to inhalers therapy ,Continue inhalers as per ordered Oxygen supplement as needed Type [address] elevation Patient was not candidate for heparinization and isn't been more than 48 hours Aspirin 81 mg by mouth daily was started yesterday Diuresis with Lasix and his spinal echo as per orders Not a candidate for beta blockers, [place]/ARB secondary to hypertension Patient can follow up with Dr. Villafana as an outpatient . DISCHARGE MEDICATIONS: Please see below. ALLERGIES: Please see below. PHYSICAL EXAMINATION ON DISCHARGE: VITAL SIGNS: Please see below. GENERAL: Within normal limits HEENT: PERRLA, extraocular regular muscles intact NECK: Supple. Negative JVD, negative lymphadenopathy CARDIOVASCULAR EXAMINATION: S1, S2, regular RESPIRATORY EXAMINATION: Clear to A&P ABDOMINAL EXAMINATION: Benign EXTREMITIES: No clubbing, cyanosis, edema SKIN: Within normal limits NEUROLOGICAL EXAMINATION: . No focal motor sensory deficit PSYCHIATRIC EXAMINATION: Normal LABORATORY DATA: Please see below. IMAGING: . CTA of chest: No CT evidence of pulmonary embolism. Diffuse acute infiltrate left lung with small left pleural effusion. Small focal infiltrate posterior right lung. Other chronic changes are stable compared to the prior study of 07/28/2019. PROGNOSIS: Good ACTIVITY: As tolerated. DIET: Cardiac and low salt diet DISCHARGE PLAN: As per discharge plan to rehabilitation facility DISPOSITION: . Rehabilitation facility DISCHARGE INSTRUCTIONS: 1. As per discharge instructions. ITEMS TO FOLLOWUP ON ON OUTPATIENT: 1. Follow with PCP and cardiology in 1-2 weeks. DISCHARGE CONDITION: Stable. TIME SPENT ON DISCHARGE:42 minutes. Vital Signs/I&Os Vital Signs Date Time Temp Pulse Resp B/P (MAP) Pulse Ox O2 Delivery O2 Flow Rate FiO2 08/27/19 08:00 96.5 113 16 88/52 (64) 99 Room Air 08/22/19 07:00 1.0 I&O- Last 24 Hours up to 6 AM 08/27/19 06:00 Intake Total 1180 ml Output Total 1775 ml Balance -595 ml Laboratory Data Labs 24H Laboratory Tests 2 08/27/19 04:40: Immature Granulocyte % (Auto) 0.3, Neutrophils (%) (Auto) 71.9H, Lymphocytes (%) (Auto) 12.1L, Monocytes (%) (Auto) 13.7H, Eosinophils (%) (Auto) 1.8, Basophils (%) (Auto) 0.2, Neutrophils # (Auto) 4.3, Lymphocytes # (Auto) 0.7L, Monocytes # (Auto) 0.8, Eosinophils # (Auto) 0.1, Basophils # (Auto) 0.0, Nucleated Red Blood Cells % (auto) 0.0 08/27/19 04:41: Anion Gap 4L, Glomerular Filtration Rate > 60.0, Calcium Level 8.3L, Total Bilirubin 0.7, Aspartate Amino Transf (AST/SGOT) 10, Alanine Aminotransferase (ALT/SGPT) 23, Alkaline Phosphatase 88, EZ-Lrh-P-Type Natriuretic Peptide 66882T, Total Protein 5.7L, Albumin 2.6L, Albumin/Globulin Ratio 0.84L CBC/BMP Laboratory Tests 08/27/19 04:40 08/27/19 04:41 Microbiology Microbiology 08/22/19 Gram Stain - Final, Complete 08/22/19 Sputum Culture - Final, Complete 08/21/19 Blood Culture - Final, Complete NO GROWTH AFTER 5 DAYS 08/21/19 Blood Culture - Final, Complete NO GROWTH AFTER 5 DAYS Discharge Medications Scheduled Aspirin (Children's Aspirin) 81 Mg Tab.chew, 81 MG PO DAILY Furosemide (Furosemide) 20 Mg Tablet, 20 MG PO DAILY Ipratropium/Albuterol Sulfate (Combivent Respimat 20-100 Mcg) 4 Gm Mist.inhal, 1 PUFF INH RQ6H Levofloxacin (Levaquin) 750 Mg Tablet, 750 MG PO Q48H Omeprazole (Omeprazole) 40 Mg Capsule.dr, 40 MG PO DAILY, (Reported) Pregabalin (Lyrica) 150 Mg Capsule, 150 MG PO TID, (Reported) Spironolactone (Aldactone) 25 Mg Tablet, 12.5 MG PEG DAILY Trazodone HCl (Trazodone HCl) 50 Mg Tablet, 100 MG PO QHS, (Reported) Trazodone HCl (Trazodone HCl) 50 Mg Tablet, 50 MG PO QAM, (Reported) Scheduled PRN Acetaminophen (Acetaminophen) 325 Mg Tablet, 650 MG PO Q4H PRN for PAIN OR FEVER Albuterol Sulfate (Ventolin Hfa) 18 Gm Hfa.aer.ad, 2 PUFF INH Q4H PRN for SHORTNESS OF BREATH, (Reported) Oxycodone Myristate (Xtampza ER) 13.5 Mg Cap.spr.12, 13.5 MG PO Q12H PRN for PAIN, (Reported) Allergies Coded Allergies: No Known Allergies (Unverified , 08/21/19) JOE MURILLO MD Aug 27, 2019 10:50
--- NOTE | 2019-08-27 11:16 | IPN ---
DATE OF SERVICE: 08/27/2019 ATTENDING PHYSICIAN: Vandana Villafana MD Mr. Doshi is seen and examined this morning during bedside rounds with Dr. Villafana at bedside. The patient states he is feeling much better. He has a desire to go home. He has no complaints. He noticed his breathing has significantly improved back to baseline. He denies any shortness of breath or trouble breathing. He is able to drink with no problem, as well. He states he has not been walking around the room as much, but he does have a desire to get out of bed. He has no other complaints at this current time. No nursing events were reported and no telemetry changes reported, as well. PHYSICAL EXAMINATION: VITAL SIGNS: Temperature 96.5, pulse 113, respirations 16, blood pressure 88/52 (64), pulse oximetry 99% on room air. Intake total positive 1840, output total 2075 mL, a balance of negative 735. GENERAL: This is a very pleasant 59-year-old male who does not appear in any acute distress, appropriately answering questions. HEENT: Atraumatic, normocephalic. Pupils equal, round, and reactive. Very poor dentition. Cachectic male who has no jugular venous distention (JVD) present on examination today. No lymphadenopathy and trachea is midline. CARDIOVASCULAR: S1, S2 sounds are present. A distant S4 sound is appreciated. No audible murmurs or rubs are appreciated. LUNGS: Clear to auscultate bilaterally. No audible wheezing, rhonchi, or rales, or bronchophony appreciated. ABDOMEN: Soft, nontender. Scaphoid abdomen. EXTREMITIES: No lower extremity edema or calf tenderness noted. PSYCHIATRIC: Appropriate mood and affect. A lot more joyful today and appropriately answering questions. Alert and oriented times three. LABORATORIES: WBC 6.0, hemoglobin 13.8, hematocrit 41.7, platelets 235. Chemistries: Sodium 138, potassium 3.4, chloride 104, carbon dioxide 30, anion gap 4, BUN 11, creatinine 1.04, fasting glucose 107, calcium 8.3, pro-BNP came down from 34,500 to 13,895. IMPRESSIONS: 1. Decompensated heart failure, left ventricular ejection fraction 20% to 30% with hypokinesis of the lateral wall consistent with remote past anterolateral infarct. 2. Community-acquired pneumonia, on antibiotics. 3. Coronary artery disease (CAD) with an anterior lateral infarct in the remote past. 4. Chronic left ventricle dysfunction, possibly secondary to inhaled amphetamine-induced cardiomyopathy. 5. Elevated troponin, possibly secondary to demand ischemia due to problem #4. 6. History of chronic obstructive pulmonary disease (COPD). 7. History of depression. 8. History of lung cancer, status post right partial lung resection. 9. Gastroesophageal reflux disease (GERD). 10. Chronic hypotension secondary to problem #4, as well as small body habitus. 11. Protein-caloric malnutrition. PLAN: From a cardiac standpoint, the patient has responded appropriately to the furosemide. We recommend switching him to furosemide 20 mg daily, as well as supplementing with spironolactone 12.5 mg daily to help with the hypokalemia that is experienced. Continue with the aspirin 81 mg as prescribed. Continue to have no beta blockers, as well as vasodilators, due to low blood pressure, as well as the decompensated heart failure. Continue to reiterate the importance of abusing amphetamines because of the deterioration of cardiac function. The patient is currently stable to be discharged.
== END 2019-08-27 13:33 | DRG 193 ==
LOC: M ED 14:09 → EDBD 14:09 → M ED INP 17:51 → ENRESERV 18:55 → M PCU 19:41
PROVIDERS: ADMIT Internal Medicine; ATTEND Internal Medicine
DX: J18.9 Pneumonia, unspecified organism (principal); J96.01 Acute respiratory failure with hypoxia; I50.21 Acute systolic (congestive) heart failure; I21.A1 Myocardial infarction type 2; I63.9 Cerebral infarction, unspecified; E87.3 Alkalosis; J90 Pleural effusion, not elsewhere classified; E46 Unspecified protein-calorie malnutrition; Z68.1 Body mass index [BMI] 19.9 or less, adult; Z66 Do not resuscitate; F17.210 Nicotine dependence, cigarettes, uncomplicated; J44.9 Chronic obstructive pulmonary disease, unspecified; K21.9 Gastro-esophageal reflux disease without esophagitis; F12.10 Cannabis abuse, uncomplicated; F32.9 Major depressive disorder, single episode, unspecified; G89.4 Chronic pain syndrome; Z90.2 Acquired absence of lung [part of]; Z85.118 Personal history of other malignant neoplasm of bronchus and lung; Z79.899 Other long term (current) drug therapy; Z87.81 Personal history of (healed) traumatic fracture; R00.0 Tachycardia, unspecified; I95.2 Hypotension due to drugs; F15.11 Other stimulant abuse, in remission; R79.89 Other specified abnormal findings of blood chemistry; I25.10 Atherosclerotic heart disease of native coronary artery without angina pectoris; I25.2 Old myocardial infarction

== ENCOUNTER 2019-09-02 10:14 | Observation (INO) | payer MEDICAID, MEDICARE ==
[~2019-09-02] VITALS: Ht 167.6 cm; Wt 43.6 kg
[~2019-09-02 10:14] MED LIST changes: +ACET1TAB55 PO; +ALDA25TA2 PEG; +ASPI81CH8 PO; +COMBAER6 INH; +FURO20TA2 PO
[2019-09-02] MEDS ORDERED: NS 500 ML IV ONE (10:45)
[2019-09-02 11:00] LABS: BASO % 0.5 % (0.0-1.0); EOS # 0.1 10^3/uL (0.0-0.5); EOS % 0.9 % (0.0-3.0); HEMATOCRIT 46.2 % (42.0-52.0); LYMPH # 0.9 10^3/uL (1.5-5.0); LYMPH % 11.7 % (24.0-44.0); MEAN CORPUSCULAR HEMOGLOBIN 28.4 pg (27.0-33.0); MEAN CORPUSCULAR HGB CONC 32.5 g/dl (32.0-36.5); MEAN CORPUSCULAR VOLUME 87.3 fl (80.0-96.0); MONO # 0.9 10^3/uL (0.0-0.8); MONO % 11.3 % (0.0-5.0); NEUTROPHILS # 5.9 10^3/uL (1.5-8.5); PLATELET COUNT, AUTOMATED 297 10^3/uL (150-450); RED BLOOD COUNT 5.29 10^6/uL (4.30-6.10); WHITE BLOOD COUNT 7.8 10^3/uL (4.0-10.0)
[2019-09-02] MEDS ORDERED: COMBIVENT RESPIMAT 100-20MCG INHALER 4GM INH ONE (11:00)
--- NOTE | 2019-09-02 11:13 | REP ---
CHEST X-RAY: TWO VIEWS. HISTORY: Dyspnea and cough. COMPARISON CHEST X-RAY: August 23, 2019. Comparison CT study August 21, 2019. Findings: There is chronic volume loss and fibrosis in the left upper lobe with air bronchograms unchanged. The remainder of the left lung is clear. There is some apical pleural thickening again noted unchanged. On the right there is blunting of the right lateral pleural angle mild in degree. There is right perihilar fibrosis again noted unchanged. Oligemia is seen in the upper lung field on the right unchanged. No new infiltrate is observed. Heart is not enlarged. IMPRESSION: No new infiltrate seen. Chronic pleuroparenchymal changes noted bilaterally. Chronic collapse left upper lobe with air bronchograms and right perihilar linear fibrosis. Electronically Signed by Mario Bronson MD 09/02/2019 02:50 P
[2019-09-02 11:26] LABS: ALBUMIN 3.2 GM/DL (3.2-5.2); ALT/SGPT 26 U/L (12-78); BILIRUBIN,DIRECT 0.2 MG/DL (0.0-0.2); BILIRUBIN,TOTAL 1.1 MG/DL (0.2-1.0); BLOOD UREA NITROGEN 13 MG/DL (7-18); CALCIUM LEVEL 8.9 MG/DL (8.5-10.1); CARBON DIOXIDE LEVEL 33 MEQ/L (21-32); CHLORIDE LEVEL 99 MEQ/L (98-107); CREATININE FOR GFR 0.94 MG/DL (0.70-1.30); GLOMERULAR FILTRATION RATE > 60.0 (>56); GLUCOSE, FASTING 84 MG/DL (70-100); NT-PRO BNP 3703 PG/ML (<125); POTASSIUM SERUM 4.4 MEQ/L (3.5-5.1); SODIUM LEVEL 133 MEQ/L (136-145); TOTAL PROTEIN 7.3 GM/DL (6.4-8.2)
[2019-09-02 11:47] LABS: CK-MB VALUE MASS 2.3 NG/ML (<3.6); CPK CREATINE PHOSPHOKINASE 37 U/L (39-308); MB/CK RELATIVE INDEX 6.22 (< OR =4); TROPONIN I 0.03 NG/ML (< 0.10)
[2019-09-02] MEDS ORDERED: FURO20TA2 PO (13:27)
[2019-09-02] MEDS ORDERED: ASPI1CHW3 PO (13:27)
[2019-09-02] MEDS ORDERED: COMBAER6 INH (13:27)
[2019-09-02] MEDS ORDERED: SPIR-10 PO (13:27)
[2019-09-02] MEDS ORDERED: ACET1TAB55 PO (13:27)
--- NOTE | 2019-09-02 15:16 | HPEPDOC ---
[facility] Medical History & Physical Date of Admission Sep 02, 2019 Date of Service: Sep 02, 2019 Attending Physician: MARYCARMEN NEELY MD History and Physical CHIEF COMPLAINT: Shortness of breath, Leg pain HISTORY OF PRESENT ILLNESS: 59-year-old male with past medical history of COPD, lung cancer status post lobectomy, coronary artery disease status post [place], congestive heart failure with EF of 20-30%, substance abuse and depression presents from home with shortness of breath and leg pain. Patient was receiving admitted for pneumonia, discharged to [facility], left AMA from [facility] 3 days ago, did not have any food at home and was unable to ambulate, so presented to the hospital. Patient reports persistent shortness of breath and chest discomfort since before his previous admission, which has remained unchanged since then, had extensive cardiac workup and cardiology evaluation during previous hospitalization, which did not show any acute pathology, but significant previous disease. In the ED, patient is found to have T-wave inversions in all leads, chronic, but it was noted that T-wave inversions were deeper in the anterolateral leads compared to prior. Patient had normal troponin levels, denies new/change in chest pain. Patient is otherwise comfortable, denies any nausea, vomiting, abdominal pain or diarrhea. 10 point review of system is negative except for above PAST MEDICAL HISTORY: 1. COPD. 2. Coronary artery disease. 3. FL. 4. Congestive heart failure. 5. Substance abuse. 6. Lung cancer 7. Depression PAST SURGICAL HISTORY: 1. Lobectomy. 2. Abdominal surgery. 3. Wrist surgery. SOCIAL HISTORY: Current smoker, 1 pack per day, greater than 30 years Denies alcohol use. Previous drug use FAMILY HISTORY: Reports parents had lung cancer ALLERGIES: Please see below. HOME MEDICATIONS: Please see below. PHYSICAL EXAMINATION: VITAL SIGNS: Please see below. GENERAL: Frail, cachectic HEENT: Normocephalic, atraumatic, moist mucous membranes NECK: Supple CARDIOVASCULAR EXAMINATION: S1, S2, no murmurs RESPIRATORY EXAMINATION: Scattered rhonchi, poor air movement, no wheezing ABDOMINAL EXAMINATION: Soft, nontender, nondistended, positive bowel sounds EXTREMITIES: Range of motion intact SKIN: No rash NEUROLOGICAL EXAMINATION: Alert and oriented 3, no focal deficits PSYCHIATRIC EXAMINATION: Calm and cooperative LABORATORY DATA: See below. IMAGING: Chest x-ray without acute pathology MICROBIOLOGY: Please see below. ASSESSMENT: 59-year-old male with multiple medical comorbidities who was recently discharged to [facility] for rehabilitation and then left AMA presents with physical deconditioning and possible new EKG changes. PLAN: 1. EKG abnormalities. Has chronic T-wave inversions in all leads, EKG today with deep T-wave inversions in leads V2, V3, V4, V5, previous echo with significant wall motion abnormalities from prior ischemia along with EF of 20-30%, troponin 0.03, will trend, asymptomatic, hemodynamically stable, unlikely to be having acute ischemic episode at this time, we'll hold off on repeating an echocardiogram at this time, we'll monitor overnight. 2. COPD Stable, continue home regimen 3. Coronary artery disease/CHF Continue optimal medical management with aspirin, statin, Lasix, spironolactone and beta zoe. 4. Lung cancer. Status post lobectomy, chemotherapy/radiation, chest x-ray with possible lung trapping. DVT prophylaxis: Lovenox. GI prophylaxis: PPI Vital Signs Vital Signs Date Time Temp Pulse Resp B/P (MAP) Pulse Ox O2 Delivery O2 Flow Rate FiO2 09/02/19 14:30 102 20 100/58 (72) 97 09/02/19 13:00 Room Air 09/02/19 10:22 96.6 Laboratory Data Labs 24H Laboratory Tests 2 09/02/19 10:42: Immature Granulocyte % (Auto) 0.6, Neutrophils (%) (Auto) 75.0H, Lymphocytes (%) (Auto) 11.7L, Monocytes (%) (Auto) 11.3H, Eosinophils (%) (Auto) 0.9, Basophils (%) (Auto) 0.5, Neutrophils # (Auto) 5.9, Lymphocytes # (Auto) 0.9L, Monocytes # (Auto) 0.9H, Eosinophils # (Auto) 0.1, Basophils # (Auto) 0.0, Nucleated Red Blood Cells % (auto) 0.0, Anion Gap 1L, Glomerular Filtration Rate > 60.0, Calcium Level 8.9, Total Bilirubin 1.1H, Direct Bilirubin 0.2, Aspartate Amino Transf (AST/SGOT) 21, Alanine Aminotransferase (ALT/SGPT) 26, Alkaline Phosphatase 123H, Total Creatine Kinase 37L, Creatine Kinase MB 2.3, Creatine Kinase MB Relative Index 6.22H, Troponin I 0.03, UI-Eob-T-Type Natriuretic Peptide 3703H, Total Protein 7.3, Albumin 3.2, Albumin/Globulin Ratio 0.78L 09/02/19 12:43: Urine Color YELLOW, Urine Appearance CLEAR, Urine pH 6.0, Urine Specific Mcleod 1.006, Urine Protein NEGATIVE, Urine Glucose (UA) NEGATIVE, Urine Ketones NEGATIVE, Urine Blood NEGATIVE, Urine Nitrite NEGATIVE, Urine Bilirubin NEGATIVE, Urine Urobilinogen 0.2, Urine Leukocyte Esterase NEGATIVE, Urine WBC (Auto) 0, Urine RBC (Auto) 1, Urine Hyaline Casts (Auto) 0, Urine Bacteria (Auto) NEGATIVE, Urine Squamous Epithelial Cells 0, Urine Sperm (Auto) CBC/BMP Laboratory Tests 09/02/19 10:42 Home Medications Scheduled Aspirin (Aspirin) 81 Mg Tab.chew, 81 MG PO DAILY Furosemide (Furosemide) 20 Mg Tablet, 20 MG PO DAILY Ipratropium/Albuterol Sulfate (Combivent Respimat 20-100 Mcg) 4 Gm Mist.inhal, 1 PUFF INH Q6H Omeprazole (Omeprazole) 40 Mg Capsule.dr, 40 MG PO DAILY Pregabalin (Lyrica) 150 Mg Capsule, 150 MG PO TID Spironolactone (Spironolactone) 25 Mg Tablet, 12.5 MG PO DAILY Trazodone HCl (Trazodone HCl) 50 Mg Tablet, 100 MG PO QHS Scheduled PRN Acetaminophen (Acetaminophen) 325 Mg Tablet, 650 MG PO Q4H PRN for PAIN Albuterol Sulfate (Ventolin Hfa) 18 Gm Hfa.aer.ad, 2 PUFF INH Q4H PRN for SHORTNESS OF BREATH Allergies Coded Allergies: No Known Allergies (Unverified , 08/21/19) A-FIB/CHADSVASC A-FIB History Current/History of A-Fib/PAF?: No MARYCARMEN NEELY MD Sep 02, 2019 15:16
[2019-09-02 15:30] VITALS: BP 92/65
[2019-09-02 16:29] LABS: CK-MB VALUE MASS 1.8 NG/ML (<3.6); MB/CK RELATIVE INDEX 5.81 (< OR =4); TROPONIN I 0.05 NG/ML (< 0.10)
[2019-09-02] MEDS: ACETAMINOPHEN TAB 650MG DOSE (2X325MG) PO PRN (16:32)
[2019-09-02] MEDS: ATORVASTATIN 20 MG TAB PO SCH (16:32)
[2019-09-02] MEDS: PREGABALIN 75 MG CAP(LYRICA) PO SCH ×2 (16:32→20:52)
[2019-09-02] MEDS: IPRATROPIUM 0.5MG/ALBUTEROL 2.5MG INH SOL UD 3ML (DUONEB)(J7620) INH SCH (19:30)
[2019-09-02] MEDS: traZODone 100 MG TAB PO SCH (20:52)
[2019-09-02] MEDS: CARVedilol 3.125 MG TAB PO SCH (21:00)
[2019-09-02 22:00] VITALS: BP 95/66
[2019-09-03] MEDS: IPRATROPIUM 0.5MG/ALBUTEROL 2.5MG INH SOL UD 3ML (DUONEB)(J7620) INH SCH ×4 (01:11→19:32)
[2019-09-03 06:00] VITALS: BP 90/61
[2019-09-03 06:06] LABS: HEMATOCRIT 42.3 % (42.0-52.0); HEMOGLOBIN 14.1 g/dl (13.5-17.5); MEAN CORPUSCULAR HEMOGLOBIN 29.3 pg (27.0-33.0); MEAN CORPUSCULAR HGB CONC 33.3 g/dl (32.0-36.5); MEAN CORPUSCULAR VOLUME 87.9 fl (80.0-96.0); PLATELET COUNT, AUTOMATED 284 10^3/uL (150-450); RED BLOOD COUNT 4.81 10^6/uL (4.30-6.10); WHITE BLOOD COUNT 6.8 10^3/uL (4.0-10.0)
[2019-09-03 06:43] LABS: ALBUMIN 2.8 GM/DL (3.2-5.2); ALT/SGPT 23 U/L (12-78); BILIRUBIN,TOTAL 0.7 MG/DL (0.2-1.0); BLOOD UREA NITROGEN 16 MG/DL (7-18); CALCIUM LEVEL 8.6 MG/DL (8.5-10.1); CARBON DIOXIDE LEVEL 31 MEQ/L (21-32); CHLORIDE LEVEL 104 MEQ/L (98-107); GLOMERULAR FILTRATION RATE > 60.0 (>56); GLUCOSE, FASTING 92 MG/DL (70-100); MAGNESIUM LEVEL 2.4 MG/DL (1.8-2.4); POTASSIUM SERUM 4.2 MEQ/L (3.5-5.1); SODIUM LEVEL 140 MEQ/L (136-145); TOTAL PROTEIN 5.9 GM/DL (6.4-8.2)
[2019-09-03] MEDS: ASPIRIN 81 MG CHEW TABLET PO SCH (08:13)
[2019-09-03] MEDS: PANTOPRAZOLE 40MG TAB (PROTONIX) PO SCH (08:13)
[2019-09-03] MEDS: ATORVASTATIN 20 MG TAB PO SCH (08:13)
[2019-09-03] MEDS: ACETAMINOPHEN TAB 650MG DOSE (2X325MG) PO PRN ×2 (08:13→22:03)
[2019-09-03] MEDS: SPIRONOLACTONE 12.5MG PER 1/2 TABLET PO SCH ×2 (08:14→09:00)
[2019-09-03] MEDS: CARVedilol 3.125 MG TAB PO SCH ×3 (08:14→21:00)
[2019-09-03] MEDS: PREGABALIN 75 MG CAP(LYRICA) PO SCH ×3 (08:14→22:00)
[2019-09-03] MEDS: ENOXAPARIN 40 MG/0.4 ML SYRINGE (J1650) SC SCH (08:14)
[2019-09-03] MEDS: FUROSEMIDE 20 MG TAB PO SCH ×2 (08:14→09:00)
--- NOTE | 2019-09-03 09:55 | ECGEPIP ---
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: MARTHA : 1960 Requested By: DAMION Yadav PA-C Order Number: [id number] Reading MD: Andrew Reynaga Measurements Intervals [place] Rate: 105 P: 87 MS: 133 QRS: 76 QRSD: 89 T: 251 QT: 381 QTc: 505 Interpretive Statements SINUS TACHYCARDIA WITH OCCASIONAL VENTRICULAR PREMATURE COMPLEXES POSSIBLE LEFT ATRIAL ENLARGEMENT ST DEVIATION AND MARKED T-WAVE ABNORMALITY, CONSIDER ANTEROLATERAL ISCHEMIA ST DEVIATION AND MODERATE T-WAVE ABNORMALITY, CONSIDER INFERIOR ISCHEMIA UNACCEPTABLE TRACING QUALITY FOR INTERPRETATION: ONLY 10 OF 12 LEADS Electronically Signed on 09-03-2019 9:55:01 EDT by Andrew Reynaga
[2019-09-03 14:00] VITALS: BP 112/75
--- NOTE | 2019-09-03 20:53 | IPNPDOC ---
Date Seen The patient was seen on 09/03/19. Progress Note HISTORY OF PRESENT ILLNESS: 59-year-old male with past medical history of COPD, lung cancer status post lobectomy, coronary artery disease status post [place], congestive heart failure with EF of 20-30%, substance abuse and depression was admitted for SOB & physical deconditioning. Patient reports feeling better than yesterday, no acute events overnight, no complaints at this time. He worked well with PT & requesting to go back home. 10 point review of system is negative except for above PHYSICAL EXAMINATION: VITAL SIGNS: Please see below. GENERAL: Frail, cachectic HEENT: Normocephalic, atraumatic, moist mucous membranes NECK: Supple CARDIOVASCULAR EXAMINATION: S1, S2, no murmurs RESPIRATORY EXAMINATION: Scattered rhonchi, poor air movement, no wheezing ABDOMINAL EXAMINATION: Soft, nontender, nondistended, positive bowel sounds EXTREMITIES: Range of motion intact SKIN: No rash NEUROLOGICAL EXAMINATION: Alert and oriented 3, no focal deficits PSYCHIATRIC EXAMINATION: Calm and cooperative ASSESSMENT: 59-year-old male with multiple medical comorbidities who was recently discharged to [facility] for rehabilitation and then left AMA presents with physical deconditioning and possible new EKG changes. PLAN: 1. EKG abnormalities. Has chronic T-wave inversions in all leads, EKG today with deep T-wave inversions in leads V2, V3, V4, V5, previous echo with significant wall motion abnormalities from prior ischemia along with EF of 20-30%, Troponin negative x2, remains asymptomatic, no events overnight, likely chronic & baseline given extensive cardiac disease. Recent TTE reviewed. 2. COPD Stable, continue home regimen 3. Coronary artery disease/Chronic systolic CHF Continue optimal medical management with aspirin, statin, Lasix, spironolactone and beta zoe with hold parameters. 4. Lung cancer. Status post lobectomy, chemotherapy/radiation, chest x-ray with possible lung trapping. 5. Physical deconditioning - PT eval appreciated, plan for d/c home w/ services tomorrow. DVT prophylaxis: Lovenox. GI prophylaxis: PPI VS, I&O, 24H, Fishbone Vital Signs/I&O Vital Signs Date Time Temp Pulse Resp B/P (MAP) Pulse Ox O2 Delivery O2 Flow Rate FiO2 09/03/19 14:00 97.0 119 22 112/75 (87) 96 Room Air I&O- Last 24 Hours up to 6 AM 09/03/19 06:00 Intake Total 1515 ml Output Total 200 ml Balance 1315 ml Laboratory Data 24H LABS Laboratory Tests 2 09/03/19 05:50: Nucleated Red Blood Cells % (auto) 0.0, Anion Gap 5L, Glomerular Filtration Rate > 60.0, Calcium Level 8.6, Magnesium Level 2.4, Total Bilirubin 0.7, Aspartate Amino Transf (AST/SGOT) 12, Alanine Aminotransferase (ALT/SGPT) 23, Alkaline Dao sphatase 117, Total Protein 5.9L, Albumin 2.8L, Albumin/Globulin Ratio 0.90L CBC/BMP Laboratory Tests 09/03/19 05:50 MARYCARMEN NEELY MD Sep 03, 2019 20:53
[2019-09-03 22:00] VITALS: BP 90/52
[2019-09-03] MEDS: traZODone 100 MG TAB PO SCH (22:02)
[2019-09-04] MEDS: IPRATROPIUM 0.5MG/ALBUTEROL 2.5MG INH SOL UD 3ML (DUONEB)(J7620) INH SCH ×2 (02:00→07:56)
[2019-09-04 06:00] VITALS: BP 88/54
[2019-09-04] MEDS: PANTOPRAZOLE 40MG TAB (PROTONIX) PO SCH (08:58)
[2019-09-04] MEDS: ASPIRIN 81 MG CHEW TABLET PO SCH (08:58)
[2019-09-04] MEDS: PREGABALIN 75 MG CAP(LYRICA) PO SCH (08:58)
[2019-09-04] MEDS: ATORVASTATIN 20 MG TAB PO SCH (08:58)
[2019-09-04 08:59] VITALS: BP 88/54
[2019-09-04] MEDS: CARVedilol 3.125 MG TAB PO SCH (08:59)
[2019-09-04] MEDS: ENOXAPARIN 40 MG/0.4 ML SYRINGE (J1650) SC SCH (08:59)
[2019-09-04] MEDS: FUROSEMIDE 20 MG TAB PO SCH (08:59)
[2019-09-04] MEDS: SPIRONOLACTONE 12.5MG PER 1/2 TABLET PO SCH (08:59)
[2019-09-04] MEDS ORDERED: CARV3.12 PO (11:17)
[2019-09-04] MEDS ORDERED: ATOR40TA75 PO (11:17)
--- NOTE | 2019-09-05 15:55 | DS.PDOC ---
Discharge Summary General Date of Admission Sep 02, 2019 at 10:15 Date of Discharge 09/04/19 Attending Physician: MARYCARMEN NEELY MD Discharge Summary PROCEDURES PERFORMED DURING STAY: None. ADMITTING DIAGNOSES: 1. Physical deconditioning, dizziness. DISCHARGE DIAGNOSES: 1. Physical deconditioning, dizziness COMPLICATIONS/CHIEF COMPLAINT: COPD. HISTORY OF PRESENT ILLNESS: 59-year-old male with past medical history of COPD, systolic heart failure, hyperlipidemia and GERD was admitted for dizziness and physical deconditioning. Patient was recently discharged to [facility] from where he left [place]. He was having a hard time moving around in his home due to physical deconditioning and was unable to acquire any food. Patient had low normal blood pressure, which did not meet parameters to give him spironolactone or Lasix throughout his hospitalization. Patient likely has low blood pressure, baseline from overall health and congestive heart failure. Patient was evaluated by physical therapy and cleared for discharge home. Patient is advised to discontinue spironolactone and Lasix for now and follow with primary care physician within one week to reassess. Patient is clinically stable for discharge at this time. HOSPITAL COURSE: As above. DISCHARGE MEDICATIONS: Please see below. ALLERGIES: Please see below. PHYSICAL EXAMINATION: VITAL SIGNS: Please see below. GENERAL: Frail, cachectic HEENT: Normocephalic, atraumatic, moist mucous membranes NECK: Supple CARDIOVASCULAR EXAMINATION: S1, S2, no murmurs RESPIRATORY EXAMINATION: Scattered rhonchi, poor air movement, no wheezing ABDOMINAL EXAMINATION: Soft, nontender, nondistended, positive bowel sounds EXTREMITIES: Range of motion intact SKIN: No rash NEUROLOGICAL EXAMINATION: Alert and oriented 3, no focal deficits PSYCHIATRIC EXAMINATION: Calm and cooperative LABORATORY DATA: Please see below. IMAGING: Chest x-ray without acute pathology PROGNOSIS: Guarded ACTIVITY: As tolerated. DIET: Cardiac DISCHARGE PLAN: Follow with PCP in one week DISPOSITION: Home, Self-Care. DISCHARGE INSTRUCTIONS: 1. As above. DISCHARGE CONDITION: Stable. TIME SPENT ON DISCHARGE: Greater than 28 minutes. Vital Signs/I&Os Vital Signs Date Time Temp Pulse Resp B/P (MAP) Pulse Ox O2 Delivery O2 Flow Rate FiO2 09/04/19 08:59 101 88/54 09/04/19 06:00 98.2 16 97 Room Air I&O- Last 24 Hours up to 6 AM 09/05/19 06:00 Intake Total 360 ml Output Total 400 ml Balance -40 ml Discharge Medications Scheduled Aspirin (Aspirin) 81 Mg Tab.chew, 81 MG PO DAILY, (Reported) Atorvastatin Calcium (Atorvastatin Calcium) 40 Mg Tablet, 1 TAB PO DAILY Carvedilol (Carvedilol) 3.125 Mg Tablet, 3.125 MG PO BID Ipratropium/Albuterol Sulfate (Combivent Respimat 20-100 Mcg) 4 Gm Mist.inhal, 1 PUFF INH Q6H, (Reported) Omeprazole (Omeprazole) 40 Mg Capsule.dr, 40 MG PO DAILY, (Reported) Pregabalin (Lyrica) 150 Mg Capsule, 150 MG PO TID, (Reported) Trazodone HCl (Trazodone HCl) 50 Mg Tablet, 100 MG PO QHS, (Reported) Scheduled PRN Acetaminophen (Acetaminophen) 325 Mg Tablet, 650 MG PO Q4H PRN for PAIN, (Reported) Albuterol Sulfate (Ventolin Hfa) 18 Gm Hfa.aer.ad, 2 PUFF INH Q4H PRN for SHORTNESS OF BREATH, (Reported) Allergies Coded Allergies: No Known Allergies (Unverified , 08/21/19) MARYCARMEN NEELY MD Sep 05, 2019 15:55
== END 2019-09-04 11:55 | disposition home or self-care (01) ==
LOC: M ED 10:14 → EDBD 10:14 → M ED INP 10:15 → ENRESERV 14:50 → M MSPAV 15:27
PROVIDERS: ADMIT Internal Medicine; ATTEND Internal Medicine
DX: R94.31 Abnormal electrocardiogram [ECG] [EKG] (principal); J44.9 Chronic obstructive pulmonary disease, unspecified; R53.81 Other malaise; I25.10 Atherosclerotic heart disease of native coronary artery without angina pectoris; I25.2 Old myocardial infarction; I50.9 Heart failure, unspecified; F19.10 Other psychoactive substance abuse, uncomplicated; F32.9 Major depressive disorder, single episode, unspecified; C34.90 Malignant neoplasm of unspecified part of unspecified bronchus or lung; Z92.21 Personal history of antineoplastic chemotherapy; Z92.3 Personal history of irradiation; Z79.82 Long term (current) use of aspirin; Z79.899 Other long term (current) drug therapy; F17.218 Nicotine dependence, cigarettes, with other nicotine-induced disorders
CPT/HCPCS: 36415; 71046; 80048; 80053; 80076; 81001; 82550; 82553; 83735; 83880; 84484; 85025; 85027; 93005; 93041; 94640; 94760; 96360; 96361; 97161; 97165; 97530; 99285; G0378; J1650

== ENCOUNTER 2019-10-22 16:29 | Emergency (ER) | payer MEDICARE, MEDICAID ==
[~2019-10-22] VITALS: Ht 167.6 cm; Wt 43.9 kg
[~2019-10-22 16:29] MED LIST changes: +ASPI1CHW3 PO; +ATOR40TA75 PO; +CARV3.12 PO; +OXYC30TA; -OXYC30TA84; +SPIR-10 PO
[2019-10-22] MEDS ORDERED: dexameTHASONE 20MG/5ML VIAL (J1100 PER 1MG) IV ONE (17:45)
[2019-10-22] MEDS ORDERED: ALBUTEROL 90 MCG/ACT 8GM HFA INHALER INH ONE (17:45)
--- NOTE | 2019-10-22 17:56 | ECGEPIP ---
[facility] - ED Test Date: 2019-10-22 Pat Name: ALBERT LAINEZ Department: Room: - Gender: Male Hospice Chaplain: ef : 1960 Requested By: GRIS Mistry Order Number: [id number] Reading MD: Andrew Reynaga Measurements Intervals [place] Rate: 97 P: 87 [place]: 137 QRS: 86 QRSD: 94 T: 91 QT: 372 QTc: 473 Interpretive Statements SINUS RHYTHM POSSIBLE LEFT ATRIAL ENLARGEMENT Electronically Signed on 10-22-2019 17:55:39 EDT by Andrew Reynaga
[2019-10-22 17:59] LABS: BASO # 0.1 10^3/uL (0.0-0.2); BASO % 0.9 % (0.0-1.0); EOS # 0.1 10^3/uL (0.0-0.5); EOS % 2.1 % (0.0-3.0); HEMATOCRIT 45.6 % (42.0-52.0); HEMOGLOBIN 14.9 g/dl (13.5-17.5); LYMPH # 0.9 10^3/uL (1.5-5.0); LYMPH % 13.2 % (24.0-44.0); MEAN CORPUSCULAR HEMOGLOBIN 28.6 pg (27.0-33.0); MEAN CORPUSCULAR HGB CONC 32.7 g/dl (32.0-36.5); MEAN CORPUSCULAR VOLUME 87.5 fl (80.0-96.0); MONO # 0.7 10^3/uL (0.0-0.8); NEUTROPHILS # 4.8 10^3/uL (1.5-8.5); NEUTROPHILS % 73.3 % (36.0-66.0); PLATELET COUNT, AUTOMATED 398 10^3/uL (150-450); RED BLOOD COUNT 5.21 10^6/uL (4.30-6.10); WHITE BLOOD COUNT 6.6 10^3/uL (4.0-10.0)
[2019-10-22 18:11] LABS: INR 1.01
[2019-10-22 18:32] LABS: BLOOD UREA NITROGEN 13 MG/DL (7-18); CALCIUM LEVEL 9.5 MG/DL (8.5-10.1); CARBON DIOXIDE LEVEL 31 MEQ/L (21-32); CHLORIDE LEVEL 103 MEQ/L (98-107); CK-MB VALUE MASS < 1.0 NG/ML (<3.6); CPK CREATINE PHOSPHOKINASE 31 U/L (39-308); CREATININE FOR GFR 0.85 MG/DL (0.70-1.30); GLOMERULAR FILTRATION RATE > 60.0 (>56); GLUCOSE, FASTING 90 MG/DL (70-100); MB/CK RELATIVE INDEX 3.23 (< OR =4); NT-PRO BNP 437 PG/ML (<125); SODIUM LEVEL 137 MEQ/L (136-145); THYROID STIMULATING HORMONE 0.627 uIU/ML (0.358-3.740); THYROXINE (T4) 13.5 UG/DL (4.5-12.0); TROPONIN I < 0.02 NG/ML (< 0.10)
[2019-10-22] MEDS ORDERED: PRED10TA2 PO (18:52)
[2019-10-22 19:00] VITALS: BP 102/57
--- NOTE | 2019-10-22 22:44 | REP ---
REASON: Dyspnea. COMPARISON: Multiple, the latest 09/02/2019. Once again, there is lung field hyperexpansion, status quo. The technique utilized in obtaining the radiograph has magnified the cardiac silhouette and accentuated the interstitial markings. There is chronic pleural parenchymal scarring seen bilaterally, status quo. There is no evidence of an acute abnormal opacity. There is chronic CP angle blunting, status quo. There is no change in the osseous structures. IMPRESSION: Marked chronic changes appearing stable, as described above. Electronically Signed by Kimani Russell DO 10/23/2019 11:57 A
[2019-10-23] MEDS ORDERED: CARV3.12 PO (14:10)
[2019-10-23] MEDS ORDERED: XTAM13.5 PO (14:10)
[2019-10-23] MEDS ORDERED: ATOR40TA75 PO (14:10)
== END 2019-10-22 19:12 | disposition home or self-care (01) ==
LOC: M ED 16:29
DX: J44.1 Chronic obstructive pulmonary disease with (acute) exacerbation (principal); C34.91 Malignant neoplasm of unspecified part of right bronchus or lung; I50.9 Heart failure, unspecified; I25.2 Old myocardial infarction; I25.10 Atherosclerotic heart disease of native coronary artery without angina pectoris; F32.9 Major depressive disorder, single episode, unspecified; F19.10 Other psychoactive substance abuse, uncomplicated; F17.210 Nicotine dependence, cigarettes, uncomplicated; Z68.1 Body mass index [BMI] 19.9 or less, adult

== ENCOUNTER 2019-10-23 11:14 | Emergency (ER) | payer MEDICARE, MEDICAID ==
[~2019-10-23] VITALS: Ht 170.2 cm; Wt 43.9 kg
[2019-10-23] MEDS ORDERED: ALBUTEROL 90 MCG/ACT 8GM HFA INHALER INH ONE (11:30)
[2019-10-23 11:57] LABS: BASO % 0.3 % (0.0-1.0); HEMATOCRIT 43.5 % (42.0-52.0); HEMOGLOBIN 14.8 g/dl (13.5-17.5); LYMPH # 0.6 10^3/uL (1.5-5.0); LYMPH % 6.4 % (24.0-44.0); MEAN CORPUSCULAR HEMOGLOBIN 29.4 pg (27.0-33.0); MEAN CORPUSCULAR VOLUME 86.5 fl (80.0-96.0); MONO % 10.6 % (0.0-5.0); NEUTROPHILS # 7.5 10^3/uL (1.5-8.5); PLATELET COUNT, AUTOMATED 420 10^3/uL (150-450); RED BLOOD COUNT 5.03 10^6/uL (4.30-6.10); WHITE BLOOD COUNT 9.2 10^3/uL (4.0-10.0)
--- NOTE | 2019-10-23 11:57 | REP ---
CHEST SINGLE VIEW: Single view of the chest is performed and compared to a prior study of 10/22/2019. The left apical pleural and parenchymal density is unchanged. There is upward retraction of the left hilum and deviation of the trachea to the left. Diffuse interstitial fibrotic change is again seen in both lungs with no evidence of acute infiltrate. Cardiomediastinal silhouette is unchanged. IMPRESSION: Stable chronic changes with no acute infiltrate. Electronically Signed by Jairo Hitchcock MD 10/23/2019 12:44 P
[2019-10-23 12:07] LABS: INR 0.95; PROTHROMBIN TIME 12.4 SECONDS (11.8-14.0)
[2019-10-23 12:32] LABS: ALBUMIN 3.5 GM/DL (3.2-5.2); ALT/SGPT 17 U/L (12-78); BILIRUBIN,DIRECT 0.2 MG/DL (0.0-0.2); BILIRUBIN,TOTAL 0.8 MG/DL (0.2-1.0); BLOOD UREA NITROGEN 17 MG/DL (7-18); CALCIUM LEVEL 9.4 MG/DL (8.5-10.1); CARBON DIOXIDE LEVEL 25 MEQ/L (21-32); CHLORIDE LEVEL 103 MEQ/L (98-107); CK-MB VALUE MASS < 1.0 NG/ML (<3.6); CPK CREATINE PHOSPHOKINASE 28 U/L (39-308); CREATININE FOR GFR 0.97 MG/DL (0.70-1.30); GLOMERULAR FILTRATION RATE > 60.0 (>56); GLUCOSE, FASTING 123 MG/DL (70-100); MB/CK RELATIVE INDEX 3.57 (< OR =4); NT-PRO BNP 522 PG/ML (<125); POTASSIUM SERUM 4.4 MEQ/L (3.5-5.1); SODIUM LEVEL 137 MEQ/L (136-145); THYROID STIMULATING HORMONE 0.383 uIU/ML (0.358-3.740); TROPONIN I < 0.02 NG/ML (< 0.10)
[2019-10-23] MEDS ORDERED: ISOVUE-370 76% 100ML VIAL As Ordered ONE (13:00)
[2019-10-23 13:45] VITALS: BP 107/57
[2019-10-23] MEDS ORDERED: XTAM13.5 PO (14:10)
[2019-10-23] MEDS ORDERED: ATOR40TA75 PO (14:10)
[2019-10-23] MEDS ORDERED: CARV3.12 PO (14:10)
--- NOTE | 2019-10-23 14:24 | REP ---
CT PULMONARY ANGIOGRAM: With IV contrast. HISTORY: Shortness of breath. COMPARISON STUDIES: Comparison CT angiography of the chest August 21, 2019. CONTRAST DOSE: 75 mL of Isovue [address] TECHNIQUE: Helical scanning is acquired and overlapping 1.5 mm and contiguous 3 mm axial images are reformatted. In addition, maximum intensity projection and multiplanar re-formation images are generated in sagittal and coronal imaging projections. CT PULMONARY ANGIOGRAPHIC FINDINGS: There is good opacification in the pulmonary arterial tree. There is no filling defect or vessel cutoff seen to suggest pulmonary embolus. Thoracic aorta enhances homogeneously. There is no evidence of aneurysm or dissection. The ascending thoracic aorta measures 3.2 cm in AP dimension at the level of the right main pulmonary artery. The patient has a history of lung carcinoma and there is extensive volume loss and fibrosis in the left upper lobe region with upper retraction of the left hilus. There are emphysematous changes in the right upper lobe. There is a spiculated nodular opacity in the right upper lobe posteriorly, which has an irregular somewhat linear morphology in greatest dimension of 3.6 cm x 0.8 cm x 4.9 cm. This density has enlarged since the August 21, 2019 study and malignant nodular density must be suspected. There is considerable volume loss in the right lung with postoperative change and fibrosis in the right perihilar region. There is linear fibrosis in the right base. There are air bronchograms and bronchiectatic changes in the collapsed left upper lobe as before. No significant pleural effusion is seen. No pericardial effusion is seen. No adrenal lesion is observed. IMPRESSION: No CT evidence of pulmonary embolus. Enlarging and band-like spiculated density posteriorly in the right upper lobe increased in size from August 21, 2019. Recurrent malignancy versus progressive inflammatory change. Further evaluation is warranted. Emphysematous changes are noted on the right. Chronic collapse and fibrosis and bronchiectasis left upper lobe. Electronically Signed by Mario Bronson MD 10/23/2019 04:12 P
--- NOTE | 2019-10-23 21:06 | ECGEPIP ---
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
== END 2019-10-23 14:45 | disposition other institution (70) ==
LOC: M ED 11:14 → EDBD 11:14 → M ED 14:45 → ENRESERV 16:58
DX: R06.02 Shortness of breath (principal); I50.9 Heart failure, unspecified; I25.10 Atherosclerotic heart disease of native coronary artery without angina pectoris; I25.2 Old myocardial infarction; J44.9 Chronic obstructive pulmonary disease, unspecified; F32.9 Major depressive disorder, single episode, unspecified; K21.9 Gastro-esophageal reflux disease without esophagitis; F41.9 Anxiety disorder, unspecified; Z79.899 Other long term (current) drug therapy

== ENCOUNTER 2019-10-23 15:51 | Inpatient (IN) | payer MEDICARE, MEDICAID ==
[~2019-10-23] VITALS: Ht 167.6 cm; Wt 46.5 kg
[2019-10-23] MEDS: NICOTINE 14 MG/24 HR TRANSDERMAL TD SCH (09:00)
[2019-10-23] MEDS ORDERED: LORazepam 0.5 MG TAB PO PRN (17:15)
[2019-10-23] MEDS ORDERED: SCOPOLAMINE 1MG TRANSDERMAL PATCH TOP PRN (17:15)
[2019-10-23] MEDS ORDERED: ATROPINE SULFATE 1% OP SOLN 2 ML BTL SL PRN (17:15)
[2019-10-23 17:29] VITALS: BP 106/67
[2019-10-23] MEDS: MORPHINE 2 MG/ML 1ML VIAL (J2270) IV PRN (17:45)
[2019-10-23] MEDS: IPRATROPIUM 0.5MG/ALBUTEROL 2.5MG INH SOL UD 3ML (DUONEB)(J7620) NEB SCH (19:33)
[2019-10-23] MEDS: MORPHINE 10MG/0.5ML ORAL CONCENTRATE SOLUTION U/D SL PRN (20:02)
[2019-10-23] MEDS ORDERED: traZODone 50 MG TAB PO SCH (21:00)
[2019-10-23] MEDS: PREGABALIN 75 MG CAP(LYRICA) PO SCH (21:41)
[2019-10-24] MEDS: MORPHINE 2 MG/ML 1ML VIAL (J2270) IV PRN ×3 (03:57→18:04)
[2019-10-24] MEDS: IPRATROPIUM 0.5MG/ALBUTEROL 2.5MG INH SOL UD 3ML (DUONEB)(J7620) NEB SCH ×3 (07:07→15:06)
[2019-10-24] MEDS ORDERED: MORPHINE 15 MG SA TAB PO ONE (07:30)
[2019-10-24] MEDS ORDERED: LORazepam 1 MG TAB PO PRN (07:30)
[2019-10-24] MEDS ORDERED: DICLOFENAC EPOLAMINE 1.3 % PATCH TOP SCH (09:00)
[2019-10-24] MEDS: PREGABALIN 75 MG CAP(LYRICA) PO SCH ×2 (09:27→16:22)
[2019-10-24] MEDS: NICOTINE 14 MG/24 HR TRANSDERMAL TD SCH (09:27)
[2019-10-24] MEDS ORDERED: MORPHINE 30 MG TAB **MSIR PO ONE (10:45)
[2019-10-24] MEDS ORDERED: MORPHINE 2 MG/ML 1ML VIAL (J2270) IV ONE (10:45)
--- NOTE | 2019-10-24 16:00 | IPNPDOC ---
Date Seen The patient was seen on 10/24/19. Progress Note c/o worsening back pain, and "pain everywhere," 8/10 on pain scale. still sob, unalleviated by nebulizers. cough dry not keeping him from sleeping. requesting hospice. Physical Examination: Vitals see below GENERAL:bitemporal wasting. disheveled. AAOx3 cachectic-appearing male HEENT: Head is normocephalic, atraumatic No scleral icterus. pupils are equal, round, reactive to light. Nares patent. Mucous membranes moist. No cervical or supraclavicular lymphadenopathy bilaterally. CARDIOVASCULAR: Normal rhythm. Normal S1, S2. No murmurs, gallops, rubs appreciated. RESPIRATORY: Breath sounds severely diminished bilaterally. Mild wheezing appreciated in bilateral lower lobes. ABDOMEN: Soft, nontender, nondistended. Bowel sounds present. No hepatosplenomegaly. No masses or ecchymosis. SKIN: Warm, dry. No rashes. EXTREMITIES: No cyanosis or edema in extremities. LABORATORY DATA, IMAGING: pls see below ASSESSMENT: 58-year-old male with h/o polysubstance abuse, metabolic encephalopathy, systolic CHF EF20-30%, multifocal pna, lung ca w lobectomy, endstage copd, medical non compliance s/p AMA on 3previous occasions prior to hospital admission admitted for worsening sob from endstage copd, recurrent lung ca with new spiculated mass in rt lung, awaiting hospice care, and placement. 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 IMPRESSION Endstage COPD Recurrent Lung ca w new spiculated mass in right lung Severe protein calorie malnutrition bmI 16 Pulmonary cachexia Systolic CHF EF20%-30% H/o polysubstance abuse medical noncompliance. PLAN: awaiting hospice placement. REGIONAL SALES EXECUTIVE. DNR DNI VS, I&O, 24H, Fishbone Vital Signs/I&O Vital Signs Date Time Temp Pulse Resp B/P (MAP) Pulse Ox O2 Delivery O2 Flow Rate FiO2 10/24/19 14:47 20 Room Air 10/24/19 11:26 97.8 100 106/67 99 I&O- Last 24 Hours up to 6 AM 10/24/19 05:59 Intake Total 355 ml Output Total 125 ml Balance 230 ml Laboratory Data Microbiology Microbiology 10/24/19 Coronavirus COVID-19 PCR (MAIKEL), Received Pending RACHELLE AMADOR MD October 24, 2019 16:00
[2019-10-24] MEDS: MORPHINE 10MG/0.5ML ORAL CONCENTRATE SOLUTION U/D SL PRN (16:22)
[2019-10-24 18:14] VITALS: BP 106/67
--- NOTE | 2019-10-24 18:36 | IPNPDOC ---
Date Seen The patient was seen on 10/24/19. Progress Note Due to worsening pain, despite roxanol, iv morphine prn, pt requests morphine iv gtt. plan: DNR,DNI,EDGE [facility]WYER morphine iv gtt to comfort, hold for rr<10. dc previous pain meds. continue ativan iv prn agitation scopolamine patch for terminal secretions. notify family. VS, I&O, 24H, Fishbone Vital Signs/I&O Vital Signs Date Time Temp Pulse Resp B/P (MAP) Pulse Ox O2 Delivery O2 Flow Rate FiO2 10/24/19 18:14 97.8 100 20 106/67 99 Room Air I&O- Last 24 Hours up to 6 AM 10/24/19 06:00 Intake Total 355 ml Output Total 125 ml Balance 230 ml Laboratory Data Microbiology Microbiology 10/24/19 Coronavirus COVID-19 PCR (MAIKEL), Received Pending RACHELLE AMADOR MD October 24, 2019 18:36
[2019-10-24] MEDS: MORPHINE SULF IN 0.9% NACL 100 MG in IV 1 EA IV SCH ×2 (20:07)
[2019-10-24] MEDS: NS 1,000 ML IV SCH (20:37)
[2019-10-24] MEDS ORDERED: MORPHINE 30 MG SA TAB PO SCH (21:00)
[2019-10-24] MEDS ORDERED: MORPHINE 15 MG SA TAB PO SCH (21:00)
[2019-10-24] MEDS: ACETAMINOPHEN 325 MG TAB PO PRN (22:14)
[2019-10-25] MEDS ORDERED: traZODone 100 MG TAB PO SCH (00:45)
[2019-10-25] MEDS: LORazepam 1 MG TAB PO PRN ×2 (04:58→07:09)
[2019-10-25] MEDS: IPRATROPIUM 0.5MG/ALBUTEROL 2.5MG INH SOL UD 3ML (DUONEB)(J7620) NEB PRN (08:14)
--- NOTE | 2019-10-25 08:56 | IPNPDOC ---
Date Seen The patient was seen on 10/25/19. Progress Note chronic back pain /. breathing worse and unable to sleep despite trazodone. dry cough, and thick white sputum decreased. hoarse voice. weak but stillable to walk to bathroom and back without HARRIS. pt has spoken w son and granddaughter, and wishes to go home with hospice. pfs and hospice consulted. PE Vitals: see below GENERAL:bitemporal wasting. disheveled. tearful about not being able to see his family AAOx3 cachectic-appearing male HEENT: Head is normocephalic, atraumatic No scleral icterus. pupils are equal, round, reactive to light. Nares patent. dry mucus membranes. poor dentition. no stridor on exam. (+)use of respiratory accessory muscles. 4-5word dyspnea No cervical or supraclavicular lymphadenopathy bilaterally. CARDIOVASCULAR: Normal rhythm. Normal S1, S2. No murmurs, gallops, rubs appreciated. RESPIRATORY: Breath sounds severely diminished bilaterally. Mild wheezing appreciated in bilateral lower lobes. ABDOMEN: Soft, nontender, nondistended. Bowel sounds present. No hepatosplenomegaly. No masses or ecchymosis. SKIN: Warm, dry. No rashes. EXTREMITIES: No cyanosis or edema in extremities. LABORATORY DATA, IMAGING: pls see below ASSESSMENT: 58-year-old male with h/o polysubstance abuse, metabolic encephalopathy, systolic CHF EF20-30%, multifocal pna, lung ca w lobectomy, endstage copd, medical non compliance s/p AMA on 3previous occasions prior to hospital admission admitted for worsening sob from endstage copd, recurrent lung ca with new spiculated mass in rt lung, awaiting hospice care, and placement. 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 IMPRESSION Endstage COPD Recurrent Lung ca w new spiculated mass in right lung Severe protein calorie malnutrition bmI 16 Pulmonary cachexia Systolic CHF EF20%-30% H/o polysubstance abuse medical noncompliance. insomnia PLAN: awaiting hospice placement. requesting home discharge with hospice, but unable to provide 24/7 care. arranging son and a friend to help him at discharge. defer to pfs/hospice for final discharge plans. ativan for sleep, as pt says he is feeling tired due to insomnia. TOE STRIPPER. DNR DNI. s VS, I&O, 24H, Fishbone Vital Signs/I&O Vital Signs Date Time Temp Pulse Resp B/P (MAP) Pulse Ox O2 Delivery O2 Flow Rate FiO2 10/24/19 18:14 97.8 100 20 106/67 99 Room Air I&O- Last 24 Hours up to 6 AM 10/25/19 06:00 Intake Total 2535 ml Output Total 750 ml Balance 1785 ml Laboratory Data Microbiology Microbiology 10/24/19 Coronavirus COVID-19 PCR (MAIKEL), Received Pending RACHELLE AMADOR MD October 25, 2019 08:56
[2019-10-25] MEDS ORDERED: SCOPOLAMINE 1MG TRANSDERMAL PATCH TOP SCH (09:00)
[2019-10-25] MEDS ORDERED: MORPHINE SULF IN 0.9% NACL 100 MG in IV 1 EA IV SCH ×2 (09:00)
[2019-10-25] MEDS: NICOTINE 14 MG/24 HR TRANSDERMAL TD SCH (10:13)
--- NOTE | 2019-10-25 10:53 | HPE ---
DATE OF ADMISSION: 10/23/2019 CHIEF COMPLAINT: Shortness of breath, cough, HISTORY OF THE PRESENT ILLNESS: This is a 59-year-old male with a history of polysubstance abuse, depression, history of lung cancer, end-stage chronic obstructive pulmonary disease (COPD) with congestive heart failure with systolic dysfunction, ejection fraction of 20-25%, presents to the emergency room after leaving against medical advice for worsening shortness of breath. Patient was seen yesterday and early this morning, was treated for COPD exacerbation on 10/22/2019 with dexamethasone, albuterol. Patient left against medical advice, returned again this morning. CT chest showed spiculated band-like density in the right upper lobe, increased from 08/21/2019 with recurrent malignancy versus progressive inflammation. Emphysema noted on the right with chronic collapse and fibrosis and bronchiectasis of the left upper lobe. Patient received another albuterol treatment at 11:30 this morning, then left again against medical advice. He now returns for admission for hospice and comfort measures only. He otherwise denied any fever. No chills. Cough productive of white clear thick sputum. Increase in production and frequency, worsening shortness of breath. No COVID-19 exposure. Patient has not had any recent travel. Difficulty with dyspnea on exertion when going up three flights of stairs at home. Patient is requiring for nothing else to be done, to be comfort measures and to be referred to hospice care. In the emergency room (ER), he was saturating 98% on room air, tachycardic at 106. CT chest showed no pulmonary embolism. He was afebrile. White count was normal with 82% neutrophils. Lactic acid of 2.8. Hospitalist was called to admit for hospice care. PAST MEDICAL HISTORY: Congestive heart failure, systolic dysfunction, ejection fraction of 20-25%. Type 2 non-ST elevation myocardial infarction. Severe pulmonary hypertension. Right-sided heart failure. Mild tricuspid insufficiency. Mild mitral insufficiency. Grade 1 left ventricular diastolic dysfunction. History of polysubstance abuse. Depression. Chronic back pain. History of lung cancer and COPD. Chronic malnutrition with protein-calorie malnutrition, body mass index of 17. Tobacco abuse, still actively smoking. PAST SURGICAL HISTORY: Partial lung resection. Cyst removal. Hand surgery. FAMILY HISTORY: Three brothers of coronary artery disease at the age of 52, 57 and 45. Mother , age 65, unknown type of cancer. Father , age 67, unknown type of cancer. SOCIAL HISTORY: Patient smoked 1-1/2 packs a day for 40 years, smokes recreational marijuana, inhaled amphetamines. History of alcohol abuse. Patient is DO NOT RESUSCITATE, DO NOT INTUBATE, confirmed again today. 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 REVIEW OF SYSTEMS: Per history of the present illness. 12-point system otherwise negative. ALLERGIES: No known drug allergies. HOME MEDICATIONS: - acetaminophen 650 mg every 4 hours - atorvastatin 40 mg daily - Coreg 3.25 mg twice a day - Lyrica 150 mg three times a day - trazodone 100 mg nightly - albuterol two puffs every 4 hours as needed. PHYSICAL EXAMINATION; Temperature 98.3, pulse 106, respiratory rate 18, blood pressure is 118/61, 98% on room air. Generally, patient is cachectic appearing with bitemporal wasting. Appears older than his stage, disheveled with poor dentition. No jugular venous distention (JVD)/thyromegaly. No cervical lymphadenopathy. Missing teeth. Lungs: Diminished with faint expiratory wheezing. Crackles at the right upper lobe. Heart: S1, S2, regular rate and rhythm. Faint 2/6 murmur at the left lower sternal border. Abdomen: Soft, nontender, nondistended. Positive bowel sounds times four quadrants. No rebound, guarding. Extremities: No cyanosis, clubbing or any pitting edema. LABORATORY DATA: White count 9.2, hemoglobin 14, hematocrit 43, platelet count 420, 82% neutrophils. Metabolic panel: Sodium 137, potassium 4.4, chloride 103, bicarbonate 25, BUN 17, creatinine 0.97, glucose 123, lactic acid of 2.3. CT chest: No pulmonary embolism. There is an enlargement and band-like spiculated density right upper lobe increased from 08/21/2019. Emphysema noted on the right. Chronic collapse and fibrosis. Bronchiectasis in the left upper lobe. ASSESSMENT AND PLAN: This is a 59-year-old DO NOT RESUSCITATE, DO NOT INTUBATE, history of systolic congestive heart failure, ejection fraction 20-30%, substance abuse, end-stage COPD, lung cancer with possible recurrence and spiculated nodule right upper lobe, COPD and chronic polysubstance abuse with alcohol, tobacco, methamphetamine use, recreational marijuana, has no healthcare proxy, presents for admission for hospice placement. Patient had previously seen Dr. Jones, filter tip catcher, who had indicated to him that there is "nothing more can be done for me." Congestive heart failure, systolic dysfunction, ejection fraction of 20-30%. Patient does not want any further intervention, and requests hospice. Hospice will be consulted. VINOD
[2019-10-25] MEDS: MORPHINE SULF IN 0.9% NACL 100 MG in IV 1 EA IV SCH ×2 (18:50)
[2019-10-25] MEDS: NS 1,000 ML IV SCH (20:37)
[2019-10-25] MEDS: LORazepam 2 MG TAB PO SCH (20:37)
[2019-10-25] MEDS: traZODone 100 MG TAB PO PRN (20:37)
[2019-10-25] MEDS: ACETAMINOPHEN 325 MG TAB PO PRN (22:08)
[2019-10-25] MEDS ORDERED: MAALOX 30 ML SUSP *UDC PO ONE (22:45)
[2019-10-26] MEDS: LORazepam 1 MG TAB PO PRN (07:59)
[2019-10-26] MEDS: NICOTINE 14 MG/24 HR TRANSDERMAL TD SCH (07:59)
[2019-10-26] MEDS ORDERED: ACETAMINOPHEN TAB 650MG DOSE (2X325MG) PO PRN (08:00)
[2019-10-26] MEDS ORDERED: MORPHINE SULF IN 0.9% NACL 100 MG in IV 1 EA IV SCH ×2 (08:00)
[2019-10-26] MEDS ORDERED: TAMSULOSIN 0.4 MG CAP PO ONE (09:15)
--- NOTE | 2019-10-26 09:21 | IPNPDOC ---
Date Seen The patient was seen on 10/26/19. Progress Note c/o urine retention due to morphine.per rn, pt seemed lethargic and morphine iv gtt titrated to 4mg/hr. pt c/o 8-10/10 bladder pain trying to urinate, requesting more pain meds. flomax started. prn intermittent cath vs sutton. no sob, cp, pressure, still w cough but scant and productive with white thick sputum. no fever or chills. PE Vitals: see below GENERAL:bitemporal wasting. disheveled. older than stated age. cachectic HEENT: Head is normocephalic, atraumatic No scleral icterus. pupils are equal, round, reactive to light. Nares patent. dry mucus membranes. poor dentition. no stridor on exam. (+)use of respiratory accessory muscles. 4-5word dyspnea No cervical or supraclavicular lymphadenopathy bilaterally. CARDIOVASCULAR: Normal rhythm. Normal S1, S2. No murmurs, gallops, rubs appreciated. RESPIRATORY: Breath sounds severely diminished bilaterally. Mild wheezing appreciated in bilateral lower lobes. ABDOMEN: Soft, nontender, nondistended. Bowel sounds present. No hepatosplenomegaly. No masses or ecchymosis. SKIN: Warm, dry. No rashes. EXTREMITIES: No cyanosis or edema in extremities. LABORATORY DATA, IMAGING: pls see below ASSESSMENT: 58-year-old male with h/o polysubstance abuse, metabolic encephalopathy, systolic CHF EF20-30%, multifocal pna, lung ca w lobectomy, endstage copd, medical non compliance s/p AMA on 3previous occasions prior to hospital admission admitted for worsening sob from endstage copd, recurrent lung ca with new spiculated mass in rt lung, awaiting hospice care, and placement. 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 IMPRESSION Endstage COPD Recurrent Lung ca w new spiculated mass in right lung Severe protein calorie malnutrition bmI 16 Pulmonary cachexia Systolic CHF EF20%-30% Urine retention due to morphine H/o polysubstance abuse medical noncompliance. 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 DNR DNI. trial of flomax, cath for comfort. awaiting hospice consult. pt wants home w hospice . morphine iv gtt per pt request and still with 8/10 pain. VS, I&O, 24H, Fishbone Vital Signs/I&O Vital Signs Date Time Temp Pulse Resp B/P (MAP) Pulse Ox O2 Delivery O2 Flow Rate FiO2 10/24/19 18:14 97.8 100 20 106/67 99 Room Air I&O- Last 24 Hours up to 6 AM 10/26/19 06:00 Intake Total 2927 ml Output Total 975 ml Balance 1952 ml Laboratory Data Microbiology Microbiology 10/24/19 Coronavirus COVID-19 PCR (MAIKEL) - Final, Complete RACHELLE AMADOR MD October 26, 2019 07:58
[2019-10-26] MEDS: MORPHINE 10MG/0.5ML ORAL CONCENTRATE SOLUTION U/D SL PRN ×2 (15:04→21:41)
[2019-10-26] MEDS: IPRATROPIUM 0.5MG/ALBUTEROL 2.5MG INH SOL UD 3ML (DUONEB)(J7620) NEB PRN (20:47)
[2019-10-26] MEDS: LORazepam 2 MG TAB PO SCH (21:35)
[2019-10-26] MEDS: traZODone 100 MG TAB PO PRN (22:56)
[2019-10-27] MEDS: MORPHINE 10MG/0.5ML ORAL CONCENTRATE SOLUTION U/D SL PRN ×2 (03:55→13:10)
[2019-10-27] MEDS: NICOTINE 14 MG/24 HR TRANSDERMAL TD SCH (08:14)
[2019-10-27] MEDS ORDERED: ATIV1TAB10 PO (08:35)
[2019-10-27] MEDS ORDERED: HYOS125TA PO (08:35)
[2019-10-27] MEDS ORDERED: MORP20SO3 PO (08:35)
[2019-10-27] MEDS ORDERED: SCOP1PAT2 TOP (08:36)
[2019-10-27] MEDS ORDERED: TAMSULOSIN 0.4 MG CAP PO SCH (09:00)
--- NOTE | 2019-10-27 13:01 | IPNPDOC ---
Date Seen The patient was seen on 10/27/19. Progress Note Pt wants to go home with hospice, but cannot provide 24/7 care. pt c/o pain 11/04 on back, with occasional productive cough with scant thick sputum production. IVsite infiltrated yesterday, and now off morphine iv gtt, on prn roxanol for pain. urine retention due to opioids,with prn catheterization . awaiting pfs/ hospice PE Vitals: see below GENERAL:bitemporal wasting. disheveled. older than stated age. cachectic. no pallor no cyanosis. HEENT: Head is normocephalic, atraumatic No scleral icterus. pupils are equal, round, reactive to light. Nares patent. dry mucus membranes. poor dentition. no stridor on exam. (+)use of respiratory accessory muscles. 4-5word dyspnea No cervical or supraclavicular lymphadenopathy bilaterally. CARDIOVASCULAR: Normal rhythm. Normal S1, S2. No murmurs, gallops, rubs appreciated. RESPIRATORY: Breath sounds severely diminished bilaterally. Mild wheezing appreciated in bilateral lower lobes. ABDOMEN: Soft, nontender, nondistended. Bowel sounds present. No hepatosplenomegaly. No masses or ecchymosis. SKIN: Warm, dry. No rashes. EXTREMITIES: No cyanosis or edema in extremities. LABORATORY DATA, IMAGING: pls see below ASSESSMENT: 58-year-old male with h/o polysubstance abuse, metabolic encephalopathy, systolic CHF EF20-30%, multifocal pna, lung ca w lobectomy, endstage copd, medical non compliance s/p AMA on 3previous occasions prior to hospital admission admitted for worsening sob from endstage copd, recurrent lung ca with new spiculated mass in rt lung, awaiting hospice care, and placement. 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 IMPRESSION Endstage COPD Recurrent Lung ca w new spiculated mass in right lung Severe protein calorie malnutrition bmI 16 Pulmonary cachexia Systolic CHF EF20%-30% Urine retention due to morphine H/o polysubstance abuse medical noncompliance. 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 DNR DNI. trial of flomax, cath for comfort. awaiting hospice consult. pt wants home w hospice . morphine iv gtt discontinued due to peripheral iv site infiltration. currently on prn roxanol, ativan, and scopolamine patch. warm compresses and elevation for iv site infiltration. VS, I&O, 24H, Fishbone Vital Signs/I&O Vital Signs Date Time Temp Pulse Resp B/P (MAP) Pulse Ox O2 Delivery O2 Flow Rate FiO2 10/27/19 04:25 18 Room Air 10/24/19 18:14 97.8 100 106/67 99 I&O- Last 24 Hours up to 6 AM 10/27/19 06:00 Intake Total 380 ml Output Total 750 ml Balance -370 ml Laboratory Data Microbiology Microbiology 10/24/19 Coronavirus COVID-19 PCR (MAIKEL) - Final, Complete RACHELLE AMADOR MD Oct 27, 2019 13:01
== END 2019-10-27 14:07 | disposition home or self-care (01) | DRG 951 ==
LOC: M ED 15:51 → M ED INP 16:44 → M MSPAV 17:30
PROVIDERS: ADMIT General Practice; ATTEND General Practice
DX: Z51.5 Encounter for palliative care (principal); E43 Unspecified severe protein-calorie malnutrition; C34.91 Malignant neoplasm of unspecified part of right bronchus or lung; I50.22 Chronic systolic (congestive) heart failure; R64 Cachexia; Z68.1 Body mass index [BMI] 19.9 or less, adult; J44.9 Chronic obstructive pulmonary disease, unspecified; F19.10 Other psychoactive substance abuse, uncomplicated; I25.2 Old myocardial infarction; I27.20 Pulmonary hypertension, unspecified; Z66 Do not resuscitate; I08.1 Rheumatic disorders of both mitral and tricuspid valves; Z91.19 Patient's noncompliance with other medical treatment and regimen

== ENCOUNTER 2019-11-23 05:44 | Emergency (ER) | payer MEDICARE, MEDICAID ==
[~2019-11-23] VITALS: Ht 167.6 cm; Wt 45.6 kg
[~2019-11-23 05:44] MED LIST changes: +ATIV1TAB10 PO; +HYOS125TA PO; +MORP20SO3 PO; +SCOP1PAT2 TOP
[2019-11-23] MEDS ORDERED: GLYCERIN ADULT SUPP PR ONE (06:30)
[2019-11-23] MEDS ORDERED: METHYLNALTREXONE BROMIDE 12 MG/0.6 ML VIAL (RELISTOR) SC ONE (06:30)
[2019-11-23 06:46] LABS: BASO # 0.1 10^3/uL (0.0-0.2); BASO % 0.5 % (0.0-1.0); EOS # 0.4 10^3/uL (0.0-0.5); EOS % 3.8 % (0.0-3.0); HEMATOCRIT 44.1 % (42.0-52.0); HEMOGLOBIN 14.6 g/dl (13.5-17.5); LYMPH # 1.3 10^3/uL (1.5-5.0); LYMPH % 14.1 % (24.0-44.0); MEAN CORPUSCULAR HEMOGLOBIN 29.1 pg (27.0-33.0); MEAN CORPUSCULAR HGB CONC 33.1 g/dl (32.0-36.5); MEAN CORPUSCULAR VOLUME 87.8 fl (80.0-96.0); MONO # 0.8 10^3/uL (0.0-0.8); MONO % 9.1 % (0.0-5.0); NEUTROPHILS # 6.7 10^3/uL (1.5-8.5); NEUTROPHILS % 72.3 % (36.0-66.0); PLATELET COUNT, AUTOMATED 320 10^3/uL (150-450); RED BLOOD COUNT 5.02 10^6/uL (4.30-6.10); WHITE BLOOD COUNT 9.2 10^3/uL (4.0-10.0)
[2019-11-23] MEDS ORDERED: FLEET ENEMA PR STA (06:59)
[2019-11-23] MEDS ORDERED: ONDANSETRON 4MG/2ML VIAL IV ONE (07:00)
[2019-11-23 07:07] LABS: ALBUMIN 3.3 GM/DL (3.2-5.2); ALT/SGPT 13 U/L (12-78); BILIRUBIN,DIRECT 0.2 MG/DL (0.0-0.2); BILIRUBIN,TOTAL 0.6 MG/DL (0.2-1.0); BLOOD UREA NITROGEN 14 MG/DL (7-18); CARBON DIOXIDE LEVEL 31 MEQ/L (21-32); CHLORIDE LEVEL 103 MEQ/L (98-107); CREATININE FOR GFR 0.92 MG/DL (0.70-1.30); GLOMERULAR FILTRATION RATE > 60.0 (>56); GLUCOSE, FASTING 88 MG/DL (70-100); LIPASE 83 U/L (73-393); POTASSIUM SERUM 4.2 MEQ/L (3.5-5.1); SODIUM LEVEL 140 MEQ/L (136-145); TOTAL PROTEIN 6.7 GM/DL (6.4-8.2)
--- NOTE | 2019-11-23 07:28 | REP ---
Clinical: Abdominal pain. Technique: Two supine views of the abdomen and pelvis. Findings: Bowel gas pattern is nonspecific. No obvious organomegaly. No abnormal calcifications. No foreign body. Skeletal structures are intact. Impression: Nonspecific bowel gas pattern. Electronically Signed by Patric Geller MD 11/23/2019 07:19 A
--- NOTE | 2019-11-23 07:39 | REPVR ---
PROCEDURE INFORMATION: Exam: CT Abdomen And Pelvis Without Contrast Exam date and time: 11/23/2019 6:58 AM Age: 59 years old Clinical indication: Constipation; Abdominal pain; Additional info: Abd pain, constipation, R/O obstruction TECHNIQUE: Imaging protocol: Computed tomography of the abdomen and pelvis without contrast. Radiation optimization: All CT scans at this facility use at least one of these dose optimization techniques: automated exposure control; mA and/or kV adjustment per patient size (includes targeted exams where dose is matched to clinical indication); or iterative reconstruction. COMPARISON: CT ABD PELVIS W/O FOL BY WIT 05/24/2016 4:29 PM FINDINGS: Evaluation is limited by absence of intravenous contrast and paucity of mesenteric fat. Pleural space: Chronic loculated 2.7 cm right pleural fluid collection and pleural thickening. 14 mm pericardial effusion. Emphysematous change and right basilar parenchymal stranding. Liver: No focal hepatic mass. Gallbladder and bile ducts: Contracted gallbladder. Pancreas: No pancreatic mass or ductal dilatation. Spleen: Granulomata in the enlarged spleen measuring 12.9 cm in length. Adrenals: Unremarkable adrenals. Kidneys and ureters: 1 mm nonobstructing left renal calculus. Stomach and bowel: Dilated stool-filled colon and rectum, in a pattern of constipation and impending fecal impaction. The dilated stool-filled rectum measures 7.8 cm in transverse dimension. Mildly dilated air and fluid-filled stomach. Appendix: Nonvisualized appendix. Intraperitoneal space: No significant free fluid. Vasculature: Prominent vascular calcification. No abdominal aortic aneurysm. Lymph nodes: No pathologically enlarged lymph nodes. Bladder: Bladder wall thickening. Reproductive: Enlarged prostate producing extrinsic compression of the bladder base. Bones/joints: No acute osseous pathology. IMPRESSION: 1. 1 mm nonobstructing left renal calculus. 2. Dilated stool-filled colon and rectum, in a pattern of constipation and impending fecal impaction. The dilated stool-filled rectum measures 7.8 cm in transverse dimension. 3. Enlarged prostate producing extrinsic compression of the bladder base. 4. Additional findings as described above. Electronically signed by: Patrick Erickson On 11/23/2019 07:39:14 AM
[2019-11-23 08:05] VITALS: BP 104/67
[2019-11-23] MEDS ORDERED: COLA100C5 PO (08:05)
[2019-11-23] MEDS ORDERED: MAGNESIUM CITRATE 300 ML BTL PO ONE (08:15)
== END 2019-11-23 08:20 | disposition home or self-care (01) ==
LOC: M ED 05:44
DX: K59.00 Constipation, unspecified (principal); N20.0 Calculus of kidney; N40.2 Nodular prostate without lower urinary tract symptoms; D73.89 Other diseases of spleen; R11.2 Nausea with vomiting, unspecified; R10.84 Generalized abdominal pain; I25.2 Old myocardial infarction; I50.9 Heart failure, unspecified; K21.9 Gastro-esophageal reflux disease without esophagitis; J44.9 Chronic obstructive pulmonary disease, unspecified; F19.10 Other psychoactive substance abuse, uncomplicated; F32.9 Major depressive disorder, single episode, unspecified; I27.20 Pulmonary hypertension, unspecified; Z85.118 Personal history of other malignant neoplasm of bronchus and lung; Z90.2 Acquired absence of lung [part of]; Z72.0 Tobacco use; F12.10 Cannabis abuse, uncomplicated
CPT/HCPCS: 74018; 74176; 80048; 80076; 83690; 85025; 96374; 99284; J2405

== ENCOUNTER 2020-02-12 10:48 | Emergency (ER) | payer MEDICARE, MEDICAID ==
[~2020-02-12] VITALS: Ht 167.6 cm; Wt 45.9 kg
[~2020-02-12 10:48] MED LIST changes: +COLA100C5 PO
[2020-02-12 11:08] VITALS: BP 111/65
[2020-02-12] MEDS ORDERED: ONDA8TAB10 PO (11:12)
[2020-02-12] MEDS ORDERED: ALBU8.5H INH (11:15)
[2020-02-12] MEDS ORDERED: XTAM13.5 PO (11:15)
[2020-02-12] MEDS ORDERED: PREG300C PO (11:15)
[2020-02-12] MEDS ORDERED: OMEP-221 PO (11:15)
[2020-02-12] MEDS: COMBIVENT RESPIMAT 100-20MCG INHALER 4GM INH SCH ×3 (11:25→13:06)
[2020-02-12] MEDS ORDERED: NS 500 ML IV ONE (11:30)
[2020-02-12] MEDS ORDERED: dexameTHASONE 20MG/5ML VIAL (J1100 PER 1MG) IV ONE (11:30)
--- NOTE | 2020-02-12 11:56 | REPVR ---
PROCEDURE INFORMATION: Exam: XR Chest, 1 View Exam date and time: 02/12/2020 11:47 AM Age: 59 years old Clinical indication: Shortness of breath; Additional info: Dyspnea/cough TECHNIQUE: Imaging protocol: XR of the chest Views: 1 view. COMPARISON: CR PORTABLE CHEST X-RAY 10/23/2019 11:27 AM FINDINGS: Lungs: There is similar pleural and parenchymal density at the left apex, with upward retraction of the left hilum and leftward deviation of the trachea. Areas of scarring are present elsewhere bilaterally. There is no new consolidation or other opacity. Pleural space: Unremarkable. No pleural effusion. No pneumothorax. Heart/Mediastinum: The cardiomediastinal silhouette is fairly stable in appearance. Bones/joints: Unremarkable. IMPRESSION: Chronic changes similar to 10/14 01/14. No new disease evident. Electronically signed by: Barber Kamara On 02/12/2020 11:56:53 AM
[2020-02-12 12:05] LABS: BASO % 0.6 % (0.0-1.0); EOS # 0.1 10^3/uL (0.0-0.5); HEMATOCRIT 50.5 % (42.0-52.0); HEMOGLOBIN 16.6 g/dl (13.5-17.5); LYMPH # 0.8 10^3/uL (1.5-5.0); LYMPH % 11.8 % (24.0-44.0); MEAN CORPUSCULAR HEMOGLOBIN 28.5 pg (27.0-33.0); MEAN CORPUSCULAR HGB CONC 32.9 g/dl (32.0-36.5); MEAN CORPUSCULAR VOLUME 86.8 fl (80.0-96.0); MONO # 0.6 10^3/uL (0.0-0.8); MONO % 8.1 % (0.0-5.0); NEUTROPHILS # 5.3 10^3/uL (1.5-8.5); NEUTROPHILS % 78.2 % (36.0-66.0); PLATELET COUNT, AUTOMATED 406 10^3/uL (150-450); RED BLOOD COUNT 5.82 10^6/uL (4.30-6.10); WHITE BLOOD COUNT 6.8 10^3/uL (4.0-10.0)
[2020-02-12 12:34] LABS: ALBUMIN 3.8 GM/DL (3.2-5.2); ALT/SGPT 34 U/L (12-78); BILIRUBIN,DIRECT 0.2 MG/DL (0.0-0.2); BILIRUBIN,TOTAL 1.5 MG/DL (0.2-1.0); CK-MB VALUE MASS < 1.0 NG/ML (<3.6); CPK CREATINE PHOSPHOKINASE 75 U/L (39-308); MB/CK RELATIVE INDEX 1.33 (< OR =4); NT-PRO BNP 511 PG/ML (<125); THYROID STIMULATING HORMONE 0.548 uIU/ML (0.358-3.740); THYROXINE (T4) 13.2 UG/DL (4.5-12.0); TOTAL PROTEIN 8.3 GM/DL (6.4-8.2); TROPONIN I < 0.02 NG/ML (< 0.10)
--- NOTE | 2020-02-14 11:37 | ECGEPIP ---
[facility] - ED Test Date: 2020-02-12 Pat Name: ALBERT LAINEZ Department: Room: - Gender: Male Die Maker: : 1960 Requested By: GRIS Mistry Order Number: [id number] Reading MD: Andrew Reynaga Measurements Intervals [place] Rate: 102 P: 86 MT: 139 QRS: 85 QRSD: 103 T: 89 QT: 372 QTc: 485 Interpretive Statements SINUS TACHYCARDIA LEFT ATRIAL ENLARGEMENT POOR R WAVE PROGRESSION SIMILAR TO 10/23/19 Electronically Signed on 02-14-2020 11:36:59 EDT by Andrew Reynaga
== END 2020-02-12 13:36 | disposition left against medical advice (07) ==
LOC: M ED 10:48 → EDBD 10:48 → M ED 13:36
DX: R06.02 Shortness of breath (principal); R00.0 Tachycardia, unspecified; I51.7 Cardiomegaly; Z53.21 Procedure and treatment not carried out due to patient leaving prior to being seen by health care provider; I50.9 Heart failure, unspecified; I25.2 Old myocardial infarction; J44.9 Chronic obstructive pulmonary disease, unspecified; F17.200 Nicotine dependence, unspecified, uncomplicated; Z79.899 Other long term (current) drug therapy
CPT/HCPCS: 71045; 80047; 80076; 82550; 82553; 83880; 84436; 84443; 84484; 85025; 87040; 93005; 93041; 94640; 94760; 96361; 96374; 99284; J1100

== ENCOUNTER 2020-02-20 10:36 | Emergency (ER) | payer MEDICARE, MEDICAID ==
[~2020-02-20] VITALS: Ht 167.6 cm; Wt 45.5 kg
[~2020-02-20 10:36] MED LIST changes: +ALBU8.5H INH; +ONDA8TAB10 PO; +PREG300C PO
[2020-02-20] MEDS ORDERED: FLUTISP IH (10:47)
[2020-02-20] MEDS ORDERED: ONDANSETRON 4MG/2ML VIAL IV ONE (11:30)
[2020-02-20] MEDS ORDERED: NS 1,000 ML IV ONE ×2 (11:30→13:00)
[2020-02-20 13:03] LABS: BASO # 0.1 10^3/uL (0.0-0.2); BASO % 0.7 % (0.0-1.0); EOS # 0.1 10^3/uL (0.0-0.5); EOS % 0.7 % (0.0-3.0); HEMATOCRIT 46.5 % (42.0-52.0); HEMOGLOBIN 15.1 g/dl (13.5-17.5); LYMPH % 7.9 % (24.0-44.0); MEAN CORPUSCULAR HEMOGLOBIN 28.6 pg (27.0-33.0); MEAN CORPUSCULAR HGB CONC 32.5 g/dl (32.0-36.5); MEAN CORPUSCULAR VOLUME 88.1 fl (80.0-96.0); MONO # 1.2 10^3/uL (0.0-0.8); MONO % 9.8 % (0.0-5.0); NEUTROPHILS # 9.9 10^3/uL (1.5-8.5); NEUTROPHILS % 80.5 % (36.0-66.0); PLATELET COUNT, AUTOMATED 401 10^3/uL (150-450); RED BLOOD COUNT 5.28 10^6/uL (4.30-6.10); WHITE BLOOD COUNT 12.2 10^3/uL (4.0-10.0)
--- NOTE | 2020-02-20 13:26 | REPVR ---
PROCEDURE INFORMATION: Exam: XR Chest, 1 View Exam date and time: 02/20/2020 1:06 PM Age: 59 years old Clinical indication: Other: Vomiting TECHNIQUE: Imaging protocol: XR of the chest Views: 1 view. COMPARISON: CR PORTABLE CHEST X-RAY 02/12/2020 11:36 AM FINDINGS: Lungs: Emphysematous changes. Stable consolidation in the left upper lobe and left perihilar region, favored to represent chronic scarring. Redemonstration of superior retraction of the left hilum. Stable mild scarring in the right hilum. Calcified granuloma in the left perihilar region. No new focal consolidation. Stable mild patchy consolidation in the right upper lung. Pleural space: Unchanged left apical pleural thickening. Stable mild blunting of the right costophrenic angle. Heart/Mediastinum: Stable mild leftward deviation of the mid trachea. Bones/joints: Unremarkable. IMPRESSION: Essentially stable examination. Electronically signed by: Shirley Cuevas On 02/20/2020 13:26:38 PM
[2020-02-20 13:32] LABS: ALBUMIN 3.6 GM/DL (3.2-5.2); BILIRUBIN,DIRECT 0.3 MG/DL (0.0-0.2); BILIRUBIN,TOTAL 1.3 MG/DL (0.2-1.0); TOTAL PROTEIN 7.2 GM/DL (6.4-8.2)
[2020-02-20 15:30] VITALS: BP 133/66
--- NOTE | 2020-02-20 18:12 | ECGEPIP ---
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 Order Number: [id number] Reading MD: William Lynne Measurements Intervals [place] Rate: 97 P: 88 [place]: 131 QRS: 72 QRSD: 86 T: 90 QT: 353 QTc: 449 Interpretive Statements SINUS RHYTHM Delayed anterior R wave progression Nonspecific ST-T wave abnormalities Similar to tracing done 02-12-20 Electronically Signed on 02-20-2020 18:11:52 EDT by William Lynne
== END 2020-02-20 15:51 | disposition home or self-care (01) ==
LOC: M ED 10:36
DX: E86.0 Dehydration (principal); R11.2 Nausea with vomiting, unspecified; C34.90 Malignant neoplasm of unspecified part of unspecified bronchus or lung; F17.200 Nicotine dependence, unspecified, uncomplicated; F12.10 Cannabis abuse, uncomplicated; Z79.51 Long term (current) use of inhaled steroids; Z79.891 Long term (current) use of opiate analgesic; Z79.899 Other long term (current) drug therapy; Z90.2 Acquired absence of lung [part of]
CPT/HCPCS: 36415; 71045; 80047; 80076; 83605; 83690; 85025; 87040; 93005; 93041; 96361; 96374; 99285; J2405

== ENCOUNTER 2020-03-07 13:27 | Emergency (ER) | payer MEDICARE, MEDICAID ==
[~2020-03-07] VITALS: Ht 167.6 cm; Wt 45.5 kg
[~2020-03-07 13:27] MED LIST changes: +FLUTISP IH
[2020-03-07] MEDS ORDERED: NS 1,000 ML IV SCH ×2 (13:34→14:30)
--- NOTE | 2020-03-07 13:51 | REPVR ---
PROCEDURE INFORMATION: Exam: XR Chest, 1 View Exam date and time: 03/07/2020 1:45 PM Age: 59 years old Clinical indication: Chest pain; Additional info: Drug overdose TECHNIQUE: Imaging protocol: XR of the chest Views: 1 view. COMPARISON: CR Chest, 1 view 02/20/2020 1:03 PM FINDINGS: Lungs: Lungs are hyperinflated. Pleural space: No pleural effusion. No pneumothorax. Heart/Mediastinum: There are increased opacities in the left upper lobe, with adjacent band like consolidative thickening/scarring and similar leftward retraction of the trachea. Similar scarring and mild volume loss of the right upper lobe. Cardiac silhouette is not enlarged. Bones/joints: No acute abnormality. IMPRESSION: Mildly increased opacities in the left upper lobe, possibly atelectasis or infection, on a background of extensive scarring and volume loss in the left greater than right upper lobes. Electronically signed by: Joe Oscar On 03/07/2020 13:51:15 PM
[2020-03-07] MEDS ORDERED: IPRATROPIUM 0.5MG/ALBUTEROL 2.5MG INH SOL UD 3ML (DUONEB) NEB ONE (14:00)
[2020-03-07 14:03] LABS: BASO % 0.5 % (0.0-1.0); EOS # 0.1 10^3/uL (0.0-0.5); EOS % 1.5 % (0.0-3.0); HEMATOCRIT 41.4 % (42.0-52.0); HEMOGLOBIN 13.4 g/dl (13.5-17.5); LYMPH # 0.8 10^3/uL (1.5-5.0); MEAN CORPUSCULAR HEMOGLOBIN 28.7 pg (27.0-33.0); MEAN CORPUSCULAR HGB CONC 32.4 g/dl (32.0-36.5); MEAN CORPUSCULAR VOLUME 88.7 fl (80.0-96.0); MONO # 0.6 10^3/uL (0.0-0.8); MONO % 10.4 % (0.0-5.0); NEUTROPHILS # 4.5 10^3/uL (1.5-8.5); NEUTROPHILS % 74.4 % (36.0-66.0); PLATELET COUNT, AUTOMATED 305 10^3/uL (150-450); RED BLOOD COUNT 4.67 10^6/uL (4.30-6.10)
[2020-03-07 14:36] LABS: ACETAMINOPHEN LEVEL < 2.0 UG/ML (10.0-30.0); ALBUMIN 3.2 GM/DL (3.2-5.2); ALT/SGPT 20 U/L (12-78); BILIRUBIN,DIRECT 0.2 MG/DL (0.0-0.2); BLOOD UREA NITROGEN 10 MG/DL (7-18); CALCIUM LEVEL 8.6 MG/DL (8.5-10.1); CARBON DIOXIDE LEVEL 29 MEQ/L (21-32); CHLORIDE LEVEL 103 MEQ/L (98-107); CK-MB VALUE MASS < 1.0 NG/ML (<3.6); CPK CREATINE PHOSPHOKINASE 40 U/L (39-308); CREATININE FOR GFR 0.83 MG/DL (0.70-1.30); ETHYL ALCOHOL (ETHANOL) < 0.003 % (0.000-0.010); GLOMERULAR FILTRATION RATE > 60.0 (>56); GLUCOSE, FASTING 87 MG/DL (70-100); POTASSIUM SERUM 4.4 MEQ/L (3.5-5.1); SALICYLATE LEVEL < 1.7 MG/DL (5.0-30.0); SODIUM LEVEL 138 MEQ/L (136-145); THYROID STIMULATING HORMONE 0.341 uIU/ML (0.358-3.740); TOTAL PROTEIN 6.7 GM/DL (6.4-8.2); TROPONIN I < 0.02 NG/ML (< 0.10)
[2020-03-07 17:10] VITALS: BP 110/57
--- NOTE | 2020-03-08 07:00 | ECGEPIP ---
[facility] - ED Test Date: 2020-03-07 Pat Name: ALBERT LAINEZ Department: Room: - Gender: Male Principal Technical Architect: ALICJA : 1960 Requested By: Lilo Domingo Order Number: [id number] Reading MD: Lilo Domingo Measurements Intervals [place] Rate: 101 P: 86 CT: 138 QRS: 87 QRSD: 88 T: 95 QT: 371 QTc: 481 Interpretive Statements SINUS TACHYCARDIA ABNORMAL RHYTHM ECG NSTTW abnormalities similar to prior EKG 02/20/20 Electronically Signed on 03-08-2020 7:00:07 EDT by Lilo Domingo
== END 2020-03-07 17:15 | disposition home or self-care (01) ==
LOC: M ED 13:27
DX: F15.10 Other stimulant abuse, uncomplicated (principal); R00.0 Tachycardia, unspecified; R94.31 Abnormal electrocardiogram [ECG] [EKG]; I51.9 Heart disease, unspecified; J44.9 Chronic obstructive pulmonary disease, unspecified; Z85.118 Personal history of other malignant neoplasm of bronchus and lung; Z90.2 Acquired absence of lung [part of]; I27.20 Pulmonary hypertension, unspecified; F17.200 Nicotine dependence, unspecified, uncomplicated
CPT/HCPCS: 71045; 80048; 80076; 82550; 82553; 83605; 84443; 84484; 85025; 93005; 93041; 94640; 94760; 96360; 96361; 99285; G0480

== ENCOUNTER 2020-03-19 08:59 | Emergency (ER) | payer MEDICARE, MEDICAID ==
[2020-03-19 09:13] VITALS: BP 117/58
[2020-03-19] MEDS ORDERED: COMBIVENT RESPIMAT 100-20MCG INHALER 4GM INH SCH (09:30)
[2020-03-19] MEDS ORDERED: dexameTHASONE 20MG/5ML VIAL (J1100 PER 1MG) IV ONE (09:30)
== END 2020-03-19 11:01 | disposition left against medical advice (07) ==
LOC: M ED 08:59
DX: Z53.9 Procedure and treatment not carried out, unspecified reason (principal); I50.9 Heart failure, unspecified; I25.10 Atherosclerotic heart disease of native coronary artery without angina pectoris; J44.9 Chronic obstructive pulmonary disease, unspecified; I27.20 Pulmonary hypertension, unspecified; F17.200 Nicotine dependence, unspecified, uncomplicated; F19.10 Other psychoactive substance abuse, uncomplicated

== ENCOUNTER 2020-03-23 12:56 | Observation (INO) | payer MEDICARE, MEDICAID ==
[~2020-03-23] VITALS: Ht 167.6 cm; Wt 47.7 kg
[2020-03-23] MEDS ORDERED: NS 1,000 ML IV SCH (13:15)
[2020-03-23] MEDS ORDERED: IPRATROPIUM 0.5MG/ALBUTEROL 2.5MG INH SOL UD 3ML (DUONEB) NEB ONE (13:15)
[2020-03-23 13:43] LABS: BASO % 0.7 % (0.0-1.0); EOS # 0.1 10^3/uL (0.0-0.5); EOS % 1.4 % (0.0-3.0); HEMATOCRIT 43.1 % (42.0-52.0); HEMOGLOBIN 13.6 g/dl (13.5-17.5); LYMPH # 0.9 10^3/uL (1.5-5.0); LYMPH % 14.7 % (24.0-44.0); MEAN CORPUSCULAR HEMOGLOBIN 28.6 pg (27.0-33.0); MEAN CORPUSCULAR HGB CONC 31.6 g/dl (32.0-36.5); MEAN CORPUSCULAR VOLUME 90.5 fl (80.0-96.0); MONO # 0.7 10^3/uL (0.0-0.8); MONO % 11.3 % (0.0-5.0); NEUTROPHILS # 4.1 10^3/uL (1.5-8.5); NEUTROPHILS % 71.6 % (36.0-66.0); PLATELET COUNT, AUTOMATED 414 10^3/uL (150-450); RED BLOOD COUNT 4.76 10^6/uL (4.30-6.10); WHITE BLOOD COUNT 5.8 10^3/uL (4.0-10.0)
[2020-03-23] MEDS ORDERED: ONDANSETRON 4MG/2ML VIAL IV ONE (13:45)
[2020-03-23] MEDS: MORPHINE 2 MG/ML 1ML VIAL (J2270) IV PRN ×2 (13:46→15:05)
--- NOTE | 2020-03-23 13:47 | REP ---
INDICATION: DYSPNEA/COUGH. COMPARISON: 03/07/2020. TECHNIQUE: SINGLE PORTABLE AP VIEW OF THE CHEST WAS PERFORMED. FINDINGS: There are stable chronic fibro atelectatic changes bilaterally, much more so in the left upper lobe. There is deviation of the trachea to the left. No new infiltrate is seen. Heart is not enlarged. Mediastinal silhouette is unchanged. IMPRESSION: Stable chronic findings with no new infiltrate. <Electronically signed by Jairo Hitchcock > 03/23/20 [id number]
--- NOTE | 2020-03-23 14:28 | ECGEPIP ---
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
[2020-03-23 14:43] LABS: ALBUMIN 3.3 GM/DL (3.2-5.2); BILIRUBIN,DIRECT 0.1 MG/DL (0.0-0.2); BILIRUBIN,TOTAL 0.7 MG/DL (0.2-1.0); THYROID STIMULATING HORMONE 0.362 uIU/ML (0.358-3.740); TOTAL PROTEIN 6.8 GM/DL (6.4-8.2)
[2020-03-23 16:00] VITALS: BP 124/61
[2020-03-23] MEDS ORDERED: IPRATROPIUM 0.5MG/ALBUTEROL 2.5MG INH SOL UD 3ML (DUONEB) NEB PRN (16:45)
[2020-03-23] MEDS ORDERED: MORPHINE 10MG/0.5ML ORAL CONCENTRATE SOLUTION U/D SL PRN (16:45)
--- NOTE | 2020-03-23 17:50 | HPEPDOC ---
General Date of Admission Mar 23, 2020 at 16:01 Date of Service: Mar 23, 2020 Chief Complaint The patient is a 59-year-old male admitted with a reason for visit of Lung Carcinoma, Copd. History of Present Illness 59 year old male with Lung cancer since 2016 with no further treatment to be done, Radiation fibrosis of lungs, COPD, Systolic CHF, severe protein calorie malnutrition, smoker, polysubstance abuse was under hospice care in October 2019 was taken off hospice list as he was having hemoptysis and wanted to come to the hospital so was taken off hospice list. He presents to the ED today for worsening SOB. His SOB improved with Duonebs. He however then requested admission as he was in pain and wanted pain controlled. He also requested to go back to hospice care. He said his pain was all over his bones, dull aching in nature about 5/10 in intensity. He denies any hemoptysis now. He did affirm that he did not want any lab work done or any more test. He did not want to be resuscitated and he wanted to speak with hospice. He says he wants to go back home when he is discharged from the hospital. As per nurses he apparently reascended his HCP today. 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 Chronic Systolic Congestive heart failure, ejection fraction of 20-25%. Severe pulmonary hypertension. Right-sided heart failure. Mild tricuspid insufficiency. Mild mitral insufficiency. Grade 1 left ventricular diastolic dysfunction. Depression. Chronic back pain. Tobacco abuse, still actively smoking. Polysubstance abuse: Meth, marijuana Surgical History Partial lung resection. Cyst removal. Hand surgery. Family History Three brothers of coronary artery disease at the age of 52, 57 and 45. Mother , age 65, unknown type of cancer. Father , age 67, unknown type of cancer. Social History * Smoker: current smoker Alcohol: other (h/o of alcohol abuse) Drugs: marijuana, other (Methamphetamine) A-FIB/CHADSVASC A-FIB History Current/History of A-Fib/PAF?: No Review of Systems Constitutional: Denies: Chills, Fever, Night Sweats Eyes: Denies: Pain, Vision change ENT: Denies: Head Aches, Ear Pain, Dysphagia Skin: Denies: Rash, Lesions, Breakdown Pulmonary: Reports: Dyspnea Cardiovascular: Denies: Chest Pain, Palpitations, Lt Headedness Gastrointestinal: Denies: Nausea, Vomiting, Abdominal Pain, Diarrhea Genitourinary: Denies: Dysuria, Frequency, Incontinence, Retention Hematologic: Denies: Bruising, Bleeding Excessively Musculoskeletal: Reports: Neck Pain, Back Pain Physical Examination General Exam: Positive: Alert, Cooperative, No Acute Distress Eye Exam: Positive: PERRLA, Conjunctiva & lids normal, EOMI; Negative: Sclera icteric ENT Exam: Positive: Atraumatic, Mucous membr. moist/pink, Pharynx Normal Neck Exam: Positive: Supple; Negative: JVD, thyromegaly Chest Exam: Positive: Diminished; Negative: Rales, Rhonchi, Wheezing Heart Exam: Positive: Rate Normal, Regular Rhythm, Normal S1, Normal S2; Negative: Murmurs, Rubs Abdomen Exam: Positive: Normal bowel sounds, Soft; Negative: Tenderness, Hepatospenomegaly Extremity Exam: Positive: Normal pulses; Negative: Clubbing, Cyanosis, Edema Neuro Exam: Positive: Normal Gait, Normal Speech, Cranial Nerves 3-12 NL, Reflexes 2+ Vital Signs Vital Signs Date Time Temp Pulse Resp B/P (MAP) Pulse Ox O2 Delivery O2 Flow Rate FiO2 03/23/20 16:00 105 124/61 (82) 94 03/23/20 15:45 Room Air 03/23/20 15:07 18 03/23/20 13:00 97.7 Laboratory Data Labs 24H Laboratory Tests 2 03/23/20 13:10: Immature Granulocyte % (Auto) 0.3, Neutrophils (%) (Auto) 71.6H, Lymphocytes (%) (Auto) 14.7L, Monocytes (%) (Auto) 11.3H, Eosinophils (%) (Auto) 1.4, Basophils (%) (Auto) 0.7, Neutrophils # (Auto) 4.1, Lymphocytes # (Auto) 0.9L, Monocytes # (Auto) 0.7, Eosinophils # (Auto) 0.1, Basophils # (Auto) 0.0, Nucleated Red Blood Cells % (auto) 0.0 03/23/20 13:13: Total Bilirubin 0.7, Direct Bilirubin 0.1, Aspartate Amino Transf (AST/SGOT) 19, Alanine Aminotransferase (ALT/SGPT) 19, Alkaline Phosphatase 146H, SK-Gri-Z-Type Natriuretic Peptide 484H, Total Protein 6.8, Albumin 3.3, Albumin/Globulin Ratio 0.9, Thyroid Stimulating Hormone (TSH) 0.362 03/23/20 13:35: POC Glucose (Misc Panel) 79, POC Sodium (Misc Panel) 138, POC Potassium (Misc Panel) 3.6, POC Chloride (Misc Panel) 96L, POC Total CO2 (Misc Panel) 30.0H, POC Blood Urea Nitrogen (Misc Panel 8, POC Ionized Calcium (Misc Panel) 4.8, POC Creatinine (Misc Panel) 0.8, POC Hematocrit (Misc Panel) 44.0 03/23/20 13:42: POC Troponin I (Misc) 0.00 CBC/BMP Laboratory Tests 03/23/20 13:10 Assessment/Plan 59 year old male with Lung cancer since 2016 with no further treatment to be done, Radiation fibrosis of lungs, COPD, Systolic CHF, severe protein calorie malnutrition, smoker, polysubstance abuse was under hospice care in October 2019 was taken off hospice list as he was having hemoptysis and wanted to come to the hospital so was taken off hospice list. He presents to the ED today for worsening SOB. His SOB improved with Duonebs. He however then requested admission as he was in pain and wanted pain controlled. He also requested to go back to hospice care. Lung cancer squamous cell from 2016 with recurrence. s/p Right Lower lobectomy and RT in 2016. No further treatment available will consult hospice again DNR/DNI Morphine S/L prn pain. Radiation fibrosis/COPD/ Emphysema duonebs prn Not on oxygen Severe protein calorie malnutrition due to pulmonary cachexia. Chronic systolic CHF Euvolemic will monitor. Smoker/ polysubstance abuse not interested in quitting. Plan / VTE VTE Prophylaxis Ordered?: Yes JAYNE MANN MD Mar 23, 2020 16:45
--- NOTE | 2020-03-23 17:54 | IPNPDOC ---
Text Note Date of Service The patient was seen on 03/23/20. NOTE Just after i finished admitting the patient he became belligerent, started c ursing pulled out his IV. He wanted to leave so he was discharged from the ED. Discharge diagnosis: Chronic Bone pain Stage IIIB Non small cell lung cancer -Squamous cell type treated with RLL lobe ctomy and external Beam RT in 2015 with Recurrence with new spiculated mass in right lung Not a candidate for any further treatment Radiation Fibrosis End stage COPD Severe protein-calorie malnutrition, body mass index of 17. Chronic Systolic Congestive heart failure, ejection fraction of 20-25%. Severe pulmonary hypertension. Right-sided heart failure. Mild tricuspid insufficiency. Mild mitral insufficiency. Grade 1 left ventricular diastolic dysfunction. Depression. Chronic back pain. Tobacco abuse, still actively smoking. Polysubstance abuse: Meth, marijuana Noncompliance. VS,Fishbone, I+O VS, Fishbone, I+O Laboratory Tests 03/23/20 13:10 Vital Signs Date Time Temp Pulse Resp B/P (MAP) Pulse Ox O2 Delivery O2 Flow Rate FiO2 03/23/20 16:00 105 124/61 (82) 94 03/23/20 15:45 Room Air 03/23/20 15:07 18 03/23/20 13:00 97.7 JAYNE MANN MD Mar 23, 2020 17:52
[2020-03-24] MEDS ORDERED: PREG300C PO (15:15)
[2020-03-24] MEDS ORDERED: XTAM18CA PO (15:15)
== END 2020-03-23 17:24 | disposition left against medical advice (07) ==
LOC: M ED 12:56 → EDBD 12:56 → M ED INP 16:01 → ENRESERV 16:51
PROVIDERS: ADMIT Internal Medicine Nephrology; ATTEND Internal Medicine Nephrology
DX: G89.29 Other chronic pain (principal); Z53.21 Procedure and treatment not carried out due to patient leaving prior to being seen by health care provider; C34.91 Malignant neoplasm of unspecified part of right bronchus or lung; J70.1 Chronic and other pulmonary manifestations due to radiation; J44.9 Chronic obstructive pulmonary disease, unspecified; E43 Unspecified severe protein-calorie malnutrition; I50.22 Chronic systolic (congestive) heart failure; I27.0 Primary pulmonary hypertension; I50.810 Right heart failure, unspecified; I36.1 Nonrheumatic tricuspid (valve) insufficiency; I34.0 Nonrheumatic mitral (valve) insufficiency; I50.1 Left ventricular failure, unspecified; F32.9 Major depressive disorder, single episode, unspecified; F17.218 Nicotine dependence, cigarettes, with other nicotine-induced disorders; F12.10 Cannabis abuse, uncomplicated; F15.10 Other stimulant abuse, uncomplicated; Z91.19 Patient's noncompliance with other medical treatment and regimen; Z92.3 Personal history of irradiation
CPT/HCPCS: 36415; 71045; 80047; 80076; 83880; 84443; 84484; 85025; 93005; 93041; 94760; 96361; 96374; 96375; 96376; 99285; G0378; J2270; J2405

== ENCOUNTER 2020-03-24 10:52 | Emergency (ER) | payer MEDICARE, MEDICAID ==
[~2020-03-24] VITALS: Ht 167.6 cm; Wt 45.5 kg
[2020-03-24 11:02] VITALS: BP 112/69
[2020-03-24] MEDS ORDERED: PREG300C PO (15:15)
[2020-03-24] MEDS ORDERED: XTAM18CA PO (15:15)
== END 2020-03-24 12:05 | disposition left against medical advice (07) ==
LOC: M ED 10:52
DX: Z53.21 Procedure and treatment not carried out due to patient leaving prior to being seen by health care provider (principal)

== ENCOUNTER 2020-03-24 14:45 | Emergency (ER) | payer MEDICARE, MEDICAID ==
[~2020-03-24] VITALS: Ht 167.6 cm; Wt 43.6 kg
[2020-03-24] MEDS ORDERED: XTAM18CA PO (15:15)
[2020-03-24] MEDS ORDERED: PREG300C PO (15:15)
[2020-03-24] MEDS ORDERED: PREGABALIN 100 MG CAP (LYRICA) PO ONE (16:15)
[2020-03-24 16:30] VITALS: BP 108/60
== END 2020-03-24 16:34 | disposition left against medical advice (07) ==
LOC: EDBD 14:45 → M ED 14:45
DX: G89.29 Other chronic pain (principal); I50.9 Heart failure, unspecified; J44.9 Chronic obstructive pulmonary disease, unspecified; F19.11 Other psychoactive substance abuse, in remission; F17.200 Nicotine dependence, unspecified, uncomplicated; Z85.118 Personal history of other malignant neoplasm of bronchus and lung

== ENCOUNTER 2020-04-02 12:41 | Emergency (ER) | payer MEDICARE, MEDICAID ==
[~2020-04-02] VITALS: Ht 170.2 cm; Wt 45.5 kg
[~2020-04-02 12:41] MED LIST changes: +XTAM18CA PO
[2020-04-02 12:53] VITALS: BP 95/57
[2020-04-02] MEDS ORDERED: methylPREDNISolone 125MG 2ML VIAL IV ONE (13:15)
[2020-04-02] MEDS ORDERED: NS 500 ML IV ONE (13:15)
[2020-04-02] MEDS: ALBUTEROL 90 MCG/ACT 8GM HFA INHALER INH SCH ×3 (13:30→13:51)
[2020-04-02 14:07] LABS: BASO # 0.1 10^3/uL (0.0-0.2); BASO % 0.9 % (0.0-1.0); EOS # 0.1 10^3/uL (0.0-0.5); EOS % 0.9 % (0.0-3.0); HEMATOCRIT 45.5 % (42.0-52.0); HEMOGLOBIN 14.6 g/dl (13.5-17.5); LYMPH # 1.1 10^3/uL (1.5-5.0); LYMPH % 13.4 % (24.0-44.0); MEAN CORPUSCULAR HEMOGLOBIN 28.7 pg (27.0-33.0); MEAN CORPUSCULAR HGB CONC 32.1 g/dl (32.0-36.5); MEAN CORPUSCULAR VOLUME 89.4 fl (80.0-96.0); MONO # 0.8 10^3/uL (0.0-0.8); MONO % 10.7 % (0.0-5.0); NEUTROPHILS # 5.8 10^3/uL (1.5-8.5); NEUTROPHILS % 73.7 % (36.0-66.0); PLATELET COUNT, AUTOMATED 425 10^3/uL (150-450); RED BLOOD COUNT 5.09 10^6/uL (4.30-6.10); WHITE BLOOD COUNT 7.9 10^3/uL (4.0-10.0)
[2020-04-02] MEDS ORDERED: PREG150C (14:10)
[2020-04-02] MEDS ORDERED: XTAM18CA (14:10)
[2020-04-02] MEDS ORDERED: ISOVUE-370 76% 100ML VIAL As Ordered ONE (14:25)
--- NOTE | 2020-04-02 14:28 | REP ---
INDICATION: DYSPNEA/COUGH. COMPARISON: 03/23/2020. TECHNIQUE: Single frontal portable view of the chest is performed. FINDINGS: There are stable bilateral fibro atelectatic changes and chronic parenchymal opacities. No new infiltrate is seen. Heart mediastinum are unchanged. There is mild elevation of the right mid I a frame. IMPRESSION: Stable chronic findings. <Electronically signed by Jairo Hitchcock > 04/02/20 [id number]
--- NOTE | 2020-04-02 16:11 | REP ---
INDICATION: dyspnea, PE risk factors. COMPARISON: CT angio 10/23/2019; AP chest 04/02/2020, 03/23/2020.. TECHNIQUE: Pulse is 75 mL Isovue [address] angiographic technique utilized and both standard and MIP reformats in coronal and sagittal reconstructions. FINDINGS: Patient does have a history of lung carcinoma and previous left upper lobectomy. There is volume loss the left hemithorax as before. Extensive the fibrosis and retraction in the left upper lung zone elevating the hilum bronchiectatic changes are seen there is apical and lateral pleural thickening in the upper lung zone on all of this appears grossly stable. Compensatory hyperinflation of the left lower lobe fill much of the left hemithorax is also some compensatory hyperinflation of the right upper lung zone deviating the upper mediastinum towards the left. The heart and lower mediastinum are not changed in their location. In the right upper lung zone irregular spiculated density seen on the previous study now shows curvilinear fibrotic appearance extending from the lateral to the anterior chest wall and some bronchiectatic change in addition from the mid axillary line at about the level of the ginna a curvilinear irregular lesion is also seen which may be scar or scar carcinoma this is somewhat smaller appearance in diameter compared to the previous study on the more upper anterior component has progressed significantly I do not have a interval surgical history bolus emphysematous changes are seen in the right upper lung zone to loculated pleural fluid in the para spinal region the right lower lung zone similar to the previous exam. Postoperative changes in the right hilum are again seen all of this could be progressive postsurgical change but scar carcinoma is not excluded. Heart size not grossly enlarged there is no pericardial thickening or effusion. The aorta is without aneurysm or dissection. The main, right and left pulmonary arteries are without filling defects. Left upper lobe artery is not seen but the left lower lobe lobar artery and is branches are without vessel cut off or filling defect. The right middle and lower lobe pulmonary arteries are likewise without filling defect or vessel cut off some attenuation of vessels extending to the upper lung zone but no filling defect or vessel cut off. No pathologic size sized adenopathy visible in the mediastinum or hilar regions. No axillary or supraclavicular mass. Bone windows show the vertebral bodies, posterior elements, sternum, manubrium visible clavicles, ribs, scapulae and humeral heads without fracture or destructive lesion. The upper abdomen show no acute finding IMPRESSION: 1. There is no CT evidence of pulmonary thromboembolism. Prior left upper lobectomy with some surgical changes noted about the right perihilar region with volume loss in both upper upper lung zones. The remaining pulmonary arteries are without filling defect or vessel cut off. 2. No aortic aneurysm or dissection. No pathologic sized mediastinal adenopathy. There is advanced bullous emphysematous changes and chronic atelectatic changes of bronchiectasis in the left upper lung zone progressive curvilinear fibrosis or postoperative scarring in the right upper lung zone scar carcinoma not excluded. 3. Bony thorax without acute finding. 4. One small area of loculated pleural fluid chronically, posteromedial right base. No other effusion or other acute lung finding. <Electronically signed by Jasper Stewart > 04/02/20 [id number]
== END 2020-04-02 18:11 | disposition home or self-care (01) ==
LOC: EDBD 12:41 → M ED 12:41
DX: R06.02 Shortness of breath (principal); J44.9 Chronic obstructive pulmonary disease, unspecified; Z85.118 Personal history of other malignant neoplasm of bronchus and lung; Z79.899 Other long term (current) drug therapy; F17.210 Nicotine dependence, cigarettes, uncomplicated
CPT/HCPCS: 71045; 71275; 80047; 83605; 84132; 84484; 85025; 93041; 94640; 94760; 96361; 96374; 99284; J2930; Q9967

== ENCOUNTER 2020-04-15 12:25 | Emergency (ER) | payer MEDICARE, MEDICAID ==
[~2020-04-15] VITALS: Ht 167.6 cm; Wt 45.5 kg
[~2020-04-15 12:25] MED LIST changes: +XTAM18CA
[2020-04-15 13:15] VITALS: BP 108/63
== END 2020-04-15 13:36 | disposition left against medical advice (07) ==
LOC: M ED 12:25 → EDBD 12:25 → M ED 13:36
DX: Z53.9 Procedure and treatment not carried out, unspecified reason (principal); G89.29 Other chronic pain; C34.90 Malignant neoplasm of unspecified part of unspecified bronchus or lung; I50.22 Chronic systolic (congestive) heart failure; I27.21 Secondary pulmonary arterial hypertension; Z90.2 Acquired absence of lung [part of]; F32.9 Major depressive disorder, single episode, unspecified

== ENCOUNTER 2020-04-16 09:17 | Emergency (ER) | payer MEDICARE, MEDICAID ==
[~2020-04-16] VITALS: Ht 170.2 cm; Wt 45.4 kg
--- NOTE | 2020-04-16 10:29 | REP ---
INDICATION: SOB COMPARISON: 04/02/2020 as well as other prior exams. TECHNIQUE: PA/Lateral FINDINGS: Lungs: Chronic parenchymal opacities, predominantly in the upper lobes, have not significantly changed. Heart: Normal in size. Mediastinum: Prominent right hilar shadow is unchanged. Pleural angles: There is chronic blunting of the right costophrenic angle unchanged. Left apical pleural thickening is unchanged.. Bones and soft tissues: Unremarkable. IMPRESSION: Chronic changes are stable compared to 04/02/2020 with no new infiltrate. <Electronically signed by Jairo Hitchcock > 04/16/20 [id number]
[2020-04-16 11:00] VITALS: BP 112/65
[2020-04-16 11:03] LABS: BASO # 0.1 10^3/uL (0.0-0.2); BASO % 0.9 % (0.0-1.0); EOS # 0.1 10^3/uL (0.0-0.5); EOS % 1.8 % (0.0-3.0); HEMATOCRIT 44.9 % (42.0-52.0); HEMOGLOBIN 14.3 g/dl (13.5-17.5); LYMPH % 13.4 % (24.0-44.0); MEAN CORPUSCULAR HEMOGLOBIN 28.1 pg (27.0-33.0); MEAN CORPUSCULAR HGB CONC 31.8 g/dl (32.0-36.5); MEAN CORPUSCULAR VOLUME 88.4 fl (80.0-96.0); MONO # 0.7 10^3/uL (0.0-0.8); MONO % 9.7 % (0.0-5.0); NEUTROPHILS # 5.6 10^3/uL (1.5-8.5); NEUTROPHILS % 73.9 % (36.0-66.0); PLATELET COUNT, AUTOMATED 344 10^3/uL (150-450); RED BLOOD COUNT 5.08 10^6/uL (4.30-6.10); WHITE BLOOD COUNT 7.6 10^3/uL (4.0-10.0)
[2020-04-16 11:38] LABS: ALBUMIN 2.9 GM/DL (3.2-5.2); ALT/SGPT 15 U/L (12-78); BILIRUBIN,DIRECT < 0.1 MG/DL (0.0-0.2); BILIRUBIN,TOTAL 0.8 MG/DL (0.2-1.0); BLOOD UREA NITROGEN 9 MG/DL (7-18); CARBON DIOXIDE LEVEL 31 MEQ/L (21-32); CHLORIDE LEVEL 101 MEQ/L (98-107); CREATININE FOR GFR 0.88 MG/DL (0.70-1.30); ETHYL ALCOHOL (ETHANOL) < 0.003 % (0.000-0.010); GLOMERULAR FILTRATION RATE > 60.0 (>56); GLUCOSE, FASTING 86 MG/DL (70-100); POTASSIUM SERUM 7.6 MEQ/L (3.5-5.1); SODIUM LEVEL 134 MEQ/L (136-145); TOTAL PROTEIN 7.3 GM/DL (6.4-8.2)
[2020-04-16 11:39] LABS: CK-MB VALUE MASS 1.2 NG/ML (<3.6); CPK CREATINE PHOSPHOKINASE 186 U/L (39-308); MB/CK RELATIVE INDEX 0.65 (< OR =4); TROPONIN I < 0.02 NG/ML (< 0.10)
[2020-04-16 11:58] LABS: AMPHETAMINES LEVEL URINE NEGATIVE (NEGATIVE); BARBITURATES URINE NEGATIVE (NEGATIVE); BENZODIAZEPINES URINE NEGATIVE (NEGATIVE); CANNABINOIDS URINE POSITIVE (NEGATIVE); COCAINE METABOLITE URINE NEGATIVE (NEGATIVE); METHADONE URINE NEGATIVE (NEGATIVE); OPIATES URINE NEGATIVE (NEGATIVE); PHENCYCLIDINE URINE NEGATIVE (NEGATIVE)
--- NOTE | 2020-04-16 21:39 | ECGEPIP ---
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
== END 2020-04-16 11:27 | disposition left against medical advice (07) ==
LOC: M ED 09:17
DX: Z53.9 Procedure and treatment not carried out, unspecified reason (principal); R06.02 Shortness of breath; R00.0 Tachycardia, unspecified; C34.90 Malignant neoplasm of unspecified part of unspecified bronchus or lung; J44.9 Chronic obstructive pulmonary disease, unspecified; Z90.2 Acquired absence of lung [part of]; G25.81 Restless legs syndrome; F17.200 Nicotine dependence, unspecified, uncomplicated; F19.10 Other psychoactive substance abuse, uncomplicated; F12.10 Cannabis abuse, uncomplicated

== ENCOUNTER 2020-04-16 13:49 | Emergency (ER) | payer MEDICARE, MEDICAID ==
[~2020-04-16] VITALS: Ht 167.6 cm; Wt 45.5 kg
[2020-04-16] MEDS ORDERED: LORazepam 2 MG TAB PO STA (15:12)
[2020-04-16 15:56] LABS: BLOOD UREA NITROGEN 10 MG/DL (7-18); CALCIUM LEVEL 9.4 MG/DL (8.5-10.1); CARBON DIOXIDE LEVEL 32 MEQ/L (21-32); CHLORIDE LEVEL 102 MEQ/L (98-107); CREATININE FOR GFR 0.76 MG/DL (0.70-1.30); GLOMERULAR FILTRATION RATE > 60.0 (>56); GLUCOSE, FASTING 72 MG/DL (70-100); POTASSIUM SERUM 4.1 MEQ/L (3.5-5.1); SODIUM LEVEL 140 MEQ/L (136-145)
[2020-04-16 18:00] VITALS: BP 126/70
== END 2020-04-16 18:06 | disposition home or self-care (01) ==
LOC: M ED 13:49
DX: F43.0 Acute stress reaction (principal); I50.9 Heart failure, unspecified; I25.2 Old myocardial infarction; J44.9 Chronic obstructive pulmonary disease, unspecified; C34.90 Malignant neoplasm of unspecified part of unspecified bronchus or lung; K21.9 Gastro-esophageal reflux disease without esophagitis; F17.200 Nicotine dependence, unspecified, uncomplicated; F19.10 Other psychoactive substance abuse, uncomplicated

== ENCOUNTER 2020-04-19 19:37 | Inpatient (IN) | payer MEDICARE, MEDICAID ==
[~2020-04-19] VITALS: Ht 167.6 cm; Wt 44.3 kg
[2020-04-19] MEDS ORDERED: IPRATROPIUM 0.5MG/ALBUTEROL 2.5MG INH SOL UD 3ML (DUONEB) NEB ONE (20:15)
[2020-04-19] MEDS ORDERED: ALPRAZolam 0.5 MG TAB PO ONE (20:15)
[2020-04-19 20:32] LABS: BASO # 0.1 10^3/uL (0.0-0.2); BASO % 0.8 % (0.0-1.0); EOS # 0.2 10^3/uL (0.0-0.5); EOS % 2.5 % (0.0-3.0); HEMATOCRIT 41.2 % (42.0-52.0); HEMOGLOBIN 13.2 g/dl (13.5-17.5); LYMPH # 1.1 10^3/uL (1.5-5.0); LYMPH % 15.3 % (24.0-44.0); MEAN CORPUSCULAR HEMOGLOBIN 28.3 pg (27.0-33.0); MEAN CORPUSCULAR VOLUME 88.4 fl (80.0-96.0); MONO # 0.7 10^3/uL (0.0-0.8); MONO % 10.5 % (0.0-5.0); NEUTROPHILS % 70.6 % (36.0-66.0); PLATELET COUNT, AUTOMATED 334 10^3/uL (150-450); RED BLOOD COUNT 4.66 10^6/uL (4.30-6.10); WHITE BLOOD COUNT 7.1 10^3/uL (4.0-10.0)
[2020-04-19 20:58] LABS: BILIRUBIN,DIRECT 0.2 MG/DL (0.0-0.2); BILIRUBIN,TOTAL 0.7 MG/DL (0.2-1.0); THYROID STIMULATING HORMONE 0.783 uIU/ML (0.358-3.740); THYROXINE (T4) 9.2 UG/DL (4.5-12.0); TOTAL PROTEIN 6.6 GM/DL (6.4-8.2)
--- NOTE | 2020-04-19 21:47 | REPVR ---
PROCEDURE INFORMATION: Exam: XR Chest, 1 View Exam date and time: 04/19/2020 9:32 PM Age: 59 years old Clinical indication: Cough and dyspnea TECHNIQUE: Imaging protocol: XR of the chest Views: 1 view. COMPARISON: 1. [place] PORTABLE CHEST X-RAY 04/02/2020 2:11 PM 2. [place] - Chest, 2 view PA, Lat 04/16/2020 10:05:11 AM FINDINGS: Lungs: There are chronic pleural and parenchymal opacities in the left lung apex, with retraction of the hilum superiorly and air bronchograms, which is similar in appearance compared to the prior chest x-rays on 04/16/2020 and 04/02/2020. Chronic reticular opacities are also present in the right upper lobe, which are similar in appearance compared to the prior chest x-ray on 04/16/2020 and 04/02/2020. There is chronic blunting of the right costophrenic sulcus, which is similar in appearance compared to the prior chest x-ray on 04/16/2020 and 04/02/2020. Pleural space: No pleural effusion or pneumothorax is noted. Heart/Mediastinum: The trachea is deviated to the left of midline, which is unchanged compared to the prior chest x-ray on 04/16/2020 and 04/02/2020. No cardiomegaly. Bones/joints: Unremarkable. IMPRESSION: 1. No radiographic evidence for an acute cardiopulmonary process. 2. Chronic changes in the upper lobes, which are similar in appearance compared to the prior chest x-ray on 04/16/2020 and 04/02/2020. Electronically signed by: Aldair Venegas On 04/19/2020 21:47:11 PM
--- NOTE | 2020-04-19 22:15 | ECGEPIP ---
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
[2020-04-19] MEDS ORDERED: NS 1,000 ML IV SCH (23:15)
[2020-04-19] MEDS ORDERED: MAALOX 30 ML SUSP *UDC PO PRN (23:15)
[2020-04-19] MEDS ORDERED: ACETAMINOPHEN TAB 650MG DOSE (2X325MG) PO PRN (23:15)
[2020-04-19] MEDS ORDERED: MOM 30ML SUSPENSION UDC PO PRN (23:15)
--- NOTE | 2020-04-19 23:26 | HPEPDOC ---
[facility] Medical History & Physical Date of Admission Apr 19, 2020 Date of Service: Apr 19, 2020 Primary Care Physician: STEVIE TOLBERT MD [facility] Attending Physician: AQUILINO STEPHENSON MD History and Physical TIME OF SERVICE: 11:15 PM CHIEF COMPLAINT: Shortness of breath HISTORY OF PRESENT ILLNESS: This 59-year-old gentleman presented with complaints of shortness of breath that began 2 hours prior to arriving in the hospital, which she attributes to feeling anxious. His shortness of breath did improve with neb treatments. He denied having chest pain, fever, chills, cough, nausea, vomiting, diarrhea, or any sick contacts. He has a history of lung cancer and was enrolled in palliative care, but signed off on the program in order to come to the hospital when he had an episode of hematemesis. REVIEW OF SYSTEMS: 12 point review of systems negative except as listed in HPI PAST MEDICAL/ SURGICAL HISTORY: Stage IIIB Non small cell lung cancer -Squamous cell type (s/p RLL lobectomy and external Beam RT in 2016 with Recurrence with new spiculated mass in right lung, he is not a candidate for further treatment) Radiation Fibrosis Advanced COPD with Pulmonary cachexia BMI was 17 on Mar 23 HFrEF (EF 20-25%) with HFpEF (grade 1) Severe pulmonary hypertension Mild tricuspid insufficiency Mild mitral insufficiency Depression Chronic back pain Cyst resection Hand surgery SOCIAL HISTORY: Polysubstance abuse: Tobacco, Meth, marijuana FAMILY HISTORY: Three brothers of coronary artery disease at the age of 52, 57 and 45 Mother , age 65, unknown type of cancer Father , age 67, unknown type of cancer ALLERGIES: Please see below. HOME MEDICATIONS: Please see below. PHYSICAL EXAMINATION: Vital Signs Date Time Temp Pulse Resp B/P (MAP) Pulse Ox O2 Delivery O2 Flow Rate FiO2 04/19/20 20:01 98.5 109 16 114/58 (76) 97 Room Air 04/19/20 20:27 98 GEN: cachectic/ well developed/ anxious HEENT: temoporal wasting CVS: RRR/ + murmur/ no lower extremity edema LUNGS: there is no nasal flairing / able to speak full sentences without sto pping to take a breath / not using accessory muscles / there is decreased respiratory expansion ABDOMEN: scaphoid / soft & NT MSK/EXTREMITIES: NCAT NEURO: CN 2-12 are grossly intact / speech is not dysarthric PSYCH: alert and oriented to person place and time/ able to understand and follow all commands LABORATORY DATA: 04/19/20 20:10 04/19/20 20:10: Immature Granulocyte % (Auto) 0.3, Neutrophils (%) (Auto) 70.6H, Lymphocytes (%) (Auto) 15.3L, Monocytes (%) (Auto) 10.5H, Eosinophils (%) (Auto) 2.5, Basophils (%) (Auto) 0.8, Neutrophils # (Auto) 5.0, Lymphocytes # (Auto) 1.1L, Monocytes # (Auto) 0.7, Eosinophils # (Auto) 0.2, Basophils # (Auto) 0.1, Nucleated Red Blood Cells % (auto) 0.0, Total Bilirubin 0.7, Direct Bilirubin 0.2, Aspartate Amino Transf (AST/SGOT) 9, Alanine Aminotransferase (ALT/SGPT) 12, Alkaline Phosphatase 150H, BS-Bnn-O-Type Natriuretic Peptide 1597H, Total Protein 6.6, Albumin 3.0L, Albumin/Globulin Ratio 0.8, Thyroid Stimulating Hormone (TSH) 0.783, Thyroxine (T4) 9.2, Coronavirus (COVID-19)(PCR) NEGATIVE IMAGING: Chest xray "1. No radiographic evidence for an acute cardiopulmonary process. 2. Chronic changes in the upper lobes, which are similar in appearance compared to the prior chest x-ray on 04/16/2020 and 04/02/2020. " MICROBIOLOGY: COVID neg ASSESSMENT: Mr. Doshi is a 59-year-old with a history of advanced COPD, recurrent NSLC, HFpEF/HFrEF, severe pulmonary hypertension and radiation fibrosis who presented with shortness of breath; he will be admitted for management of dyspnea pending PFS consult. PLAN: 1. Dyspnea Per pt due to anxiety Plan: mirtazapine for depression & insomnia / will ask day time team to call Pallative to confirm his status 2. Tachycardia Likely 2/2 dehydration Plan: IVF 3. Chronic back pain Plan: c/w oxycodone and lyrica 4. Advanced COPD with Pulmonary cachexia BMI was 17 on Mar 23 IS NOW 15.8 Plan: albuterol PRN 5. HFrEF (EF 20-25%) with HFpEF (grade 1) / Severe pulmonary hypertension / NSLCA -not on chronic meds at this time DVT PROPHYLAXIS: lovenox DISPOSITION: home vs placement after more than 2 midnight's stay / PFS consult has been palced LATE ENTRY Based on the discharge summary from his recent admission in September during the hospital stay he had declined care for his acute medical issues and wanted to be comfort measures only. He insisted on being discharged home with hospice despite not having arrangements for 24h care. I will dc non-essential orders including vitals and lovenox and place the [facility] order set with Ativan for anxiety and c/w nebs PRN Home Medications Scheduled Oxycodone Myristate (Xtampza ER) 18 Mg Cap.spr.12, 18 MG PO Q12H Pregabalin (Lyrica) 150 Mg Capsule, 150 MG PO TID Allergies Coded Allergies: No Known Allergies (Unverified , 10/23/19) A-FIB/CHADSVASC A-FIB History Current/History of A-Fib/PAF?: No Current PO Anticoag Therapy: No AQUILINO STEPHENSON MD Apr 19, 2020 23:26
[2020-04-19] MEDS ORDERED: XTAM18CA PO (23:31)
[2020-04-19] MEDS ORDERED: LYRI150C PO (23:31)
[2020-04-20 00:15] VITALS: BP 96/79
[2020-04-20] MEDS ORDERED: oxyCODONE 10 MG CR TAB PO PRN (00:15)
[2020-04-20] MEDS ORDERED: NALOXONE INJ 0.4MG/1ML VIAL (J2310 PER 1MG) IV PRN (00:15)
[2020-04-20] MEDS ORDERED: RAMELTEON 8 MG TAB (ROZEREM) PO PRN (00:15)
[2020-04-20] MEDS: PREGABALIN 75 MG CAP(LYRICA) PO SCH ×4 (00:58→20:06)
[2020-04-20] MEDS ORDERED: BISACODYL 10 MG SUPP PR PRN (03:45)
[2020-04-20] MEDS ORDERED: SCOPOLAMINE 1MG TRANSDERMAL PATCH TOP PRN (03:45)
[2020-04-20] MEDS ORDERED: LORazepam 2 MG/ML VIAL IV PRN (03:45)
[2020-04-20] MEDS ORDERED: ONDANSETRON 4MG/2ML VIAL IV PRN (03:45)
[2020-04-20] MEDS ORDERED: MIRTAZAPINE 7.5MG PER 1/2 TABLET PO PRN (04:00)
[2020-04-20] MEDS ORDERED: ONDANSETRON 4 MG ORAL DISINTEGRATING TAB PO PRN (04:00)
[2020-04-20] MEDS ORDERED: ALBUTEROL SULFATE 2.5 MG/0.5 ML INH NEB SOLN NEB PRN (04:00)
[2020-04-20] MEDS ORDERED: FLUBLOK(EGG FREE)(QUAD)INFLUENZA VACC 0.5ML SYRINGE 18YRS & OLDER IM ONE (09:00)
[2020-04-20] MEDS ORDERED: ENOXAPARIN 40MG/0.4ML SYRINGE (J1650 PER 10MG) SC SCH (09:00)
[2020-04-20] MEDS ORDERED: ATROPINE SULFATE 1% OP SOLN 2 ML BTL SL PRN (10:15)
[2020-04-20] MEDS ORDERED: MORPHINE 30 MG TAB **MSIR PO ONE (10:15)
[2020-04-20] MEDS: LORazepam 1 MG TAB PO PRN ×4 (10:56→21:40)
--- NOTE | 2020-04-20 11:28 | IPNPDOC ---
Date Seen The patient was seen on 04/20/20. Progress Note SUBJECTIVE: Patient requesting hospice comfort measures only. No active treatment or medical intervention. He complains of generalized pain and shortness of breath, not alleviated by oxycodone every 12 hourly. OBJECTIVE: PHYSICAL EXAMINATION: Vitals: see below GENERAL:bitemporal wasting. disheveled. older than stated age. cachectic. no pallor no cyanosis. Expose ribs HEENT: Head is normocephalic, atraumatic No scleral icterus. pupils are equal, round, reactive to light. Nares patent. dry mucus membranes. poor dentition. no stridor on exam. (+)use of respiratory accessory muscles. 4-5word dyspnea No cervical or supraclavicular lymphadenopathy bilaterally. CARDIOVASCULAR: Normal rhythm. Normal S1, S2. No murmurs, gallops, rubs appreciated. RESPIRATORY: Breath sounds severely diminished bilaterally. Mild wheezing appreciated in bilateral lower lobes. ABDOMEN: Soft, nontender, nondistended. Bowel sounds present. No hepatosplenomegaly. No masses or ecchymosis. SKIN: Warm, dry. No rashes. EXTREMITIES: No cyanosis or edema in extremities. LABORATORY DATA, IMAGING STUDIES: SEE BELOW PROBLEM LIST: Endstage COPD Recurrent Lung cancer with new spiculated mass in right lung Severe protein calorie malnutrition bmI 15.8 Pulmonary cachexia Acute on chronic Systolic and diastolic CHF EXACERBATION EF20%-30% H/o polysubstance abuse medical noncompliance. insomnia Active Tobacco Abuse PLAN: Patient reaffirms DO NOT RESUSCITATE, DO NOT INTUBATE, comfort measures only. No active medical treatment for acute issues. No further evaluation. Continue with standard of care Vital signs . WIRE LATHER Medications as needed. Patient family services has been consulted to assist in healthcare proxy and discharge planning. Hospice was consulted. VS, I&O, 24H, Fishbone Vital Signs/I&O Vital Signs Date Time Temp Pulse Resp B/P (MAP) Pulse Ox O2 Delivery O2 Flow Rate FiO2 04/20/20 10:56 14 Room Air 04/20/20 00:15 97.7 105 96/79 (85) 99 04/19/20 20:27 98 I&O- Last 24 Hours up to 6 AM 04/20/20 06:00 Intake Total 240 ml Output Total 350 ml Balance -110 ml Laboratory Data 24H LABS Laboratory Tests 2 04/19/20 20:10: Immature Granulocyte % (Auto) 0.3, Neutrophils (%) (Auto) 70.6H, Lymphocytes (%) (Auto) 15.3L, Monocytes (%) (Auto) 10.5H, Eosinophils (%) (Auto) 2.5, Basophils (%) (Auto) 0.8, Neutrophils # (Auto) 5.0, Lymphocytes # (Auto) 1.1L, Monocytes # (Auto) 0.7, Eosinophils # (Auto) 0.2, Basophils # (Auto) 0.1, Nucleated Red Blood Cells % (auto) 0.0, Total Bilirubin 0.7, Direct Bilirubin 0.2, Aspartate Amino Transf (AST/SGOT) 9, Alanine Aminotransferase (ALT/SGPT) 12, Alkaline Phosphatase 150H, DB-Ljx-W-Type Natriuretic Peptide 1597H, Total Protein 6.6, Albumin 3.0L, Albumin/Globulin Ratio 0.8, Thyroid Stimulating Hormone (TSH) 0.783, Thyroxine (T4) 9.2, Coronavirus (COVID-19)(PCR) NEGATIVE 04/19/20 20:26: POC Glucose (Misc Panel) 83, POC Sodium (Misc Panel) 138, POC Potassium (Misc Panel) 4.0, POC Chloride (Misc Panel) 97L, POC Total CO2 (Misc Panel) 31.0H, POC Blood Urea Nitrogen (Misc Panel 14, POC Ionized Calcium (Misc Panel) 4.8, POC Creatinine (Misc Panel) 1.3, POC Hematocrit (Misc Panel) 43.0 04/20/20 09:38: Lab Scanned Report Miscellaneous Lab 04/20/20 09:38: Lab Scanned Report Miscellaneous Lab CBC/BMP Laboratory Tests 04/19/20 20:10 RACHELLE AMADOR MD Apr 20, 2020 11:28
[2020-04-20] MEDS: MORPHINE 2 MG/ML 1ML VIAL (J2270) IV PRN ×3 (12:51→21:40)
[2020-04-21] MEDS: MORPHINE 2 MG/ML 1ML VIAL (J2270) IV PRN (02:11)
[2020-04-21] MEDS: LORazepam 1 MG TAB PO PRN ×2 (03:06→11:30)
[2020-04-21] MEDS: PREGABALIN 75 MG CAP(LYRICA) PO SCH ×3 (08:09→22:40)
[2020-04-21] MEDS ORDERED: TAMSULOSIN 0.4 MG CAP PO ONE (08:30)
[2020-04-21] MEDS ORDERED: PERCOCET 5MG/325MG TAB PO ONE (08:30)
--- NOTE | 2020-04-21 10:27 | IPNPDOC ---
Date Seen The patient was seen on 04/21/20. Progress Note SUBJECTIVE: Patient remains DNR/DNI, comfort measures only. , He has developed significant urine retention requiring intermittent catheterization overnight. He did not want a Desouza catheter to be placed. He continues to complain of shortness of breath and chronic back pain, alleviated with as needed pain medications per hospice. He is unable to be discharged to hospice house at this time. He currently has no support system at home and prefers to stay in the hospital for better pain control. OBJECTIVE: PHYSICAL EXAMINATION: Vitals: see below GENERAL:bitemporal wasting. disheveled. Cazares and shaven older than stated age. cachectic. no pallor no cyanosis. ExposeD ribs HEENT: Face is symmetric. Tongue is midline pupils are equal, round, reactive to light. Nares patent. dry mucus membranes. poor dentition. no stridor on exam. (+)use of respiratory accessory muscles. 5-6 word conversational dyspnea No cervical or supraclavicular lymphadenopathy bilaterally. CARDIOVASCULAR: Normal rhythm. Normal S1, S2. No murmurs, gallops, rubs appreciated. RESPIRATORY: Breath sounds severely diminished bilaterally. Coarse breath sounds bilaterally ABDOMEN: Soft, nontender, nondistended. Bowel sounds present. No hepatosplenomegaly. No masses or ecchymosis. SKIN: Warm, dry. No rashes. EXTREMITIES: No cyanosis or edema in extremities. LABORATORY DATA, IMAGING STUDIES: SEE BELOW PROBLEM LIST: Endstage COPD Recurrent Lung cancer with new spiculated mass in right lung Severe protein calorie malnutrition bmI 15.8 Pulmonary cachexia Acute on chronic Systolic and diastolic CHF EXACERBATION EF20%-30% H/o polysubstance abuse medical noncompliance. insomnia Active Tobacco Abuse Opioid induce urine retention PLAN: Patient remains comfort measures only, DO NOT RESUSCITATE, DO NOT INTUBATE for urine retention. He has been given option for intermittent catheterization versus Desouza catheter placement for his comfort. He has been started on Flomax 0.8 mg by mouth daily at bedtime and when necessary [employer] medications. Hospice has been consulted. Patient has poor social network with no one at home to help him. VS, I&O, 24H, Fishbone Vital Signs/I&O Vital Signs Date Time Temp Pulse Resp B/P (MAP) Pulse Ox O2 Delivery O2 Flow Rate FiO2 04/21/20 10:16 16 04/20/20 16:42 Room Air 04/20/20 00:15 97.7 105 96/79 (85) 99 04/19/20 20:27 98 I&O- Last 24 Hours up to 6 AM 04/21/20 06:00 Intake Total 1590 ml Output Total 675 ml Balance 915 ml RACHELLE AMADOR MD Apr 21, 2020 10:27
[2020-04-21] MEDS: MORPHINE 30 MG TAB **MSIR PO PRN ×2 (11:34→22:41)
[2020-04-22] MEDS: MORPHINE 30 MG TAB **MSIR PO PRN (03:49)
[2020-04-22] MEDS: LORazepam 1 MG TAB PO PRN ×3 (03:52→22:05)
[2020-04-22 09:58] VITALS: BP 99/64
[2020-04-22] MEDS: PREGABALIN 75 MG CAP(LYRICA) PO SCH ×3 (11:07→22:05)
[2020-04-22] MEDS: PERCOCET 5MG/325MG TAB PO SCH ×3 (11:07→23:41)
--- NOTE | 2020-04-22 12:34 | IPNPDOC ---
Date Seen The patient was seen on 04/22/20. Progress Note SUBJECTIVE: Patient remains DNR/DNI, comfort measures only. c/o pain everywhere and sob w/o cp, palpitations. some HARRIS, but wants no further eval and mgt. pt denies urine retention. "I'm going on my own now." OBJECTIVE: PHYSICAL EXAMINATION: Vitals: see below GENERAL:bitemporal wasting. disheveled. mild distress Exposed ribs HEENT: Face is symmetric. Nares patent. dry mucus membranes. poor dentition. no stridor on exam. (+)use of respiratory accessory muscles. No cervical or supraclavicular lymphadenopathy bilaterally. CARDIOVASCULAR: Normal rhythm. Normal S1, S2. No murmurs, gallops, rubs appreciated. RESPIRATORY: Breath sounds severely diminished bilaterally. Coarse breath sounds bilaterally ABDOMEN: Soft, nontender, nondistended. Bowel sounds present. No hepatosplenomegaly. No masses or ecchymosis. SKIN: Warm, dry. No rashes. EXTREMITIES: No cyanosis or edema in extremities. LABORATORY DATA, IMAGING STUDIES: SEE BELOW PROBLEM LIST: Endstage COPD Recurrent Lung cancer with new spiculated mass in right lung Severe protein calorie malnutrition bmI 15.8 Pulmonary cachexia Acute on chronic Systolic and diastolic CHF EXACERBATION EF20%-30% H/o polysubstance abuse medical noncompliance. insomnia Active Tobacco Abuse Opioid induce urine retention PLAN: Patient remains comfort measures only, and requested scheduled pain meds. po percocet qid. no further eval per pt request. dnr dni VS, I&O, 24H, Fishbone Vital Signs/I&O Vital Signs Date Time Temp Pulse Resp B/P (MAP) Pulse Ox O2 Delivery O2 Flow Rate FiO2 04/22/20 11:07 Room Air 04/22/20 09:58 88 15 99/64 (76) 92 04/20/20 00:15 97.7 04/19/20 20:27 98 I&O- Last 24 Hours up to 6 AM 04/22/20 06:00 Intake Total 2845 ml Output Total 975 ml Balance 1870 ml RACHELLE AMADOR MD Apr 22, 2020 12:34
[2020-04-22] MEDS: MORPHINE 2 MG/ML 1ML VIAL (J2270) IV PRN (22:04)
[2020-04-22] MEDS: TAMSULOSIN 0.4 MG CAP PO SCH (22:05)
[2020-04-23] MEDS: MORPHINE 2 MG/ML 1ML VIAL (J2270) IV PRN (01:41)
[2020-04-23] MEDS: PERCOCET 5MG/325MG TAB PO SCH ×4 (06:12→23:03)
[2020-04-23] MEDS: PREGABALIN 75 MG CAP(LYRICA) PO SCH ×3 (09:25→23:02)
[2020-04-23] MEDS ORDERED: LORazepam 2 MG/ML VIAL IV ONE (10:00)
--- NOTE | 2020-04-23 11:33 | IPNPDOC ---
Date Seen The patient was seen on 04/23/20. Progress Note SUBJECTIVE: Patient complains of insomnia. Patient complains of not getting enough sleep last night requesting something to help him sleep Now and it would be better if it was IV. Pain medications are available and is currently on scheduled Percocet for chronic pain OBJECTIVE: PHYSICAL EXAM: VITAL SIGNS SEE BELOW. GENERAL: Cachectic bitemporal wasting, disheveled . HEENT: (+)use of respiratory accessory muscles. . No nasal flaring, no tracheal deviation No cervical or supraclavicular lymphadenopathy bilaterally. CARDIOVASCULAR: Normal rhythm. Normal S1, S2. No murmurs, gallops, rubs appreciated. RESPIRATORY: Breath sounds severely diminished bilaterally. Coarse breath sounds bilaterally ABDOMEN: Soft, nontender, nondistended. Bowel sounds present. No hepatosplenomegaly. No masses or ecchymosis. SKIN: Warm, dry. No rashes. EXTREMITIES: No cyanosis or edema in extremities. LABORATORY DATA, IMAGING STUDIES: SEE BELOW PROBLEM LIST: Endstage COPD Recurrent Lung cancer with new spiculated mass in right lung Severe protein calorie malnutrition bmI 15.8 Pulmonary cachexia Insomnia , Chronic pain Acute on chronic Systolic and diastolic CHF EXACERBATION EF20%-30% H/o polysubstance abuse medical noncompliance. insomnia Active Tobacco Abuse Opioid induce urine retention PLAN: DNR/DNI, comfort measures only. On Percocet scheduled and when necessary pain meds Ativan IV as needed. [place] candidate for hospice house. Patient has no support system at home and remains in the hospital for possible placement VS, I&O, 24H, Fishbone Vital Signs/I&O Vital Signs Date Time Temp Pulse Resp B/P (MAP) Pulse Ox O2 Delivery O2 Flow Rate FiO2 04/23/20 06:42 16 04/22/20 12:36 Room Air 04/22/20 09:58 88 99/64 (76) 92 04/20/20 00:15 97.7 04/19/20 20:27 98 I&O- Last 24 Hours up to 6 AM 04/23/20 06:00 Intake Total 1240 ml Output Total 950 ml Balance 290 ml RACHELLE AMADOR MD Apr 23, 2020 11:33
[2020-04-23 14:01] VITALS: BP 97/62
[2020-04-23] MEDS: TAMSULOSIN 0.4 MG CAP PO SCH (23:02)
[2020-04-23] MEDS: LORazepam 1 MG TAB PO PRN (23:09)
[2020-04-24] MEDS: PERCOCET 5MG/325MG TAB PO SCH ×3 (05:21→17:56)
[2020-04-24] MEDS ORDERED: PERCOCET 5MG/325MG TAB PO ONE (09:00)
[2020-04-24] MEDS: PREGABALIN 75 MG CAP(LYRICA) PO SCH ×3 (10:39→20:37)
--- NOTE | 2020-04-24 12:36 | IPNPDOC ---
Date Seen The patient was seen on 04/24/20. Progress Note Progress Note SUBJECTIVE: still c/o pain, but has not received scheduled pain meds yet. not a hospice house candidate. no sob, cough. OBJECTIVE: PHYSICAL EXAM: VITAL SIGNS SEE BELOW. GENERAL: Cachectic HEENT: (+)use of respiratory accessory muscles. No cervical or supraclavicular lymphadenopathy bilaterally. CARDIOVASCULAR: S1, S2. No murmurs, RESPIRATORY:Coarse breath sounds bilaterally ABDOMEN: Soft, nontender, nondistended. Bowel sounds present. No hepatosplenomegaly. No masses or ecchymosis. SKIN: Warm, dry. No rashes. EXTREMITIES: No cyanosis or edema in extremities. LABORATORY DATA, IMAGING STUDIES: SEE BELOW PROBLEM LIST: Endstage COPD Recurrent Lung cancer with new spiculated mass in right lung Severe protein calorie malnutrition bmI 15.8 Pulmonary cachexia Insomnia , Chronic pain Acute on chronic Systolic and diastolic CHF EXACERBATION EF20%-30% H/o polysubstance abuse medical noncompliance. 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 hospice consulted. pt may be dc home if he has help at home to assist w his manager route meds. pfs consulted. VS, I&O, 24H, Fishbone Vital Signs/I&O Vital Signs Date Time Temp Pulse Resp B/P (MAP) Pulse Ox O2 Delivery O2 Flow Rate FiO2 04/24/20 10:39 Room Air 04/24/20 05:51 16 04/23/20 14:01 99.4 116 97/62 (74) 96 04/19/20 20:27 98 I&O- Last 24 Hours up to 6 AM 04/24/20 06:00 Intake Total 300 ml Output Total 300 ml Balance 0 ml RACHELLE AMADOR MD Apr 24, 2020 12:36
[2020-04-24] MEDS: TAMSULOSIN 0.4 MG CAP PO SCH (20:37)
[2020-04-24] MEDS: LORazepam 1 MG TAB PO PRN (20:38)
[2020-04-25] MEDS: PERCOCET 5MG/325MG TAB PO SCH ×4 (00:57→16:24)
[2020-04-25] MEDS: MORPHINE 2 MG/ML 1ML VIAL (J2270) IV PRN (03:52)
[2020-04-25] MEDS: PREGABALIN 75 MG CAP(LYRICA) PO SCH ×3 (08:21→20:05)
[2020-04-25] MEDS ORDERED: PERCOCET 5MG/325MG TAB PO ONE (11:15)
--- NOTE | 2020-04-25 11:16 | IPNPDOC ---
Date Seen The patient was seen on 04/25/20. 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 sleeping better. still w slight cough. OBJECTIVE: PHYSICAL EXAM: VITAL SIGNS SEE BELOW. GENERAL: Cachectic on his left side in position. +use of acc resp mm HEENT: no jvd. dry mm membranes bitemproal wasting. No cervical or supraclavicular lymphadenopathy bilaterally. CARDIOVASCULAR: S1, S2. No murmurs, RESPIRATORY:Coarse breath sounds bilaterally exposed ribs. ABDOMEN: Soft, nontender, nondistended. Bowel sounds present. No hepatosplenomegaly. No masses or ecchymosis. SKIN: Warm, dry. No rashes. EXTREMITIES: No cyanosis or edema in extremities. LABORATORY DATA, IMAGING STUDIES: SEE BELOW PROBLEM LIST: Endstage COPD Recurrent Lung cancer with new spiculated mass in right lung Severe protein calorie malnutrition bmI 15.8 Pulmonary cachexia Insomnia , Chronic pain Acute on chronic Systolic and diastolic CHF EXACERBATION EF20%-30% H/o polysubstance abuse medical noncompliance. 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 unable to participate with physical therapy due to generalized weakness. change to snf/alc status. pfs consulted for housing issues. may dc home w hospice anytime. pfs to assist in dc planning. VS, I&O, 24H, Fishbone Vital Signs/I&O Vital Signs Date Time Temp Pulse Resp B/P (MAP) Pulse Ox O2 Delivery O2 Flow Rate FiO2 04/25/20 05:42 16 04/24/20 10:39 Room Air 04/23/20 14:01 99.4 116 97/62 (74) 96 04/19/20 20:27 98 I&O- Last 24 Hours up to 6 AM 04/25/20 06:00 Intake Total 1260 ml Output Total 150 ml Balance 1110 ml RACHELLE AMADOR MD Apr 25, 2020 10:20
[2020-04-25] MEDS: TAMSULOSIN 0.4 MG CAP PO SCH (20:05)
[2020-04-25] MEDS: LORazepam 1 MG TAB PO PRN (20:05)
[2020-04-25] MEDS: MORPHINE 10MG/0.5ML ORAL CONCENTRATE SOLUTION U/D SL PRN (20:06)
[2020-04-26] MEDS: PERCOCET 5MG/325MG TAB PO SCH ×2 (00:23→06:02)
[2020-04-26] MEDS: MORPHINE 10MG/0.5ML ORAL CONCENTRATE SOLUTION U/D SL PRN (04:30)
[2020-04-26] MEDS: LORazepam 1 MG TAB PO PRN ×2 (04:30→08:57)
[2020-04-26] MEDS: PREGABALIN 75 MG CAP(LYRICA) PO SCH (08:57)
[2020-04-26] MEDS ORDERED: MORP20SO3 PO (09:33)
[2020-04-26] MEDS ORDERED: ATIV1TAB10 PO (09:33)
[2020-04-26] MEDS ORDERED: HYOS125TA PO (09:33)
[2020-04-26 10:00] VITALS: BP 113/68
--- NOTE | 2020-04-26 17:39 | DS.PDOC ---
Discharge Summary General Date of Admission Apr 19, 2020 at 23:15 Date of Discharge 04/26/20 Discharge Summary SIGNED OUT AGAINST MEDICAL ADVICE DNR/DNI /COMFORT MEASURES ONLY -hospice refused due to drug users in his residence DISCHARGE DIAGNOSES: Recurrent Lung cancer with new spiculated mass in right lung Severe protein calorie malnutrition bmI 15.8 Pulmonary cachexia Insomnia H/o polysubstance abuse medical noncompliance. insomnia Active Tobacco Abuse Opioid induced urine retention Stage IIIB Non small cell lung cancer -Squamous cell type (s/p RLL lobectomy and external Beam RT in 2016 with Recurrence with new spiculated mass in right lung, he is not a candidate for further treatment) Radiation Fibrosis Endstage COPD with Pulmonary cachexia BMI was 17 on Mar 23 HFrEF (EF 20-25%) with HFpEF (grade 1) Severe pulmonary hypertension Mild tricuspid insufficiency Mild mitral insufficiency Depression Chronic back pain Cyst resection DISCHARGE MEDICATIONS: SEE BELOW DISCHARGE INSTRUCTIONS: PCP FU WITHN 5 DAYS. PCP TO ADDRESS [facility] NEEDS OUTPT. HOSPITAL COURSE: 59-year-old gentleman presented with complaints of shortness of breath that began 2 hours prior to arriving in the hospital, which she attributes to feeling anxious. His shortness of breath did improve with neb treatments. He denied having chest pain, fever, chills, cough, nausea, vomiting, diarrhea, or any sick contacts.He has a history of lung cancer and was enrolled in palliative care, but signed off on the program in order to come to the hospital when he had an episode of hematemesis. 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 He was unable to return home due to poor support system, unable to participate with physical therapy due to generalized weakness, and hospice could not follow him as outpt due to recreational drug use in his residence. Pt remained in the hospital due to weakness, and was changed to snf/alc status. pfs consulted , but pt signed out ama saying that he can place his opioids in a lock box that is drilled into the floor, so his friends cannot steal them. pt did not pass physical therapy and signed out against medical advice. DISCHARGE PHYSICAL EXAM: VITAL SIGNS SEE BELOW. GENERAL: Cachectic on his left side in position. +use of acc resp mm HEENT: no jvd. dry mm membranes bitemproal wasting. No cervical or supraclavicular lymphadenopathy bilaterally. CARDIOVASCULAR: S1, S2. No murmurs, RESPIRATORY:Coarse breath sounds bilaterally exposed ribs. ABDOMEN: Soft, nontender, nondistended. Bowel sounds present. No hepatosplenomegaly. No masses or ecchymosis. SKIN: Warm, dry. No rashes. EXTREMITIES: No cyanosis or edema in extremities. LABORATORY DATA, IMAGING STUDIES: SEE BELOW TIME SPENT ON DISCHARGE: 30 MIN Vital Signs/I&Os Vital Signs Date Time Temp Pulse Resp B/P (MAP) Pulse Ox O2 Delivery O2 Flow Rate FiO2 04/26/20 10:00 98.0 98 16 113/68 (83) 95 Room Air I&O- Last 24 Hours up to 6 AM 04/26/20 06:00 Intake Total 1860 ml Output Total 600 ml Balance 1260 ml Discharge Medications Scheduled Pregabalin (Lyrica) 150 Mg Capsule, 150 MG PO TID, (Reported) Scheduled PRN Hyoscyamine Sulfate (Hyoscyamine Sulfate) 0.125 Mg Tab.subl, 0.125 MG PO Q4HP PRN for TERMINAL SECRETIONS Use sublingually if unable to swallow Lorazepam (Ativan) 0.5 Mg Tablet, 0.5 MG PO Q4HP PRN for ANXIETY/AGITATION Use sublingually if unable to swallow Morphine Sulfate (Morphine Sulfate) 100 Mg/5 Ml Solution, 0.25-1 ML PO Q2H PRN for PAIN OR DYSPNEA Use sublingually if unable to swallow Allergies Coded Allergies: No Known Allergies (Unverified , 10/23/19) RACHELLE AMADOR MD Apr 26, 2020 17:34
== END 2020-04-26 10:40 | disposition left against medical advice (07) | DRG 951 ==
LOC: M ED 19:37 → M ED INP 23:15 → ENRESERV 23:25 → M MSPAV 04-20 00:15
PROVIDERS: ADMIT Internal Medicine; ATTEND General Practice
DX: Z51.5 Encounter for palliative care (principal); I50.43 Acute on chronic combined systolic (congestive) and diastolic (congestive) heart failure; E43 Unspecified severe protein-calorie malnutrition; C34.91 Malignant neoplasm of unspecified part of right bronchus or lung; R64 Cachexia; J70.1 Chronic and other pulmonary manifestations due to radiation; Z68.1 Body mass index [BMI] 19.9 or less, adult; I27.20 Pulmonary hypertension, unspecified; J44.9 Chronic obstructive pulmonary disease, unspecified; E86.0 Dehydration; R33.0 Drug induced retention of urine; G47.00 Insomnia, unspecified; Z66 Do not resuscitate; F17.200 Nicotine dependence, unspecified, uncomplicated; I36.0 Nonrheumatic tricuspid (valve) stenosis; F32.9 Major depressive disorder, single episode, unspecified; Z91.19 Patient's noncompliance with other medical treatment and regimen

== ENCOUNTER 2020-04-29 11:00 | Emergency (ER) | payer MEDICARE, MEDICAID ==
[~2020-04-29] VITALS: Ht 167.6 cm; Wt 45.5 kg
[2020-04-29 11:16] VITALS: BP 119/72
[2020-04-29] MEDS ORDERED: IPRATROPIUM 0.5MG/ALBUTEROL 2.5MG INH SOL UD 3ML (DUONEB) NEB ONE (11:30)
--- NOTE | 2020-04-29 11:41 | REP ---
INDICATION: sob. COMPARISON: Comparison chest x-ray April 19, 2020.. TECHNIQUE: Sitting AP portable radiograph. FINDINGS: There is chronic volume loss and scarring with pleuroparenchymal opacity in the left upper lobe. The left hilus is retracted upwards and there is volume loss in the left chest with mediastinal deviation to the left. There is also volume loss and less prominent pleuroparenchymal fibrosis in the right upper lobe. These findings are unchanged from the recent comparison study April 19, 2020. Remaining lung almeida are clear. No new infiltrate is observed. IMPRESSION: Chronic biapical pleuroparenchymal changes with volume loss. Air bronchograms persist on the left. No acute infiltrate seen. <Electronically signed by Lacho Bronson > 04/29/20 [id number]
--- NOTE | 2020-04-30 08:39 | ECGEPIP ---
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
== END 2020-04-29 13:04 | disposition left against medical advice (07) ==
LOC: EDBD 11:00 → M ED 11:00
DX: J44.9 Chronic obstructive pulmonary disease, unspecified (principal); C34.90 Malignant neoplasm of unspecified part of unspecified bronchus or lung; I11.0 Hypertensive heart disease with heart failure; G89.29 Other chronic pain; J70.1 Chronic and other pulmonary manifestations due to radiation; F17.200 Nicotine dependence, unspecified, uncomplicated; F19.11 Other psychoactive substance abuse, in remission; Z79.899 Other long term (current) drug therapy

== ENCOUNTER 2020-05-11 16:13 | Emergency (ER) | payer MEDICARE, MEDICAID ==
[~2020-05-11] VITALS: Ht 172.7 cm; Wt 45.5 kg
[2020-05-11 16:23] VITALS: BP 130/66
[2020-05-11] MEDS ORDERED: methylPREDNISolone 125MG 2ML VIAL IV ONE (17:00)
[2020-05-11] MEDS ORDERED: COMBIVENT RESPIMAT 100-20MCG INHALER 4GM INH ONE (17:00)
[2020-05-11 17:26] LABS: ABG BASE EXCESS 3.6 (-2.0-2.0); ABG HCO3 27.5 MEQ/L (22.0-26.0); ABG O2 SATURATION 97.8 % (95.0-99.0); ABG PARTIAL PRESSURE CO2 39.1 mmHg (35.0-45.0); ABG PARTIAL PRESSURE O2 97.4 mmHg (75.0-100.0); ABG STANDARD HCO3 27.7 MEQ/L (22.0-26.0); ABG TOTAL CO2 28.7 MEQ/L (22.0-29.0); ABG pH (ARTERIAL) 7.465 UNITS (7.350-7.450)
[2020-05-11 18:04] LABS: BASO # 0.1 10^3/uL (0.0-0.2); BASO % 0.4 % (0.0-1.0); EOS % 0.1 % (0.0-3.0); HEMATOCRIT 37.8 % (42.0-52.0); HEMOGLOBIN 12.2 g/dl (13.5-17.5); LYMPH # 0.8 10^3/uL (1.5-5.0); LYMPH % 6.4 % (24.0-44.0); MEAN CORPUSCULAR HEMOGLOBIN 27.7 pg (27.0-33.0); MEAN CORPUSCULAR HGB CONC 32.3 g/dl (32.0-36.5); MEAN CORPUSCULAR VOLUME 85.7 fl (80.0-96.0); MONO # 1.6 10^3/uL (0.0-0.8); MONO % 12.5 % (0.0-5.0); NEUTROPHILS # 10.1 10^3/uL (1.5-8.5); PLATELET COUNT, AUTOMATED 304 10^3/uL (150-450); RED BLOOD COUNT 4.41 10^6/uL (4.30-6.10); WHITE BLOOD COUNT 12.6 10^3/uL (4.0-10.0)
[2020-05-11 18:15] LABS: INR 1.22; PROTHROMBIN TIME 15.7 SECONDS (12.5-14.3)
[2020-05-11 18:18] LABS: D-DIMER QUANT 717.4 ng/ml (<500)
[2020-05-11 18:41] LABS: ALBUMIN 2.7 GM/DL (3.2-5.2); ALT/SGPT 11 U/L (12-78); BILIRUBIN,DIRECT 0.4 MG/DL (0.0-0.2); BILIRUBIN,TOTAL 1.6 MG/DL (0.2-1.0); BLOOD UREA NITROGEN 9 MG/DL (7-18); CALCIUM LEVEL 8.4 MG/DL (8.5-10.1); CARBON DIOXIDE LEVEL 29 MEQ/L (21-32); CHLORIDE LEVEL 101 MEQ/L (98-107); CK-MB VALUE MASS < 1.0 NG/ML (<3.6); CPK CREATINE PHOSPHOKINASE 25 U/L (39-308); CREATININE FOR GFR 0.77 MG/DL (0.70-1.30); GLOMERULAR FILTRATION RATE > 60.0 (>56); GLUCOSE, FASTING 99 MG/DL (70-100); NT-PRO BNP 1144 PG/ML (<125); POTASSIUM SERUM 3.5 MEQ/L (3.5-5.1); SODIUM LEVEL 137 MEQ/L (136-145); THYROID STIMULATING HORMONE 0.857 uIU/ML (0.358-3.740); TOTAL PROTEIN 6.3 GM/DL (6.4-8.2)
--- NOTE | 2020-05-11 19:16 | REP ---
INDICATION: DYSPNEA/COUGH. COMPARISON: PA and lateral chest dated 04/16/2020 and portable chest dated 04/29/2020. TECHNIQUE: Upright PA and lateral chest. FINDINGS: There is marked retraction of the upper lobes bilaterally. There is elevation of the left hilus was marked enlargement of the hilus and parahilar are pleura, stable and unchanged. There is enlargement of the right hilus and elevation of the minor fissure on the right also stable and unchanged. The findings are compatible with chronic pleuroparenchymal scarring predominantly in the upper lobes. Is conceptive compensatory hyperinflation of the lower lobes bilaterally. There are no infiltrates or effusions. There are no nodules or masses. Cardiac size is normal. IMPRESSION: Chronic pleuroparenchymal scarring resulting in cephalad retraction of the upper lobes bilaterally and cephalad retraction of the left hilus. There are no new or acute cardiopulmonary findings. <Electronically signed by aJiro Adam > 05/11/20 [id number]
--- NOTE | 2020-05-11 21:15 | REPVR ---
PROCEDURE INFORMATION: Exam: US Duplex Lower Extremity Veins, Bilateral Exam date and time: 05/11/2020 8:29 PM Age: 59 years old Clinical indication: Pain; Leg, lower; Bilateral; Additional info: Bilat calf pain R/O dvt TECHNIQUE: Imaging protocol: Real-time duplex ultrasound of the extremities with 2-D blount scale, color Doppler flow and spectral waveform analysis with image documentation. Complete exam focused on the bilateral lower extremity veins. COMPARISON: US Duplex, Ext,LOWER veins,unilat 11/05/2018 12:59 PM FINDINGS: Right deep veins: Unremarkable. The common femoral, femoral, proximal profunda femoral and popliteal veins are patent without thrombus. Normal Doppler waveforms. Normal compressibility and/or augmentation response. Left deep veins: Unremarkable. The common femoral, femoral, proximal profunda femoral and popliteal veins are patent without thrombus. Normal Doppler waveforms. Normal compressibility and/or augmentation response. Soft tissues: Unremarkable. IMPRESSION: No evidence of deep vein thrombosis. Electronically signed by: William Gibson On 05/11/2020 21:14:47 PM
--- NOTE | 2020-05-12 07:49 | ECGEPIP ---
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
[2020-05-12] MEDS ORDERED: LYRI150C PO (15:16)
== END 2020-05-11 21:10 | disposition left against medical advice (07) ==
LOC: EDBD 16:13 → M ED 16:13
DX: Z53.9 Procedure and treatment not carried out, unspecified reason (principal); R06.02 Shortness of breath; R00.0 Tachycardia, unspecified; C34.90 Malignant neoplasm of unspecified part of unspecified bronchus or lung; F32.9 Major depressive disorder, single episode, unspecified; M54.9 Dorsalgia, unspecified; J44.9 Chronic obstructive pulmonary disease, unspecified; F17.200 Nicotine dependence, unspecified, uncomplicated; Z79.899 Other long term (current) drug therapy
CPT/HCPCS: 36600; 71045; 80048; 80076; 82550; 82553; 82803; 83880; 84443; 84484; 85025; 85379; 85610; 87486; 87581; 87633; 87798; 93005; 93041; 93970; 96374; 99285; J2930

== ENCOUNTER 2020-05-12 13:24 | Emergency (ER) | payer MEDICARE, MEDICAID ==
[2020-05-12] MEDS: COMBIVENT RESPIMAT 100-20MCG INHALER 4GM INH SCH ×2 (13:57→14:26)
[2020-05-12 15:15] VITALS: BP 124/62
[2020-05-12] MEDS ORDERED: LYRI150C PO (15:16)
== END 2020-05-12 15:25 | disposition home or self-care (01) ==
LOC: EDBD 13:24 → M ED 14:24
DX: J44.9 Chronic obstructive pulmonary disease, unspecified (principal); I50.9 Heart failure, unspecified; C34.90 Malignant neoplasm of unspecified part of unspecified bronchus or lung; J70.1 Chronic and other pulmonary manifestations due to radiation; Z90.2 Acquired absence of lung [part of]; F17.200 Nicotine dependence, unspecified, uncomplicated; F19.10 Other psychoactive substance abuse, uncomplicated; Z79.899 Other long term (current) drug therapy; Z79.891 Long term (current) use of opiate analgesic

== ENCOUNTER 2020-05-21 12:17 | Inpatient (IN) | payer MEDICARE, MEDICAID ==
[~2020-05-21] VITALS: Ht 167.6 cm; Wt 43.0 kg
[2020-05-21] MEDS ORDERED: NS 1,000 ML IV ONE (12:45)
[2020-05-21] MEDS ORDERED: IPRATROPIUM 0.5MG/ALBUTEROL 2.5MG INH SOL UD 3ML (DUONEB) NEB PRN (12:45)
[2020-05-21] MEDS ORDERED: dexameTHASONE 20MG/5ML VIAL (J1100 PER 1MG) IV ONE (12:45)
[2020-05-21 13:17] LABS: VENOUS BASE EXCESS 7.7 (-2.0-2.0); VENOUS HCO3 28.9 MEQ/L (23.0-27.0); VENOUS O2 SATURATION 99.1 % (60.0-80.0); VENOUS PARTIAL PRESSURE CO2 30.1 mmHg (38.0-50.0); VENOUS PARTIAL PRESSURE O2 137.9 mmHg (30.0-50.0); VENOUS STANDARD HCO3 31.5 MEQ/L; VENOUS TOTAL CO2 29.8 MEQ/L (24.0-28.0)
[2020-05-21 13:20] LABS: BASO # 0.1 10^3/uL (0.0-0.2); BASO % 0.4 % (0.0-1.0); HEMATOCRIT 38.9 % (42.0-52.0); HEMOGLOBIN 12.3 g/dl (13.5-17.5); LYMPH # 0.5 10^3/uL (1.5-5.0); MEAN CORPUSCULAR HEMOGLOBIN 26.9 pg (27.0-33.0); MEAN CORPUSCULAR HGB CONC 31.6 g/dl (32.0-36.5); MEAN CORPUSCULAR VOLUME 84.9 fl (80.0-96.0); NEUTROPHILS # 15.3 10^3/uL (1.5-8.5); NEUTROPHILS % 89.8 % (36.0-66.0); PLATELET COUNT, AUTOMATED 470 10^3/uL (150-450); RED BLOOD COUNT 4.58 10^6/uL (4.30-6.10)
[2020-05-21 13:42] LABS: ALBUMIN 2.7 GM/DL (3.2-5.2); ALT/SGPT 9 U/L (12-78); BILIRUBIN,DIRECT 0.2 MG/DL (0.0-0.2); BILIRUBIN,TOTAL 1.2 MG/DL (0.2-1.0); BLOOD UREA NITROGEN 10 MG/DL (7-18); CALCIUM LEVEL 8.5 MG/DL (8.5-10.1); CARBON DIOXIDE LEVEL 30 MEQ/L (21-32); CHLORIDE LEVEL 93 MEQ/L (98-107); CK-MB VALUE MASS < 1.0 NG/ML (<3.6); CPK CREATINE PHOSPHOKINASE 68 U/L (39-308); CREATININE FOR GFR 0.92 MG/DL (0.70-1.30); GLOMERULAR FILTRATION RATE > 60.0 (>56); GLUCOSE, FASTING 130 MG/DL (70-100); MB/CK RELATIVE INDEX 1.47 (< OR =4); NT-PRO BNP 2546 PG/ML (<125); POTASSIUM SERUM 3.8 MEQ/L (3.5-5.1); SODIUM LEVEL 134 MEQ/L (136-145); TOTAL PROTEIN 7.1 GM/DL (6.4-8.2); TROPONIN I < 0.02 NG/ML (< 0.10)
--- NOTE | 2020-05-21 13:58 | REP ---
INDICATION: DYSPNEA/COUGH COMPARISON: 04/29/2020 TECHNIQUE: Portable AP view of the chest FINDINGS: Diffuse chronic pleuroparenchymal changes again noted involving the right hemithorax and left upper lung zone. Superimposed moderate areas of airspace disease involving the right lower lung zone now identified. No pneumothorax. Skeletal structures demonstrate nonacute right rib fractures unchanged from prior examination. IMPRESSION: New areas of infiltrate involving the right mid to lower lung zone consistent with acute pneumonia and follow-up to resolution recommended. <Electronically signed by Patric Geller > 05/21/20 [id number]
[2020-05-21] MEDS ORDERED: ACETAMINOPHEN TAB 650MG DOSE (2X325MG) PO ONE (14:00)
[2020-05-21] MEDS ORDERED: AZITHROMYCIN INJ 500 MG, VIAL MATE ADAPTER 1 EACH in D5W 250 ML IV ONE (14:15)
[2020-05-21] MEDS ORDERED: cefTRIAXone SOD 1 GM in D5W MINI-BAG PLUS 50 ML IV ONE (14:15)
[2020-05-21] MEDS ORDERED: VENTAER INH (14:28)
[2020-05-21] MEDS ORDERED: ATIV1TAB10 PO (14:28)
[2020-05-21] MEDS ORDERED: LYRI150C PO (14:28)
[2020-05-21] MEDS ORDERED: XTAM18CA PO (14:28)
[2020-05-21] MEDS ORDERED: LYRI300C PO (14:28)
[2020-05-21] MEDS ORDERED: HYOS125TA PO (14:28)
[2020-05-21] MEDS ORDERED: ISOVUE-370 76% 100ML VIAL As Ordered ONE (14:42)
[2020-05-21] MEDS ORDERED: oxyCODONE 15 MG CR TAB PO ONE (14:45)
--- NOTE | 2020-05-21 15:12 | REP ---
INDICATION: SOB, tachycardia, hypoxia, COMPARISON: None. TECHNIQUE: Axial contrast enhanced images from the thoracic inlet to the upper abdomen using pulmonary embolus technique with multiplanar re-formations. 75 ml Isovue 370 intravenous contrast material administered without complication. This CT examination was performed using the following dose reduction techniques: Automated exposure control, adjustment of mA and/or kv according to the patient's size, and use of iterative reconstruction technique. FINDINGS: Satisfactory enhancement of the pulmonary vasculature is achieved and no filling defects are identified to suggest pulmonary embolus. Extensive bilateral postsurgical and chronic bilateral pleuroparenchymal changes are again identified and appear relatively stable compared to prior examination. There is a new moderate to significant area of ill-defined consolidation extending from the right hilar region into the right lower lung zone. No acute effusion. No pneumothorax. Underlying adenopathy cannot be excluded. Further evaluation of the mediastinum demonstrates stable appearance to the thoracic aorta and heart/pericardium. Surrounding musculoskeletal structures are intact and stable. IMPRESSION: 1. Extensive chronic stable bilateral postsurgical and pleuroparenchymal changes. 2. No evidence for pulmonary embolus. 3. New area of moderate to significant ill-defined consolidation and/or mass extending from the right hilum into the right lower lung zone. Differential diagnosis includes acute pneumonia and malignancy. <Electronically signed by Patric Geller > 05/21/20 [id number]
[2020-05-21] MEDS ORDERED: ALBUTEROL 90 MCG/ACT 8GM HFA INHALER INH PRN (15:15)
[2020-05-21] MEDS: PREGABALIN 100 MG CAP (LYRICA) PO SCH (15:28)
[2020-05-21] MEDS ORDERED: HYOSCYAMINE SULFATE 0.125 MG SUBL TABLET PO PRN (15:30)
--- NOTE | 2020-05-21 15:42 | HPEPDOC ---
General Date of Admission May 21, 2020 at 15:10 Date of Service: May 21, 2020 Chief Complaint The patient is a 59-year-old male admitted with a reason for visit of Community Acquired Pneumonia. Source: Patient Exam Limitations: No limitations Timing/Duration: Day(s) Severity: Moderate History of Present Illness Patient is 59 years old male with past medical history of Stage IIIB Non small cell lung cancer -Squamous cell type (s/p RLL lobectomy and external Beam RT in 2016 with Recurrence with new spiculated mass in right lung, he is not a candidate for further treatment), Radiation Fibrosis, Advanced COPD with Pulmonary cachexia BMI was 17 on Mar 23, HFrEF (EF 20-25%) with HFpEF (grade 1) presented hospital with increased right-sided chest pain with cough and sputum production. Patient stated that for past week he has been having shortness of breath associated with yellowish sputum production and cough. In ER patient was found to have leukocytosis of 17, hemoglobin 12.3, lactic acid 3. CT was done and showed New area of moderate to significant ill-defined consolidation and/or mass extending from the right hilum into the right lower lung zone. Home Medications Scheduled Oxycodone Myristate (Xtampza ER) 18 Mg Cap.spr.12, 18 MG PO BID, (Reported) Pregabalin (Lyrica) 150 Mg Capsule, 150 MG PO QHS, (Reported) Pregabalin (Lyrica) 300 Mg Capsule, 300 MG PO QAM, (Reported) Scheduled PRN Albuterol Sulfate (Ventolin Hfa) 18 Gm Hfa.aer.ad, 2 PUFFS INH Q4H PRN for SOB/WHEEZING, (Reported) Hyoscyamine Sulfate (Hyoscyamine Sulfate) 0.125 Mg Tab.subl, 0.125 MG PO Q4H PRN for TERMINAL SECRETIONS, (Reported) Lorazepam (Ativan) 0.5 Mg Tablet, 0.5 MG PO Q4HP PRN for ANXIETY/AGITATION, (Reported) Allergies Coded Allergies: No Known Allergies (Unverified , 10/23/19) Past Medical History Medical History Stage IIIB Non small cell lung cancer -Squamous cell type (s/p RLL lobectomy and external Beam RT in 2016 with Recurrence with new spiculated mass in right lung, he is not a candidate for further treatment) Radiation Fibrosis Advanced COPD with Pulmonary cachexia BMI was 17 on Mar 23 HFrEF (EF 20-25%) with HFpEF (grade 1) Severe pulmonary hypertension Mild tricuspid insufficiency Mild mitral insufficiency Depression Chronic back pain Cyst resection Hand surgery Surgical History RLL lobectomy Family History Three brothers of coronary artery disease at the age of 52, 57 and 45 Mother , age 65, unknown type of cancer Father , age 67, unknown type of cancer Social History * Smoker: current smoker Alcohol: Denies Drugs: marijuana, other (methamphetamine) A-FIB/CHADSVASC A-FIB History Current/History of A-Fib/PAF?: No Current PO Anticoag Therapy: No Review of Systems Constitutional: Reports: Chills; Denies: Fever Eyes: Denies: Pain ENT: Denies: Head Aches Skin: Denies: Rash Pulmonary: Reports: Dyspnea, Cough, Pleuritic Chest Pain Cardiovascular: Denies: Chest Pain Gastrointestinal: Denies: Nausea, Vomiting Genitourinary: Denies: Dysuria, Frequency Hematologic: Denies: Bruising Endocrine: Denies: Polydipsia Musculoskeletal: Denies: Neck Pain Neurological: Denies: Weakness Psych: Reports: Mood Normal Physical Examination General Exam: Positive: Alert, Cooperative, No Acute Distress, Mild Distress, Moderate Distress, Severe Distress, Other Eye Exam: Positive: PERRLA, Conjunctiva & lids normal, EOMI; Negative: Sclera icteric ENT Exam: Positive: Atraumatic, Mucous membr. moist/pink, Pharynx Normal Neck Exam: Positive: Supple; Negative: JVD, thyromegaly Chest Exam: Positive: Rhonchi, Diminished; Negative: Clear to auscultation, Normal air movement Heart Exam: Positive: Rate Normal, Regular Rhythm, Normal S1, Normal S2; Negative: Murmurs, Rubs Telemetry: Positive: No significant arrhythmia Abdomen Exam: Positive: Normal bowel sounds, Soft; Negative: Tenderness, Hepatospenomegaly Extremity Exam: Positive: Clubbing, Normal pulses; Negative: Cyanosis, Edema Skin Exam: Positive: Nl turgor and temperature; Negative: Breakdown, Lesion Neuro Exam: Positive: Normal Gait, Normal Speech, Cranial Nerves 3-12 NL, Reflexes 2+ Psych Exam: Positive: Mental status NL, Mood NL, Oriented x 3 Vital Signs Vital Signs Date Time Temp Pulse Resp B/P (MAP) Pulse Ox O2 Delivery O2 Flow Rate FiO2 05/21/20 12:36 98.0 124 20 130/60 (83) 100 Room Air Laboratory Data Labs 24H Laboratory Tests 2 05/21/20 12:49: Immature Granulocyte % (Auto) 0.8, Neutrophils (%) (Auto) 89.8H, Lymphocytes (%) (Auto) 3.0L, Monocytes (%) (Auto) 6.0H, Eosinophils (%) (Auto) 0.0, Basophils (%) (Auto) 0.4, Neutrophils # (Auto) 15.3H, Lymphocytes # (Auto) 0.5L, Monocytes # (Auto) 1.0H, Eosinophils # (Auto) 0.0, Basophils # (Auto) 0.1, Nucleated Red Blood Cells % (auto) 0.0, D-Dimer, Quantitative 1523.77H, Blood Gas Bicarbonate Standard 31.5, Venous Blood pH 7.600H, Venous Blood Partial Pressure CO2 30.1L, Venous Blood Partial Pressure O2 137.9H, Venous Blood Total Carbon Dioxide 29.8H, Venous Blood HCO3 28.9H, Venous Blood Oxygen Saturation 99.1H, Venous Blood Base Excess 7.7H, Anion Gap 11, Glomerular Filtration Rate > 60.0, Lactic Acid Level 3.2*H, Calcium Level 8.5, Total Bilirubin 1.2H, Direct Bilirubin 0.2, Aspartate Amino Transf (AST/SGOT) 15, Alanine Aminotransferase (ALT/SGPT) 9L, Alkaline Phosphatase 121H, Total Creatine Kinase 68, Creatine Kinase MB < 1.0, Creatine Kinase MB Relative Index 1.47, Troponin I < 0.02, YZ-Fut-S-Type Natriuretic Peptide 2546H, Total Protein 7.1, Albumin 2.7L, Albumin/Globulin Ratio 0.6 CBC/BMP Laboratory Tests 05/21/20 12:49 Microbiology Microbiology 05/21/20 Respiratory Virus Panel (PCR) (MAIKEL) - Final, Complete 05/21/20 Blood Culture, Received Pending 05/21/20 Blood Culture, Received Pending Assessment/Plan Patient is 59 years old male with past medical history of Stage IIIB Non small cell lung cancer -Squamous cell type (s/p RLL lobectomy and external Beam RT in 2016 with Recurrence with new spiculated mass in right lung, he is not a ca ndidate for further treatment), Radiation Fibrosis, Advanced COPD with Pulmonary cachexia BMI was 17 on Mar 23, HFrEF (EF 20-25%) with HFpEF (grade 1) presented hospital with increased right-sided chest pain with cough and sputum production. Patient stated that for past week he has been having shortness of breath associated with yellowish sputum production and cough. In ER patient was found to have leukocytosis of 17, hemoglobin 12.3, lactic acid 3. CT was done and showed New area of moderate to significant ill-defined consolidation and/or mass extending from the right hilum into the right lower lung zone. Problems (1) Sepsis Status: Acute Problem Text: Patient developed leukocytosis, tachypnea and tachycardia secondary to postobstructive pneumonia due to advanced malignancy Antibiotic therapy started Sputum culture, blood culture (2) Community acquired pneumonia Status: Acute Problem Text: Patient developed most likely post obstructive pneumonia secondary to progression of lung cancer CTA showed New area of moderate to significant ill-defined consolidation and/or mass extending from the right hilum into the right lower lung zone Ceftriaxone IV, azithromycin IV Sputum culture (3) Carcinoma, lung Status: Chronic Problem Text: Patient has Stage IIIB Non small cell lung cancer -Squamous cell type (s/p RLL lobectomy and external Beam RT in 2016 with Recurrence with new spiculated mass in right lung, he is not a candidate for further treatment) Palliative care on board Prognosis is very poor. Patient's candidate for hospice care (4) Dyspnea Status: Acute Problem Text: Secondary to pneumonia and lung cancer Inhalers (5) Malnutrition Status: Chronic Problem Text: Secondary to malignancy Full nutritional assessment Ensure (6) Cachexia Status: Acute Problem Text: BMI of 16.2, muscle and bitemporal wasting (7) Palliative care encounter Status: Acute Problem Text: Patient was recently on REAM CUTTER treatment, but this time patient stated that he wants treatment Plan / VTE VTE Prophylaxis Ordered?: Yes ABA COBIAN DO May 21, 2020 15:42
--- NOTE | 2020-05-21 15:52 | ECGEPIP ---
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
[2020-05-21] MEDS: IPRATROPIUM 0.5MG/ALBUTEROL 2.5MG INH SOL UD 3ML (DUONEB) INH SCH ×2 (16:00→20:26)
[2020-05-21] MEDS ORDERED: oxyCODONE 20 MG CR TAB PO ONE (17:00)
[2020-05-21 17:50] VITALS: BP 107/68
[2020-05-21] MEDS: NS 1,000 ML IV SCH (17:54)
[2020-05-21] MEDS: oxyCODONE 10 MG CR TAB PO SCH (21:33)
[2020-05-21] MEDS: LORazepam 0.5 MG TAB PO PRN (21:33)
[2020-05-21 22:12] VITALS: BP 107/68
[2020-05-22] MEDS: NS 1,000 ML IV SCH ×4 (01:05→20:33)
[2020-05-22] MEDS: IPRATROPIUM 0.5MG/ALBUTEROL 2.5MG INH SOL UD 3ML (DUONEB) INH SCH ×6 (04:00→20:34)
[2020-05-22 05:58] VITALS: BP 103/62
[2020-05-22] MEDS ORDERED: oxyCODONE 20 MG CR TAB PO SCH (08:00)
[2020-05-22 08:08] LABS: HEMATOCRIT 32.1 % (42.0-52.0); HEMOGLOBIN 10.4 g/dl (13.5-17.5); MEAN CORPUSCULAR HGB CONC 32.4 g/dl (32.0-36.5); MEAN CORPUSCULAR VOLUME 86.3 fl (80.0-96.0); PLATELET COUNT, AUTOMATED 391 10^3/uL (150-450); RED BLOOD COUNT 3.72 10^6/uL (4.30-6.10); WHITE BLOOD COUNT 11.2 10^3/uL (4.0-10.0)
[2020-05-22 08:09] LABS: ALT/SGPT < 6 U/L (12-78); BILIRUBIN,TOTAL 0.5 MG/DL (0.2-1.0); BLOOD UREA NITROGEN 11 MG/DL (7-18); CARBON DIOXIDE LEVEL 31 MEQ/L (21-32); CHLORIDE LEVEL 101 MEQ/L (98-107); GLOMERULAR FILTRATION RATE > 60.0 (>56); GLUCOSE, FASTING 112 MG/DL (70-100); MAGNESIUM LEVEL 2.4 MG/DL (1.8-2.4); POTASSIUM SERUM 3.4 MEQ/L (3.5-5.1); SODIUM LEVEL 139 MEQ/L (136-145); TOTAL PROTEIN 5.5 GM/DL (6.4-8.2)
[2020-05-22] MEDS: ENOXAPARIN 30MG/0.3ML SYRINGE (J1650 PER 10MG) SC SCH (09:40)
[2020-05-22] MEDS: PREGABALIN 100 MG CAP (LYRICA) PO SCH (09:40)
[2020-05-22] MEDS: oxyCODONE 10 MG CR TAB PO SCH ×2 (09:41→20:32)
[2020-05-22] MEDS ORDERED: AUGM875T28 PO ×2 (11:04→11:07)
[2020-05-22] MEDS ORDERED: DOXY-350 PO ×2 (11:04→11:06)
--- NOTE | 2020-05-22 12:09 | IPNPDOC ---
Text Note Date of Service The patient was seen on 05/22/20. NOTE Subjective: Patient stated that his breathing markedly improved and he feels better. Objective: GENERAL APPEARANCE: Cachectic male HEENT: no scleral icterus, no JVD, EOMI CARDIOVASCULAR: S1S2 LUNGS: Coarse lung sounds bilaterally ABDOMEN: soft & not tender w palpitation MUSCULOSKELETAL: no cyanosis, no swelling INTEGUMENT: no generalized palor NEUROLOGICAL: cranial nerve function from 2-12 intact intact, follows commands, speech not dysarthric Assessment/Plan Patient is 59 years old male with past medical history of Stage IIIB Non small cell lung cancer -Squamous cell type (s/p RLL lobectomy and external Beam RT in 2016 with Recurrence with new spiculated mass in right lung, he is not a candidate for further treatment), Radiation Fibrosis, Advanced COPD with Pulmonary cachexia BMI was 17 on Mar 23, HFrEF (EF 20-25%) with HFpEF (grade 1) presented hospital with increased right-sided chest pain with cough and sputum production. Patient stated that for past week he has been having shortness of breath associated with yellowish sputum production and cough. In ER patient was found to have leukocytosis of 17, hemoglobin 12.3, lactic acid 3. CT was done and showed New area of moderate to significant ill-defined consolidation and/or mass extending from the right hilum into the right lower lung zone. Problems (1) Sepsis Resolved Patient developed leukocytosis, tachypnea and tachycardia secondary to postobstructive pneumonia due to advanced malignancy Continue Antibiotic therapy Sputum culture, blood culture (2) Community acquired pneumonia Patient developed most likely post obstructive pneumonia secondary to progression of lung cancer CTA showed New area of moderate to significant ill-defined consolidation and/or mass extending from the right hilum into the right lower lung zone Ceftriaxone IV, azithromycin IV (3) Carcinoma, lung Patient has Stage IIIB Non small cell lung cancer -Squamous cell type (s/p RLL lobectomy and external Beam RT in 2016 with Recurrence with new spiculated mass in right lung, he is not a candidate for further treatment) Palliative care on board Prognosis is very poor. 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
[2020-05-22 14:00] VITALS: BP 100/60
[2020-05-22] MEDS: cefTRIAXone SOD 2 GM in D5W MINI-BAG PLUS 50 ML IV SCH (14:45)
[2020-05-22] MEDS: AZITHROMYCIN INJ 500 MG, VIAL MATE ADAPTER 1 EACH in D5W 250 ML IV SCH (16:08)
[2020-05-22 22:00] VITALS: BP 97/60
[2020-05-23 06:00] VITALS: BP 117/69
[2020-05-23] MEDS: IPRATROPIUM 0.5MG/ALBUTEROL 2.5MG INH SOL UD 3ML (DUONEB) INH SCH ×7 (07:11→22:36)
--- NOTE | 2020-05-23 10:27 | IPNPDOC ---
Text Note Date of Service The patient was seen on 05/23/20. NOTE Subjective: No any acute events overnight. Patient denied fever, chills, nausea, vomiting, diarrhea dysuria Objective: GENERAL APPEARANCE: Cachectic male HEENT: no scleral icterus, no JVD, EOMI CARDIOVASCULAR: S1S2 LUNGS: Coarse lung sounds bilaterally ABDOMEN: soft & not tender w palpitation MUSCULOSKELETAL: no cyanosis, no swelling INTEGUMENT: no generalized palor NEUROLOGICAL: cranial nerve function from 2-12 intact intact, follows commands, speech not dysarthric Assessment/Plan Patient is 59 years old male with past medical history of Stage IIIB Non small cell lung cancer -Squamous cell type (s/p RLL lobectomy and external Beam RT in 2016 with Recurrence with new spiculated mass in right lung, he is not a candidate for further treatment), Radiation Fibrosis, Advanced COPD with Pulmonary cachexia BMI was 17 on Mar 23, HFrEF (EF 20-25%) with HFpEF (grade 1) presented hospital with increased right-sided chest pain with cough and sputum production. Patient stated that for past week he has been having shortness of breath associated with yellowish sputum production and cough. In ER patient was found to have leukocytosis of 17, hemoglobin 12.3, lactic acid 3. CT was done and showed New area of moderate to significant ill-defined consolidation and/or mass extending from the right hilum into the right lower lung zone. Problems (1) Sepsis Resolved Patient developed leukocytosis, tachypnea and tachycardia secondary to postobstructive pneumonia due to advanced malignancy Continue Antibiotic therapy blood culture negative (2) Community acquired pneumonia Patient developed most likely post obstructive pneumonia secondary to prog ression of lung cancer CTA showed New area of moderate to significant ill-defined consolidation and/or mass extending from the right hilum into the right lower lung zone Ceftriaxone IV, azithromycin IV (3) Carcinoma, lung Patient has Stage IIIB Non small cell lung cancer -Squamous cell type (s/p RLL lobectomy and external Beam RT in 2016 with Recurrence with new spiculated mass in right lung, he is not a candidate for further treatment) Palliative care on board Prognosis is very poor. Patient's candidate for hospice care (4) Dyspnea Resolved Secondary to pneumonia and lung cancer Inhalers (5) Malnutrition Secondary to malignancy Full nutritional assessment Ensure (6) Cachexia BMI of 16.2, muscle and bitemporal wasting (7) Palliative care encounter Patient was recently on HUMAN RESOURCES TEAM MEMBER treatment, but this time patient stated that he wants treatment VS,Fishbone, I+O VS, Fishbone, I+O Vital Signs Date Time Temp Pulse Resp B/P (MAP) Pulse Ox O2 Delivery O2 Flow Rate FiO2 05/23/20 06:00 98.9 100 18 117/69 (85) 91 Room Air I&O- Last 24 Hours up to 6 AM 05/23/20 06:00 Intake Total 1650 ml Output Total 1000 ml Balance 650 ml ABA COBIAN DO May 23, 2020 10:27
[2020-05-23] MEDS: LORazepam 0.5 MG TAB PO PRN ×2 (13:03→21:06)
[2020-05-23] MEDS: PREGABALIN 100 MG CAP (LYRICA) PO SCH (13:03)
[2020-05-23] MEDS: oxyCODONE 10 MG CR TAB PO SCH ×2 (13:04→21:06)
[2020-05-23] MEDS: ENOXAPARIN 30MG/0.3ML SYRINGE (J1650 PER 10MG) SC SCH (13:04)
[2020-05-23] MEDS: cefTRIAXone SOD 2 GM in D5W MINI-BAG PLUS 50 ML IV SCH (15:03)
[2020-05-23 16:03] VITALS: BP 126/76
[2020-05-23] MEDS: AZITHROMYCIN INJ 500 MG, VIAL MATE ADAPTER 1 EACH in D5W 250 ML IV SCH (16:11)
[2020-05-23 22:00] VITALS: BP 96/57
[2020-05-24] MEDS: LORazepam 0.5 MG TAB PO PRN ×3 (01:41→12:43)
[2020-05-24] MEDS: IPRATROPIUM 0.5MG/ALBUTEROL 2.5MG INH SOL UD 3ML (DUONEB) INH SCH ×5 (04:00→20:00)
[2020-05-24 06:00] VITALS: BP 94/57
[2020-05-24 07:56] LABS: BASO % 0.2 % (0.0-1.0); EOS # 0.1 10^3/uL (0.0-0.5); EOS % 0.9 % (0.0-3.0); HEMATOCRIT 34.2 % (42.0-52.0); HEMOGLOBIN 10.6 g/dl (13.5-17.5); LYMPH # 0.8 10^3/uL (1.5-5.0); LYMPH % 8.1 % (24.0-44.0); MEAN CORPUSCULAR HEMOGLOBIN 27.2 pg (27.0-33.0); MEAN CORPUSCULAR VOLUME 87.7 fl (80.0-96.0); MONO # 1.2 10^3/uL (0.0-0.8); MONO % 12.5 % (0.0-5.0); NEUTROPHILS # 7.7 10^3/uL (1.5-8.5); NEUTROPHILS % 77.9 % (36.0-66.0); WHITE BLOOD COUNT 9.8 10^3/uL (4.0-10.0)
[2020-05-24 08:12] LABS: BLOOD UREA NITROGEN 9 MG/DL (7-18); CARBON DIOXIDE LEVEL 32 MEQ/L (21-32); CHLORIDE LEVEL 99 MEQ/L (98-107); CREATININE FOR GFR 0.69 MG/DL (0.70-1.30); GLOMERULAR FILTRATION RATE > 60.0 (>56); GLUCOSE, FASTING 92 MG/DL (70-100); MAGNESIUM LEVEL 2.1 MG/DL (1.8-2.4); POTASSIUM SERUM 3.6 MEQ/L (3.5-5.1); SODIUM LEVEL 139 MEQ/L (136-145)
[2020-05-24] MEDS: PREGABALIN 100 MG CAP (LYRICA) PO SCH (08:16)
[2020-05-24] MEDS: ENOXAPARIN 30MG/0.3ML SYRINGE (J1650 PER 10MG) SC SCH (08:17)
[2020-05-24] MEDS: oxyCODONE 10 MG CR TAB PO SCH ×2 (08:17→19:55)
--- NOTE | 2020-05-24 11:06 | IPNPDOC ---
Text Note Date of Service The patient was seen on 05/24/20. NOTE Subjective: No any acute events overnight. Objective: GENERAL APPEARANCE: Cachectic male HEENT: no scleral icterus, no JVD, EOMI CARDIOVASCULAR: S1S2 LUNGS: Coarse lung sounds bilaterally ABDOMEN: soft & not tender w palpitation MUSCULOSKELETAL: no cyanosis, no swelling INTEGUMENT: no generalized palor NEUROLOGICAL: cranial nerve function from 2-12 intact intact, follows commands, speech not dysarthric Assessment/Plan Patient is 59 years old male with past medical history of Stage IIIB Non small cell lung cancer -Squamous cell type (s/p RLL lobectomy and external Beam RT in 2016 with Recurrence with new spiculated mass in right lung, he is not a candidate for further treatment), Radiation Fibrosis, Advanced COPD with Pulmonary cachexia BMI was 17 on Mar 23, HFrEF (EF 20-25%) with HFpEF (grade 1) presented hospital with increased right-sided chest pain with cough and sputum production. Patient stated that for past week he has been having shortness of breath associated with yellowish sputum production and cough. In ER patient was found to have leukocytosis of 17, hemoglobin 12.3, lactic acid 3. CT was done and showed New area of moderate to significant ill-defined consolidation and/or mass extending from the right hilum into the right lower lung zone. Problems (1) Sepsis Resolved Patient developed leukocytosis, tachypnea and tachycardia secondary to postobstructive pneumonia due to advanced malignancy Continue Antibiotic therapy blood culture negative (2) Community acquired pneumonia Patient developed most likely post obstructive pneumonia secondary to progression of lung cancer CTA showed New area of moderate to significant ill-defined consolidation and/or mass extending from the right hilum into the right lower lung zone Ceftriaxone IV, azithromycin IV (3) Carcinoma, lung Patient has Stage IIIB Non small cell lung cancer -Squamous cell type (s/p RLL lobectomy and external Beam RT in 2016 with Recurrence with new spiculated mass in right lung, he is not a candidate for further treatment) Palliative care on board Prognosis is very poor. Patient's candidate for hospice care (4) Dyspnea Resolved Secondary to pneumonia and lung cancer Inhalers (5) Malnutrition Secondary to malignancy Full nutritional assessment Ensure (6) Cachexia BMI of 16.2, muscle and bitemporal wasting (7) Palliative care encounter Patient was recently on CREDIT CASHIER treatment, but this time patient stated that he wants treatment VS,Fishbone, I+O VS, Fishbone, I+O Laboratory Tests 05/24/20 07:29 Vital Signs Date Time Temp Pulse Resp B/P (MAP) Pulse Ox O2 Delivery O2 Flow Rate FiO2 05/24/20 08:17 18 Room Air 05/24/20 06:00 97.5 119 94/57 (39) 90 I&O- Last 24 Hours up to 6 AM 05/24/20 06:00 Intake Total 1680 ml Output Total 700 ml Balance 980 ml ABA COBIAN DO May 24, 2020 11:06
[2020-05-24] MEDS: cefTRIAXone SOD 2 GM in D5W MINI-BAG PLUS 50 ML IV SCH (12:42)
[2020-05-24] MEDS: POTASSIUM CHLORIDE 10 MEQ SR TABLET PO SCH (12:43)
[2020-05-24 14:00] VITALS: BP 126/86
[2020-05-24] MEDS: AZITHROMYCIN INJ 500 MG, VIAL MATE ADAPTER 1 EACH in D5W 250 ML IV SCH (16:05)
[2020-05-24] MEDS ORDERED: LevoFLOXacin 500 MG TABLET PO ONE (16:15)
[2020-05-24 22:00] VITALS: BP 100/64
[2020-05-25] MEDS: IPRATROPIUM 0.5MG/ALBUTEROL 2.5MG INH SOL UD 3ML (DUONEB) INH SCH ×5 (04:00→14:50)
[2020-05-25 06:00] VITALS: BP 98/63
[2020-05-25 06:58] LABS: BASO # 0.1 10^3/uL (0.0-0.2); BASO % 0.4 % (0.0-1.0); EOS # 0.2 10^3/uL (0.0-0.5); EOS % 1.7 % (0.0-3.0); HEMATOCRIT 33.9 % (42.0-52.0); HEMOGLOBIN 10.6 g/dl (13.5-17.5); LYMPH # 0.8 10^3/uL (1.5-5.0); LYMPH % 6.6 % (24.0-44.0); MEAN CORPUSCULAR HEMOGLOBIN 27.2 pg (27.0-33.0); MEAN CORPUSCULAR HGB CONC 31.3 g/dl (32.0-36.5); MEAN CORPUSCULAR VOLUME 86.9 fl (80.0-96.0); MONO # 1.1 10^3/uL (0.0-0.8); MONO % 9.1 % (0.0-5.0); NEUTROPHILS # 10.1 10^3/uL (1.5-8.5); NEUTROPHILS % 81.4 % (36.0-66.0); WHITE BLOOD COUNT 12.4 10^3/uL (4.0-10.0)
[2020-05-25 07:14] LABS: BLOOD UREA NITROGEN 12 MG/DL (7-18); CALCIUM LEVEL 8.6 MG/DL (8.5-10.1); CARBON DIOXIDE LEVEL 31 MEQ/L (21-32); CHLORIDE LEVEL 101 MEQ/L (98-107); CREATININE FOR GFR 0.76 MG/DL (0.70-1.30); GLOMERULAR FILTRATION RATE > 60.0 (>56); GLUCOSE, FASTING 107 MG/DL (70-100); MAGNESIUM LEVEL 2.1 MG/DL (1.8-2.4); POTASSIUM SERUM 3.9 MEQ/L (3.5-5.1); SODIUM LEVEL 136 MEQ/L (136-145)
[2020-05-25] MEDS: oxyCODONE 10 MG CR TAB PO SCH ×2 (08:58→22:10)
[2020-05-25] MEDS: POTASSIUM CHLORIDE 10 MEQ SR TABLET PO SCH (08:59)
[2020-05-25] MEDS: PREGABALIN 100 MG CAP (LYRICA) PO SCH (08:59)
[2020-05-25] MEDS: ENOXAPARIN 30MG/0.3ML SYRINGE (J1650 PER 10MG) SC SCH (09:00)
[2020-05-25 14:00] VITALS: BP 111/64
--- NOTE | 2020-05-25 15:57 | CR.PDOC ---
General Date of Consultation: May 25, 2020 Referring Provider: ABA COBIAN DO Primary Care Physician: STEVIE TOLBERT MD [facility] Attending Physician: ABA COBIAN DO Consultation REASON FOR CONSULTATION/CHIEF COMPLAINT: Calrifing goals of care in 59 year old with lung cancer, post obstructive pneumonia. He was previosuly on hospice, but was discharged, he states because he went to the hospital for "throwing up blood". Requested to see patient by Adrian Sosa, office workforce planner. HISTORY OF PRESENT ILLNESS: 59 year old with NSCLCA, COPD, pulmonary fibrosis, cachexia, most recently admitted with postobstructive pneumonia. He is s/p RLL lobectomy, ext. beam RT in 2016, recurrence with new spiculated mass in right lung. He has radiation fibrosis. One week prior to admission on May 21 he developed incresing dyspnea, increased sputum production and fatigue. During this hospital stay he has vacillated between wanting to go on hospice and wanting to get further treatment ( according to Dr. Cobian's note, no further treatment is possible ). He lives alone and stated he has few social supports. ALLERGIES: Please see below. HOME MEDICATIONS: Please see below. PAST MEDICAL HISTORY: 1. NSCLCA 2. pulmonary fibrosis 3. COPD with pulmonary cachexia 4/ heart failure, (EF 20-25%) 5. severe pulmonary hypertension 6. tricuspic insufficiency 7. mitral insufficiency 8. depression 9. chronic back pain ( "I have four crushed discs") PAST SURGICAL HISTORY: 1. RLL lobectomy 2. cyst resection 3. hand surgery FAMILY HISTORY: Father: d-cancer Mother: d-cancer Siblings: 3 brothers d. CAD Employment: disabled Tobacco use: current smoker ETOH: denies Illicit drug use: cannabis, methamphetamine IV drug use: denies Other relevant social factors: lives alone, little social support REVIEW OF SYSTEMS: CONSTITUTIONAL: weight loss, fatigue HEENT: no vision changes, edenetulous CARDIOVASCULAR: denues chest pain/palp. easily fatigued RESPIRATORY: +dyspnea, +sputum production GENITOURINARY: denies dysuria or frequency MUSCULOSKELETAL: +back and posterior leg pain GASTROINTESTINAL: poor appetite, occasional nausea. Denies emesis SKIN: denies lumps/bumps NEUROLOGICAL: denies tremors. weakness related to fatigue and poor nutrition PSYCHIATRIC: +depression +anxiety ENDOCRINE: denies excessive thirst or hunger HEMATOLOGIC/LYMPHATIC: lung cancer PHYSICAL EXAMINATION: VITAL SIGNS: Please see below. GENERAL APPEARANCE: cachectic male resting on side in bed, easily arousable. HEENT: eyes sunken in sockets, temporal wasting, edentulous RESPIRATORY: scattered rhonchi, decreased breath sound left LL CARDIOVASCULAR: RRR ABDOMEN: scaphoid, +BS no rebound or guarding EXTREMITIES: +clubbing. No cyanosis or edema NEUROLOGICAL: fairly good motor strength all four ext, give way due to fatigue. No tremor noted PSYCHIATRIC: affect blunted, appears anxious LABORATORY DATA: Please see below. ASSESSMENT/PLAN: 1. non small cell lung cancer, advancing disease 2. failure to thrive Mr Doshi stated clearly he wishes to be kept comfortable. He stated he cannot return to his home and he has no support there. His main priority is to be kept comfortable He indicated he understood he did not have any treatment options and stated "I wouldn't make it through treatment anyway." He indicated he does not feel oxycodone is helpful for his back pain. He is op iate tolerant having been prescribed Xtampza ER prior to admission and he was managed with morphine while he was on hospice. He is currently prescribed Oxycontin 20 mg po q 12 hr. Consider changing this to Oxycontin 30 mg po q 12 hr and add in morphine concentrate 5-10 mg po/sl q3 hr prn for anxiety or breakthrough pain. He will likely need placement in a SNF. [facility] though I doubt he has the financial resources for this. Vital Signs/I&O Vital Signs Date Time Temp Pulse Resp B/P (MAP) Pulse Ox O2 Delivery O2 Flow Rate FiO2 05/25/20 14:00 98.9 112 18 111/64 (80) 94 Room Air I&O- Last 24 Hours up to 6 AM 05/25/20 06:00 Intake Total 1940 ml Output Total 0 ml Balance 1940 ml Laboratory Data Labs 24H Laboratory Tests 2 05/25/20 06:33: Immature Granulocyte % (Auto) 0.8, Neutrophils (%) (Auto) 81.4H, Lymphocytes (%) (Auto) 6.6L, Monocytes (%) (Auto) 9.1H, Eosinophils (%) (Auto) 1.7, Basophils (%) (Auto) 0.4, Neutrophils # (Auto) 10.1H, Lymphocytes # (Auto) 0.8L, Monocytes # (Auto) 1.1H, Eosinophils # (Auto) 0.2, Basophils # (Auto) 0.1, Nucleated Red Blood Cells % (auto) 0.0, Anion Gap 4L, Glomerular Filtration Rate > 60.0, Calcium Level 8.6, Magnesium Level 2.1 CBC/BMP Laboratory Tests 05/25/20 06:33 Microbiology Microbiology 05/23/20 Gram Stain - Final, Complete 05/23/20 Sputum Culture - Final, Complete Yeast Like Organism 05/21/20 Respiratory Virus Panel (PCR) (MAIKEL) - Final, Complete 05/21/20 Blood Culture - Preliminary, Resulted No Growth after 72 hours. All specime... 05/21/20 Blood Culture - Preliminary, Resulted No Growth after 72 hours. All specime... Allergies Coded Allergies: No Known Allergies (Unverified , 10/23/19) Home Medications Scheduled Amoxicillin/Potassium Clav (Augmentin 875-125 Tablet) 1 Each Tablet, 1 TAB PO BID for 10 Days, #20 Doxycycline Monohydrate (Doxycycline) 100 Mg Capsule, 100 MG PO BID for 10 Days, #20 Oxycodone Myristate (Xtampza ER) 18 Mg Cap.spr.12, 18 MG PO BID, (Reported) Pregabalin (Lyrica) 150 Mg Capsule, 150 MG PO QHS, (Reported) Pregabalin (Lyrica) 300 Mg Capsule, 300 MG PO QAM, (Reported) Scheduled PRN Albuterol Sulfate (Ventolin Hfa) 18 Gm Hfa.aer.ad, 2 PUFFS INH Q4H PRN for SOB/WHEEZING, (Reported) Hyoscyamine Sulfate (Hyoscyamine Sulfate) 0.125 Mg Tab.subl, 0.125 MG PO Q4H PRN for TERMINAL SECRETIONS, (Reported) Lorazepam (Ativan) 0.5 Mg Tablet, 0.5 MG PO Q4HP PRN for ANXIETY/AGITATION, (Reported) Jacquie STRONG [facility] [place] May 25, 2020 15:55
--- NOTE | 2020-05-25 16:52 | IPNPDOC ---
Date Seen The patient was seen on 05/25/20. Progress Note SUBJECTIVE: Patient was not clear on LEAD PRODUCER vs. DNR/DNI status with me this AM but did make it clear he found it hard to return to his prior living situation with three flights of stairs and increased weakness. Palliative care consulted on patient and through their meeting, he made it clear that his wishes are to be kept comfort care, medications adjusted. New MOLST form filled out today indicating that yes he is LEAD PRODUCER currently. He denies chest pain, shortness of breath, n/v/d. OBJECTIVE: PHYSICAL EXAM: VS: Please see below GENERAL APPEARANCE: Cachectic male HEENT: no scleral icterus, no JVD, EOMI CARDIOVASCULAR: S1S2 LUNGS: Coarse lung sounds bilaterally, no wheezing, rales ABDOMEN: soft & not tender w palpitation MUSCULOSKELETAL: no cyanosis, no swelling INTEGUMENT: no generalized pallor NEUROLOGICAL: cranial nerve function from 2-12 intact intact, follows commands, speech not dysarthric PSYCH: Depressed mood LABS: Please see below ASSESSMENT: Patient is 59 years old male with past medical history of Stage IIIB Non small cell lung cancer -Squamous cell type (s/p RLL lobectomy and external Beam RT in 2016 with Recurrence with new spiculated mass in right lung, he is not a candidate for further treatment), Radiation Fibrosis, Advanced COPD with Pulmonary cachexia BMI was 17 on Mar 23, HFrEF (EF 20-25%) with HFpEF (grade 1) admitted for sepsis, failure to thrive 2/2 to lung CA, CAP. PLAN: Community acquired pneumonia likely post obstructive pneumonia 2/2 to lung cancer -Intermittent SOB; however, currently doing well on RA -CTA showed New area of moderate to significant ill-defined consolidation and/or mass extending from the right hilum into the right lower lung zone -Previously on Ceftriaxone IV, azithromycin IV -Currently on levofloxacin PO but will stop after discussion with patient due to LEAD PRODUCER status. He may wish to complete this treatment course then not do again. Stage IIIB Non small cell lung cancer -Squamous cell type -S/p RLL lobectomy and external Beam RT in 2016 with Recurrence with new spiculated mass in right lung, he is not a candidate for further treatment -Palliative care following -Prognosis is very poor. -Patient's candidate for hospice care -Oxycontin 20 mg po q 12 hr to be increased. Adding morphine concentrate 5 mg po/sl q3 hr prn for anxiety or breakthrough pain Failure to thrive 2[place]2 [place] [facility] [place] -Palliative care -Nutrition evaluation -Ensure Cachexia, malnutrition 2/2 to [facility] [place] -BMI of 16.2, muscle and bitemporal wasting -C/w treatment above Resolved issues: Sepsis 2/2 to CAP DISPOSITION: Changed back to LEAD PRODUCER status today, new MOLST filled out. Palliative consulted. Plan undetermined for discharge at this time, hopeful for home vs. SNF vs. hospice home? VS, I&O, 24H, Fishbone Vital Signs/I&O Vital Signs Date Time Temp Pulse Resp B/P (MAP) Pulse Ox O2 Delivery O2 Flow Rate FiO2 05/25/20 14:00 98.9 112 18 111/64 (80) 94 Room Air I&O- Last 24 Hours up to 6 AM 05/25/20 05:59 Intake Total 1640 ml Output Total 0 ml Balance 1640 ml Laboratory Data 24H LABS Laboratory Tests 2 05/25/20 06:33: Immature Granulocyte % (Auto) 0.8, Neutrophils (%) (Auto) 81.4H, Lymphocytes (%) (Auto) 6.6L, Monocytes (%) (Auto) 9.1H, Eosinophils (%) (Auto) 1.7, Basophils (%) (Auto) 0.4, Neutrophils # (Auto) 10.1H, Lymphocytes # (Auto) 0.8L, Monocytes # (Auto) 1.1H, Eosinophils # (Auto) 0.2, Basophils # (Auto) 0.1, Nucleated Red Blood Cells % (auto) 0.0, Anion Gap 4L, Glomerular Filtration Rate > 60.0, Calcium Level 8.6, Magnesium Level 2.1 CBC/BMP Laboratory Tests 05/25/20 06:33 Microbiology Microbiology 05/23/20 Gram Stain - Final, Complete 05/23/20 Sputum Culture - Final, Complete Yeast Like Organism 05/21/20 Respiratory Virus Panel (PCR) (MAIKEL) - Final, Complete 05/21/20 Blood Culture - Preliminary, Resulted No Growth after 72 hours. All specime... 05/21/20 Blood Culture - Preliminary, Resulted No Growth after 72 hours. All specime... Current Medications Current Medications Medications (Trade) Dose Ordered Sig/Floyd Route PRN Reason Start Time Stop Time Status Last Admin Dose Admin Albuterol Sulfate (Proventil, Ventolin Hfa) 2 puff Q4H PRN INH WHEEZING 05/21/20 15:15 Albuterol/ Ipratropium (Duoneb (Ipr 0.5mg/Alb 2.5mg)) 3 ml Q20M PRN NEB SHORTNESS OF BREATH 05/21/20 12:45 05/21/20 15:20 DC Albuterol/ Ipratropium (Duoneb (Ipr 0.5mg/Alb 2.5mg)) 3 ml RQ4H INH 05/21/20 16:00 05/25/20 08:29 Azithromycin 500 mg/IV Miscellaneous Supplies 1 each/ Dextrose 255 ml @ 255 mls/hr Q24H IV 05/22/20 15:00 05/24/20 16:13 DC 05/24/20 16:05 Ceftriaxone Sodium 2 gm/ Dextrose 50 ml @ 100 mls/hr Q24H IV 05/22/20 14:00 05/24/20 16:13 DC 05/24/20 12:42 Enoxaparin Sodium (Lovenox) 30 mg DAILY SC 05/22/20 09:00 05/22/20 09:40 Home Med (Med Rec Complete!) ASDIRECTED XX 05/21/20 14:30 05/21/20 14:31 DC Hyoscyamine Sulfate (Levsin) 0.125 mg Q4H PRN PO TERMINAL SECRETIONS 05/21/20 15:30 Levofloxacin (Levaquin) 500 mg DAILY@1800 PO 05/25/20 18:00 Lorazepam (Ativan) 0.5 mg Q4HP PRN PO ANXIETY/AGITATION 05/21/20 15:30 05/24/20 12:43 Oxycodone HCl (OxyCONTIN) 20 mg BID@0800,1999 PO 05/21/20 20:00 05/25/20 08:58 Oxycodone HCl (OxyCONTIN) 20 mg BID@0800,1999 PO 05/22/20 08:00 05/21/20 21:29 DC Potassium Chloride (Micro-K Extencaps) 40 meq DAILY PO 05/24/20 09:00 05/25/20 08:59 Pregabalin (Lyrica) 300 mg QAM PO 05/21/20 09:00 12/29/20 08:59 Sodium Chloride 1,000 ml @ 100 mls/hr Q10H IV 05/21/20 16:00 05/23/20 05:03 DC 05/22/20 20:33 Allergies Coded Allergies: No Known Allergies (Unverified , 10/23/19) Angelica Perez MD May 25, 2020 16:52
[2020-05-25] MEDS: LevoFLOXacin 500 MG TABLET PO SCH (17:59)
[2020-05-25] MEDS: MORPHINE 10MG/0.5ML ORAL CONCENTRATE SOLUTION U/D SL PRN (18:00)
[2020-05-26] MEDS: oxyCODONE 10 MG CR TAB PO SCH ×2 (08:28→19:49)
[2020-05-26] MEDS: PREGABALIN 100 MG CAP (LYRICA) PO SCH (08:28)
--- NOTE | 2020-05-26 15:21 | IPNPDOC ---
Date Seen The patient was seen on 05/26/20. 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 Patient states he cannot return home with three flights of stairs, increased weakness and lack of support. PFS to speak with Hospice house to see if this is an option for patient. Other alternative may be SNF with failure to thrive, advancing metastatic disease. Adjusted pain meds appear to help, he has no new complaints overnight. OBJECTIVE: PHYSICAL EXAM: VS: Please see below GENERAL APPEARANCE: Cachectic male HEENT: no scleral icterus, no JVD, EOMI CARDIOVASCULAR: S1S2 LUNGS: Coarse lung sounds bilaterally, no wheezing, rales ABDOMEN: soft & not tender w palpitation MUSCULOSKELETAL: no cyanosis, no swelling INTEGUMENT: no generalized pallor NEUROLOGICAL: cranial nerve function from 2-12 intact intact, follows commands, speech not dysarthric PSYCH: Depressed mood LABS: Please see below ASSESSMENT: Patient is 59 years old male with past medical history of Stage IIIB Non small cell lung cancer -Squamous cell type (s/p RLL lobectomy and external Beam RT in 2016 with Recurrence with new spiculated mass in right lung, he is not a candidate for further treatment), Radiation Fibrosis, Advanced COPD with Pulmonary cachexia BMI was 17 on Mar 23, HFrEF (EF 20-25%) with HFpEF (grade 1) admitted for sepsis, failure to thrive 2/2 to lung CA, CAP. PLAN: Community acquired pneumonia likely post obstructive pneumonia 2/2 to lung cancer -Intermittent SOB; however, currently doing well on RA -CTA showed new area of moderate to significant ill-defined consolidation and/or mass extending from the right hilum into the right lower lung zone -Previously on Ceftriaxone IV, azithromycin IV -Currently on levofloxacin PO. He wishes to complete this treatment course before stopping. Stage IIIB Non small cell lung cancer -Squamous cell type -S/p RLL lobectomy and external Beam RT in 2016 with Recurrence with new spiculated mass in right lung, he is not a candidate for further treatment -Palliative care following -Prognosis is very poor. -Patient's candidate for hospice care, poss Hospice Home is option for discharge? -Oxycontin 30 mg po q 12, morphine concentrate 5 mg po/sl q3 hr prn for anxiety or breakthrough pain Failure to thrive 2/2 to [facility] lung CA -Increasing weakness, decreased appetite -Palliative care, hospice consulted today -Nutrition evaluation -Ensure Cachexia, malnutrition 2/2 to [facility] lung CA -BMI of 16.2, muscle and bitemporal wasting -C/w treatment above Resolved issues: Sepsis 2/2 to CAP DISPOSITION: Changed to ALC status today. Discharge plan is being worked on currently, possibly Hospice Home? vs. SNF. Patient feels it is unsafe to return to current living situation. VS, I&O, 24H, Fishbone Vital Signs/I&O Vital Signs Date Time Temp Pulse Resp B/P (MAP) Pulse Ox O2 Delivery O2 Flow Rate FiO2 05/26/20 08:28 16 05/25/20 14:00 98.9 112 111/64 (80) 94 Room Air I&O- Last 24 Hours up to 6 AM 05/26/20 06:00 Intake Total 900 ml Output Total 0 ml Balance 900 ml Laboratory Data Microbiology Microbiology 05/23/20 Gram Stain - Final, Complete 05/23/20 Sputum Culture - Final, Complete Yeast Like Organism 05/21/20 Respiratory Virus Panel (PCR) (MAIKEL) - Final, Complete 05/21/20 Blood Culture - Final, Complete NO GROWTH AFTER 5 DAYS 05/21/20 Blood Culture - Final, Complete NO GROWTH AFTER 5 DAYS Current Medications Current Medications Medications (Trade) Dose Ordered Sig/Floyd Route PRN Reason Start Time Stop Time Status Last Admin Dose Admin Albuterol Sulfate (Proventil, Ventolin Hfa) 2 puff Q4H PRN INH WHEEZING 05/21/20 15:15 Cancel Albuterol/ Ipratropium (Duoneb (Ipr 0.5mg/Alb 2.5mg)) 3 ml Q20M PRN NEB SHORTNESS OF BREATH 05/21/20 12:45 05/21/20 15:20 DC Albuterol/ Ipratropium (Duoneb (Ipr 0.5mg/Alb 2.5mg)) 3 ml RQ4H INH 05/21/20 16:00 05/25/20 17:20 DC 05/25/20 08:29 Azithromycin 500 mg/IV Miscellaneous Supplies 1 each/ Dextrose 255 ml @ 255 mls/hr Q24H IV 05/22/20 15:00 05/24/20 16:13 DC 05/24/20 16:05 Ceftriaxone Sodium 2 gm/ Dextrose 50 ml @ 100 mls/hr Q24H IV 05/22/20 14:00 05/24/20 16:13 DC 05/24/20 12:42 Enoxaparin Sodium (Lovenox) 30 mg DAILY SC 05/22/20 09:00 05/25/20 17:09 DC 05/22/20 09:40 Home Med (Med Rec Complete!) ASDIRECTED XX 05/21/20 14:30 05/21/20 14:31 DC Hyoscyamine Sulfate (Levsin) 0.125 mg Q4H PRN PO TERMINAL SECRETIONS 05/21/20 15:30 Levofloxacin (Levaquin) 500 mg DAILY@1800 PO 05/25/20 18:00 05/25/20 17:59 Lorazepam (Ativan) 0.5 mg Q4HP PRN PO ANXIETY/AGITATION 05/21/20 15:30 05/24/20 12:43 Morphine Sulfate (Roxanol) 5 mg Q3HP PRN SL PAIN 05/25/20 17:15 05/25/20 18:00 Oxycodone HCl (OxyCONTIN) 20 mg BID@0800,1999 PO 05/21/20 20:00 05/25/20 16:59 DC 05/25/20 08:58 Oxycodone HCl (OxyCONTIN) 20 mg BID@0800,1999 PO 05/22/20 08:00 05/21/20 21:29 DC Oxycodone HCl (OxyCONTIN) 30 mg BID@0800,1999 PO 05/25/20 20:00 05/26/20 08:28 Potassium Chloride (Micro-K Extencaps) 40 meq DAILY PO 05/24/20 09:00 05/25/20 17:09 DC 05/25/20 08:59 Pregabalin (Lyrica) 300 mg QAM PO 05/21/20 09:00 05/26/20 08:28 Sodium Chloride 1,000 ml @ 100 mls/hr Q10H IV 05/21/20 16:00 05/23/20 05:03 DC 05/22/20 20:33 Allergies Coded Allergies: No Known Allergies (Unverified , 10/23/19) Angelica Perez MD May 26, 2020 15:21
[2020-05-26] MEDS: LevoFLOXacin 500 MG TABLET PO SCH (17:50)
[2020-05-26] MEDS: MORPHINE 10MG/0.5ML ORAL CONCENTRATE SOLUTION U/D SL PRN ×2 (17:55→23:39)
[2020-05-27] MEDS: oxyCODONE 10 MG CR TAB PO SCH ×2 (07:18→20:25)
[2020-05-27] MEDS: PREGABALIN 100 MG CAP (LYRICA) PO SCH (07:19)
[2020-05-27] MEDS: MORPHINE 10MG/0.5ML ORAL CONCENTRATE SOLUTION U/D SL PRN (15:59)
[2020-05-27] MEDS: LevoFLOXacin 500 MG TABLET PO SCH (18:07)
[2020-05-28] MEDS: MORPHINE 10MG/0.5ML ORAL CONCENTRATE SOLUTION U/D SL PRN ×2 (04:22→15:48)
[2020-05-28] MEDS: PREGABALIN 100 MG CAP (LYRICA) PO SCH (08:55)
[2020-05-28] MEDS: oxyCODONE 10 MG CR TAB PO SCH ×2 (08:56→19:48)
[2020-05-28] MEDS: LevoFLOXacin 500 MG TABLET PO SCH (18:29)
[2020-05-29] MEDS: PREGABALIN 100 MG CAP (LYRICA) PO SCH (08:50)
[2020-05-29] MEDS: oxyCODONE 10 MG CR TAB PO SCH ×2 (08:50→19:58)
[2020-05-29] MEDS: LORazepam 0.5 MG TAB PO PRN ×2 (15:20→19:58)
[2020-05-29] MEDS: MORPHINE 10MG/0.5ML ORAL CONCENTRATE SOLUTION U/D SL PRN (15:21)
[2020-05-29] MEDS: LevoFLOXacin 500 MG TABLET PO SCH (18:25)
[2020-05-30] MEDS: LORazepam 0.5 MG TAB PO PRN ×2 (02:20→20:27)
[2020-05-30] MEDS: MORPHINE 10MG/0.5ML ORAL CONCENTRATE SOLUTION U/D SL PRN ×2 (02:20→05:27)
[2020-05-30] MEDS: PREGABALIN 100 MG CAP (LYRICA) PO SCH (08:51)
[2020-05-30] MEDS: oxyCODONE 10 MG CR TAB PO SCH ×2 (08:51→20:27)
[2020-05-31] MEDS: LORazepam 0.5 MG TAB PO PRN ×2 (04:01→22:36)
[2020-05-31] MEDS: PREGABALIN 100 MG CAP (LYRICA) PO SCH (08:11)
[2020-05-31] MEDS: oxyCODONE 10 MG CR TAB PO SCH ×2 (08:11→20:19)
[2020-05-31] MEDS: MORPHINE 10MG/0.5ML ORAL CONCENTRATE SOLUTION U/D SL PRN (15:33)
[2020-06-01] MEDS: oxyCODONE 10 MG CR TAB PO SCH ×2 (08:20→20:22)
[2020-06-01] MEDS: PREGABALIN 100 MG CAP (LYRICA) PO SCH (08:20)
[2020-06-02] MEDS: PREGABALIN 100 MG CAP (LYRICA) PO SCH (08:24)
[2020-06-02] MEDS: oxyCODONE 10 MG CR TAB PO SCH ×2 (08:25→19:57)
[2020-06-02] MEDS: MORPHINE 10MG/0.5ML ORAL CONCENTRATE SOLUTION U/D SL PRN ×2 (14:21→18:44)
[2020-06-02] MEDS: LORazepam 0.5 MG TAB PO PRN (20:01)
[2020-06-03] MEDS: MORPHINE 10MG/0.5ML ORAL CONCENTRATE SOLUTION U/D SL PRN (05:27)
[2020-06-03] MEDS: LORazepam 0.5 MG TAB PO PRN (05:28)
[2020-06-03] MEDS: oxyCODONE 10 MG CR TAB PO SCH (09:41)
[2020-06-03] MEDS: PREGABALIN 100 MG CAP (LYRICA) PO SCH (09:41)
[2020-06-03] MEDS ORDERED: MORP1SOL SL (10:05)
--- NOTE | 2020-06-03 16:20 | DS.PDOC ---
Discharge Summary General Date of Admission May 21, 2020 at 15:10 Date of Discharge 06/03/20 Discharge Summary PROCEDURES PERFORMED DURING STAY: [None]. ADMITTING DIAGNOSES: #Community acquired pneumonia likely post obstructive pneumonia 2/2 to lung cancer #Stage IIIB Non small cell lung cancer -Squamous cell type #Failure to thrive 2/2 to [facility] lung CA #Cachexia, malnutrition 2/2 to [facility] lung CA SECONDARY DIAGNOSES: #Stage IIIB Non small cell lung cancer -Squamous cell type (s/p RLL lobectomy and external Beam RT in 2016 with Recurrence with new spiculated mass in right lung, he is not a candidate for further treatment) #Radiation Fibrosis #Advanced COPD with Pulmonary cachexia BMI was 17 on Mar 23 #HFrEF (EF 20-25%) with HFpEF (grade 1) #Severe pulmonary hypertension #Mild tricuspid insufficiency #Mild mitral insufficiency #Depression #Chronic back pain #Cyst resection #Hand surgery COMPLICATIONS/CHIEF COMPLAINT: Community Acquired Pneumonia. HISTORY OF PRESENT ILLNESS: Patient is 59 years old male with past medical history of Stage IIIB Non small cell lung cancer -Squamous cell type (s/p RLL lobectomy and external Beam RT in 2016 with Recurrence with new spiculated mass in right lung, he is not a candidate for further treatment), Radiation Fibrosis, Advanced COPD with Pulmonary cachexia BMI was 17 on Mar 23, HFrEF (EF 20-25%) with HFpEF (grade 1) presented hospital with increased right-sided chest pain with cough and sputum production. Patient stated that for past week he has been having shortness of breath associated with yellowish sputum production and cough. In ER patient was found to have leukocytosis of 17, hemoglobin 12.3, lactic acid 3. CT was done and showed New area of moderate to significant ill-defined consolidation and/or mass extending from the right hilum into the right lower lung zone.. HOSPITAL COURSE: Patient is 59 years old male with past medical history of Stage IIIB Non small cell lung cancer -Squamous cell type (s/p RLL lobectomy and external Beam RT in 2016 with Recurrence with new spiculated mass in right lung, he is not a candidate for further treatment), Radiation Fibrosis, Advanced COPD with Pulmonary cachexia BMI was 17 on Mar 23, HFrEF (EF 20-25%) with HFpEF (grade 1) admitted for sepsis, failure to thrive 2/2 to lung CA, CAP. #Community acquired pneumonia likely post obstructive pneumonia 2/2 to lung cancer -Intermittent SOB; however, currently doing well on RA -CTA showed new area of moderate to significant ill-defined consolidation and/or mass extending from the right hilum into the right lower lung zone -Previously on Ceftriaxone IV, azithromycin IV -Completed levaquin therapy #Stage IIIB Non small cell lung cancer -Squamous cell type -S/p RLL lobectomy and external Beam RT in 2016 with Recurrence with new spiculated mass in right lung, he is not a candidate for further treatment -Palliative care following -Prognosis is very poor. #Failure to thrive 2/2 [place] [facility] [place] -Increasing weakness, decreased appetite -Palliative care, hospice consulted today -Ensure #Cachexia, malnutrition 2/2 to [facility] [place] -BMI of 16.2, muscle and bitemporal wasting -C/w treatment above DISCHARGE MEDICATIONS: Please see below. ALLERGIES: Please see below. PHYSICAL EXAMINATION ON DISCHARGE: VS: Please see below GENERAL APPEARANCE: Cachectic male HEENT: no scleral icterus, no JVD, EOMI CARDIOVASCULAR: S1S2 LUNGS: Coarse lung sounds bilaterally, no wheezing, rales ABDOMEN: soft & not tender w palpitation MUSCULOSKELETAL: no cyanosis, no swelling INTEGUMENT: no generalized pallor NEUROLOGICAL: cranial nerve function from 2-12 intact intact, follows commands, speech not dysarthric PSYCH: Depressed mood LABORATORY DATA: Please see below. ACTIVITY: [As tolerated]. DISPOSITION: 01 Home, Self-Care. DISCHARGE INSTRUCTIONS: 1. Follow up with PCP in 3-5 days TIME SPENT ON DISCHARGE: 35 minutes. Vital Signs/I&Os Vital Signs Date Time Temp Pulse Resp B/P (MAP) Pulse Ox O2 Delivery O2 Flow Rate FiO2 06/02/20 14:21 18 05/31/20 20:19 Room Air I&O- Last 24 Hours up to 6 AM 06/03/20 06:00 Intake Total 2250 ml Balance 2250 ml Discharge Medications Scheduled Oxycodone Myristate (Xtampza ER) 18 Mg Cap.spr.12, 18 MG PO BID, (Reported) Pregabalin (Lyrica) 300 Mg Capsule, 300 MG PO QAM, (Reported) Scheduled PRN Albuterol Sulfate (Ventolin Hfa) 18 Gm Hfa.aer.ad, 2 PUFFS INH Q4H PRN for SOB/WHEEZING, (Reported) Hyoscyamine Sulfate (Hyoscyamine Sulfate) 0.125 Mg Tab.subl, 0.125 MG PO Q4H PRN for TERMINAL SECRETIONS, (Reported) Lorazepam (Ativan) 0.5 Mg Tablet, 0.5 MG PO Q4HP PRN for ANXIETY/AGITATION, ( Reported) Morphine Sulfate (Morphine Sulfate Concentrate) 100 Mg/5 Ml Solution, 5 MG SL Q3HP PRN for PAIN Allergies Coded Allergies: No Known Allergies (Unverified , 10/23/19) EUGENE WOMACK MD Jun 03, 2020 16:20
== END 2020-06-03 12:26 | disposition home or self-care (01) | DRG 871 ==
LOC: M ED 12:17 → M ED INP 15:10 → ENRESERV 16:11 → M MS5PR 16:45 → UNDODISIN 05-22 11:00 → M MSPAV 05-31 13:45
PROVIDERS: ADMIT Internal Medicine; ATTEND Internal Medicine
DX: A41.9 Sepsis, unspecified organism (principal); J18.9 Pneumonia, unspecified organism; C34.91 Malignant neoplasm of unspecified part of right bronchus or lung; R64 Cachexia; E46 Unspecified protein-calorie malnutrition; Z68.1 Body mass index [BMI] 19.9 or less, adult; M62.50 Muscle wasting and atrophy, not elsewhere classified, unspecified site; Z51.5 Encounter for palliative care; J84.10 Pulmonary fibrosis, unspecified; J44.9 Chronic obstructive pulmonary disease, unspecified; I27.20 Pulmonary hypertension, unspecified; I08.1 Rheumatic disorders of both mitral and tricuspid valves; F32.9 Major depressive disorder, single episode, unspecified; Z79.899 Other long term (current) drug therapy

== ENCOUNTER 2020-06-06 10:32 | Inpatient (IN) | payer MEDICARE, MEDICAID ==
[~2020-06-06 10:32] MED LIST changes: +AUGM875T28 PO; +DOXY-350 PO; +LYRI300C PO; +MORP1SOL SL
[2020-06-06] MEDS ORDERED: ALBUTEROL 90 MCG/ACT 8GM HFA INHALER INH ONE (11:15)
[2020-06-06 11:57] LABS: BASO # 0.1 10^3/uL (0.0-0.2); BASO % 0.7 % (0.0-1.0); EOS # 0.1 10^3/uL (0.0-0.5); HEMATOCRIT 37.1 % (42.0-52.0); HEMOGLOBIN 11.6 g/dl (13.5-17.5); LYMPH # 1.3 10^3/uL (1.5-5.0); LYMPH % 16.3 % (24.0-44.0); MEAN CORPUSCULAR HEMOGLOBIN 26.9 pg (27.0-33.0); MEAN CORPUSCULAR HGB CONC 31.3 g/dl (32.0-36.5); MEAN CORPUSCULAR VOLUME 85.9 fl (80.0-96.0); MONO # 0.7 10^3/uL (0.0-0.8); MONO % 8.9 % (0.0-5.0); NEUTROPHILS % 72.7 % (36.0-66.0); RED BLOOD COUNT 4.32 10^6/uL (4.30-6.10); WHITE BLOOD COUNT 8.2 10^3/uL (4.0-10.0)
--- NOTE | 2020-06-06 12:23 | REP ---
INDICATION: DYSPNEA/COUGH COMPARISON: 05/21/2020, 04/16/2020 TECHNIQUE: PA and lateral. FINDINGS: Significant bilateral pleuroparenchymal changes similar to prior examination again noted. Superimposed right mid lung airspace disease is suggested and may represent acute infiltrate. IMPRESSION: Significant chronic pleuroparenchymal changes. Suspected superimposed right mid lung opacity. <Electronically signed by Patric Geller > 06/06/20 [id number]
[2020-06-06 12:28] LABS: ALBUMIN 2.8 GM/DL (3.2-5.2); ALT/SGPT 11 U/L (12-78); BILIRUBIN,DIRECT 0.1 MG/DL (0.0-0.2); BILIRUBIN,TOTAL 0.7 MG/DL (0.2-1.0); BLOOD UREA NITROGEN 15 MG/DL (7-18); CALCIUM LEVEL 9.1 MG/DL (8.5-10.1); CARBON DIOXIDE LEVEL 28 MEQ/L (21-32); CHLORIDE LEVEL 103 MEQ/L (98-107); CK-MB VALUE MASS < 1.0 NG/ML (<3.6); CPK CREATINE PHOSPHOKINASE 24 U/L (39-308); CREATININE FOR GFR 0.98 MG/DL (0.70-1.30); GLOMERULAR FILTRATION RATE > 60.0 (>56); GLUCOSE, FASTING 105 MG/DL (70-100); MB/CK RELATIVE INDEX 4.17 (< OR =4); NT-PRO BNP 673 PG/ML (<125); POTASSIUM SERUM 3.8 MEQ/L (3.5-5.1); SODIUM LEVEL 136 MEQ/L (136-145); TOTAL PROTEIN 7.9 GM/DL (6.4-8.2); TROPONIN I < 0.02 NG/ML (< 0.10)
[2020-06-06 13:39] VITALS: O2SAT 98
--- NOTE | 2020-06-06 14:39 | HPEPDOC ---
General Date of Admission 06/06/20 Date of Service: Jun 06, 2020 Chief Complaint The patient is a 59-year-old male admitted with a reason for visit of SOB. Source: Patient Exam Limitations: No limitations Timing/Duration: Week(s) Severity: Moderate Associated Symptoms: Shortness of breath History of Present Illness Patient is 59 years old male with past medical history of Stage IIIB Non small cell lung cancer -Squamous cell type (s/p RLL lobectomy and external Beam RT in 2016 with Recurrence with new spiculated mass in right lung, he is not a candidate for further treatment), Radiation Fibrosis, Advanced COPD with Pulmonary cachexia BMI was 17 on Mar 23, HFrEF (EF 20-25%) with HFpEF (grade 1) presented hospital with increased right-sided chest pain with cough and sputum production. Patient stated that for past week he has been having shortness of breath associated with yellowish sputum production and cough. In ER patient was found to have no leukocytosis, hemoglobin 11.6, patient afebrile. Chest x-ray showed Significant chronic pleuroparenchymal changes. Suspected superimposed right mid lung opacity Home Medications Scheduled Lorazepam (Lorazepam) 1 Mg Tablet, 1 TAB PO TID for anxiety Oxycodone Myristate (Xtampza ER) 18 Mg Cap.spr.12, 18 MG PO BID, (Reported) Pregabalin (Lyrica) 300 Mg Capsule, 300 MG PO QAM, (Reported) Scheduled PRN Acetaminophen (Acetaminophen) 325 Mg Tablet, 650 MG PO Q4H PRN for PAIN OR FEVER Albuterol Sulfate (Ventolin Hfa) 18 Gm Hfa.aer.ad, 2 PUFFS INH Q4H PRN for SOB/WHEEZING, (Reported) Bisacodyl (Bisacodyl) 10 Mg Supp.rect, 10 MG NM Q24HP PRN for CONSTIPATION Hyoscyamine Sulfate (Hyoscyamine Sulfate) 0.125 Mg Tab.subl, 0.125 MG PO Q4H PRN for TERMINAL SECRETIONS, (Reported) Lorazepam (Ativan) 0.5 Mg Tablet, 0.5 MG PO Q4HP PRN for ANXIETY/AGITATION, (Reported) Morphine Sulfate (Morphine Sulfate Concentrate) 100 Mg/5 Ml Solution, 5 MG SL Q3HP PRN for PAIN Morphine Sulfate (Morphine Sulfate Concentrate) 100 Mg/5 Ml Solution, 5 MG SL Q1HP PRN for PAIN Scopolamine (Transderm-Scop) 1 Each Patch.td.3, 1 MG TOP Q3DP PRN for EXCESSIVE SECRETIONS Tramadol HCl/Acetaminophen (Tramadol-Acetaminophn 37.5-325) 1 Each Tablet, 1 TAB PO Q6HP PRN for PAIN Allergies Coded Allergies: No Known Allergies (Unverified , 10/23/19) Past Medical History Medical History Stage IIIB Non small cell lung cancer -Squamous cell type (s/p RLL lobectomy and external Beam RT in 2016 with Recurrence with new spiculated mass in right lung, he is not a candidate for further treatment) Radiation Fibrosis Advanced COPD with Pulmonary cachexia BMI was 17 on Mar 23 HFrEF (EF 20-25%) with HFpEF (grade 1) Severe pulmonary hypertension Mild tricuspid insufficiency Mild mitral insufficiency Depression Chronic back pain Surgical History Cyst resection Hand surgery Surgical History RLL lobectomy Family History Three brothers of coronary artery disease at the age of 52, 57 and 45 Mother , age 65, unknown type of cancer Father , age 67, unknown type of cancer Social History * Smoker: current smoker Alcohol: Denies Drugs: marijuana A-FIB/CHADSVASC A-FIB History Current/History of A-Fib/PAF?: No Current PO Anticoag Therapy: No Review of Systems Constitutional: Reports: Weakness; Denies: Chills, Fever Eyes: Denies: Pain, Vision change ENT: Denies: Head Aches Skin: Denies: Rash, Lesions Pulmonary: Reports: Dyspnea, Cough Cardiovascular: Denies: Chest Pain, Palpitations Gastrointestinal: Denies: Nausea, Vomiting Hematologic: Denies: Bruising Endocrine: Denies: Polydipsia, Polyphagia Neurological: Denies: Weakness Psych: Reports: Mood Normal, Depression Physical Examination General Exam: Positive: Alert, Cooperative ENT Exam: Positive: Atraumatic Neck Exam: Positive: Supple; Negative: JVD Chest Exam: Positive: Rhonchi Heart Exam: Positive: Rate Normal Telemetry: Positive: No significant arrhythmia Abdomen Exam: Positive: Normal bowel sounds Extremity Exam: Positive: Clubbing Skin Exam: Positive: Nl turgor and temperature Neuro Exam: Positive: Normal Gait, Strength at 5/5 X4 ext Psych Exam: Positive: Mental status NL Vital Signs Vital Signs Date Time Temp Pulse Resp B/P (MAP) Pulse Ox O2 Delivery O2 Flow Rate FiO2 06/06/20 13:39 98 Room Air 1/10/21 11:05 96.7 119 22 104/66 (79) Laboratory Data Labs 24H Laboratory Tests 2 06/06/20 11:16: Anion Gap 5L, Glomerular Filtration Rate > 60.0, Calcium Level 9.1, Total Bilirubin 0.7, Direct Bilirubin 0.1, Aspartate Amino Transf (AST/SGOT) 10, Alanine Aminotransferase (ALT/SGPT) 11L, Alkaline Phosphatase 118H, Total Creatine Kinase 24L, Creatine Kinase MB < 1.0, Creatine Kinase MB Relative Index 4.17H, Troponin I < 0.02, [id number]-Type Natriuretic Peptide 673H, Total Protein 7.9, Albumin 2.8L, Albumin/Globulin Ratio 0.5 06/06/20 11:35: Immature Granulocyte % (Auto) 0.4, Neutrophils (%) (Auto) 72.7H, Lymphocytes (%) (Auto) 16.3L, Monocytes (%) (Auto) 8.9H, Eosinophils (%) (Auto) 1.0, Basophils (%) (Auto) 0.7, Neutrophils # (Auto) 6.0, Lymphocytes # (Auto) 1.3L, Monocytes # (Auto) 0.7, Eosinophils # (Auto) 0.1, Basophils # (Auto) 0.1, Nucleated Red Blood Cells % (auto) 0.0 CBC/BMP Laboratory Tests 06/06/20 11:16 06/06/20 11:35 Assessment/Plan Patient is 59 years old male with past medical history of Stage IIIB Non small cell lung cancer -Squamous cell type (s/p RLL lobectomy and external Beam RT in 2016 with Recurrence with new spiculated mass in right lung, he is not a candidate for further treatment), Radiation Fibrosis, Advanced COPD with Pulmonary cachexia BMI was 17 on Mar 23, HFrEF (EF 20-25%) with HFpEF (grade 1) presented hospital with increased right-sided chest pain with cough and sputum production. Patient stated that for past week he has been having shortness of breath associated with yellowish sputum production and cough. In ER patient was found to have no leukocytosis, hemoglobin 11.6, patient afebrile. Chest x-ray showed Significant chronic pleuroparenchymal changes. Suspected superimposed right mid lung opacity Problems (1) Pneumonia Status: Acute Problem Text: HAP, patient was recently hospitalized and been on the multiple course of antibiotics Patient developed most likely post obstructive pneumonia secondary to progression of lung cancer Chest x-ray showed Significant chronic pleuroparenchymal changes. Suspected superimposed right mid lung opacity Will proceed with CT chest Of note patient was recently hospitalized for treatment of postobstructive pneumonia with hospice care follow-up Hospice consult Cefepime IV for now Sputum culture (2) Carcinoma, lung Status: Chronic Problem Text: Patient has Stage IIIB Non small cell lung cancer -Squamous cell type (s/p RLL lobectomy and external Beam RT in 2016 with Recurrence with new spiculated mass in right lung, he is not a candidate for further treatment) Prognosis is very poor. Patient's candidate for hospice care (3) Palliative care encounter Status: Acute Problem Text: Appreciate/agree with palliative care consult (4) COPD (chronic obstructive pulmonary disease) Status: Acute Problem Text: Secondary to pneumonia and smoking abuse Continue inhalers Prednisone 40 mg (5) Cachexia Status: Chronic Problem Text: Secondary to advanced malignancy BMI of 16.2, muscle and bitemporal wasting Full marketing content specialist evaluation Ensure Plan / VTE VTE Prophylaxis Ordered?: Yes ABA COBIAN DO Jun 06, 2020 14:39
[2020-06-06] MEDS ORDERED: MORPHINE 10MG/0.5ML ORAL CONCENTRATE SOLUTION U/D SL PRN (15:00)
[2020-06-06 16:00] VITALS: BP 106/69
[2020-06-06] MEDS ORDERED: ISOVUE-370 76% 100ML VIAL As Ordered ONE (16:00)
[2020-06-06] MEDS: CEFEPIME HCL 2 GM in D5W 50 ML IV SCH ×2 (16:00→18:21)
[2020-06-06] MEDS: IPRATROPIUM 0.5MG/ALBUTEROL 2.5MG INH SOL UD 3ML (DUONEB) INH SCH ×2 (16:00→19:54)
[2020-06-06] MEDS: ULTRACET TAB PO PRN (16:18)
--- NOTE | 2020-06-06 16:57 | REP ---
INDICATION: daily COMPARISON: 05/21/2020, 04/02/2020, 03/21/2019 TECHNIQUE: Axial contrast enhanced images from the thoracic inlet to the upper abdomen with coronal and sagittal reformations using 75 ml Isovue 370 intravenous contrast material. This CT examination was performed using the following dose reduction techniques: Automated exposure control, adjustment of mA and/or kv according to the patient's size, and use of iterative reconstruction technique. FINDINGS: Extensive chronic pleuroparenchymal and fibroatelectatic changes along with underlying emphysematous disease are noted throughout the bilateral lung almeida including areas of chronic consolidation with air bronchograms involving the left apex and apical left lower lobe which remain essentially stable through 03/21/2019. There is somewhat ill-defined areas of consolidation involving the right mid lung zone which represent new findings as compared to 04/02/2020 and relatively similar/possibly mildly improved as compared with most recent prior dated 05/21/2020. Findings suggest an acute infectious/inflammatory versus malignant process. Evaluation of the mediastinum demonstrates chronic stable changes and stable appearance to the thoracic aorta and pulmonary vasculature without evidence for pulmonary embolus or aortic aneurysm/dissection. No cardiomegaly or pericardial effusion. No obvious adenopathy. Surrounding musculoskeletal structures are intact and without acute process. Limited upper abdomen demonstrates normal bilateral adrenal glands. IMPRESSION: 1. Extensive chronic COPD/emphysematous disease and scattered pleuroparenchymal changes relatively stable compared through 03/21/2019. 2. Acute and suspected active process involving the right mid lung zone with moderate irregular areas of consolidation again noted and minimally improved as compared with 05/21/2020. <Electronically signed by Patric Geller > 06/06/20 [id number]
[2020-06-06] MEDS: HEPARIN SOD (PORCINE) 5000UNITS/ML 1ML VIAL/SYRINGE SC SCH (20:37)
[2020-06-06 22:00] VITALS: BP 89/60
[2020-06-07] MEDS: CEFEPIME HCL 2 GM in D5W 50 ML IV SCH ×3 (00:37→15:36)
[2020-06-07 01:00] VITALS: BP 98/72
[2020-06-07 06:00] VITALS: BP 81/57
[2020-06-07] MEDS: ULTRACET TAB PO PRN ×2 (06:38→14:35)
[2020-06-07] MEDS: IPRATROPIUM 0.5MG/ALBUTEROL 2.5MG INH SOL UD 3ML (DUONEB) INH SCH ×4 (07:15→19:50)
[2020-06-07 07:52] LABS: HEMATOCRIT 39.5 % (42.0-52.0); MEAN CORPUSCULAR HEMOGLOBIN 26.5 pg (27.0-33.0); MEAN CORPUSCULAR HGB CONC 30.4 g/dl (32.0-36.5); MEAN CORPUSCULAR VOLUME 87.4 fl (80.0-96.0); RED BLOOD COUNT 4.52 10^6/uL (4.30-6.10); WHITE BLOOD COUNT 5.3 10^3/uL (4.0-10.0)
[2020-06-07] MEDS ORDERED: NS 1,000 ML IV ONE (08:15)
[2020-06-07 08:18] LABS: ALBUMIN 2.7 GM/DL (3.2-5.2); ALT/SGPT 10 U/L (12-78); BILIRUBIN,TOTAL 0.5 MG/DL (0.2-1.0); BLOOD UREA NITROGEN 14 MG/DL (7-18); CARBON DIOXIDE LEVEL 26 MEQ/L (21-32); CHLORIDE LEVEL 103 MEQ/L (98-107); CREATININE FOR GFR 0.97 MG/DL (0.70-1.30); GLOMERULAR FILTRATION RATE > 60.0 (>56); GLUCOSE, FASTING 122 MG/DL (70-100); MAGNESIUM LEVEL 2.5 MG/DL (1.8-2.4); POTASSIUM SERUM 3.8 MEQ/L (3.5-5.1); SODIUM LEVEL 136 MEQ/L (136-145); TOTAL PROTEIN 7.1 GM/DL (6.4-8.2)
[2020-06-07] MEDS: HEPARIN SOD (PORCINE) 5000UNITS/ML 1ML VIAL/SYRINGE SC SCH (08:43)
[2020-06-07] MEDS: PREGABALIN 100 MG CAP (LYRICA) PO SCH (08:43)
[2020-06-07] MEDS ORDERED: PANTOPRAZOLE 40MG TAB (PROTONIX) PO SCH (09:00)
[2020-06-07] MEDS ORDERED: ONDANSETRON 4MG/2ML VIAL IV PRN (09:15)
[2020-06-07 14:00] VITALS: BP 99/64
[2020-06-07] MEDS: LORazepam 0.5 MG TAB PO PRN ×2 (15:50→23:42)
[2020-06-07] MEDS ORDERED: FLEET ENEMA PR PRN (16:00)
[2020-06-07] MEDS ORDERED: MORPHINE 4 MG/ML 1ML VIAL/SYRINGE (J2270) IV PRN (16:00)
[2020-06-07] MEDS ORDERED: SCOPOLAMINE 1MG TRANSDERMAL PATCH TOP PRN (16:00)
[2020-06-07] MEDS ORDERED: BISACODYL 10 MG SUPP PR PRN (16:00)
--- NOTE | 2020-06-07 17:43 | IPNPDOC ---
Text Note Date of Service The patient was seen on 06/07/20. NOTE Subjective: Patient complains of generalized weakness Objective: GENERAL APPEARANCE: Cachectic male HEENT: no scleral icterus, no JVD, EOMI CARDIOVASCULAR: S1S2 LUNGS: Coarse lung sounds bilaterally ABDOMEN: soft & not tender w palpitation MUSCULOSKELETAL: no cyanosis, no swelling INTEGUMENT: no generalized pallor NEUROLOGICAL: cranial nerve function from 2-12 intact intact, follows commands, speech not dysarthric Assessment/Plan Patient is 59 years old male with past medical history of Stage IIIB Non small cell lung cancer -Squamous cell type (s/p RLL lobectomy and external Beam RT in 2016 with Recurrence with new spiculated mass in right lung, he is not a candidate for further treatment), Radiation Fibrosis, Advanced COPD with Pulmonary cachexia BMI was 17 on Mar 23, HFrEF (EF 20-25%) with HFpEF (grade 1) presented hospital with increased right-sided chest pain with cough and sputum production. Patient stated that for past week he has been having shortness of breath associated with yellowish sputum production and cough. In ER patient was found to have no leukocytosis, hemoglobin 11.6, patient afebrile. Chest x-ray showed Significant chronic pleuroparenchymal changes. Suspected superimposed right mid lung opacity. According to patient wishes patient was transferred to [facility] protocol initiated Problems (1) Pneumonia (2) Carcinoma, lung (3) Palliative care encounter (4) COPD (chronic obstructive pulmonary disease) (5) Cachexia VS,Fishbone, I+O VS, Fishbone, I+O Laboratory Tests 06/07/20 06:52 Vital Signs Date Time Temp Pulse Resp B/P (MAP) Pulse Ox O2 Delivery O2 Flow Rate FiO2 06/07/20 15:10 17 06/07/20 14:00 98.5 101 99/64 (76) 98 Room Air I&O- Last 24 Hours up to 6 AM 06/07/20 06:00 Intake Total 1010 ml Balance 1010 ml ABA COBIAN DO Jun 07, 2020 17:43
[2020-06-07] MEDS: MORPHINE 10MG/0.5ML ORAL CONCENTRATE SOLUTION U/D SL PRN ×2 (18:48→23:42)
[2020-06-08] MEDS: IPRATROPIUM 0.5MG/ALBUTEROL 2.5MG INH SOL UD 3ML (DUONEB) INH SCH ×8 (01:34→23:40)
[2020-06-08] MEDS: ACETAMINOPHEN TAB 650MG DOSE (2X325MG) PO PRN ×2 (02:49→21:18)
[2020-06-08] MEDS: MORPHINE 10MG/0.5ML ORAL CONCENTRATE SOLUTION U/D SL PRN ×4 (09:15→23:25)
[2020-06-08] MEDS: LORazepam 0.5 MG TAB PO PRN ×3 (09:15→21:18)
[2020-06-08] MEDS: PREGABALIN 100 MG CAP (LYRICA) PO SCH (09:15)
[2020-06-08] MEDS: ULTRACET TAB PO PRN (17:40)
[2020-06-09] MEDS: MORPHINE 10MG/0.5ML ORAL CONCENTRATE SOLUTION U/D SL PRN ×2 (03:07→08:00)
[2020-06-09] MEDS: IPRATROPIUM 0.5MG/ALBUTEROL 2.5MG INH SOL UD 3ML (DUONEB) INH SCH ×2 (04:00→08:00)
[2020-06-09] MEDS: LORazepam 0.5 MG TAB PO PRN (07:59)
[2020-06-09] MEDS: PREGABALIN 100 MG CAP (LYRICA) PO SCH (08:00)
[2020-06-09] MEDS: ULTRACET TAB PO PRN (08:00)
[2020-06-09] MEDS ORDERED: BISA10SU PR (08:25)
[2020-06-09] MEDS ORDERED: ACET1TAB55 PO (08:25)
[2020-06-09] MEDS ORDERED: MORP1SOL SL (08:25)
[2020-06-09] MEDS ORDERED: LORA1TAB4 PO (08:25)
[2020-06-09] MEDS ORDERED: TRAM37.53 PO (08:25)
[2020-06-09] MEDS ORDERED: SCOP1PAT2 TOP (08:25)
--- NOTE | 2020-06-09 16:25 | DS.PDOC ---
Discharge Summary General Date of Admission Jun 06, 2020 at 14:18 Date of Discharge 06/09/20 Discharge Summary PROCEDURES PERFORMED DURING STAY: [None]. ADMITTING DIAGNOSES: Pneumonia Carcinoma, lung Palliative care encounter COPD (chronic obstructive pulmonary disease) DISCHARGE DIAGNOSES: Pneumonia Carcinoma, lung Palliative care encounter COPD (chronic obstructive pulmonary disease) COMPLICATIONS/CHIEF COMPLAINT: Palliative Care Encounter, Pneumonia. HISTORY OF PRESENT ILLNESS:Patient is 59 years old male with past medical history of Stage IIIB Non small cell lung cancer -Squamous cell type (s/p RLL lo bectomy and external Beam RT in 2016 with Recurrence with new spiculated mass in right lung, he is not a candidate for further treatment), Radiation Fibrosis, Advanced COPD with Pulmonary cachexia BMI was 17 on Mar 23, HFrEF (EF 20-25%) with HFpEF (grade 1) presented hospital with increased right-sided chest pain with cough and sputum production. Patient stated that for past week he has been having shortness of breath associated with yellowish sputum production and cough. In ER patient was found to have no leukocytosis, hemoglobin 11.6, patient afebrile. Chest x-ray showed Significant chronic pleuroparenchymal changes. Suspected superimposed right mid lung opacity. According to patient wishes patient was transferred to [facility] DISCHARGE MEDICATIONS: Please see below. ALLERGIES: Please see below. PHYSICAL EXAMINATION ON DISCHARGE: VITAL SIGNS: Please see below. GENERAL APPEARANCE: Cachectic male HEENT: no scleral icterus, no JVD, EOMI CARDIOVASCULAR: S1S2 LUNGS: Coarse lung sounds bilaterally ABDOMEN: soft & not tender w palpitation MUSCULOSKELETAL: no cyanosis, no swelling INTEGUMENT: no generalized pallor NEUROLOGICAL: cranial nerve function from 2-12 intact intact, follows commands, speech not dysarthric LABORATORY DATA: Please see below. PROGNOSIS: Poor ACTIVITY: [As tolerated]. DIET: Regular DISPOSITION: [facility]. ITEMS TO FOLLOWUP ON ON OUTPATIENT: Follow-up with hospice care DISCHARGE CONDITION: [Stable]. TIME SPENT ON DISCHARGE: Greater than 20 minutes. Vital Signs/I&Os Vital Signs Date Time Temp Pulse Resp B/P (MAP) Pulse Ox O2 Delivery O2 Flow Rate FiO2 06/07/20 15:10 17 06/07/20 14:00 98.5 101 99/64 (76) 98 Room Air I&O- Last 24 Hours up to 6 AM 06/09/20 06:00 Intake Total 2460 ml Output Total 0 ml Balance 2460 ml Discharge Medications Scheduled Lorazepam (Lorazepam) 1 Mg Tablet, 1 TAB PO TID for anxiety Oxycodone Myristate (Xtampza ER) 18 Mg Cap.spr.12, 18 MG PO BID, (Reported) Pregabalin (Lyrica) 300 Mg Capsule, 300 MG PO QAM, (Reported) Scheduled PRN Acetaminophen (Acetaminophen) 325 Mg Tablet, 650 MG PO Q4H PRN for PAIN OR FEVER Albuterol Sulfate (Ventolin Hfa) 18 Gm Hfa.aer.ad, 2 PUFFS INH Q4H PRN for SOB/WHEEZING, (Reported) Bisacodyl (Bisacodyl) 10 Mg Supp.rect, 10 MG ND Q24HP PRN for CONSTIPATION Hyoscyamine Sulfate (Hyoscyamine Sulfate) 0.125 Mg Tab.subl, 0.125 MG PO Q4H PRN for TERMINAL SECRETIONS, (Reported) Lorazepam (Ativan) 0.5 Mg Tablet, 0.5 MG PO Q4HP PRN for ANXIETY/AGITATION, (Reported) Morphine Sulfate (Morphine Sulfate Concentrate) 100 Mg/5 Ml Solution, 5 MG SL Q3HP PRN for PAIN Morphine Sulfate (Morphine Sulfate Concentrate) 100 Mg/5 Ml Solution, 5 MG SL Q1HP PRN for PAIN Scopolamine (Transderm-Scop) 1 Each Patch.td.3, 1 MG TOP Q3DP PRN for EXCESSIVE SECRETIONS Tramadol HCl/Acetaminophen (Tramadol-Acetaminophn 37.5-325) 1 Each Tablet, 1 TAB PO Q6HP PRN for PAIN Allergies Coded Allergies: No Known Allergies (Unverified , 10/23/19) ABA COBIAN DO Jun 09, 2020 16:25
== END 2020-06-09 09:10 | disposition hospice, home (50) | DRG 194 ==
LOC: EDBD 10:32 → M ED 10:32 → M ED INP 14:18 → M MS5PR 16:05
PROVIDERS: ADMIT Internal Medicine; ATTEND Internal Medicine
DX: J18.9 Pneumonia, unspecified organism (principal); C34.91 Malignant neoplasm of unspecified part of right bronchus or lung; I50.32 Chronic diastolic (congestive) heart failure; Z68.1 Body mass index [BMI] 19.9 or less, adult; Z51.5 Encounter for palliative care; J44.9 Chronic obstructive pulmonary disease, unspecified; J84.10 Pulmonary fibrosis, unspecified; Z79.899 Other long term (current) drug therapy; I27.20 Pulmonary hypertension, unspecified; I08.1 Rheumatic disorders of both mitral and tricuspid valves; F32.9 Major depressive disorder, single episode, unspecified; F17.200 Nicotine dependence, unspecified, uncomplicated